=== PATIENT | female | born 1985 | race Caucasian/White ===

== ENCOUNTER → 2018-07-10 12:36 | Outpatient (CLI) | payer MEDICARE, MEDICAID, SELFPAY ==
--- NOTE | 2018-07-10 12:39 | CT_ITS ---
STUDY: CT BRAIN WITH AND WITHOUT CONTRAST REASON FOR EXAM: Female, 33 years old. Chronic daily headaches. Memory impairment. RADIATION DOSAGE (If Supplied By Facility): CTDIvol = ( 44.99 ) mGy, DLP = ( 1479.73 ) mGycm TECHNIQUE: Transaxial CT imaging of the brain was performed pre and post contrast administration. The examination was performed with intravenous administration of 50 ml of Isovue 370 contrast material. Individualized dose optimization techniques were used for this CT. COMPARISON: None. FINDINGS: Normal soft tissue structures. Normal calvarium. Normal size ventricles and extra-axial spaces for the patient's age. Normal white matter tracts of the cerebral hemispheres. Normal basal ganglia and thalami. Normal brainstem. Normal cerebellum. There is no intracranial hemorrhage. There are no findings of an acute ischemic infarction. Normal visualized paranasal sinuses. CT/Brain/Head W/WO Contrast IMPRESSION: Normal unenhanced and enhanced CT scan of the brain. Electronically Signed: Paxton Paulino MD at 15:55 EST Tel [phone], Service support ,
--- OUTSIDE RECORDS SUMMARY | 2018-09-04 11:18 | XMS RPT_ITS | Clinical Summary ---
:1985 Author Organization [facility], [facility] Address [address] [place] [phone] Phone Care Team Providers Name Role Phone Raven Shepard LPN Unavailable Unavailable Conditions or Problems Problem Problem Onset Status Entry Provider Comment Standard Annotate Name Code Date Date Description Adrenal [id number] Active Kay Franco Disorder of disorder (SNOMED 08/11 [facility] [employer] adrenal gland CT) Excessive [id number] Active Kya Franco Excessive eating - (SNOMED [facility]ook [employer] eating - polyphagia CT) polyphagia Overweight 512472310 Active Kay Franco Overweight (SNOMED Shook [employer] CT) Hypersomni 59680046 Active Gabriel A Hypersomnia a (SNOMED 03/19 03/[address]) Peripheral 145824857 Active Gabriel A Peripheral edema (SNOMED 03/19 03/[address]) Abnormal 040488668 Inactive Gabriel A Abnormal weight (SNOMED 03/19 03/19 Mauricio DO weight gain gain CT) ARTHRITIS, 18187644 Active Gabriel A Rheumatoid RHEUMATOID (SNOMED 09/09 09/[address]) Urinary 559835400 Resolved Gabriel A Increased frequency (SNOMED 10/24 10/[address] of CT) urination Diarrhea, 747833408 Resolved Gabriel A Chronic chronic (SNOMED 10/24 10/[address]) Hypertrigl 215426946 Active Gabriel A Hypertriglycer >800 yceridemia (SNOMED 10/30 10/[address]) Greater 5837628 Inactive Gabriel A Trochanteric trochanter (SNOMED 10/24 10/24 Mauricio DO bursitis ic CT) bursitis, left Diarrhea, 256210647 Removed Gabriel A Chronic chronic (SNOMED 10/24 10/[address]) Urinary 675717340 Removed Gabriel A Increased frequency (SNOMED 10/24 10/24 Mauricio DO frequency of CT) urination UPPER 28574263 Resolved Gabriel A Upper RESPIRATOR (SNOMED 09/13 09/13 Mauricio DO respiratory Y CT) infection INFECTION Migraine 83027261 Active Gabriel A Migraine headache (SNOMED 04/04 04/[address]) Foot pain, 54355255 Inactive Gabriel A Foot pain left (SNOMED 02/07 02/[address]) UPPER 67910573 Removed Gabriel A Upper RESPIRATOR (SNOMED 09/13 09/13 Mauricio DO respiratory Y CT) infection INFECTION Hypertrigl 161052120 Resolved Gabriel A Hypertriglycer yceridemia (SNOMED 10/25 10/[address]) LEG PAIN, 89489953 Resolved Gabriel A Pain in lower BILATERAL (SNOMED 03/15 03/[address]) POLYCYSTIC 67456423 Resolved Gabriel A Polycystic OVARIAN (SNOMED 03/15 03/15 Mauricio DO ovaries DISEASE CT) DEPRESSION 06272028 Resolved Gabriel A Recurrent since age , MAJOR, (SNOMED 03/15 Mauricio DO major [address]) depression MUSCLE 23903398 Resolved Gabriel A Muscle WEAKNESS (SNOMED 03/15 03/15 Mauricio DO weakness (GENERALIZ CT) ED) NIPPLE 731868789 Resolved Gabriel A Bloody nipple DISCHARGE, (SNOMED 03/23 03/23 Mauricio DO discharge BLOODY CT) HYPERSOMNI 66757394 Resolved Gabriel A Hypersomnia A (SNOMED 04/06 04/[address]) SKIN RASH 234189936 Resolved Gabriel A Eruption (SNOMED 10/03 10/[address] [facility] [address]) SEXUALLY 270787474 Resolved Gabriel A Exposure to TRANSMITTE (SNOMED 10/04 10/04 [facility] sexually D DISEASE, CT) transmissible EXPOSURE disorder TO HYPOKALEMI 31512547 Resolved Gabriel A Hypokalemia A (SNOMED 11/03 11/[address] [facility] [address]) Ingrown 724295916 Resolved Gabriel A Ingrowing nail toenail (SNOMED [facility] CT) Hip pain, 52026970 Resolved Gabriel A Hip pain right (SNOMED 09/13 09/[address] [facility] [address]) Bronchitis 89940830 Resolved Gabriel A Acute , acute (SNOMED 10/25 11/[address] [facility] [address]) Chronic 520891222 Active Gabriel A Chronic pain pain (SNOMED 12/22 12/[address] [facility] [address]) Bronchitis 02202313 Removed Jianming Acute , acute (SNOMED 10/25 11/[address] [facility] [address]) Paronychia 890125401 Resolved Jianming Paronychia of left big , great (SNOMED [facility] toe toe toe CT) Hypertrigl 668848245 Removed Jianming Hypertriglycer yceridemia (SNOMED 10/25 10/[address] [facility]) Superficia 059391428 Resolved Jianming Superficial right l vein (SNOMED 09/29 09/29 [facility] vein basilic thrombosis CT) thrombosis vein from just above elbow to wrist Superficia [id number] Removed Jianming Superficial right l vein (SNOMED 09/29 09/29 [facility] vein basilic thrombosis CT) thrombosis vein from just above elbow to wrist Hip pain, 51603665 Removed Jianming Hip pain right (SNOMED 09/13 09/[address]) Ingrown 696910194 Removed Jianming Ingrowing nail toenail (SNOMED [facility] CT) Paronychia 445284188 Removed Jianming Paronychia of left big , great (SNOMED [facility] toe toe toe CT) Back pain, 293431395 Active Jianming Low back pain chronic s/p lumbar (SNOMED [facility] surgery CT) NAUSEA AND 33404707 Resolved Jianming Nausea and VOMITING (SNOMED 11/12 11/[address] [address]) OTITIS 23590146 Resolved Rehana E Chronic otitis EXTERNA, (SNOMED 08/30 08/[address] [facility] [address]) OTITIS 8784274 Resolved Rehana E Acute otitis MEDIA, (SNOMED 08/18 08/18 [facility] media ACUTE, CT) BILATERAL DKA 359540850 Resolved Jianming Diabetic (SNOMED [facility] ketoacidosis CT) CELLULITIS 211549205 Resolved Jianming Cellulitis of the (SNOMED 11/03 11/[address] [address]) site NAUSEA AND 41633071 Removed Jianming Nausea and VOMITING (SNOMED 11/12 11/[address] [address]) HYPOKALEMI 46885265 Removed Jianming Hypokalemia A (SNOMED 11/03 11/[address]) CELLULITIS 353772092 Removed Jianming Cellulitis of the (SNOMED 11/03 11/[address] [facility] [address]) site SEXUALLY 539662506 Removed Marianna A Exposure to TRANSMITTE (SNOMED 10/04 10/04 Flannery sexually D DISEASE, CT) transmissible EXPOSURE disorder TO OTITIS 8532950 Removed Jianming Acute otitis MEDIA, (SNOMED 08/18 08/18 [facility] media ACUTE, CT) BILATERAL OTITIS 8359120 Correctio Jianming Acute otitis MEDIA, (SNOMED 08/18 n 08/18 [facility] media ACUTE, CT) BILATERAL SKIN RASH 048016261 Removed Ness J Eruption (SNOMED 10/03 10/[address]) OTITIS 39895392 Removed Ness J Chronic otitis EXTERNA, (SNOMED 08/30 08/[address]) DKA 520527201 Removed Jianming Diabetic (SNOMED [facility] ketoacidosis CT) OTITIS 3924365 Resolved Jianming Otitis externa EXTERNA (SNOMED 03/23 03/[address]) HYPERSOMNI 06557212 Removed Jianming Hypersomnia A (SNOMED 04/06 04/[address]) ALLERGIC 36651193 Active Jianming Allergic RHINITIS (SNOMED 04/06 04/[address]) OTITIS 5985578 Removed Jianming Otitis externa EXTERNA (SNOMED 03/23 03/[address]) NIPPLE 471498925 Removed Jianming Bloody nipple DISCHARGE, (SNOMED 03/23 03/[address] [facility] [address] BLOODY [address]) NIPPLE 952275959 Correctio Jianming Bloody nipple DISCHARGE, (SNOMED 03/23 n 03/[address] [facility] [address] B[address]ODY [address]) OTITIS 9259352 Correctio Jianming Otitis externa EXTERNA (SNOMED 03/23 n 03/[address]) 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, (SNOMED 02/10 02/[address]) POLYCYSTIC 40751764 Active Ness J Polycystic OVARIAN (SNOMED 02/10 02/[address]) FIBROMYALG 21759814 Active Ness J Fibromyositis IA, SEVERE (SNOMED 02/10 02/[address]) IMMUNOCOMP 221169681 Active Ness J Immunodeficien ROMISED (SNOMED 02/10 02/[address]) HUMAN 512480300 Active Ness J Human PAPILLOMAV (SNOMED 02/10 02/[address]) virus infection TACHYCARDI 2627120 Active Jianming Tachycardia since 2003 A (SNOMED 01/[address]) HYPOGLYCEM 659817539 Resolved Jianming Hypoglycemia IA (SNOMED 09/24 09/[address]) MOVEMENT 02679263 Resolved Jianming Movement DISORDER (SNOMED 09/24 09/[address] [facility]) ROSACEA 679904460 Active Jianming Rosacea (SNOMED 01/14 01/[address]) TACHYCARDI 5186693 Resolved Jianming Tachycardia A (SNOMED 03/[address]) GLUCOCORTI 511640977 Resolved Jianming 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 PHARYNGITI 770617343 Resolved Jianming Acute S, ACUTE (SNOMED 09/07 09/[address] [address]) UPPER 04622404 Resolved Jianming Upper RESPIRATOR (SNOMED 09/13 09/[address] [facility] respiratory Y CT) infection INFECTION COUGH 59729511 Resolved Jianming Cough (SNOMED 09/13 09/[address]) HYPOGLYCEM 911098367 Removed Jianming Hypoglycemia IA (SNOMED 09/24 09/[address]) MOVEMENT 70897276 Removed Jianming Movement DISORDER (SNOMED 09/24 09/[address] [facility]) COUGH 32045024 Removed Salma M Cough (SNOMED 09/13 09/[address]) UPPER 96973816 Removed Salma M Upper RESPIRATOR (SNOMED 09/13 09/[address]) infection INFECTION PHARYNGITI 906040141 Removed Jianming Acute S, ACUTE (SNOMED 09/07 09/[address] [address]) MELENA 2578017 Resolved Jianming Melena (SNOMED 11/06 11/[address]) LOCALIZED R22.9 Resolved Jianming Localized right SUPERFICIA (ICD-10-CM [facility] swelling, mass axillary L SWELLING ) and lump, MASS OR unspecified LUMP LIVER V12.2 Resolved Jianming Personal FUNCTION (ICD-9-CM) 03/15 03/15 [facility] history of TESTS, endocrine, ABNORMAL, metabolic, and HX OF immunity disorders CONSTIPATI 983457096 Resolved Jianming Chronic ON, (SNOMED 09/23 09/[address] [facility] [address] CHRONIC CT) ABDOMINAL R10.31 Resolved Jianming Right lower PAIN RIGHT (ICD-10-CM 09/23 09/23 [facility] quadrant pain LOWER ) QUADRANT OTITIS 2169174 Resolved Jianming Otitis externa EXTERNA (SNOMED 08/22 08/[address]) GLUCOCORTI 289262842 Removed Jianming 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 OTITIS 8424920 Removed Jianming Otitis externa EXTERNA (SNOMED 08/22 08/[address]) LOCALIZED R22.9 Removed Jianming Localized right SUPERFICIA (ICD-10-CM 0 [facility] swelling, mass axillary L SWELLING ) and lump, MASS OR unspecified LUMP BIPOLAR 732181455 Active Jianming Bipolar diagnosed AFFECTIVE (SNOMED 02/19 [facility] affective by DISORDER, CT) disorder, psychiatris DEPRESSED current t at episode Kristian depression in [place] GASTROESOP 857262866 Active Jianming Gastroesophage HAGEAL (SNOMED 02/19 [facility] al reflux REFLUX CT) disease DISEASE INSOMNIA, 130623530 Active Jianming Insomnia CHRONIC (SNOMED 02/19 02/[address]) ACUTE 79604248 Resolved Jianming Acute ETHMOIDAL (SNOMED 09/18 09/18 [facility] ethmoidal SINUSITIS CT) sinusitis MELENA 0243521 Removed Luis Eduardo M Melena (SNOMED 11/06 11/[address]) ACUTE 21337691 Removed Jianming Acute ETHMOIDAL (SNOMED 09/18 09/18 [facility] ethmoidal SINUSITIS CT) sinusitis ABDOMINAL R10.31 Removed Jianming Right lower PAIN RIGHT (ICD-10-CM 09/23 09/23 [facility] quadrant pain LOWER ) QUADRANT CONSTIPATI 366921397 Removed Jianming Chronic ON, (SNOMED 09/23 09/[address] [facility] [address]) ARTHRITIS, 87114932 Inactive Jianming Rheumatoid f/u DrVerito RHEUMATOID (SNOMED 09/09 09/09 [facility] [address] [place] CT) DYSLIPIDEM 101196777 Active Jianming Dyslipidemia IA (SNOMED 04/03 04/[address]) MUSCLE 38010470 Removed Jianming Muscle WEAKNESS (SNOMED 03/15 03/15 [facility] weakness (GENERALIZ CT) ED) DEPRESSION 14280591 Removed Jianming Recurrent since age , MAJOR, (SNOMED 03/15 [facility] major [address]) depression POLYCYSTIC 43223564 Removed Jianming Polycystic OVARIAN (SNOMED 03/15 03/[address] [facility] [address]) IRRITABLE 30952226 Active Jianming Irritable BOWEL (SNOMED 03/15 03/15 [facility] bowel syndrome SYNDROME CT) TACHYCARDI 8979160 Removed Jianming Tachycardia A (SNOMED 03/[address]) LEG PAIN, 80955007 Removed Jianming Pain in lower BILATERAL (SNOMED 03/15 03/[address]) HYPOTHYROI 97996351 Active Jianming Hypothyroidism DISM (SNOMED 08/11 03/[address]) DIABETES 74774324 08/11/19 Active Jianming Type 1 MELLITUS, (SNOMED 03/15 [facility] diabetes TYPE I CT) mellitus LIVER V12.2 Removed Jianming Personal FUNCTION (ICD-9-CM) 03/15 03/15 [facility] history of TESTS, endocrine, ABNORMAL, metabolic, and HX OF immunity disorders Medications Medication Instructions Start Stop Generic Name NDC Provider Date Date NOVOLOG 100 Take 35 units 2024/ INSULIN ASPART [id number] Kay Franco UNIT/ML SOLN each meal 07/02 [facility] [employer] sliding scale up to 130 daily LANTUS 100 Take 56 units 2024/ INSULIN GLARGINE 89811560589 Kay Franco UNIT/ML SOLN daily 07/02 Mike GARNER FREESTYLE LITE Use for 2024/ BLOOD GLUCOSE 03802652456 Kay ROMAN diabetes to 07/02 MONITORING SUPPL Mike GARNER test blood glucose level 6 times daily ICD!) E10.9 FREESTYLE LITE Use for 2024/ BLOOD GLUCOSE 79059117206 Kay ROMAN diabetes 07/02 MONITORING SUPPL Mike GARNER ICD!) E10.9 FREESTYLE LITE Check BG 6 2024/ GLUCOSE BLOOD 98915837599 Kay J TEST STRP times daily 07/02 Mike GARNER ICD10 E10.9 NOVOLOG 100 Take 35 units 2024/ INSULIN ASPART 15880650606 Kay Joan UNIT/ML SOLN each meal /07/02 Mike GARNER FREESTYLE LITE Check BG 6 2024/ GLUCOSE BLOOD 58823662706 Kay Joan TEST STRP times daily 07/02 Mike GARNER FREESTYLE LITE Use for 2024/ BLOOD GLUCOSE 23198250041 Kay ROMAN diabetes 07/02 MONITORING SUPPL Mike GARNER ATORVASTATIN One tablet by ATORVASTATIN CALCIUM 20024231005 Gabriel A CALCIUM 20 MG mouth daily at /15 [facility] TABS night for high cholesterol FUROSEMIDE 20 MG One tablet by FUROSEMIDE 44201390013 Gabriel A TABS mouth daily / [facility] DO ATENOLOL 50 MG One tablet by ATENOLOL 08677828636 Gabriel A TABS mouth twice / [facility] daily DEXAMETHASONE 1 One tab by DEXAMETHASONE 77343247401 Gabriel A MG TABS mouth at 11pm, / [facility] DO lab work at 8AM the next morning ZYRTEC ALLERGY One tablet by CETIRIZINE HCL 42115231321 Gabriel A 10 MG TABS mouth daily at / [facility] bedtime OMEPRAZOLE 20 MG One tablet by OMEPRAZOLE 19858532216 Gabriel A TBEC mouth daily / [facility] DO SYNTHROID 137 One tablet by LEVOTHYROXINE SODIUM 72313504511 Gabriel A MCG TABS mouth daily / [facility] NOVOLIN N 100 40-50 units INSULIN ISOPHANE 08267819610 Gabriel A UNIT/ML SUSP twice daily / HUMAN [facility] ACYCLOVIR 400 MG One tablet by ACYCLOVIR 93445141134 Gabriel A TABS mouth daily / [facility] DIVALPROEX Two tablets by DIVALPROEX SODIUM 68135418653 Gabriel A SODIUM 250 MG mouth daily / [facility] TBEC SEROQUEL 200 MG One tablet by QUETIAPINE FUMARATE 90762567119 Gabriel A TABS mouth daily / [facility] EFFEXOR XR 75 MG Three tablets VENLAFAXINE HCL 48005535459 Gabriel A [id number] by mouth daily / [facility] NOVOLOG 100 15-30 units INSULIN ASPART 81484241890 Gabriel A UNIT/ML SOLN three times a / [facility] day with meals BD INSULIN 5-6 times INSULIN 54396532601 Gabriel A SYRINGE daily DX: SYRINGE-NEEDLE U-100 [facility] ULTRAFINE 30G X type I / 0.5 ML DOXEPIN HCL 25 1 capsule by DOXEPIN HCL 75642405282 Gabriel A MG CAPS mouth at night / [facility] for IBS FENOFIBRATE 48 Two tablets FENOFIBRATE 94063108612 Gabriel A MG TABS daily / [facility] ACYCLOVIR 400 MG One tablet by ACYCLOVIR 59193618673 Gabriel A TABS mouth twice [facility] daily XIFAXAN 550 MG One tablet by 2015/ RIFAXIMIN 15760576299 Gabriel A TABS mouth three /11/07 [facility] times daily DIAZEPAM 5 MG One tablet by DIAZEPAM 41007897047 Gabriel A TABS mouth daily / [facility] every night, avoid driving or operating machine under the influence of medication. PROPRANOLOL HCL One capsule by PROPRANOLOL HCL 42913158929 Gabriel A ER 80 MG mouth daily at / [facility] [id number] night for migraine prevention and tachycardia NOVOLOG 100 30 units three INSULIN ASPART 57711476443 Gabriel A UNIT/ML SOLN times a day / Mauricio DO with meals NOVOLIN N 100 45 units SC INSULIN ISOPHANE 70097574298 Gabriel A UNIT/ML SUSP twice daily / HUMAN Mauricio DO FOLIC ACID 1 MG Two tablets by FOLIC ACID 32224077396 Gabriel A TABS mouth daily / Mauricio DO KLOR-CON M20 20 One tablet by POTASSIUM CHLORIDE 26827957880 Gabriel A MEQ CR-TABS mouth daily /12 MELANY CR Mauricio DO ATENOLOL 50 MG One tablet by ATENOLOL 31007302076 Gabriel A TABS mouth twice / Mauricio DO daily NOVOLOG 100 25 units SC at INSULIN ASPART 15442114502 Gabriel A UNIT/ML SOLN BF, 30 units / Mauricio DO at Lunch [employer] Supp[employer] FENOFIBRATE 48 One tablet by FENOFIBRATE 97336305553 Jianming MG TABS mouth daily, [facility] then increase to two tablets if tolerate it DOXYCYCLINE One tablet by DOXYCYCLINE HYCLATE 59711344841 [facility] HYCLATE 100 MG mouth twice / [facility] CAPS daily x 10 days PRAVASTATIN One tablet by PRAVASTATIN SODIUM 14671955465 Jianming SODIUM 40 MG mouth daily / [facility] TABS every night AMOXICILLIN-POT One tablet by AMOXICILLIN-POT 55523177782 Jianming CLAVULANATE mouth twice / CLAVULANATE [facility] 875-125 MG TABS daily SYNTHROID 112 One tablet by LEVOTHYROXINE SODIUM 09452027680 Lakishamsing MCG TABS mouth daily / [facility] QUETIAPINE Three tablets QUETIAPINE FUMARATE 17841946967 Jianming FUMARATE 50 MG by mouth daily / [facility] TABS at bed time DIVALPROEX One tablet by DIVALPROEX SODIUM 04460717509 Jianming SODIUM 250 MG mouth twice / [facility] TBEC daily DIAZEPAM 2 MG One tablet by DIAZEPAM 38863809162 Jianming TABS mouth daily / [facility] every night QUETIAPINE Two tablets by QUETIAPINE FUMARATE 37666975021 Jianming FUMARATE 50 MG mouth daily / [facility] TABS every night EFFEXOR XR 150 One tablet by VENLAFAXINE HCL 03391949532 Jianming MG [id number] mouth daily / [facility] COLACE 100 MG One tablet by DOCUSATE SODIUM 77906475575 Jianming CAPS mouth daily / [facility] PROMETHAZINE HCL One tablet by PROMETHAZINE HCL 52046351718 Jianming 12.5 MG TABS mouth three [facility] times daily as needed nausea/vomitin g DIAZEPAM 2 MG One tablet by DIAZEPAM 77063331248 Jianming TABS mouth twice / [facility] daily QUETIAPINE Two tablets by QUETIAPINE FUMARATE 63727488088 Jianming FUMARATE 50 MG mouth twice [facility] TABS daily SULFAMETHOXAZOLE One tablet by SULFAMETHOXAZOLE-TRI 34927563320 Jianming -TRIMETHOPRIM mouth twice METHOPRIM [facility] 800-160 MG TABS daily AMPICILLIN 500 One tablet by AMPICILLIN 77593653233 Jianming MG CAPS mouth [facility] times daily ZOLPIDEM One tablet by ZOLPIDEM TARTRATE 54096732972 Lakishanming TARTRATE 5 MG mouth daily / [facility] TABS every night DIVALPROEX One tablet by DIVALPROEX SODIUM 83396520085 Lakishanming SODIUM 125 MG mouth twice / [facility] TBEC daily QUETIAPINE one tablets by QUETIAPINE FUMARATE 77426937307 Jianming FUMARATE 50 MG mouth in AM , / [facility] TABS two tablets by mouth in pM EFFEXOR XR 75 MG One tablet by VENLAFAXINE HCL 94938844306 Leticiaing [id number] mouth daily [facility] QUETIAPINE one tablets by QUETIAPINE FUMARATE 35828753897 Jianming FUMARATE 50 MG mouth in AM , [facility] TABS two tablets by mouth in pM SYNTHROID 100 One tablet by LEVOTHYROXINE SODIUM 85854401762 Lakishamsing MCG TABS mouth daily / [facility] AMOXICILLIN-POT One tablet by AMOXICILLIN-POT 79352861742 Lakishanming CLAVULANATE mouth twice / CLAVULANATE [facility] 875-125 MG TABS daily QUETIAPINE One tablet by QUETIAPINE FUMARATE 32486717996 Jianming FUMARATE 50 MG mouth twice / [facility] TABS daily x 1 day, then titrate up as directed VALIUM 2 MG TABS One tablet by DIAZEPAM 00794812665 Jianming mouth twice / [facility] daily ZOLPIDEM One tablet by ZOLPIDEM TARTRATE 38977440342 Lakishanming TARTRATE 5 MG mouth daily / [facility] TABS every night as needed, avoid driving or operating machine under the influence of medication. MUPIROCIN 2 % apply to MUPIROCIN 40051522726 Jianming OINT affected area / [facility] four times a day CIPRO HC 0.2-1 % 4 gtt to left CIPROFLOXACIN-HYDROC 29125871346 Lakishamsing SUSP ear three ORTISONE [facility] times a day PODOCON 25 % PODOPHYLLUM RESIN 42479921533 Ness J SOLN / Maria Elena [facility] ACYCLOVIR 800 MG one po q 8 hrs ACYCLOVIR 40548200886 Ness J TABS / Signs FAMVIR 500 MG one po tid FAMCICLOVIR 59314921009 Ness J TABS /03 Signs METROGEL 1 % GEL apply to METRONIDAZOLE 62481088896 Jianming affected area / [facility] thin layer, once daily DOXYCYCLINE One tablet by [facility]77675 [facility] MG mouth twice / [facility] CAPS daily x 10 days, then One tablet by mouth daily VENLAFAXINE HCL One tablet by VENLAFAXINE HCL 74618029231 Lakishanming ER 75 MG mouth daily / [facility] [id number] TRAZODONE HCL 50 Two tablets by TRAZODONE HCL 80134523350 Jianming MG TABS mouth daily / [facility] AZITHROMYCIN 250 two tablets by AZITHROMYCIN 11182825897 Jianming MG TABS mouth on day / [facility] one, and one tablets daily one day 2-5 EFFEXOR XR 37.5 One tablet by VENLAFAXINE HCL 88559391749 Jianming MG [id number] mouth daily / [facility] CETRAXAL 0.2 % 4-5 drop CIPROFLOXACIN HCL 66922130203 Jianming SOLN affected ear / [facility] three times a day DIVALPROEX One tablet by DIVALPROEX SODIUM 18302633962 Lakishanming SODIUM 250 MG mouth twice / [facility] TBE daily DISABILITY DX: Rheumatoid DISABILITY PLACARD Rabia PLACARD arthritis / [facility] duration: five years PROTONIX 40 MG One tablet by PANTOPRAZOLE SODIUM 93628966366 Lakishanming PACK mouth daily. [facility] DIVALPROEX One tablet by DIVALPROEX SODIUM 95151160103 Lakishanming SODIUM 125 MG mouth twice / [facility] TBEC daily ATENOLOL 50 MG One tablet by ATENOLOL 80143484843 Jianming TABS mouth daily at [facility] bedtime TRAZODONE HCL 50 One tablet by TRAZODONE HCL 19348612507 Lakishanming MG TABS mouth daily / [facility] every night CITALOPRAM One tablet by CITALOPRAM 86752219759 Rabia HYDROBROMIDE 40 mouth daily / HYDROBROMIDE [facility] MG TABS NOVOLIN N 100 40 units SC INSULIN ISOPHANE 05616940714 Lakishanming UNIT/ML SUSP twice daily / HUMAN [facility] HUMALOG 100 30 units SC INSULIN LISPRO 14022463358 Lakishanming UNIT/ML SOLN before meals (HUMAN) [facility] AUGMENTIN XR One tablet by AMOXICILLIN-POT 81048054902 Rabia 1000-62.5 MG mouth twice / CLAVULANATE [facility] [id number] daily METHOTREXATE 2.5 4 pills by METHOTREXATE SODIUM 75242371859 Lakishanming MG TABS mouth once / [facility] weekly CIPROFLOXACIN One tablet by 2010/ CIPROFLOXACIN HCL 72102313713 Lakishanming HCL 500 MG TABS mouth twice /08/02 [facility] daily METRONIDAZOLE One tablet by 2010/ METRONIDAZOLE 41658839950 Lakishanming 500 MG TABS mouth three /08/02 [facility] times daily INDOMETHACIN 25 1-2 tablets INDOMETHACIN 08287307223 Leticiaing MG CAPS three times a [facility] day as needed pain GLUCOMETER use as GLUCOMETER Rabia directed AC / [facility] and [facility] HUMALOG 100 40 units SC at INSULIN LISPRO 72387242872 Jianming UNIT/ML SOLN each meal / (HUMAN) [facility] PRAVASTATIN One tablet by PRAVASTATIN SODIUM 81388871459 Jianming SODIUM 80 MG mouth daily / [facility] TABS LEVEMIR 100 40 units SC INSULIN DETEMIR 39031719450 Jian[place] UNIT/ML SOLN twice daily / [facility] NOVOLIN N 100 40 units SQ INSULIN ISOPHANE 25585165365 Luis Eduardo M UNIT/ML SUSP twice daily. / HUMAN Kunal [facility] HUMULIN N 100 40 units twice INSULIN ISOPHANE 89404213264 Jianming UNIT/ML SUSP daily / HUMAN [facility] HUMALOG 100 20 units per INSULIN LISPRO 39477342792 Jianming UNIT/ML SOLN meal / (HUMAN) [facility] ULTRAM 50 MG Two tablets by TRAMADOL HCL 24541838867 Jianming TABS mouth [facility] times daily, avoid driving or operating machine under the influence of medication. PRAVASTATIN One tablet by PRAVASTATIN SODIUM 24216361770 Jianming SODIUM 20 MG mouth daily / [facility] TABS every night TRAZODONE HCL 50 One tablet by TRAZODONE HCL 48828978172 Jianming MG TABS mouth daily / [facility] every night LEXAPRO 20 MG One tablet by ESCITALOPRAM OXALATE 48475866490 Jianming TABS mouth daily / [facility] ATENOLOL 50 MG One tablet by ATENOLOL 04929646618 Jianming TABS mouth daily at / [facility] bedtime HYDROCODONE-ACET One tablet by HYDROCODONE-ACETAMIN 58731407886 Leticia[facility] AMINOPHEN 5-500 mouth HUBERT Carlson MD MG TABS times daily avoid driving or operating machine under the influence of medication. HYDROCODONE-ACET One tablet by 2011/ HYDROCODONE-ACETAMIN 49494316308 Lakishanming AMINOPHEN 5-500 mouth 02/19 HUBERT Carlson MD MG TABS times daily avoid driving or operating machine under the influence of medication. ULTRAM 50 MG Two tablets by 2011/ TRAMADOL HCL 04725272188 Jianming TABS mouth 09/18 [facility] times daily, avoid driving or operating machine under the influence of medication. AUGMENTIN XR One tablet by 2011/ AMOXICILLIN-POT [id number] Luis Eduardo M 1000-62.5 MG mouth twice 11/06 CLAVULANATE Kunal IQBAL [id number] daily FOLIC ACID 1 MG 2 tablets by FOLIC ACID [id number] Jianming TABS mouth daily Aldo IQBAL FOLIC ACID 1 MG 2 tablets by 2011/ FOLIC ACID [id number] Luis Eduardo M TABS mouth daily /11/06 Kunal IQBAL LEUCOVORIN one tablet by LEUCOVORIN CALCIUM 53866086381 Jianming CALCIUM 5 MG mouth once Aldo IQBAL TABS weekly LEUCOVORIN one tablet by 2011/ LEUCOVORIN CALCIUM 86924705338 Luis Eduardo M CALCIUM 5 MG mouth once 11/06 Kunal IQBAL TABS weekly LEVEMIR 100 40 units SC 2010/ INSULIN DETEMIR 10953920589 Jianming UNIT/ML SOLN twice daily 07/11 Aldo IQBAL HUMALOG 100 INSULIN LISPRO 86538173909 Jianming UNIT/ML SOLN (HUMAN) Aldo IQBAL HUMULIN N 100 40 units twice 2010/ INSULIN ISOPHANE 52359841812 Luis Eduardo M UNIT/ML SUSP daily 07/01 HUMAN Kunal IQBAL NOVOLIN N 100 40 units SQ 2010/ INSULIN ISOPHANE 69613916907 Jianming UNIT/ML SUSP twice daily. 07/10 HUMAN Aldo IQBAL INDOMETHACIN 25 1-2 tablets 2011/ INDOMETHACIN 71651975839 Jianming MG CAPS three times 02/19 Aldo IQBAL day as needed pain METANX 3-35-2 MG One tablet by [id number] Luis Eduardo M TABS mouth twice 2 Kunal IQBAL daily METANX 3-35-2 MG One tablet by 2011/ [id number] Jianming TABS mouth twice 06/03 2 Aldo IQBAL daily ENBREL 50 MG/ML 1 time weekly ETANERCEPT 36045718960 Jianming SOSY Aldo IQBAL ENBREL 50 MG/ML 1 time weekly 2011/ ETANERCEPT [id number] Jianming SOSY /06/03 Aldo IQBAL PROTONIX 40 MG One tablet by 2011/ PANTOPRAZOLE SODIUM 86670023677 Jianming PACK mouth daily. /06/03 Aldo IQBAL DIVALPROEX One tablet by 2011/ DIVALPROEX SODIUM 06073733439 Jianming SODIUM 250 MG mouth twice /06/03 Aldo IQBAL TBEC daily PREDNISONE 10 MG One tablet by PREDNISONE [id number] Jianming TABS mouth twice / Aldo IQBAL daily PREDNISONE 10 MG One tablet by 2011/ PREDNISONE [id number] Jianming TABS mouth twice /06/03 Aldo IQBAL daily CITALOPRAM One tablet by 2011/ CITALOPRAM [id number] Rabia HYDROBROMIDE 40 mouth daily /06/03 HYDROBROMIDE Aldo IQBAL MG TABS NUCYNTA 50 MG One tablet by TAPENTADOL HCL 46087251009 Jianming TABS mouth twice / Aldo IQBAL daily NUCYNTA 50 MG One tablet by 2011/ TAPENTADOL HCL [id number] Jianming TABS mouth twice /06/03 Aldo IQBAL daily NEURONTIN 100 MG One tablet by GABAPENTIN 14439547798 Jianming CAPS mouth twice / Aldo IQBAL daily NEURONTIN 100 MG One tablet by 2011/ GABAPENTIN [id number] Jianming CAPS mouth twice /06/03 Aldo IQBAL daily LEVOTHYROXINE One tablet by LEVOTHYROXINE SODIUM 04719387500 Lakishanming SODIUM 125 MCG mouth daily / Aldo IQBAL TABS HUMALOG 100 40 units SC at 2011/ INSULIN LISPRO 76901942938 Jianming UNIT/ML SOLN each meal /06/03 (HUMAN) Aldo IQBAL NOVOLIN N 100 40 units SC 2011/ INSULIN ISOPHANE 95854801798 Jianming UNIT/ML SUSP twice daily /06/03 HUMAN Aldo IQBAL AZITHROMYCIN 250 two tablets by 2012/ AZITHROMYCIN 58499468403 Jianming MG TABS mouth on day /09/24 Aldo IQBAL one, and one tablets daily one day 2-5 HUMIRA PEN 40 1 injection ADALIMUMAB 39235872651 Jianming MG/0.8ML KIT every Aldo IQBAL week HUMIRA PEN 40 1 injection 2012/ ADALIMUMAB 23742946912 Jianming MG/0.8ML KIT every other 01/14 Aldo IQBAL week EFFEXOR XR 37.5 One tablet by 2012/ VENLAFAXINE HCL 44302233526 Jianming MG [id number] mouth daily /01/14 Aldo IQBAL DOXYCYCLINE One tablet by 2012/ DOXYCYCLINE HYCLATE 52441795838 Ness J HYCLATE 100 MG mouth twice /02/10 Signs CAPS daily x 10 days, then One tablet by mouth daily VENLAFAXINE HCL One capsule by VENLAFAXINE HCL 78918961600 Salma Milton ER 75 MG mouth daily / Mallorie [id number] VENLAFAXINE HCL One capsule by 2012/ VENLAFAXINE HCL [id number] Ness Franco ER 75 MG mouth daily /02/10 Maria Elena IQBAL [id number] NUCYNTA ER 50 MG One tablet by TAPENTADOL HCL [id number] Jianming [id number] mouth Aldo IQBAL times daily NUCYNTA ER 50 MG One tablet by 2012/ TAPENTADOL HCL 65264031185 Ness Franco [id number] mouth three 02/10 Maria Elena IQBAL times daily CETRAXAL 0.2 % 4-5 drop 2012/ CIPROFLOXACIN HCL 75317393086 Jianming SOLN affected ear /12 09/24 Aldo IQBAL three times a day PRAVASTATIN One tablet by PRAVASTATIN SODIUM 14870547047 Jianming SODIUM 40 MG mouth daily / Aldo IQBAL TABS PRAVASTATIN One tablet by 2012/ PRAVASTATIN SODIUM 03750238135 Jianming SODIUM 40 MG mouth daily /09/24 Aldo IQBAL TABS SOLU-CORTEF 100 One tablet by HYDROCORTISONE SOD 20890801616 Jianming MG SOLR mouth daily as SUCCINATE Aldo IQBAL needed SOLU-CORTEF 100 One tablet by 2012/ HYDROCORTISONE SOD 16810213924 Jianming MG SOLR mouth daily as /10/19 SUCCINATE Aldo IQBAL needed HYDROCORTISONE 5 One tablet by HYDROCORTISONE 87735804365 Jianming MG TABS mouth daily / Aldo IQBAL HYDROCORTISONE 5 One tablet by 2012/ HYDROCORTISONE 31168152882 Jianming MG TABS mouth daily /10/19 Aldo CHIANG 10 one patch per BUPRENORPHINE 80642451776 Jianming MCG/HR PTWK week Aldo CHIANG 10 one patch per 2012/ BUPRENORPHINE 75808193978 Jianming MCG/HR PTWK week 10/19 Aldo IQBAL HUMULIN R U-500 12 units per INSULIN REGULAR 21122472340 Jianming (CONCENTRATED) meal / HUMAN Aldo IQBAL 500 UNIT/ML SOLN HUMULIN R U-500 12 units per 2012/ INSULIN REGULAR 74714298235 Jianming (CONCENTRATED) meal 10/19 HUMAN Aldo IQBAL 500 UNIT/ML SOLN METHOTREXATE 2.5 4 pills by 2012/ METHOTREXATE SODIUM 31744831044 Ness J MG TABS mouth once 08/02 Maria Elena IQBAL weekly LEUCOVORIN 2 tablets by LEUCOVORIN CALCIUM 16235497425 Lakishamsing CALCIUM 5 MG mouth once / Aldo IQBAL TABS weekly LEUCOVORIN 2 tablets by 2012/ LEUCOVORIN CALCIUM 07108371864 Ness J CALCIUM 5 MG mouth once /08/02 Maria Elena IQBAL TABS weekly SYNTHROID 137 One tablet by LEVOTHYROXINE SODIUM 72152831016 Jianming MCG TABS mouth daily Aldo IQABL SYNTHROID 137 One tablet by 2012/ LEVOTHYROXINE SODIUM 82122047624 Rehana E MCG TABS mouth daily /08/03 Schloneger AMOXICILLIN-POT One tablet by 2013/ AMOXICILLIN-POT 13530707689 [facility] CLAVULANATE mouth twice /09/13 CLAVULANATE Aldo IQBAL 875-125 MG TABS daily METROGEL 1 % GEL apply to 2012/ METRONIDAZOLE 00603453810 Jianming affected area 06/07 Aldo IQBAL thin layer, once daily OMEPRAZOLE 20 MG One tablet by OMEPRAZOLE 29961582871 Jianming TBEC mouth daily / Aldo IQBAL OMEPRAZOLE 20 MG One tablet by 2012/ OMEPRAZOLE 15499208814 Jianming TBEC mouth daily /06/07 Aldo IQBAL FAMVIR 500 MG one po tid 2012/ FAMCICLOVIR 97579733259 Jianming TABS /06/07 Aldo IQBAL FENTANYL 25 change q 3 FENTANYL 10878475004 Ness Franco MCG/HR PT72 days Maria Elena IQBAL FENTANYL 25 change q 3 2012/ FENTANYL 41950659743 Jianming MCG/HR PT72 days 06/07 Aldo IQBAL TRAZODONE HCL 50 Two tablets by 2012/ TRAZODONE HCL 27050316330 Jianming MG TABS mouth daily /04/06 Aldo IQBAL MUPIROCIN 2 % apply to 2012/ MUPIROCIN 35567785518 Jianming OINT affected area /06/07 Aldo IQBAL four times a day ZOLPIDEM One tablet by 2012/ ZOLPIDEM TARTRATE 68879146476 Jianming TARTRATE 5 MG mouth daily /06/07 Aldo IQBAL TABS every night as needed, avoid driving or operating machine under the influence of medication. PODOCON 25 % 2012/ PODOPHYLLUM RESIN 37734931591 Jianming SOLN /06/07 Aldo IQBAL ACYCLOVIR 800 MG one po q 8 hrs 2012/ ACYCLOVIR 76829206722 Jianming TABS /06/07 Aldo IQBAL CIPRO HC 0.2-1 % 4 gtt to left 2012/ CIPROFLOXACIN-HYDROC 98361596750 Jianming SUSP ear three 06/07 ORTISONE Aldo MD times a day VALIUM 2 MG TABS One tablet by 2013/ DIAZEPAM 06039392727 Jianming mouth twice 11/19 Aldo IQBAL daily PROMETHAZINE HCL One tablet by 2013/ PROMETHAZINE HCL 94679621098 Jianming 12.5 MG TABS mouth 12/20 Aldo IQBAL times daily as needed nausea/vomitin g DIVALPROEX One tablet by 2013/ DIVALPROEX SODIUM 26076090537 Jianming SODIUM 125 MG mouth twice /11/12 Aldo IQBAL TBEC daily ZOLPIDEM One tablet by 2013/ ZOLPIDEM TARTRATE 62823465126 Jianming TARTRATE 5 MG mouth daily /11/19 Aldo IQBAL TABS every night SYNTHROID 100 One tablet by 2013/ LEVOTHYROXINE SODIUM 03122210445 Rabia MCG TABS mouth daily /10/22 Aldo IQBAL DEPO-SUBQ once every MEDROXYPROGESTERONE 99357414025 Jianming PROVERA 104 104 three months / ACETATE Aldo IQBAL MG/0.65ML PARVIN DEPO-SUBQ once every 2013/ MEDROXYPROGESTERONE 08546436864 Jianming PROVERA 104 104 three months /11/03 ACETATE Aldo IQBAL MG/0.65ML PARVIN NOVOLIN N 100 40 units SC INSULIN ISOPHANE 44677337966 Jianming UNIT/ML SUSP twice daily HUMAN Aldo IQBAL NOVOLOG 100 25 units SC at INSULIN ASPART 09419134092 Jianming UNIT/ML SOLN BF, 30 units / Aldo IQBAL at Lunch and Supper DIAZEPAM 2 MG One tablet by 2013/ DIAZEPAM 51606159205 Rehana E TABS mouth daily /01/21 Schloneger every night AMOXICILLIN-POT One tablet by 2013/ AMOXICILLIN-POT 77530901792 Salma Milton CLAVULANATE mouth twice /07/13 CLAVULANATE Mallorie 875-125 MG TABS daily NUCYNTA ER 50 MG One tablet by TAPENTADOL HCL 55026052291 Rabia [id number] mouth twice / Aldo IQBAL daily as needed NUCYNTA ER 50 MG One tablet by 2013/ TAPENTADOL HCL [id number] Salma Milton [id number] mouth twice /07/13 Mallorie daily as needed TOPIRAMATE 50 MG One tablet by TOPIRAMATE 39330422664 Salma M TABS mouth daily / Mallorie TOPIRAMATE 50 MG One tablet by 2013/ TOPIRAMATE 98390249760 Jianming TABS mouth daily /07/29 Aldo IQBAL AMPICILLIN 500 One tablet by 2013/ AMPICILLIN 75436620546 Lakishanming MG CAPS mouth four 12/20 Aldo IQBAL times daily VITAMIN D one tablet by ERGOCALCIFEROL 31659487888 Rabia (ERGOCALCIFEROL) mouth once / Aldo IQBAL 36589 UNIT CAPS weekly VITAMIN D one tablet by 2013/ ERGOCALCIFEROL 27862641691 Jianming (ERGOCALCIFEROL) mouth once 12/20 Aldo IQBAL 74439 UNIT CAPS weekly SULFAMETHOXAZOLE One tablet by 2013/ SULFAMETHOXAZOLE-TRI 35458628245 Jianming -TRIMETHOPRIM mouth twice /12/20 METHOPRIM Aldo IQBAL 800-160 MG TABS daily GLUCAGEN HYPOKIT as needed IM GLUCAGON HCL (RDNA) 86104545751 Jianming 1 MG SOLR Aldo IQBAL hypoglycemia DEXAMETHASONE 1 One tab by 2016/ DEXAMETHASONE 02374114127 Raven L MG TABS mouth at 11pm, 03/31 [facility] lab work at 8AM the next morning XIFAXAN 550 MG One tablet by 2015/ RIFAXIMIN 95321802145 Gabriel A TABS mouth three 11/07 [facility] times daily ATENOLOL 50 MG One tablet by ATENOLOL 75104416883 Raven L TABS mouth twice / [facility] daily ATENOLOL 50 MG One tablet by 2014/ ATENOLOL [id number] Gabriel A TABS mouth twice /04/04 Mauricio DO daily DOXYCYCLINE One tablet by 2014/ DOXYCYCLINE HYCLATE 69920759189 Gabriel A HYCLATE 100 MG mouth twice /12/22 [facility] DO CAPS daily x 10 days HYDROMORPHONE 1 tablet by HYDROMORPHONE HCL 95778999138 Jianming HCL 2 MG TABS mouth every Aldo IQBAL 4-6 as needed HYDROMORPHONE 1 tablet by 2014/ HYDROMORPHONE HCL [id number] Gabriel A HCL 2 MG TABS mouth every 04/04 Mauricio 4-6 as needed FENTANYL 50 change q 72hrs FENTANYL 59003209038 Jianming MCG/HR PT72 Aldo IQBAL FENTANYL 50 change q 72hrs 2014/ FENTANYL 85356506364 Gabriel A MCG/HR PT72 12/22 [facility] DO SYNTHROID 112 One tablet by 2014/ LEVOTHYROXINE SODIUM 71707059947 Jianming MCG TABS mouth daily /10/25 Aldo IQBAL PRAVASTATIN One tablet by 2014/ PRAVASTATIN SODIUM 52085096677 Jianming SODIUM 40 MG mouth daily /10/25 Aldo IQBAL TABS every night FENOFIBRATE 48 Two tablets 2015/ FENOFIBRATE 63948751846 Gabriel A MG TABS daily /12/26 [facility] DO DOXEPIN HCL 25 1 capsule by 2015/ DOXEPIN HCL 76486579621 Gabriel A MG CAPS mouth at night /03/19 [facility] for IBS FOLIC ACID 1 MG Two tablets by 2015/ FOLIC ACID 02823642057 Gabriel A TABS mouth daily /03/19 [facility] DO PREMARIN 1.25 MG One tablet by ESTROGENS CONJUGATED 55105797598 Jianming TABS mouth daily / Aldo IQBAL PREMARIN 1.25 MG One tablet by 2015/ ESTROGENS CONJUGATED 97755518864 Gabriel A TABS mouth daily /03/19 [facility] KLOR-CON M20 20 One tablet by 2015/ POTASSIUM CHLORIDE 17267944095 Gabriel A MEQ CR-TABS mouth daily /03/19 MELANY CR [facility] FUROSEMIDE 20 MG One tablet by 2016/ FUROSEMIDE 67349013773 Raven L TABS mouth daily /03/31 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 [employer]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 ATORVASTATIN One tablet by 2016/ ATORVASTATIN CALCIUM 29717254943 Raven L CALCIUM 20 MG mouth daily at 03/31 Devyn MANAGER EXCHANGE TABS night for high cholesterol NOVOLOG 100 20-30 units INSULIN ASPART 43727519307 Gabriel A UNIT/ML SOLN three times [facility] day with meals COLACE 100 MG One tablet by 2015/ DOCUSATE SODIUM 20099215799 Gabriel A CAPS mouth daily /10/24 [facility] PROPRANOLOL HCL One capsule by 2014/ PROPRANOLOL HCL 02786273162 Gabriel A ER 80 MG mouth daily at 05/11 [facility] [id number] night for migraine prevention and tachycardia DIAZEPAM 5 MG One tablet by 2015/ DIAZEPAM 60699606504 Gabriel A TABS mouth daily /10/24 [facility] every night, avoid driving or operating machine under the influence of medication. Medications Administered No information available. Allergies, Adverse Reactions, Alerts Allergy Name Reaction Description Start Date Severity Status Provider FENOFIBRATE Arthralgia Moderate Active Gabriel A [facility] DO NSAIDS liver Critical Active Jianming Carlson MD TYLENOL bleeding Critical No Longer Rabia Carlson MD Active ETODOLAC elevated liver Severe Active Rabia Carlson MD enzyme AMITRIPTYLINE bleeding Critical Active Rabia Carlson MD TYLENOL bleeding Critical No Longer Rabia Carlson MD Active NSAIDS Critical No Longer Rabia Carlson MD Active Results Date Name Value Unit Range Flag Description Replaced Document: LIPID VLDL 49 mg/dL 5-40 H very low density lipoproteins LDL 125 mg/dL 0-130 N Cholesterol in LDL [Mass/volume] in Serum or Plasma HDL 37 mg/dL L Cholesterol in HDL [Mass/volume] in Serum or Plasma TRIGLYCRDES 245 mg/dL H Triglyceride [Mass/volume] in Serum or Plasma CHOLESTEROL 211 mg/dL 200 H Cholesterol [Mass/volume] in Serum or Plasma Lab Report: SED ESR 1 mm/h 0-20 N erythrocyte sedimentation rate Lab Report: CRP CRP SQ 3.43 0.0-3.0 H C Reactive Protein, semiquantitative result Lab Report: LIVER BILI DIRECT 0.11 mg/dL 0.00-0.30 N bilirubin, serum, direct Office Visit RAPID STREP negative Streptococcus pyogenes DNA [Presence] in Throat by Probe and target amplification method BG RANDOM 351 mg/dL blood glucose, random PH URINE 5.0 pH, urine, semiquantitative APPEARANCE U clear appearance, urine UA COLOR yellow urine color GLUCOSE, URN 5+ glucose, urine, semiquantitative BILIRUBIN UR 2+ bilirubin, urine KETONES URN moderate (40) ketones, urine, by test strip BLOOD UR DIP 2+ blood in urine (hemoglobin) by dipstick PROTEIN, URN negative Albumin [Presence] in Urine UROBILINOGEN negative urobilinogen, urine, semiquantitative (dipstick) NITRITE URN negative nitrite, urine, semiquantitative WBC DIPSTK U negative leukocyte esterase, urine, by dipstick Lab Report: ACETS - copy ACETONE SMALL mg/dL NEG acetone, serum Lab Report: UAC - copy SPEC GR URIN 1.020 1.002-1.030 specific gravity, urine Lab Report: CMP ALK PHOS 118 U/L 50-136 N alkaline phosphatase, serum Lab Report: TSH TSH 4.82 u[iU]/mL 0.358-3.74 H thyroid stimulating hormone, serum Lab Report: DEBRA VALPROIC ACD 34 ug/mL 50-100 L valproic acid, serum Lab Report: CBCD - copy ABS PMNS 3.9 X10 3/UL {Cells}/uL 2.0-7.7 N Absolute Neutrophil count BASOPHIL % 0.4 % 0-1 N basophils as percent of blood leukocytes EOSINOPHIL % 1.0 % 0-5 N eosinophils as percent of blood leukocytes MONOCYTE % 7.8 % 0-10 N monocytes as percent of blood leukocytes LYMPHS % 35.8 % 19-41 N lymphocytes as percent of blood leukocytes PMN % 53.8 % 47-70 N neutrophils as percent of blood leukocytes MPV 11.7 fL 6.2-12.0 N mean platelet volume PLATELETS 321 10*3/mm3 150-450 N platelet count MCHC RBC 33.4 G/GL g/dL 32-36 N mean corpuscular hemoglobin concentration, RBC MCH 33.0 pg 27.0-32.0 H mean corpuscular hemoglobin, RBC MCV 98.8 fL 81-99 N mean corpuscular volume, RBC HCT 41.3 % 37-47 N hematocrit, blood HGB 13.8 g/dL 12.0-15.0 N hemoglobin, blood RBC M/UL 4.18 10*6/uL 4.2-5.4 L red blood count WBC BLOOD 7.3 10*9/L 4.4-11.0 N leukocyte (white blood cells) count, blood Lab Report: CMP - copy ANION GAP 8 5-15 N anion gap, serum CO2 23.0 mmol/L 21.0-32.0 N carbon dioxide, venous blood CHLORIDE 107 mmol/L 98-107 N chloride, serum POTASSIUM 3.6 mmol/L 3.5-5.1 N potassium, serum SODIUM 138 mmol/L 136-145 N sodium, serum BILI TOTAL 0.10 mg/dL 0.00-4.00 N bilirubin, serum, total SGPT (ALT) 19 U/L 12-78 N alanine aminotransferase (SGPT), serum [id number] 130 U/L 50-136 N GE use only - for Link[employer] import when terms are not otherwise specified SGOT (AST) 15 U/L 15-37 N aspartate aminotransferase (SGOT), serum CALCIUM 8.4 mg/dL 8.5-10.1 L calcium, serum A/G RATIO 0.8 RATIO 0.9-2.4 L albumin/globulin ratio, serum GLOBULIN TOT 3.9 g/dL 2.7-4.2 N globulins, serum, total ALBUMIN 3.2 g/dL 3.4-5.0 L albumin, serum PROTEIN, TOT 7.1 g/dL 6.4-8.2 N protein, total, serum BUN/CREAT 15.0 RATIO 10-20 N urea nitrogen/creatinine ratio, serum GFRAA 110 mL/min >60 N Glomerular Filtration rate GFR EST 91 mL/min >60 N estimated glomerular filtration rate CREATININE 0.8 mg/dL 0.6-1.0 N creatinine, serum BUN 12 mg/dL 7-18 N urea nitrogen, blood GLUCOSE SER 80 mg/dL 70-110 N blood glucose Microbiology: Culture, Ear/Mastoid EAR CULTURE Cult, AnaerobicNo anaerobic bacteria ear culture isolated. Rx Refill: eRx Request for EFFEXOR XR 75MG CAP [id number]`EFFEXOR XR 75MG CAP`75MG``270 B e-scripts Capsule`90`TAKE THREE CAPSULES BY MOUTH ONCE messenger DAILY``1`0`02/07/2015`05/11/2015`[facility] [place] refill [facility]*`[id number]`VENLAFAXINE request ER 75MG CAP Quantity: 270 Capsule Instructions: TAKE THREE CAPSULES BY MOUTH ONCE DAILY Office Visit: Diabetes follow up HGBA1C 7.4 % Hemoglobin A1c/Hemoglobin.total in Blood SMOK ADVICE yes Smoking cessation education (procedure) Office Visit: Establish Care PHQ-9 SCORE 15 Adult depression screening assessment PHQ2 SCORE 0 Adult depression screening assessment Office Visit: Diabetes Follow Up SMOK STATUS Former smoker Tobacco use CP ORALTOBACUSE Current Tobacco smoking status MDIS Office Visit: Diabetes and adrenal visit MEDS REVIEW Done Documentation of current medications (procedure) Plan of Care Type Date Detail Appointment 04:00 PM Kay Mckeon NP, [address], [address], [place], [address], Referral Psychiatric Referral Referral Rheumatology Referral [facility] Provider, [facility] [place], [address] Referral Rheumatology Referral [facility] Provider, [facility] [place], [address] Referral Ophthalmology Referral Referral Ophthalmology Referral Referral excluded from report: Referral Ophthalmology Referral [address] [place] [address], [address] Referral Ophthalmology Referral [address] [place] [address], [address] Referral Gastroenterology Referral Jasbir Fuchs MD, [address], [place], [address] Referral Gastroenterology Referral Jasbir Fuchs MD, [address], [place], [address] Referral Ophthalmology Referral Referral Rheumatology Referral Reyna Tucker MD, [address], [address], [place], [address] Referral Other Referral [facility], [address] [place], [address] Referral Other Referral [facility], [address] [place], [address] Referral Podiatry Referral Jared Powers DPM, [address] [place], [address] Referral OT-Functional Capacity Evaluation Physical Therapy [facility], [address], [place], [address] Referral Dermatology Referral Nadine Marquez, [address] [place], [address] Referral Gastroenterology Referral Marlon Coon, [address] [place], [address] Referral Rheumatology Referral Reyna Tucker MD, [address], [address], [place], [address] Referral Pain Management Maricruz Hernandez, [address], [address], [place], [address] Pending order *HgA1C Pending order *Microalbumin, Creatine Ratio, rand urine Pending order *HgA1C Pending order *Microalbumin, Creatine Ratio, rand urine Pending order *TSH Pending order *Lipid Profile Pending order *CMP Complete Metabolic Panel Pending order *HgA1C Pending order *CMP Complete Metabolic Panel Pending order *Lipid Profile Pending order *Microalbumin, Creatine Ratio, rand urine Pending order *TSH Pending order *CAYDEN - Cortisol, A.M. Pending order *Lipid Profile Pending order *BMP Pending order PSG,CPAP (as indicated) ONLY PCP to follow up Pending order *CBC with Differential Pending order *CRP - C-Reative Protein Pending order *CMP Complete Metabolic Panel Pending order *HgA1C Pending order *Lipid Profile Pending order *Microalbumin, Creatine Ratio, rand urine Pending order *TSH Pending order *RA Rheumatoid Factor - Quaint Pending order *Sedimentation Rate (ESR) Pending order *UAC- Urinalysis, Complete w/ Micro Pending order *ANCA Pending order HGB A1C (Office) Pending order *HgA1C Pending order *TSH Pending order *Lipid Profile Pending order *CMP Complete Metabolic Panel Pending order X-Ray, Chest, PA & Lateral Pending order HGBA1C Pending order Lipid Profile Pending order Microalbumin urine Pending order TSH Pending order *Lipid Profile Pending order *CMP Complete Metabolic Panel Pending order *HgA1C Pending order HGBA1C Pending order Lipid Profile Pending order *HgA1C Pending order *Lipid Profile Pending order *TSH Pending order *TSH Pending order HGBA1C Pending order Lipid Profile Pending order Microalbumin urine Pending order *CMP Complete Metabolic Panel Pending order *TSH Pending order *CBC without Diff Pending order *DEBRA Valpric Acid (Depakene, Dipropylacetic Acid) Drug Assay Pending order X-Ray, Hip Unilateral Pending order *CBC without Diff Pending order *HgA1C Pending order *CMP Complete Metabolic Panel Pending order *TSH Pending order *DEBRA Valpric Acid (Depakene, Dipropylacetic Acid) Drug Assay Pending order *HgA1C Pending order *CMP Complete Metabolic Panel Pending order *Lipid Profile Pending order *DEBRA Valpric Acid (Depakene, Dipropylacetic Acid) Drug Assay Pending order *BMP Pending order *Potassium; Serum, Plasma or Whole Blood Pending order *CUW - Culture, Wound (Aerobic) Pending order *HIV antibody Pending order *HECAB Hepatitis C Antibody Pending order *HEBSAB - Hep B Surface Antibody 6395 Pending order *HEBSAG - Hep B Surface Antigen 6510 Pending order *RPR Pending order *HgA1C Pending order *BMP Pending order *CBC without Diff Pending order *Hepatic Function Panel Pending order *DEBRA Valpric Acid (Depakene, Dipropylacetic Acid) Drug Assay Pending order *ALIYA Pending order *CMP Complete Metabolic Panel Pending order *CBC with Differential Pending order *TSH Pending order *T4 free Pending order UA Dipstick (Office) Pending order Fingerstick, glucose (office) Pending order Mammogram, Diagnostic, both breasts Pending order Mammogram, Diagnostic, both breasts Pending order *C&S, Routine Bacteria Pending order *C&S, Routine Bacteria Pending order X-Ray, Chest, PA & Lateral Pending order Rapid Strep (Office) Pending order *Cache Test Pending order Administration Injection (Prophylactic, Therapeutic or Diagnostic) Pending order Excision Benign Lesion Trunk/Arm/Ket <0.6 cm Pending order Follow Up Appt 2 weeks Pending order *Hepatic Function Panel Pending order *DEBRA Valpric Acid (Depakene, Dipropylacetic Acid) Drug Assay Pending order Follow Up Appt 2 weeks Pending order *CBC without Diff Pending order *CBC without Diff Pending Order excluded from report: Pending order *CBC without Diff Pending order *CBC without Diff Pending Order excluded from report: Pending order Follow Up as scheduled Pending order US Transvaginal Pending Order excluded from report: Pending order US Transvaginal Pending order Follow up Appt 1 week Pending order *HgA1C Pending order *Lipid Profile Pending order *CMP Complete Metabolic Panel Pending order Follow Up Appt 3 months Pending order *BMP Pending order *HgA1C Pending order *HgA1C Pending Order excluded from report: Pending order *BMP Pending Order excluded from report: Pending order *Liver/Hepatic Function Panel Pending Order excluded from report: Pending order *Lipid Profile Pending order *Liver/Hepatic Function Panel Pending order Follow Up Appt 3 months Pending order Follow Up Appt 2 weeks Pending order *Lipid Profile Pending order *CMP Complete Metabolic Panel Pending order *HgA1C Pending order *TSH Pending order *CBC without Diff Pending order *Creatine Kinase (CK) Pending order *CRP Pending order *Sedimentation Rate (ESR) Procedures Code Procedure Name Date Entry Date CPT-03051 Ambulatory continuous glucose monitoring CPT-31952 HGB A1C (Office) 2143-6 *CAYDEN - Cortisol, A.M. 57793-5 *Lipid Profile 0667-1 *BMP PSGPCP PSG,CPAP (as indicated) ONLY PCP to follow up [id number] Ophthalmology Referral Order excluded from report: 0184-1 *CBC with Differential 68938-2 *CRP - C-Reative Protein 0786-1 *CMP Complete Metabolic Panel 4548-4 *HgA1C 77819-7 *Lipid Profile 0779-1 *Microalbumin, Creatine Ratio, rand urine 3016-3 *TSH 17824-4 *RA Rheumatoid Factor - Quaint 95206-0 *Sedimentation Rate (ESR) 06756-8 *UAC- Urinalysis, Complete w/ Micro 0523-1 *ANCA [id number] Ophthalmology Referral [id number] Rheumatology Referral CPT-41438 HGB A1C (Office) 4548-4 *HgA1C 3016-3 *TSH 69659-2 *Lipid Profile 0786-1 *CMP Complete Metabolic Panel [id number],[id number] Lipid Profile CPT-57563 HGBA1C 3016-3 *TSH 0786-1 *CMP Complete Metabolic Panel 3016-3 *TSH 98442-2 *CBC without Diff 4086-5 *DEBRA Valpric Acid (Depakene, Dipropylacetic Acid) Drug Assay P5504P,[id number] Microalbumin urine CPT-20974 HGBA1C Q968T,[id number] Lipid Profile CPT-45644 X-Ray, Hip Unilateral Podiatry Referral Podiatry Referral 4548-4 *HgA1C 3016-3 *TSH 4086-5 *DEBRA Valpric Acid (Depakene, Dipropylacetic Acid) Drug Assay 35718-8 *CBC without Diff 0786-1 *CMP Complete Metabolic Panel 4548-4 *HgA1C 0786-1 *CMP Complete Metabolic Panel 61213-9 *Lipid Profile 4086-5 *DEBRA Valpric Acid (Depakene, Dipropylacetic Acid) Drug Assay 0667-1 *BMP 6462-6 *CUW - Culture, Wound (Aerobic) 2823-3 *Potassium; Serum, Plasma or Whole Blood 0433-1 *HEBSAG - Hep B Surface Antigen 6510 0363-1 *HECAB Hepatitis C Antibody 08728-7 *HEBSAB - Hep B Surface Antibody 6395 0197-1 *HIV antibody 84473-3 *RPR 4548-4 *HgA1C 0667-1 *BMP 24584-2 *CBC without Diff 0788-1 *Hepatic Function Panel 4086-5 *DEBRA Valpric Acid (Depakene, Dipropylacetic Acid) Drug Assay 0184-1 *CBC with Differential 3016-3 *TSH 3024-7 *T4 free 0786-1 *CMP Complete Metabolic Panel CPT-27887 UA Dipstick (Office) 76048 Fingerstick, glucose (office) Dermatology Referral Dermatology Referral CPT-47727 X-Ray, Chest, PA & Lateral CPT-74540 Rapid Strep (Office) 30851-4 *Cache Test CPT-93947 Administration Injection (Prophylactic, Therapeutic or Diagnostic) CPT-07213 Excision Benign Lesion Trunk/Arm/Ket <0.6 cm FUA 2 weeks Follow Up Appt 2 weeks 0788-1 *Hepatic Function Panel 4086-5 *DEBRA Valpric Acid (Depakene, Dipropylacetic Acid) Drug Assay FUA 2 weeks Follow Up Appt 2 weeks 48586-5 *CBC without Diff Order excluded from report: 96705-8 *CBC without Diff Order excluded from report: FUA as scheduled Follow Up as scheduled Gastroenterology Ref Gastroenterology Referral CPT-29467 US Transvaginal Order excluded from report: FUA 1 week Follow up Appt 1 week 4548-4 *HgA1C 71319-2 *Lipid Profile 0786-1 *CMP Complete Metabolic Panel FUA 3 months Follow Up Appt 3 months 4548-4 *HgA1C Order excluded from report: 0667-1 *BMP Order excluded from report: CPT-08083 *Liver/Hepatic Function Panel Order excluded from report: FUA 3 months Follow Up Appt 3 months CPT-08296 *Lipid Profile RheuRef Rheumatology Referral Pain Management Pain Management CPT-31682 *Lipid Profile CPT-06319 *CMP Complete Metabolic Panel CPT-16408 *HgA1C CPT-47854 *TSH CPT-37578 *CBC without Diff CPT-46817 *Creatine Kinase (CK) CRP *CRP CPT-65901 *Sedimentation Rate (ESR) FUA 2 weeks Follow Up Appt 2 weeks Vital Signs Date Name Value Unit Description BMI (Body Mass Index) 32.81 kg/m2 Body Mass Index [Ratio] Body Temperature 97.8 [degF] temperature E&M BP Diastolic 87 mm[Hg] blood pressure, diastolic - 8462-4 BP Systolic 120 mm[Hg] blood pressure, systolic - 8480-6 Heart Rate 93 /min pulse rate E&M - 8867-4 Height 62 [in_us] height E&M - 8302-2 Weight Measured 179.4 [lb_av] weight E&M - 3141-9 Respiratory Rate 18 /min respiratory rate E&M - 9279-1 BSA (Body Surface Area) 1.90 body surface area
--- OUTSIDE RECORDS SUMMARY | 2018-09-04 11:19 | XMS RPT_ITS | Clinical Summary ---
:1985 Author Organization [facility], [facility] Address [address] [place] [address] Phone Care Team Providers Name Role Phone Raven Shepard LPN Unavailable Unavailable Conditions or Problems Problem Problem Onset Status Entry Provider Comment Standard Annotate Name Code Date Date Description Adrenal [id number] Active Kay Franco Disorder of disorder (SNOMED 08/11 Shook PERFORATOR LOADER adrenal gland CT) Excessive [id number] Active Kay Franco Excessive eating - (SNOMED Shook PERFORATOR LOADER eating - polyphagia CT) polyphagia Overweight 739770924 Active Kay Franco Overweight (SNOMED Shook PERFORATOR LOADER CT) Hypersomni 06432521 Active Gabriel A Hypersomnia a (SNOMED 03/19 03/[address]) Peripheral 348916331 Active Gabriel A Peripheral edema (SNOMED 03/19 03/[address]) Abnormal 481048324 Inactive Gabriel A Abnormal weight (SNOMED 03/19 03/19 Mauricio DO weight gain gain CT) ARTHRITIS, 02272409 Active Gabriel A Rheumatoid RHEUMATOID (SNOMED 09/09 09/[address]) Urinary 281246108 Resolved Gabriel A Increased frequency (SNOMED 10/24 10/[address] of CT) urination Diarrhea, 634019981 Resolved Gabriel A Chronic chronic (SNOMED 10/24 10/[address]) Hypertrigl 796684690 Active Gabriel A Hypertriglycer >800 yceridemia (SNOMED 10/30 10/[address]) Greater 2387158 Inactive Gabriel A Trochanteric trochanter (SNOMED 10/24 10/24 Mauricio DO bursitis ic CT) bursitis, left Diarrhea, 499969055 Removed Gabriel A Chronic chronic (SNOMED 10/24 10/[address]) Urinary 874635969 Removed Gabriel A Increased frequency (SNOMED 10/24 10/24 Mauricio DO frequency of CT) urination UPPER 10328989 Resolved Gabriel A Upper RESPIRATOR (SNOMED 09/13 09/13 Mauricio DO respiratory Y CT) infection INFECTION Migraine 53314383 Active Gabriel A Migraine headache (SNOMED 04/04 04/[address]) Foot pain, 39543298 Inactive Gabriel A Foot pain left (SNOMED 02/07 02/[address]) UPPER [id number] Removed Gabriel A Upper RESPIRATOR (SNOMED 09/13 09/13 Mauricio DO respiratory Y CT) infection INFECTION Hypertrigl 734471076 Resolved Gabriel A Hypertriglycer yceridemia (SNOMED 10/25 10/[address]) LEG PAIN, 71768187 Resolved Gabriel A Pain in lower BILATERAL (SNOMED 03/15 03/[address]) POLYCYSTIC 97498400 Resolved Gabriel A Polycystic OVARIAN (SNOMED 03/15 03/15 Mauricio DO ovaries DISEASE CT) DEPRESSION 37048046 Resolved Gabriel A Recurrent since age , MAJOR, (SNOMED 03/15 Mauricio DO major [address]) depression MUSCLE 12325968 Resolved Gabriel A Muscle WEAKNESS (SNOMED 03/15 03/15 Mauricio DO weakness (GENERALIZ CT) ED) NIPPLE 074073439 Resolved Gabriel A Bloody nipple DISCHARGE, (SNOMED 03/23 03/23 Mauricio DO discharge BLOODY CT) HYPERSOMNI 69926181 Resolved Gabriel A Hypersomnia A (SNOMED 04/06 04/[address]) SKIN RASH 958021193 Resolved Gabriel A Eruption (SNOMED 10/03 10/03 [facility] CT) SEXUALLY 764976223 Resolved Gabriel A Exposure to TRANSMITTE (SNOMED 10/04 10/04 [facility] sexually D DISEASE, CT) transmissible EXPOSURE disorder TO HYPOKALEMI 54098845 Resolved Gabriel A Hypokalemia A (SNOMED 11/03 11/03 [facility] CT) Ingrown 752561820 Resolved Gabriel A Ingrowing nail toenail (SNOMED [facility] CT) Hip pain, 98583774 Resolved Gabriel A Hip pain right (SNOMED 09/13 09/13 [facility] CT) Bronchitis 87920832 Resolved Gabriel A Acute , acute (SNOMED 10/25 11/09 [facility] bronchitis CT) Chronic 610645010 Active Gabriel A Chronic pain pain (SNOMED 12/22 12/22 [facility] syndrome syndrome CT) Bronchitis 41691037 Removed Jianming Acute , acute (SNOMED 10/25 11/[address] [facility] [address]) Paronychia 518289957 Resolved Jianming Paronychia of left big , great (SNOMED [facility] toe toe toe CT) Hypertrigl 194560583 Removed Jianming Hypertriglycer yceridemia (SNOMED 10/25 10/[address] [facility] [address]) Superficia 997313058 Resolved Jianming Superficial right l vein (SNOMED 09/29 09/29 [facility] vein basilic thrombosis CT) thrombosis vein from just above elbow to wrist Superficia [id number] Removed Jianming Superficial right l vein (SNOMED 09/29 09/29 [facility] vein basilic thrombosis CT) thrombosis vein from just above elbow to wrist Hip pain, 13677760 Removed Jianming Hip pain right (SNOMED 09/13 09/[address] [facility]) Ingrown 884048143 Removed Jianming Ingrowing nail toenail (SNOMED [facility] CT) Paronychia [id number] Removed Jianming Paronychia of left big , great (SNOMED [facility] toe toe toe CT) Back pain, 685447723 Active Jianming Low back pain chronic s/p lumbar (SNOMED [facility] surgery CT) NAUSEA AND 24181154 Resolved Jianming Nausea and VOMITING (SNOMED 11/12 11/[address] [facility] [address]) OTITIS 64167194 Resolved Rehana E Chronic otitis EXTERNA, (SNOMED 08/30 08/[address]) OTITIS [id number] Resolved Rehana E Acute otitis MEDIA, (SNOMED 08/18 08/18 [facility] media ACUTE, CT) BILATERAL DKA 036720365 Resolved Jianming Diabetic (SNOMED [facility] ketoacidosis CT) CELLULITIS 403603102 Resolved Jianming Cellulitis of the (SNOMED 11/03 11/[address] [address]) site NAUSEA AND 03070721 Removed Jianming Nausea and VOMITING (SNOMED 11/12 11/[address] [address]) HYPOKALEMI 00510234 Removed Jianming Hypokalemia A (SNOMED 11/03 11/[address]) CELLULITIS 867363105 Removed Jianming Cellulitis of the (SNOMED 11/03 11/[address] [facility] [address]) site SEXUALLY 373129426 Removed Marianna A Exposure to TRANSMITTE (SNOMED 10/04 10/04 Flannery sexually D DISEASE, CT) transmissible EXPOSURE disorder TO OTITIS 6107158 Removed Jianming Acute otitis MEDIA, (SNOMED 08/18 08/18 [facility] media ACUTE, CT) BILATERAL OTITIS 7454670 Correctio Jianming Acute otitis MEDIA, (SNOMED 08/18 n 08/18 [facility] media ACUTE, CT) BILATERAL SKIN RASH 992443033 Removed Ness J Eruption (SNOMED 10/03 10/[address]) OTITIS 95354294 Removed Ness J Chronic otitis EXTERNA, (SNOMED 08/30 08/[address]) DKA [id number] Removed Jianming Diabetic (SNOMED [facility] ketoacidosis CT) OTITIS 1888284 Resolved Jianming Otitis externa EXTERNA (SNOMED 03/23 03/[address]) HYPERSOMNI 76966321 Removed Jianming Hypersomnia A (SNOMED 04/06 04/[address]) ALLERGIC 47601021 Active Jianming Allergic RHINITIS (SNOMED 04/06 04/[address] [address]) OTITIS 9868451 Removed Jianming Otitis externa EXTERNA (SNOMED 03/23 03/[address]) NIPPLE 782364044 Removed Jianming Bloody nipple DISCHARGE, (SNOMED 03/23 03/[address] [facility] [address] BLOODY CT) NIPPLE 480981179 Correctio Jianming Bloody nipple DISCHARGE, (SNOMED 03/23 n 03/[address] [facility] [address] B[address]ODY [address]) OTITIS 3959126 Correctio Jianming Otitis externa EXTERNA (SNOMED 03/23 n 03/[address]) 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, (SNOMED 02/10 02/[address]) POLYCYSTIC 97950213 Active Ness J Polycystic OVARIAN (SNOMED 02/10 02/[address]) FIBROMYALG 79337471 Active Ness J Fibromyositis IA, SEVERE (SNOMED 02/10 02/[address]) IMMUNOCOMP 747546346 Active Ness J Immunodeficien ROMISED (SNOMED 02/10 02/[address]) HUMAN 478955176 Active Ness J Human PAPILLOMAV (SNOMED 02/10 02/[address]) virus infection TACHYCARDI 1077951 Active Jianming Tachycardia since 2003 A (SNOMED 01/[address]) HYPOGLYCEM 732541692 Resolved Jianming Hypoglycemia IA (SNOMED 09/24 09/[address]) MOVEMENT 49677269 Resolved Jianming Movement DISORDER (SNOMED 09/24 09/[address] [facility]) ROSACEA 865783835 Active Jianming Rosacea (SNOMED 01/14 01/[address]) TACHYCARDI 1703230 Resolved Jianming Tachycardia A (SNOMED 03/[address]) GLUCOCORTI 076234084 Resolved Jianming 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 PHARYNGITI 968400794 Resolved Jianming Acute S, ACUTE (SNOMED 09/07 09/[address] [address]) UPPER 43788317 Resolved Jianming Upper RESPIRATOR (SNOMED 09/13 09/[address] [facility] respiratory Y CT) infection INFECTION COUGH 77947492 Resolved Jianming Cough (SNOMED 09/13 09/[address]) HYPOGLYCEM 169037146 Removed Jianming Hypoglycemia IA (SNOMED 09/24 09/[address]) MOVEMENT 22035733 Removed Jianming Movement DISORDER (SNOMED 09/24 09/[address] [facility]) COUGH 42267443 Removed Salma M Cough (SNOMED 09/13 09/[address]) UPPER 56671116 Removed Salma M Upper RESPIRATOR (SNOMED 09/13 09/[address]) infection INFECTION PHARYNGITI 395246175 Removed Jianming Acute S, ACUTE (SNOMED 09/07 09/[address] [address]) MELENA 4319729 Resolved Jianming Melena (SNOMED 11/06 11/[address]) LOCALIZED R22.9 Resolved Jianming Localized right SUPERFICIA (ICD-10-CM [facility] swelling, mass axillary L SWELLING ) and lump, MASS OR unspecified LUMP LIVER V12.2 Resolved Jianming Personal FUNCTION (ICD-9-CM) 03/15 03/15 [facility] history of TESTS, endocrine, ABNORMAL, metabolic, and HX OF immunity disorders CONSTIPATI 334804118 Resolved Jianming Chronic ON, (SNOMED 09/23 09/[address] [facility] [address]RONIC CT) ABDOMINAL R10.31 Resolved Jianming Right lower PAIN RIGHT (ICD-10-CM 09/23 09/23 [facility] quadrant pain LOWER ) QUADRANT OTITIS 9550348 Resolved Jianming Otitis externa EXTERNA (SNOMED 08/22 08/[address]) GLUCOCORTI 466201906 Removed Jianming 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 OTITIS 0162998 Removed Jianming Otitis externa EXTERNA (SNOMED 08/22 08/[address]) LOCALIZED R22.9 Removed Jianming Localized right SUPERFICIA (ICD-10-CM 0 [facility] swelling, mass axillary L SWELLING ) and lump, MASS OR unspecified LUMP BIPOLAR 736440937 Active Jianming Bipolar diagnosed AFFECTIVE (SNOMED 02/19 [facility] affective by DISORDER, CT) disorder, psychiatris DEPRESSED current t at episode Kristian depression in [place] GASTROESOP 877930976 Active Jianming Gastroesophage HAGEAL (SNOMED 02/19 [facility] al reflux REFLUX CT) disease DISEASE INSOMNIA, 145460598 Active Jianming Insomnia CHRONIC (SNOMED 02/19 02/[address]) ACUTE 48968187 Resolved Jianming Acute ETHMOIDAL (SNOMED 09/18 09/18 [facility] ethmoidal SINUSITIS CT) sinusitis MELENA 3271049 Removed Luis Eduardo M Melena (SNOMED 11/06 11/[address]) ACUTE 10051214 Removed Jianming Acute ETHMOIDAL (SNOMED 09/18 09/18 [facility] ethmoidal SINUSITIS CT) sinusitis ABDOMINAL R10.31 Removed Jianming Right lower PAIN RIGHT (ICD-10-CM 09/23 09/23 [facility] quadrant pain LOWER ) QUADRANT CONSTIPATI 253752251 Removed Jianming Chronic ON, (SNOMED 09/23 09/[address] [facility] [address]) ARTHRITIS, 03731891 Inactive Jianming Rheumatoid f/u DrVerito RHEUMATOID (SNOMED 09/09 09/09 [facility] [address] [place] CT) DYSLIPIDEM 583281559 Active Jianming Dyslipidemia IA (SNOMED 04/03 04/[address]) MUSCLE 25419139 Removed Jianming Muscle WEAKNESS (SNOMED 03/15 03/15 [facility] weakness (GENERALIZ CT) ED) DEPRESSION 47380891 Removed Jianming Recurrent since age , MAJOR, (SNOMED 03/15 [facility] major [address]) depression POLYCYSTIC 59597400 Removed Jianming Polycystic OVARIAN (SNOMED 03/15 03/15 [facility] [address] DIS[address] CT) IRRITABLE 82175721 Active Jianming Irritable BOWEL (SNOMED 03/15 03/15 [facility] bowel syndrome SYNDROME CT) TACHYCARDI 4852813 Removed Jianming Tachycardia A (SNOMED 03/[address]) LEG PAIN, 69902063 Removed Jianming Pain in lower BILATERAL (SNOMED 03/15 03/[address]) HYPOTHYROI 87063568 Active Jianming Hypothyroidism DISM (SNOMED 08/11 03/[address]) DIABETES 50622308 08/11/19 Active Jianming Type 1 MELLITUS, (SNOMED 03/15 [facility] diabetes TYPE I CT) mellitus LIVER V12.2 Removed Jianming Personal FUNCTION (ICD-9-CM) 03/15 03/15 [facility] history of TESTS, endocrine, ABNORMAL, metabolic, and HX OF immunity disorders Medications Medication Instructions Start Stop Generic Name NDC Provider Date Date NOVOLOG 100 Take 35 units 2024/ INSULIN ASPART [id number] Kay Franco UNIT/ML SOLN each meal 07/02 Shook PERFORATOR LOADER sliding scale up to 130 daily LANTUS 100 Take 56 units 2024/ INSULIN GLARGINE 74337696896 Kay Franco UNIT/ML SOLN daily 07/02 Mike GARNER FREESTYLE LITE Use for 2024/ BLOOD GLUCOSE 25233865048 Kay ROMAN diabetes to 07/02 MONITORING SUPPL Mike GARNER test blood glucose level 6 times daily ICD!) E10.9 FREESTYLE LITE Use for 2024/ BLOOD GLUCOSE 85281388998 Kay ROMAN diabetes 07/02 MONITORING SUPPL Mike GARNER ICD!) E10.9 FREESTYLE LITE Check BG 6 2024/ GLUCOSE BLOOD 99463944380 Kay J TEST STRP times daily 07/02 Mike GARNER ICD10 E10.9 NOVOLOG 100 Take 35 units 2024/ INSULIN ASPART 02451138218 Kay Joan UNIT/ML SOLN each meal /07/02 Mike GARNER FREESTYLE LITE Check BG 6 2024/ GLUCOSE BLOOD 30555942458 Kay Joan TEST STRP times daily 07/02 Mike GARNER FREESTYLE LITE Use for 2024/ BLOOD GLUCOSE 25085409227 Kay ROMAN diabetes 07/02 MONITORING SUPPL Mike GARNER ATORVASTATIN One tablet by ATORVASTATIN CALCIUM 29726390013 Gabriel A CALCIUM 20 MG mouth daily at /15 [facility] DO TABS night for high cholesterol FUROSEMIDE 20 MG One tablet by FUROSEMIDE 87740768416 Gabriel A TABS mouth daily / [facility] DO DEXAMETHASONE 1 One tab by DEXAMETHASONE 06223891185 Gabriel A MG TABS mouth at 11pm, / [facility] DO lab work at 8AM the next morning ZYRTEC ALLERGY One tablet by CETIRIZINE HCL 39669473735 Gabriel A 10 MG TABS mouth daily at /05 [facility] DO bedtime ATENOLOL 50 MG One tablet by ATENOLOL 75106817575 Gabriel A TABS mouth twice / Mauricio DO daily OMEPRAZOLE 20 MG One tablet by OMEPRAZOLE 56780414620 Gabriel A TBEC mouth daily / [facility] DO SYNTHROID 137 One tablet by LEVOTHYROXINE SODIUM 94782078630 Gabriel A MCG TABS mouth daily / [facility] NOVOLIN N 100 40-50 units INSULIN ISOPHANE 67111322536 Gabriel A UNIT/ML SUSP twice daily / HUMAN [facility] ACYCLOVIR 400 MG One tablet by ACYCLOVIR 22335082792 Gabriel A TABS mouth daily / [facility] DO EFFEXOR XR 75 MG Three tablets VENLAFAXINE HCL 96120712238 Gabriel A [id number] by mouth daily / [facility] NOVOLOG 100 15-30 units INSULIN ASPART 36534293101 Gabriel A UNIT/ML SOLN three times a [facility] day with meals DIVALPROEX Two tablets by DIVALPROEX SODIUM 39579053760 Gabriel A SODIUM 250 MG mouth daily / [facility] TBEC SEROQUEL 200 MG One tablet by QUETIAPINE FUMARATE 36638259471 Gabriel A TABS mouth daily / [facility] BD INSULIN 5-6 times INSULIN 24689154737 Gabriel A SYRINGE daily DX: SYRINGE-NEEDLE U-100 [facility] ULTRAFINE 30G X type I 1/2 0.5 ML FENOFIBRATE 48 Two tablets FENOFIBRATE 01348834660 Gabriel A MG TABS daily / [facility] DOXEPIN HCL 25 1 capsule by DOXEPIN HCL 73518953727 Gabriel A MG CAPS mouth at night / [facility] for IBS ACYCLOVIR 400 MG One tablet by ACYCLOVIR 39388578242 Gabriel A TABS mouth twice [facility] daily XIFAXAN 550 MG One tablet by 2015/ RIFAXIMIN 73307263758 Gabriel A TABS mouth three /11/07 [facility] DO times daily DIAZEPAM 5 MG One tablet by DIAZEPAM 71559926857 Gabriel A TABS mouth daily / [facility] every night, avoid driving or operating machine under the influence of medication. PROPRANOLOL HCL One capsule by PROPRANOLOL HCL 02572765904 Gabriel A ER 80 MG mouth daily at / [facility] [id number] night for migraine prevention and tachycardia NOVOLOG 100 30 units three INSULIN ASPART 09195607437 Gabriel A UNIT/ML SOLN times a day / Mauricio DO with meals NOVOLIN N 100 45 units SC INSULIN ISOPHANE 61642976772 Gabriel A UNIT/ML SUSP twice daily / HUMAN Mauricio DO KLOR-CON M20 20 One tablet by POTASSIUM CHLORIDE 48693224614 Gabriel A MEQ CR-TABS mouth daily / MELANY CR Mauricio DO FOLIC ACID 1 MG Two tablets by FOLIC ACID 62825467793 Gabriel A TABS mouth daily / Mauricio DO ATENOLOL 50 MG One tablet by ATENOLOL 74745015900 Gabriel A TABS mouth twice /24 Mauricio DO daily NOVOLOG 100 25 units SC at INSULIN ASPART 72362944795 Gabriel A UNIT/ML SOLN BF, 30 units / Mauricio DO at Lunch and Supper FENOFIBRATE 48 One tablet by FENOFIBRATE 36293156305 Jianming MG TABS mouth daily, [facility] then increase to two tablets if tolerate it DOXYCYCLINE One tablet by DOXYCYCLINE HYCLATE 69200932001 Jiakying HYCLATE 100 MG mouth twice / [facility] CAPS daily x 10 days PRAVASTATIN One tablet by PRAVASTATIN SODIUM 32753135176 Jianming SODIUM 40 MG mouth daily / [facility] TABS every night AMOXICILLIN-POT One tablet by AMOXICILLIN-POT 60883189404 Jianming CLAVULANATE mouth twice / CLAVULANATE [facility] 875-125 MG TABS daily SYNTHROID 112 One tablet by LEVOTHYROXINE SODIUM 07688523658 Lakishakying MCG TABS mouth daily / [facility] QUETIAPINE Three tablets QUETIAPINE FUMARATE 98209081895 Jianming FUMARATE 50 MG by mouth daily / [facility] TABS at bed time DIVALPROEX One tablet by DIVALPROEX SODIUM 25448336886 Jianming SODIUM 250 MG mouth twice / [facility] TBEC daily DIAZEPAM 2 MG One tablet by DIAZEPAM 95205272045 Jianming TABS mouth daily / [facility] every night QUETIAPINE Two tablets by QUETIAPINE FUMARATE 57223754084 Jianming FUMARATE 50 MG mouth daily / [facility] TABS every night EFFEXOR XR 150 One tablet by VENLAFAXINE HCL 08523634334 Jianming MG [id number] mouth daily / [facility] COLACE 100 MG One tablet by DOCUSATE SODIUM 12756000762 Jianming CAPS mouth daily / [facility] PROMETHAZINE HCL One tablet by PROMETHAZINE HCL 59845390022 Jianming 12.5 MG TABS mouth three [facility] times daily as needed nausea/vomitin g DIAZEPAM 2 MG One tablet by DIAZEPAM 07417693943 Jianming TABS mouth twice / [facility] daily QUETIAPINE Two tablets by QUETIAPINE FUMARATE 16586041580 Jianming FUMARATE 50 MG mouth twice [facility] TABS daily SULFAMETHOXAZOLE One tablet by SULFAMETHOXAZOLE-TRI 95649007293 Jianming -TRIMETHOPRIM mouth twice METHOPRIM [facility] 800-160 MG TABS daily AMPICILLIN 500 One tablet by AMPICILLIN 04486712497 Jianming MG CAPS mouth [facility] times daily ZOLPIDEM One tablet by ZOLPIDEM TARTRATE 54122075473 Lakishanming TARTRATE 5 MG mouth daily / [facility] TABS every night DIVALPROEX One tablet by DIVALPROEX SODIUM 54893480556 Lakishanming SODIUM 125 MG mouth twice / [facility] TBEC daily QUETIAPINE one tablets by QUETIAPINE FUMARATE 58892994295 Jianming FUMARATE 50 MG mouth in AM , / [facility] TABS two tablets by mouth in pM EFFEXOR XR 75 MG One tablet by VENLAFAXINE HCL 14021454856 Leticiaing [id number] mouth daily [facility] QUETIAPINE one tablets by QUETIAPINE FUMARATE 41750907849 Jianming FUMARATE 50 MG mouth in AM , [facility] TABS two tablets by mouth in pM SYNTHROID 100 One tablet by LEVOTHYROXINE SODIUM 41886844248 Lakishakying MCG TABS mouth daily / [facility] AMOXICILLIN-POT One tablet by AMOXICILLIN-POT 41961109519 Lakishanming CLAVULANATE mouth twice / CLAVULANATE [facility] 875-125 MG TABS daily QUETIAPINE One tablet by QUETIAPINE FUMARATE 67380382078 Jianming FUMARATE 50 MG mouth twice / [facility] TABS daily x 1 day, then titrate up as directed VALIUM 2 MG TABS One tablet by DIAZEPAM 11467223694 Jianming mouth twice / [facility] daily ZOLPIDEM One tablet by ZOLPIDEM TARTRATE 67605423954 Lakishanming TARTRATE 5 MG mouth daily / [facility] TABS every night as needed, avoid driving or operating machine under the influence of medication. MUPIROCIN 2 % apply to MUPIROCIN 83736623918 Jianming OINT affected area / [facility] four times a day CIPRO HC 0.2-1 % 4 gtt to left CIPROFLOXACIN-HYDROC 44116658964 Lakishakying SUSP ear three ORTISONE [facility] times a day PODOCON 25 % PODOPHYLLUM RESIN 48866502697 Ness J SOLN / Maria Elena [facility] ACYCLOVIR 800 MG one po q 8 hrs ACYCLOVIR 07191637247 Ness J TABS / Signs FAMVIR 500 MG one po tid FAMCICLOVIR 27601167845 Ness J TABS /03 Signs METROGEL 1 % GEL apply to METRONIDAZOLE 30836072471 Jianming affected area / [facility] thin layer, once daily DOXYCYCLINE One tablet by [facility]CL[facility]CLATE 82145146522 [facility] MG mouth twice / [facility] CAPS daily x 10 days, then One tablet by mouth daily VENLAFAXINE HCL One tablet by VENLAFAXINE HCL 98701615075 Lakishanming ER 75 MG mouth daily / [facility] [id number] TRAZODONE HCL 50 Two tablets by TRAZODONE HCL 30406317190 Jianming MG TABS mouth daily / [facility] AZITHROMYCIN 250 two tablets by AZITHROMYCIN 91366383513 Jianming MG TABS mouth on day / [facility] one, and one tablets daily one day 2-5 EFFEXOR XR 37.5 One tablet by VENLAFAXINE HCL 80918130919 Jianming MG [id number] mouth daily / [facility] CETRAXAL 0.2 % 4-5 drop CIPROFLOXACIN HCL 93508353790 Jianming SOLN affected ear / [facility] three times a day DIVALPROEX One tablet by DIVALPROEX SODIUM 84775969121 Lakishanming SODIUM 250 MG mouth twice / [facility] TBE daily DISABILITY DX: Rheumatoid DISABILITY PLACARD Rabia PLACARD arthritis / [facility] duration: five years PROTONIX 40 MG One tablet by PANTOPRAZOLE SODIUM 91457960282 Lakishanming PACK mouth daily. [facility] DIVALPROEX One tablet by DIVALPROEX SODIUM 11676156732 Lakishanming SODIUM 125 MG mouth twice / [facility] TBEC daily ATENOLOL 50 MG One tablet by ATENOLOL 96154114099 Jianming TABS mouth daily at [facility] bedtime TRAZODONE HCL 50 One tablet by TRAZODONE HCL 17512304589 Lakishanming MG TABS mouth daily / [facility] every night CITALOPRAM One tablet by CITALOPRAM 00048794094 Rabia HYDROBROMIDE 40 mouth daily / HYDROBROMIDE [facility] MG TABS NOVOLIN N 100 40 units SC INSULIN ISOPHANE 24594764991 Lakishanming UNIT/ML SUSP twice daily / HUMAN [facility] HUMALOG 100 30 units SC INSULIN LISPRO 49078589442 Lakishanming UNIT/ML SOLN before meals (HUMAN) [facility] AUGMENTIN XR One tablet by AMOXICILLIN-POT 79399666037 Rabia 1000-62.5 MG mouth twice / CLAVULANATE [facility] [id number] daily METHOTREXATE 2.5 4 pills by METHOTREXATE SODIUM 76524121185 Lakishanming MG TABS mouth once / [facility] weekly CIPROFLOXACIN One tablet by 2010/ CIPROFLOXACIN HCL 37119475282 Lakishanming HCL 500 MG TABS mouth twice /08/02 [facility] daily METRONIDAZOLE One tablet by 2010/ METRONIDAZOLE 14115900567 Lakishanming 500 MG TABS mouth three /08/02 [facility] times daily INDOMETHACIN 25 1-2 tablets INDOMETHACIN 27303611510 Leticiaing MG CAPS three times a [facility] day as needed pain GLUCOMETER use as GLUCOMETER Rabia directed AC / [facility] and [facility] HUMALOG 100 40 units SC at INSULIN LISPRO 44705878826 Jianming UNIT/ML SOLN each meal / (HUMAN) [facility] PRAVASTATIN One tablet by PRAVASTATIN SODIUM 80838743311 Jianming SODIUM 80 MG mouth daily / [facility] TABS LEVEMIR 100 40 units SC INSULIN DETEMIR 26718351810 Jianming UNIT/ML SOLN twice daily / [facility] NOVOLIN N 100 40 units SQ INSULIN ISOPHANE 64095852410 Luis Eduardo M UNIT/ML SUSP twice daily. / HUMAN Kunal [facility] HUMULIN N 100 40 units twice INSULIN ISOPHANE 36315678408 Jianming UNIT/ML SUSP daily / HUMAN [facility] HUMALOG 100 20 units per INSULIN LISPRO 14436998637 Jianming UNIT/ML SOLN meal / (HUMAN) [facility] ULTRAM 50 MG Two tablets by TRAMADOL HCL 55228758548 Jianming TABS mouth [facility] times daily, avoid driving or operating machine under the influence of medication. PRAVASTATIN One tablet by PRAVASTATIN SODIUM 14925418570 Jianming SODIUM 20 MG mouth daily / [facility] TABS every night TRAZODONE HCL 50 One tablet by TRAZODONE HCL 41798965647 Jianming MG TABS mouth daily / [facility] every night LEXAPRO 20 MG One tablet by ESCITALOPRAM OXALATE 38483411900 Jianming TABS mouth daily / [facility] ATENOLOL 50 MG One tablet by ATENOLOL 64586626440 Jianming TABS mouth daily at / [facility] bedtime HYDROCODONE-ACET One tablet by HYDROCODONE-ACETAMIN 97974487878 [place] AMINOPHEN 5-500 mouth HUBERT Carlson MD MG TABS times daily avoid driving or operating machine under the influence of medication. HYDROCODONE-ACET One tablet by 2011/ HYDROCODONE-ACETAMIN [id number] Lakishanming AMINOPHEN 5-500 mouth 02/19 HUBERT Carlson MD MG TABS times daily avoid driving or operating machine under the influence of medication. ULTRAM 50 MG Two tablets by 2011/ TRAMADOL HCL 57731140198 Jianming TABS mouth 09/18 Aldo IQBAL times daily, avoid driving or operating machine under the influence of medication. AUGMENTIN XR One tablet by 2011/ AMOXICILLIN-POT 88024432651 Luis Eduardo M 1000-62.5 MG mouth twice 11/06 CLAVULANATE Kunal IQBAL [id number] daily FOLIC ACID 1 MG 2 tablets by FOLIC ACID 58911860742 Jianming TABS mouth daily Aldo IQBAL FOLIC ACID 1 MG 2 tablets by 2011/ FOLIC ACID 87147721900 Luis Eduardo M TABS mouth daily /11/06 Kunal IQBAL LEUCOVORIN one tablet by LEUCOVORIN CALCIUM 81376850260 Jianming CALCIUM 5 MG mouth once Aldo IQBAL TABS weekly LEUCOVORIN one tablet by 2011/ LEUCOVORIN CALCIUM 99873499870 Luis Eduardo M CALCIUM 5 MG mouth once 11/06 Kunal IQBAL TABS weekly LEVEMIR 100 40 units SC 2010/ INSULIN DETEMIR 34900108533 Jianming UNIT/ML SOLN twice daily 07/11 Aldo IQBAL HUMALOG 100 INSULIN LISPRO 20083625248 Jianming UNIT/ML SOLN (HUMAN) Aldo IQBAL HUMULIN N 100 40 units twice 2010/ INSULIN ISOPHANE 91722941005 Luis Eduardo M UNIT/ML SUSP daily 07/01 HUMAN Kunal IQBAL NOVOLIN N 100 40 units SQ 2010/ INSULIN ISOPHANE 18580710788 Jianming UNIT/ML SUSP twice daily. 07/10 HUMAN Aldo IQBAL INDOMETHACIN 25 1-2 tablets 2011/ INDOMETHACIN 28165260490 Jianming MG CAPS three times 02/19 Aldo IQBAL day as needed pain METANX 3-35-2 MG One tablet by [id number]-[id number]-[id number] [id number] Luis Eduardo M TABS mouth twice 2 Kunal IQBAL daily METANX 3-35-2 MG One tablet by 2011/ [id number]-[id number] 39240134967 Jianming TABS mouth twice 06/03 2 Aldo IQBAL daily ENBREL 50 MG/ML 1 time weekly ETANERCEPT 88601695382 Jianming SOSY Aldo IQBAL ENBREL 50 MG/ML 1 time weekly 2011/ ETANERCEPT 24898609807 Jianming SOSY /06/03 Aldo IQBAL PROTONIX 40 MG One tablet by 2011/ PANTOPRAZOLE SODIUM 62050823664 Jianming PACK mouth daily. /06/03 Aldo IQBAL DIVALPROEX One tablet by 2011/ DIVALPROEX SODIUM 13206576884 Jianming SODIUM 250 MG mouth twice /06/03 Aldo IQBAL TBEC daily PREDNISONE 10 MG One tablet by PREDNISONE 61848938479 Jianming TABS mouth twice / Aldo IQBAL daily PREDNISONE 10 MG One tablet by 2011/ PREDNISONE 03379675808 Jianming TABS mouth twice /06/03 Aldo IQBAL daily CITALOPRAM One tablet by 2011/ CITALOPRAM 61813961021 Rabia HYDROBROMIDE 40 mouth daily /06/03 HYDROBROMIDE Aldo IQBAL MG TABS NUCYNTA 50 MG One tablet by TAPENTADOL HCL 92509362979 Jianming TABS mouth twice / Aldo IQBAL daily NUCYNTA 50 MG One tablet by 2011/ TAPENTADOL HCL 84596378896 Jianming TABS mouth twice /06/03 Aldo IQBAL daily NEURONTIN 100 MG One tablet by GABAPENTIN 44333649346 Jianming CAPS mouth twice / Aldo IQBAL daily NEURONTIN 100 MG One tablet by 2011/ GABAPENTIN 32361350567 Jianming CAPS mouth twice /06/03 Aldo IQBAL daily LEVOTHYROXINE One tablet by LEVOTHYROXINE SODIUM 90122915604 Lakishanming SODIUM 125 MCG mouth daily / Aldo IQBAL TABS HUMALOG 100 40 units SC at 2011/ INSULIN LISPRO 61202527576 Jianming UNIT/ML SOLN each meal /06/03 (HUMAN) Aldo IQBAL NOVOLIN N 100 40 units SC 2011/ INSULIN ISOPHANE 01120723929 Jianming UNIT/ML SUSP twice daily /06/03 HUMAN Aldo IQBAL AZITHROMYCIN 250 two tablets by 2012/ AZITHROMYCIN 03034592549 Jianming MG TABS mouth on day /09/24 Aldo IQBAL one, and one tablets daily one day 2-5 HUMIRA PEN 40 1 injection ADALIMUMAB 66210728445 Jianming MG/0.8ML KIT every Aldo IQBAL week HUMIRA PEN 40 1 injection 2012/ ADALIMUMAB 26366431381 Jianming MG/0.8ML KIT every other 01/14 Aldo IQBAL week EFFEXOR XR 37.5 One tablet by 2012/ VENLAFAXINE HCL 25299176566 Jianming MG [id number] mouth daily /01/14 Aldo IQBAL DOXYCYCLINE One tablet by 2012/ DOXYCYCLINE HYCLATE 07044094982 Ness J HYCLATE 100 MG mouth twice /02/10 Signs CAPS daily x 10 days, then One tablet by mouth daily VENLAFAXINE HCL One capsule by VENLAFAXINE HCL 00782618456 Salma Milton ER 75 MG mouth daily / Mallorie [id number] VENLAFAXINE HCL One capsule by 2012/ VENLAFAXINE HCL 53850168653 Ness Franco ER 75 MG mouth daily /02/10 Maria Elena IQBAL [id number] NUCYNTA ER 50 MG One tablet by TAPENTADOL HCL 53029736391 Jianming [id number] mouth Aldo IQBAL times daily NUCYNTA ER 50 MG One tablet by 2012/ TAPENTADOL HCL 04012965804 Ness Franco [id number] mouth three 02/10 Maria Elena IQBAL times daily CETRAXAL 0.2 % 4-5 drop 2012/ CIPROFLOXACIN HCL 59686233048 Jianming SOLN affected ear /12 09/24 Aldo IQBAL three times a day PRAVASTATIN One tablet by PRAVASTATIN SODIUM 05639111120 Jianming SODIUM 40 MG mouth daily / Aldo IQBAL TABS PRAVASTATIN One tablet by 2012/ PRAVASTATIN SODIUM 69198030133 Jianming SODIUM 40 MG mouth daily /09/24 Aldo IQBAL TABS SOLU-CORTEF 100 One tablet by HYDROCORTISONE SOD 03294071869 Jianming MG SOLR mouth daily as SUCCINATE Aldo IQBAL needed SOLU-CORTEF 100 One tablet by 2012/ HYDROCORTISONE SOD 87071059251 Jianming MG SOLR mouth daily as /10/19 SUCCINATE Aldo IQBAL needed HYDROCORTISONE 5 One tablet by HYDROCORTISONE 86542011660 Jianming MG TABS mouth daily / Aldo IQBAL HYDROCORTISONE 5 One tablet by 2012/ HYDROCORTISONE 45344427971 Jianming MG TABS mouth daily /10/19 Aldo CHIANG 10 one patch per BUPRENORPHINE 30363087459 Jianming MCG/HR PTWK week Aldo CHIANG 10 one patch per 2012/ BUPRENORPHINE 38192087984 Jianming MCG/HR PTWK week 10/19 Aldo IQBAL HUMULIN R U-500 12 units per INSULIN REGULAR 56797386656 Jianming (CONCENTRATED) meal / HUMAN Aldo IQBAL 500 UNIT/ML SOLN HUMULIN R U-500 12 units per 2012/ INSULIN REGULAR 66379721280 Jianming (CONCENTRATED) meal 10/19 HUMAN Aldo IQBAL 500 UNIT/ML SOLN METHOTREXATE 2.5 4 pills by 2012/ METHOTREXATE SODIUM 97835460231 Ness J MG TABS mouth once 08/02 Maria Elena IQBAL weekly LEUCOVORIN 2 tablets by LEUCOVORIN CALCIUM 50145401663 Lakishakying CALCIUM 5 MG mouth once / Aldo IQBAL TABS weekly LEUCOVORIN 2 tablets by 2012/ LEUCOVORIN CALCIUM 95307848451 Ness J CALCIUM 5 MG mouth once /08/02 Maria Elena IQBAL TABS weekly SYNTHROID 137 One tablet by LEVOTHYROXINE SODIUM 01588296947 Jianming MCG TABS mouth daily Aldo IQBAL SYNTHROID 137 One tablet by 2012/ LEVOTHYROXINE SODIUM 95188612408 Rehana E MCG TABS mouth daily /08/03 [facility] AMOXICILLIN-POT One tablet by 2013/ AMOXICILLIN-POT 65959656026 [facility] CLAVULANATE mouth twice /09/13 CLAVULANATE Aldo IQBAL 875-125 MG TABS daily METROGEL 1 % GEL apply to 2012/ METRONIDAZOLE 98819950936 Jianming affected area 06/07 Aldo IQBAL thin layer, once daily OMEPRAZOLE 20 MG One tablet by OMEPRAZOLE 42579905753 Jianming TBEC mouth daily / Aldo IQBAL OMEPRAZOLE 20 MG One tablet by 2012/ OMEPRAZOLE 42905097925 Jianming TBEC mouth daily /06/07 Aldo IQBAL FAMVIR 500 MG one po tid 2012/ FAMCICLOVIR 93484172180 Jianming TABS /06/07 Aldo IQBAL FENTANYL 25 change q 3 FENTANYL 81321730056 Ness Franco MCG/HR PT72 days Maria Elena IQBAL FENTANYL 25 change q 3 2012/ FENTANYL 61207477940 Jianming MCG/HR PT72 days 06/07 Aldo IQBAL TRAZODONE HCL 50 Two tablets by 2012/ TRAZODONE HCL 11483232736 Jianming MG TABS mouth daily /04/06 Aldo IQBAL MUPIROCIN 2 % apply to 2012/ MUPIROCIN 01394256172 Jianming OINT affected area /06/07 Aldo IQBAL four times a day ZOLPIDEM One tablet by 2012/ ZOLPIDEM TARTRATE 86829514384 Jianming TARTRATE 5 MG mouth daily /06/07 Aldo IQBAL TABS every night as needed, avoid driving or operating machine under the influence of medication. PODOCON 25 % 2012/ PODOPHYLLUM RESIN 98486006060 Jianming SOLN /06/07 Aldo IQBAL ACYCLOVIR 800 MG one po q 8 hrs 2012/ ACYCLOVIR 85598028541 Jianming TABS /06/07 Aldo IQBAL CIPRO HC 0.2-1 % 4 gtt to left 2012/ CIPROFLOXACIN-HYDROC 19464207551 Jianming SUSP ear three 06/07 ORTISONE Aldo MD times a day VALIUM 2 MG TABS One tablet by 2013/ DIAZEPAM 22565873277 Jianming mouth twice 11/19 Aldo IQBAL daily PROMETHAZINE HCL One tablet by 2013/ PROMETHAZINE HCL 67866142729 Jianming 12.5 MG TABS mouth 12/20 Aldo IQBAL times daily as needed nausea/vomitin g DIVALPROEX One tablet by 2013/ DIVALPROEX SODIUM 88220149222 Jianming SODIUM 125 MG mouth twice /11/12 Aldo IQBAL TBEC daily ZOLPIDEM One tablet by 2013/ ZOLPIDEM TARTRATE 07493098637 Jianming TARTRATE 5 MG mouth daily /11/19 Aldo IQBAL TABS every night SYNTHROID 100 One tablet by 2013/ LEVOTHYROXINE SODIUM 12108296339 Rabia MCG TABS mouth daily /10/22 Aldo IQBAL DEPO-SUBQ once every MEDROXYPROGESTERONE 10110331333 Jianming PROVERA 104 104 three months / ACETATE Aldo IQBAL MG/0.65ML PARVIN DEPO-SUBQ once every 2013/ MEDROXYPROGESTERONE 23506337902 Jianming PROVERA 104 104 three months /11/03 ACETATE Aldo IQBAL MG/0.65ML PARVIN NOVOLIN N 100 40 units SC INSULIN ISOPHANE 97344432832 Jianming UNIT/ML SUSP twice daily HUMAN Aldo IQBAL NOVOLOG 100 25 units SC at INSULIN ASPART 99362017094 Jianming UNIT/ML SOLN BF, 30 units / Aldo IQBAL at Lunch and Supper DIAZEPAM 2 MG One tablet by 2013/ DIAZEPAM 51991442239 Rehana E TABS mouth daily /01/21 [employer] every night AMOXICILLIN-POT One tablet by 2013/ AMOXICILLIN-POT 72401233535 Salma iMlton CLAVULANATE mouth twice /07/13 CLAVULANATE Mallorie 875-125 MG TABS daily NUCYNTA ER 50 MG One tablet by TAPENTADOL HCL 95656710445 Rabia [id number] mouth twice / Aldo IQBAL daily as needed NUCYNTA ER 50 MG One tablet by 2013/ TAPENTADOL HCL 65074011600 Salma Milton [id number] mouth twice /07/13 Mallorie daily as needed TOPIRAMATE 50 MG One tablet by TOPIRAMATE 82261627730 Salma M TABS mouth daily / Mallorie TOPIRAMATE 50 MG One tablet by 2013/ TOPIRAMATE 02389842214 Jianming TABS mouth daily /07/29 Aldo IQBAL AMPICILLIN 500 One tablet by 2013/ AMPICILLIN 72052856553 Lakishanming MG CAPS mouth four 12/20 Aldo IQBAL times daily VITAMIN D one tablet by ERGOCALCIFEROL 61348374080 Rabia (ERGOCALCIFEROL) mouth once / Aldo IQBAL 99294 UNIT CAPS weekly VITAMIN D one tablet by 2013/ ERGOCALCIFEROL 54262042643 Jianming (ERGOCALCIFEROL) mouth once /12/20 Aldo IQBAL 79246 UNIT CAPS weekly SULFAMETHOXAZOLE One tablet by 2013/ SULFAMETHOXAZOLE-TRI 14824635764 Jianming -TRIMETHOPRIM mouth twice /12/20 METHOPRIM Aldo IQBAL 800-160 MG TABS daily GLUCAGEN HYPOKIT as needed IM GLUCAGON HCL (RDNA) 72748497349 Jianming 1 MG SOLR Aldo IQBAL hypoglycemia DEXAMETHASONE 1 One tab by 2016/ DEXAMETHASONE 72088792733 Raven L MG TABS mouth at 11pm, /03/31 [facility] lab work at 8AM the next morning FUROSEMIDE 20 MG One tablet by 2016/ FUROSEMIDE 66497740198 Raven L TABS mouth daily /03/31 [facility] ATORVASTATIN One tablet by 2016/ ATORVASTATIN CALCIUM 68003067703 Raven L CALCIUM 20 MG mouth daily at /03/31 [facility] TABS night for high cholesterol ATENOLOL 50 MG One tablet by ATENOLOL 65809051890 Raven L TABS mouth twice / [facility] daily ATENOLOL 50 MG One tablet by 2014/ ATENOLOL 10553758761 Gabriel A TABS mouth twice /04/04 Mauricio daily DOXYCYCLINE One tablet by 2014/ DOXYCYCLINE HYCLATE 61871487308 Gabriel A HYCLATE 100 MG mouth twice /12/22 Mauricio DO CAPS daily x 10 days HYDROMORPHONE 1 tablet by HYDROMORPHONE HCL 52447871694 Rabia HCL 2 MG TABS mouth every Aldo IQBAL 4-6 as needed HYDROMORPHONE 1 tablet by 2014/ HYDROMORPHONE HCL 53928795956 Gabriel A HCL 2 MG TABS mouth every 04/04 Mauricio DO 4-6 as needed FENTANYL 50 change q 72hrs FENTANYL 28813652772 Lakishanming MCG/HR PT72 Aldo IQBAL FENTANYL 50 change q 72hrs 2014/ FENTANYL 39390507836 Gabriel A MCG/HR PT72 12/22 Mauricio DO SYNTHROID 112 One tablet by 2014/ LEVOTHYROXINE SODIUM 95579365016 Lakishanming MCG TABS mouth daily /10/25 Aldo IQBAL PRAVASTATIN One tablet by 2014/ PRAVASTATIN SODIUM 17089169503 Jianming SODIUM 40 MG mouth daily /10/25 Aldo IQBAL TABS every night KLOR-CON M20 20 One tablet by 2015/ POTASSIUM CHLORIDE 76871347853 Gabriel A MEQ CR-TABS mouth daily /03/19 MELANY CR Mauricio DO FOLIC ACID 1 MG Two tablets by 2015/ FOLIC ACID 96957043393 Gabriel A TABS mouth daily /03/19 Mauricio DO PREMARIN 1.25 MG One tablet by ESTROGENS CONJUGATED 81434124174 Jianming TABS mouth daily / Aldo IQBAL PREMARIN 1.25 MG One tablet by 2015/ ESTROGENS CONJUGATED 94745712072 Gabriel A TABS mouth daily /03/19 [facility] DO DOXEPIN HCL 25 1 capsule by 2015/ DOXEPIN HCL 91647378485 Gabriel A MG CAPS mouth at night /03/19 [facility] DO for IBS FENOFIBRATE 48 Two tablets 2015/ FENOFIBRATE 98841084761 Gabriel A MG TABS daily /12/26 [facility] DO XIFAXAN 550 MG One tablet by 2015/ RIFAXIMIN 39742596957 Gabriel A TABS mouth three 11/07 [facility] DO times daily NOVOLOG 100 20-30 units INSULIN ASPART 52167317245 Gabriel A UNIT/ML SOLN three times a [facility] DO day with meals COLACE 100 MG One tablet by 2015/ DOCUSATE SODIUM 27943623505 Gabriel A CAPS mouth daily /10/24 [facility] DO PROPRANOLOL HCL One capsule by 2014/ PROPRANOLOL HCL 63309814159 Gabriel A ER 80 MG mouth daily at 05/11 [facility] DO [id number] night for migraine prevention and tachycardia DIAZEPAM 5 MG One tablet by 2015/ DIAZEPAM 64329765569 Gabriel A TABS mouth daily /10/24 [facility] DO every night, avoid driving or operating machine under the influence of medication. Medications Administered No information available. Allergies, Adverse Reactions, Alerts Allergy Name Reaction Description Start Date Severity Status Provider FENOFIBRATE Arthralgia Moderate Active Gabriel A Mauricio DO NSAIDS liver Critical Active Jianming Carlson [...] Request for EFFEXOR XR 75MG CAP ESM_RR [id number]`EFFEXOR XR 75MG CAP`75MG``270 B e-scripts Capsule`90`TAKE THREE CAPSULES BY MOUTH ONCE messenger DAILY``1`0`02/07/2015`05/11/2015`[facility] [place]*`[id number]`[id number]`VENLAFAXINE request ER 75MG CAP Quantity: 270 Capsule [...] use CP ORALTOBACUSE Current Tobacco smoking status NHIS Office Visit: Diabetes and adrenal visit MEDS REVIEW Done Documentation of current medications (procedure) Plan of Care Type Date Detail Referral Psychiatric Referral Referral Rheumatology Referral [facility] Provider, [address] [place], [address] Referral Rheumatology Referral [facility] Provider, [address] [place], [address] Referral Ophthalmology Referral Referral Ophthalmology Referral Referral excluded from report: Referral Ophthalmology Referral [address] [place] [address], [address] Referral Ophthalmology Referral [address] [place] [address], [address] Referral Gastroenterology Referral Jasbir Fuchs MD, [address] [place], [address] Referral Gastroenterology Referral Jasbir Fuchs MD, [address] [place], [address] Referral Ophthalmology Referral Referral Rheumatology Referral Renya Tucker MD, [address], [address], [place], [address] Referral Other Referral [facility], [address] [place], [address] Referral Other Referral [facility], [address] [place], [address] Referral Podiatry Referral Jared Powers DPM, [address] [place], [address] Referral OT-Functional Capacity Evaluation Physical Therapy [facility], [address] [facility], [place], [address] Referral Dermatology Referral Nadine Marquez, [address] [place], [address] Referral Gastroenterology Referral Marlonrios Coon, [address] [place], [address] Referral Rheumatology Referral Reyna Tucker MD, [address], [address], [place], [address] Referral Pain Management Maricruz Hernandez, [address] [place] [address], [address], [place], [address] Pending order *HgA1C Pending order *Microalbumin, Creatine [...] Pending order Rapid Strep (Office) Pending order *Marathon Test Pending order Administration Injection (Prophylactic, Therapeutic [...] Procedures Code Procedure Name Date Entry Date CPT-63523 HGB A1C (Office) 2143-6 *CAYDEN - Cortisol, A.M. 71586-7 *Lipid Profile 0667-1 *BMP PSGPCP PSG,CPAP (as indicated) ONLY PCP to follow up [id number] Ophthalmology Referral Order excluded from report: 0184-1 *CBC with Differential 24112-8 *CRP - C-Reative Protein 0786-1 *CMP Complete Metabolic Panel 4548-4 *HgA1C 80490-1 *Lipid Profile 0779-1 *Microalbumin, Creatine Ratio, rand urine 3016-3 *TSH 96539-1 *RA Rheumatoid Factor - Quaint 45118-7 *Sedimentation Rate (ESR) 06122-1 *UAC- Urinalysis, Complete w/ Micro 0523-1 *ANCA [id number] Ophthalmology Referral [id number] Rheumatology Referral CPT-46815 HGB A1C (Office) 4548-4 *HgA1C 3016-3 *TSH 44833-6 *Lipid Profile 0786-1 *CMP Complete Metabolic Panel Q968T,[id number] Lipid Profile CPT-22485 HGBA1C 3016-3 *TSH 0786-1 *CMP Complete Metabolic Panel 3016-3 *TSH 00234-5 *CBC without Diff 4086-5 *DEBRA Valpric Acid (Depakene, Dipropylacetic Acid) Drug Assay [id number],[id number] Microalbumin urine CPT-86335 HGBA1C Q968T,[id number] Lipid Profile CPT-90674 X-Ray, Hip Unilateral Podiatry Referral Podiatry Referral 4548-4 *HgA1C 3016-3 *TSH 4086-5 *DEBRA Valpric Acid (Depakene, Dipropylacetic Acid) Drug Assay 10862-6 *CBC without Diff 0786-1 *CMP Complete Metabolic Panel 4548-4 *HgA1C 0786-1 *CMP Complete Metabolic Panel 01953-9 *Lipid Profile 4086-5 *DEBRA Valpric Acid (Depakene, Dipropylacetic Acid) Drug Assay 0667-1 *BMP 6462-6 *CUW - Culture, Wound (Aerobic) 2823-3 *Potassium; Serum, Plasma or Whole Blood 0433-1 *HEBSAG - Hep B Surface Antigen 6510 0363-1 *HECAB Hepatitis C Antibody 55492-7 *HEBSAB - Hep B Surface Antibody 6395 0197-1 *HIV antibody 97114-1 *RPR 4548-4 *HgA1C 0667-1 *BMP 58887-3 *CBC without Diff 0788-1 *Hepatic Function Panel 4086-5 *DEBRA Valpric Acid (Depakene, Dipropylacetic Acid) Drug Assay 0184-1 *CBC with Differential 3016-3 *TSH 3024-7 *T4 free 0786-1 *CMP Complete Metabolic Panel CPT-14672 UA Dipstick (Office) 28460 Fingerstick, glucose (office) Dermatology Referral Dermatology Referral CPT-03096 X-Ray, Chest, PA & Lateral CPT-25704 Rapid Strep (Office) 58198-4 *Marathon Test CPT-12756 Administration Injection (Prophylactic, Therapeutic or Diagnostic) CPT-94102 Excision Benign Lesion Trunk/Arm/Ket <0.6 cm FUA 2 weeks Follow Up Appt 2 weeks 0788-1 *Hepatic Function Panel 4086-5 *DEBRA Valpric Acid (Depakene, Dipropylacetic Acid) Drug Assay FUA 2 weeks Follow Up Appt 2 weeks 21182-1 *CBC without Diff Order excluded from report: 80626-1 *CBC without Diff Order excluded from report: FUA as scheduled Follow Up as scheduled Gastroenterology Ref Gastroenterology Referral CPT-37310 US Transvaginal Order excluded from report: FUA 1 week Follow up Appt 1 week 4548-4 *HgA1C 75158-7 *Lipid Profile 0786-1 *CMP Complete Metabolic Panel FUA 3 months Follow Up Appt 3 months 4548-4 *HgA1C Order excluded from report: 0667-1 *BMP Order excluded from report: CPT-82994 *Liver/Hepatic Function Panel Order excluded from report: FUA 3 months Follow Up Appt 3 months CPT-44606 *Lipid Profile RheuRef Rheumatology Referral Pain Management Pain Management CPT-43856 *Lipid Profile CPT-03632 *CMP Complete Metabolic Panel CPT-95039 *HgA1C CPT-23664 *TSH CPT-56627 *CBC without Diff CPT-74914 *Creatine Kinase (CK) CRP *CRP CPT-49248 *Sedimentation Rate (ESR) FUA 2 weeks Follow Up Appt 2 weeks Vital Signs Date Name Value Unit Description BMI (Body Mass Index) 33.28 kg/m2 Body Mass Index [Ratio] BP Diastolic 78 mm[Hg] blood pressure, diastolic - 8462-4 BP Systolic 120 mm[Hg] blood pressure, systolic - 8480-6 Heart Rate 76 /min pulse rate E&M - 8867-4 Height 62 [in_us] height E&M - 8302-2 Respiratory Rate 18 /min respiratory rate E&M - 9279-1 Weight Measured 182 [lb_av] weight E&M - 3141-9 Body Temperature 98.5 [degF] temperature E&M BSA (Body Surface Area) 1.90 body surface area
--- OUTSIDE RECORDS SUMMARY | 2018-09-04 11:20 | XMS RPT_ITS | Clinical Summary ---
:1985 Author Organization Formerly [facility], [facility] Address [address] [place] [id number] Phone Care Team Providers Name Role Phone Raven Shepard LPN Unavailable Unavailable Conditions or Problems Problem Problem Onset Status Entry Provider Comment Standard Annotate Name Code Date Date Description Hypersomni [id number] Active Gabriel A Hypersomnia a (SNOMED 03/19 03/[address]) Peripheral 133158986 Active Gabriel A Peripheral edema (SNOMED 03/19 03/[address]) Abnormal 944331276 Inactive Gabriel A Abnormal weight (SNOMED 03/19 03/19 Mauricio DO weight gain gain CT) ARTHRITIS, 14739720 Active Gabriel A Rheumatoid RHEUMATOID (SNOMED 09/09 09/[address]) Urinary 887830944 Resolved Gabriel A Increased frequency (SNOMED 10/24 10/24 [address] frequency of CT) urination Diarrhea, 749918783 Resolved Gabriel A Chronic chronic (SNOMED 10/24 10/[address]) Hypertrigl 618406811 Active Gabriel A Hypertriglycer >800 yceridemia (SNOMED 10/30 10/[address]) Greater 1707970 Inactive Gabriel A Trochanteric trochanter (SNOMED 10/24 10/24 Mauricio DO bursitis ic CT) bursitis, left Diarrhea, 572432892 Removed Gabriel A Chronic chronic (SNOMED 10/24 10/[address]) Urinary [id number] Removed Gabriel A Increased frequency (SNOMED 10/24 10/24 Mauricio DO frequency of CT) urination UPPER [id number] Resolved Gabriel A Upper RESPIRATOR (SNOMED 09/13 09/13 Mauricio DO respiratory Y CT) infection INFECTION Migraine 68531136 Active Gabriel A Migraine headache (SNOMED 04/04 04/04 [facility] CT) Foot pain, 28930500 Inactive Gabriel A Foot pain left [facility]07 [facility] UPPER [id number] Removed Gabriel A Upper RESPIRATOR (SNOMED 09/13 09/13 [facility] DO respiratory Y CT) infection INFECTION Hypertrigl 029077326 Resolved Gabriel A Hypertriglycer yceridemia (SNOMED 10/25 10/[address]) LEG PAIN, 41147966 Resolved Gabriel A Pain in lower BILATERAL (SNOMED 03/15 03/15 [facility] limb CT) POLYCYSTIC 94425241 Resolved Gabriel A Polycystic OVARIAN (SNOMED 03/15 03/15 [facility] ovaries DISEASE CT) DEPRESSION 37785349 Resolved Gabriel A Recurrent since age , MAJOR, (SNOMED 03/15 [facility] DO major [address]) depression MUSCLE 40245484 Resolved Gabriel A Muscle WEAKNESS (SNOMED 03/15 03/15 [facility] DO weakness (GENERALIZ CT) ED) NIPPLE [id number] Resolved Gabriel A Bloody nipple DISCHARGE, (SNOMED 03/23 03/23 [facility]) HYPERSOMNI [id number] Resolved Gabriel A Hypersomnia A (SNOMED 04/06 04/06 [facility] CT) SKIN RASH [id number] Resolved Gabriel A Eruption (SNOMED 10/03 10/03 [facility]) SEXUALLY 144464430 Resolved Gabriel A Exposure to TRANSMITTE (SNOMED 10/04 10/04 [facility] DO sexually D DISEASE, CT) transmissible EXPOSURE disorder TO HYPOKALEMI 04679962 Resolved Gabriel A Hypokalemia A (SNOMED 11/03 11/03 [facility] Ingrown 811826834 Resolved Gabriel A Ingrowing nail toenail (SNOMED [facility] CT) Hip pain, 89903430 Resolved Gabriel A Hip pain right (SNOMED 09/13 09/[address] [facility] CT) Bronchitis 23609501 Resolved Gabriel A Acute , acute (SNOMED 10/25 11/09 [facility] bronchitis CT) Chronic 944371483 Active Gabriel A Chronic pain pain (SNOMED 12/22 12/22 [facility] syndrome syndrome CT) Bronchitis 40294754 Removed Jianming Acute , acute (SNOMED 10/25 11/[address] [facility] [address]) Paronychia [id number] Resolved Jianming Paronychia of left big , great (SNOMED [facility] toe toe toe CT) Hypertrigl 553070480 Removed Jianming Hypertriglycer yceridemia (SNOMED 10/25 10/[address] [facility] [address]) Superficia [id number] Resolved Jianming Superficial right l vein (SNOMED 09/29 09/29 [facility] vein basilic thrombosis CT) thrombosis vein from just above elbow to wrist Superficia [id number] Removed Jianming Superficial right l vein (SNOMED 09/29 09/29 [facility] vein basilic thrombosis CT) thrombosis vein from just above elbow to wrist Hip pain, 77923565 Removed Jianming Hip pain right (SNOMED 09/13 09/[address]) Ingrown 552856056 Removed Jianming Ingrowing nail toenail (SNOMED [facility] CT) Paronychia [id number] Removed Jianming Paronychia of left big , great (SNOMED [facility] toe toe toe CT) Back pain, 512298048 Active Jianming Low back pain chronic s/p lumbar (SNOMED [facility] surgery CT) NAUSEA AND [id number] Resolved Jianming Nausea and VOMITING (SNOMED 11/12 11/[address] [facility] [address]) OTITIS [id number] Resolved Rehana E Chronic otitis EXTERNA, (SNOMED 08/30 08/[address]) OTITIS [id number] Resolved Rehana E Acute otitis MEDIA, (SNOMED 08/18 08/18 [facility] media ACUTE, CT) BILATERAL DKA [id number] Resolved Jianming Diabetic (SNOMED [facility] ketoacidosis CT) CELLULITIS 957894952 Resolved Jianming Cellulitis of the (SNOMED 11/03 11/[address] [facility] [address]) site NAUSEA AND [id number] Removed Jianming Nausea and VOMITING (SNOMED 11/12 11/[address] [facility] [address]) HYPOKALEMI [id number] Removed Jianming Hypokalemia A (SNOMED 11/03 11/[address] [facility]) CELLULITIS 720094925 Removed Jianming Cellulitis of the (SNOMED 11/03 11/[address]) site SEXUALLY 360621559 Removed Marianna A Exposure to TRANSMITTE (SNOMED 10/04 10/04 Flannery sexually D DISEASE, CT) transmissible EXPOSURE disorder TO OTITIS 6518882 Removed Lakishanming Acute otitis MEDIA, (SNOMED 08/18 08/18 [facility] media ACUTE, CT) BILATERAL OTITIS [id number] Correctio Lakishanming Acute otitis MEDIA, (SNOMED 08/18 n 08/18 [facility] media ACUTE, CT) BILATERAL SKIN RASH [id number] Removed Ness J Eruption (SNOMED 10/03 10/[address]) OTITIS [id number] Removed Ness J Chronic otitis EXTERNA, (SNOMED 08/30 08/[address]) DKA [id number] Removed Jianming Diabetic (SNOMED [facility] ketoacidosis CT) OTITIS [id number] Resolved Jianming Otitis externa EXTERNA (SNOMED 03/23 03/[address]) HYPERSOMNI [id number] Removed Jianming Hypersomnia A (SNOMED 04/06 04/[address]) ALLERGIC 09680462 Active Jianming Allergic RHINITIS (SNOMED 04/06 04/[address] [address]) OTITIS 4781252 Removed Jianming Otitis externa EXTERNA (SNOMED 03/23 03/[address]) NIPPLE 151583414 Removed Jianming Bloody nipple DISCHARGE, (SNOMED 03/23 03/23 [facility] discharge BLOODY CT) NIPPLE 062068705 Correctio Jianming Bloody nipple DISCHARGE, (SNOMED 03/23 n 03/23 [facility] [address] BLOODY [address]) OTITIS 4135760 Correctio Jianming Otitis externa EXTERNA (SNOMED 03/23 n 03/[address]) 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, (SNOMED 02/10 02/[address]) POLYCYSTIC 23565292 Active Ness J Polycystic OVARIAN (SNOMED 02/10 02/[address]) FIBROMYALG 25384672 Active Ness J Fibromyositis IA, SEVERE (SNOMED 02/10 02/[address]) IMMUNOCOMP 560812311 Active Ness J Immunodeficien ROMISED (SNOMED 02/10 02/[address]) HUMAN 209129555 Active Ness J Human PAPILLOMAV (SNOMED 02/10 02/[address]) virus infection TACHYCARDI 3079522 Active Jianming Tachycardia since 2004 A (SNOMED 01/[address]) HYPOGLYCEM 489128565 Resolved Jianming Hypoglycemia IA (SNOMED 09/24 09/[address]) MOVEMENT 10541154 Resolved Jianming Movement DISORDER (SNOMED 09/24 09/[address] [facility] [address]) ROSACEA 098766060 Active Jianming Rosacea (SNOMED 01/14 01/[address]) TACHYCARDI 5244494 Resolved Jianming Tachycardia A (SNOMED 03/[address]) GLUCOCORTI 876708630 Resolved Jianming 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 PHARYNGITI 234284657 Resolved Jianming Acute S, ACUTE (SNOMED 09/07 09/[address] [address]) UPPER 80923692 Resolved Jianming Upper RESPIRATOR (SNOMED 09/13 09/13 [facility] respiratory Y CT) infection INFECTION COUGH 29207581 Resolved Jianming Cough (SNOMED 09/13 09/[address]) HYPOGLYCEM 040398056 Removed Jianming Hypoglycemia IA (SNOMED 09/24 09/[address]) MOVEMENT 74358068 Removed Jianming Movement DISORDER (SNOMED 09/24 09/[address] [facility]) COUGH [id number] Removed Salma M Cough (SNOMED 09/13 09/[address]) UPPER [id number] Removed Salma M Upper RESPIRATOR (SNOMED 09/13 09/[address]) infection INFECTION PHARYNGITI 022244357 Removed Jianming Acute S, ACUTE (SNOMED 09/07 09/[address] [address]) MELENA 7526279 Resolved Jianming Melena (SNOMED 11/06 11/[address]) LOCALIZED R22.9 Resolved Jianming Localized right SUPERFICIA (ICD-10-CM [facility] swelling, mass axillary L SWELLING ) and lump, MASS OR unspecified LUMP LIVER V12.2 Resolved Jianming Personal FUNCTION (ICD-9-CM) 03/15 03/15 [facility] history of TESTS, endocrine, ABNORMAL, metabolic, and HX OF immunity disorders CONSTIPATI 502328311 Resolved Jianming Chronic ON, (SNOMED 09/23 09/[address] [facility] [address] CHRONIC CT) ABDOMINAL R10.31 Resolved Jianming Right lower PAIN RIGHT (ICD-10-CM 09/23 09/23 [facility] quadrant pain LOWER ) QUADRANT OTITIS 9456430 Resolved Jianming Otitis externa EXTERNA (SNOMED 08/22 08/[address]) GLUCOCORTI 474740705 Removed Jianming 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 OTITIS [id number] Removed Jianming Otitis externa EXTERNA (SNOMED 08/22 08/[address]) LOCALIZED R22.9 Removed Jianming Localized right SUPERFICIA (ICD-10-CM [facility] swelling, mass axillary L SWELLING ) and lump, MASS OR unspecified LUMP BIPOLAR 566112597 Active Jianming Bipolar diagnosed AFFECTIVE (SNOMED 02/19 [facility] affective by DISORDER, CT) disorder, psychiatris DEPRESSED current t at episode Kristian depression in [place] GASTROESOP 497044749 Active Jianming Gastroesophage HAGEAL (SNOMED 02/19 [facility] al reflux REFLUX CT) disease DISEASE INSOMNIA, 420679817 Active Jianming Insomnia CHRONIC (SNOMED 02/19 02/[address]) ACUTE 96487840 Resolved Jianming Acute ETHMOIDAL (SNOMED 09/18 09/18 [facility] ethmoidal SINUSITIS CT) sinusitis MELENA 5043330 Removed Luis Eduardo M Melena (SNOMED 11/06 11/[address]) ACUTE 71684249 Removed Jianming Acute ETHMOIDAL (SNOMED 09/18 09/18 [facility] ethmoidal SINUSITIS CT) sinusitis ABDOMINAL R10.31 Removed Jianming Right lower PAIN RIGHT (ICD-10-CM 09/23 09/23 [facility] quadrant pain LOWER ) QUADRANT CONSTIPATI 071991224 Removed Jianming Chronic ON, (SNOMED 09/23 09/[address] [facility] [address]) ARTHRITIS, 85615716 Inactive Jianming Rheumatoid f/u RHEUMATOID (SNOMED 09/09 09/09 [facility] [address] [place] CT) DYSLIPIDEM 889265850 Active Jianming Dyslipidemia IA (SNOMED 04/03 04/[address]) MUSCLE 50684198 Removed Jianming Muscle WEAKNESS (SNOMED 03/15 03/15 [facility] weakness (GENERALIZ CT) ED) DEPRESSION 95305685 Removed Jianming Recurrent since age , MAJOR, (SNOMED 03/15 [facility] major [address]) depression POLYCYSTIC 11223866 Removed Jianming Polycystic OVARIAN (SNOMED 03/15 03/15 [facility] [address] DIS[address]ASE CT) IRRITABLE 61635413 Active Jianming Irritable BOWEL (SNOMED 03/15 03/15 [facility] bowel syndrome SYNDROME CT) TACHYCARDI 8066315 Removed Jianming Tachycardia A (SNOMED 03/[address]) LEG PAIN, 44559523 Removed Jianming Pain in lower BILATERAL (SNOMED 03/15 03/[address] [facility]) HYPOTHYROI 48022820 Active Jianming Hypothyroidism DISM (SNOMED 08/11 03/[address]) DIABETES 90264491 08/11/19 Active Jianming Type 1 MELLITUS, (SNOMED 03/15 [facility] diabetes TYPE I CT) mellitus LIVER V12.2 Removed Jianming Personal FUNCTION (ICD-9-CM) 03/15 03/15 [facility] history of TESTS, endocrine, ABNORMAL, metabolic, and HX OF immunity disorders Medications Medication Instructions Start Stop Generic Name NDC Provider Date Date FREESTYLE LITE Use for 2024/ BLOOD GLUCOSE [id number] Kay ROMAN diabetes /07/02 MONITORING SUPPL Mike GARNER ICD!) E10.9 FREESTYLE LITE Check BG 6 2024/ GLUCOSE BLOOD [id number] Kay Franco TEST STRP times daily /07/02 Mike GARNER ICD10 E10.9 NOVOLOG 100 Take 35 units 2024/ INSULIN ASPART [id number] Kay Franco UNIT/ML SOLN each meal /07/02 Mike GARNER FREESTYLE LITE Check BG 6 2024/ GLUCOSE BLOOD [id number] Kay Franco TEST STRP times daily /07/02 Mike GARNER FREESTYLE LITE Use for 2024/ BLOOD GLUCOSE [id number] Kay Franco JESSIE diabetes /07/02 MONITORING SUPPL Mike GARNER ATORVASTATIN One tablet by ATORVASTATIN CALCIUM 22212820687 Gabriel A CALCIUM 20 MG mouth daily at / [facility] DO TABS night for high cholesterol FUROSEMIDE 20 MG One tablet by FUROSEMIDE 48766346820 Gabriel A TABS mouth daily /Mauricio DO SEROQUEL 200 MG One tablet by QUETIAPINE FUMARATE 54696632274 Gabriel A TABS mouth daily /Mauricio DO EFFEXOR XR 75 MG Three tablets VENLAFAXINE HCL 12563653856 Gabriel A [id number] by mouth daily / [facility] NOVOLOG 100 15-30 units INSULIN ASPART 57186080909 Gabriel A UNIT/ML SOLN three times a [facility] day with meals NOVOLIN N 100 40-50 units INSULIN ISOPHANE 50018497179 Gabriel A UNIT/ML SUSP twice daily / [facility] ACYCLOVIR 400 MG One tablet by ACYCLOVIR 03378151852 Gabriel A TABS mouth daily / [facility] DO ATENOLOL 50 MG One tablet by ATENOLOL 21099138223 Gabriel A TABS mouth twice /Mauricio DO daily DEXAMETHASONE 1 One tab by DEXAMETHASONE 98102532930 Gabriel A MG TABS mouth at 11pm, / [facility] lab work at 8AM the next morning ZYRTEC ALLERGY One tablet by CETIRIZINE HCL 33474425675 Gabriel A 10 MG TABS mouth daily at / [facility] bedtime OMEPRAZOLE 20 MG One tablet by OMEPRAZOLE 29685637626 Gabriel A TBEC mouth daily / [facility] DO SYNTHROID 137 One tablet by LEVOTHYROXINE SODIUM 67133782846 Gabriel A MCG TABS mouth daily /Mauricio DO DIVALPROEX Two tablets by DIVALPROEX SODIUM 31096674443 Gabriel A SODIUM 250 MG mouth daily / [facility] TBEC BD INSULIN 5-6 times INSULIN 17724817384 Gabriel A SYRINGE daily DX: DM SYRINGE-NEEDLE U-100 Mauricio DO ULTRAFINE 30G X type I 1/2 0.5 ML MISC FENOFIBRATE 48 Two tablets FENOFIBRATE 79329988298 Gabriel A MG TABS daily / DO ACYCLOVIR 400 MG One tablet by ACYCLOVIR 49101414905 Gabriel A TABS mouth twice Mauricio DO daily DOXEPIN HCL 25 1 capsule by DOXEPIN HCL 30107682732 Gabriel A MG CAPS mouth at night / Mauricio DO for IBS XIFAXAN 550 MG One tablet by 2015/ RIFAXIMIN 49632597259 Gbariel A TABS mouth three /11/07 Mauricio DO times daily DIAZEPAM 5 MG One tablet by DIAZEPAM 59442955828 Gabriel A TABS mouth daily /Mauricio DO every night, avoid driving or operating machine under the influence of medication. PROPRANOLOL HCL One capsule by PROPRANOLOL HCL 73242460182 Gabriel A ER 80 MG mouth daily at /Mauricio DO [id number] night for migraine prevention and tachycardia ATENOLOL 50 MG One tablet by ATENOLOL 54124511825 Gabriel A TABS mouth twice / Mauricio DO daily NOVOLOG 100 30 units three INSULIN ASPART 83118542340 Gabriel A UNIT/ML SOLN times a day / DO with meals NOVOLIN N 100 45 units SC INSULIN ISOPHANE 97883880373 Gabriel A UNIT/ML SUSP twice daily / HUMAN Mauricio DO KLOR-CON M20 20 One tablet by POTASSIUM CHLORIDE 17777345335 Gabriel A MEQ CR-TABS mouth daily /12 MELANY CR Mauricio DO FOLIC ACID 1 MG Two tablets by FOLIC ACID 73346341436 Gabriel A TABS mouth daily / Mauricio DO NOVOLOG 100 25 units SC at INSULIN ASPART 85435624851 Gabriel A UNIT/ML SOLN BF, 30 units / Mauricio DO at Lunch [employer] Supp[employer] FENOFIBRATE 48 One tablet by FENOFIBRATE 70446692226 Jianming MG TABS mouth daily, / [facility] then increase to two tablets if tolerate it DOXYCYCLINE One tablet by DOXYCYCLINE HYCLATE 63608798369 Lakishanming HYCLATE 100 MG mouth twice / [facility] CAPS daily x 10 days PRAVASTATIN One tablet by PRAVASTATIN SODIUM 16178946319 Jianming SODIUM 40 MG mouth daily / [facility] TABS every night AMOXICILLIN-POT One tablet by AMOXICILLIN-POT 52765872156 Leticiaing CLAVULANATE mouth twice / CLAVULANATE [facility] 875-125 MG TABS daily SYNTHROID 112 One tablet by LEVOTHYROXINE SODIUM 93888831922 Lakishanving MCG TABS mouth daily / [facility] QUETIAPINE Three tablets QUETIAPINE FUMARATE 03950621712 Jianming FUMARATE 50 MG by mouth daily / [facility] TABS at bed time DIVALPROEX One tablet by DIVALPROEX SODIUM 37316181136 Lakishanming SODIUM 250 MG mouth twice / [facility] TBEC daily DIAZEPAM 2 MG One tablet by DIAZEPAM 07147114745 Jianming TABS mouth daily / [facility] every night QUETIAPINE Two tablets by QUETIAPINE FUMARATE 39976244067 Jianming FUMARATE 50 MG mouth daily / [facility] TABS every night EFFEXOR XR 150 One tablet by VENLAFAXINE HCL 03590148343 Jianming MG [id number] mouth daily / [facility] COLACE 100 MG One tablet by DOCUSATE SODIUM 29409591936 Jianming CAPS mouth daily / [facility] PROMETHAZINE HCL One tablet by PROMETHAZINE HCL 54272831012 Jianming 12.5 MG TABS mouth [facility] times daily as needed nausea/vomitin g DIAZEPAM 2 MG One tablet by DIAZEPAM 64482615768 Jianming TABS mouth twice / [facility] daily QUETIAPINE Two tablets by QUETIAPINE FUMARATE 64925913434 Jianming FUMARATE 50 MG mouth twice / [facility] TABS daily AMPICILLIN 500 One tablet by AMPICILLIN 39393067464 Jianming MG CAPS mouth [facility] times daily SULFAMETHOXAZOLE One tablet by SULFAMETHOXAZOLE-TRI 93127640441 Jianming -TRIMETHOPRIM mouth twice METHOPRIM [facility] 800-160 MG TABS daily ZOLPIDEM One tablet by ZOLPIDEM TARTRATE 81189270371 Lakishanming TARTRATE 5 MG mouth daily / [facility] TABS every night QUETIAPINE one tablets by QUETIAPINE FUMARATE 68584674779 Jianming FUMARATE 50 MG mouth in AM , [facility] TABS two tablets by mouth in pM DIVALPROEX One tablet by DIVALPROEX SODIUM 40186293538 Jianming SODIUM 125 MG mouth twice / [facility] TBEC daily QUETIAPINE one tablets by QUETIAPINE FUMARATE 59400468778 Jianming FUMARATE 50 MG mouth in AM , [facility] TABS two tablets by mouth in pM EFFEXOR XR 75 MG One tablet by VENLAFAXINE HCL 78500223834 Rabia VL31O-KHS mouth daily [facility] AMOXICILLIN-POT One tablet by AMOXICILLIN-POT 63601287925 Leticiaing CLAVULANATE mouth twice CLAVULANATE [facility] 875-125 MG TABS daily SYNTHROID 100 One tablet by LEVOTHYROXINE SODIUM 24207155831 Leticiaing MCG TABS mouth daily / [facility] QUETIAPINE One tablet by QUETIAPINE FUMARATE 82262948945 Lakishanming FUMARATE 50 MG mouth twice / [facility] TABS daily x 1 day, then titrate up as directed VALIUM 2 MG TABS One tablet by DIAZEPAM 78188865576 Jianming mouth twice / [facility] daily ZOLPIDEM One tablet by ZOLPIDEM TARTRATE 67798050536 Lakishanming TARTRATE 5 MG mouth daily / [facility] TABS every night as needed, avoid driving or operating machine under the influence of medication. MUPIROCIN 2 % apply to MUPIROCIN 25259816147 Rabia OINT affected area [facility] four times a day CIPRO HC 0.2-1 % 4 gtt to left CIPROFLOXACIN-HYDROC 04749843577 Rabia SUSP ear three ORTISONE Aldo MD times a day PODOCON 25 % PODOPHYLLUM RESIN 89163217042 Ness Franco SOLN /17 Signs ACYCLOVIR 800 MG one po q 8 hrs ACYCLOVIR 89255443183 Ness Franco TABS /17 Signs FAMVIR 500 MG one po tid FAMCICLOVIR 42000078837 Ness J TABS / Signs METROGEL 1 % GEL apply to METRONIDAZOLE 92862653677 Jianming affected area / [facility] thin layer, once daily DOXYCYCLINE One tablet by DOXYCYCLINE HYCLATE 60108543171 Lakishanving HYCLATE 100 MG mouth twice / [facility] CAPS daily x 10 days, then One tablet by mouth daily VENLAFAXINE HCL One tablet by VENLAFAXINE HCL 88021283225 Jianming ER 75 MG mouth daily / [facility] [id number] TRAZODONE HCL 50 Two tablets by TRAZODONE HCL 28066072714 Jianming MG TABS mouth daily / [facility] AZITHROMYCIN 250 two tablets by AZITHROMYCIN 27466092731 Jianming MG TABS mouth on day [facility] one, and one tablets daily one day 2-5 EFFEXOR XR 37.5 One tablet by VENLAFAXINE HCL 72784710800 Jianming MG [id number]-RXS mouth daily / [facility] CETRAXAL 0.2 % 4-5 drop CIPROFLOXACIN HCL 60546013773 [facility] SOLN affected ear / [facility] three times a day DIVALPROEX One tablet by DIVALPROEX SODIUM 73982437050 Lakishanming SODIUM 250 MG mouth twice / [facility] TBEC daily DISABILITY DX: Rheumatoid DISABILITY PLACARD Jiaefraíning PLACARD arthritis / [facility] duration: five years PROTONIX 40 MG One tablet by PANTOPRAZOLE SODIUM 30687287224 Lakishanming PACK mouth daily. / [facility] DIVALPROEX One tablet by DIVALPROEX SODIUM 95277147479 Jianming SODIUM 125 MG mouth twice / [facility] TBEC daily ATENOLOL 50 MG One tablet by ATENOLOL 83776336535 Jianming TABS mouth daily at / [facility] bedtime TRAZODONE HCL 50 One tablet by TRAZODONE HCL 83081661318 Jianming MG TABS mouth daily / [facility] every night CITALOPRAM One tablet by CITALOPRAM 36912492896 Jianming HYDROBROMIDE 40 mouth daily HYDROBROMIDE [facility] MG TABS NOVOLIN N 100 40 units SC INSULIN ISOPHANE 06054123988 Jianming UNIT/ML SUSP twice daily / HUMAN [facility] HUMALOG 100 30 units SC INSULIN LISPRO 35998361533 Jianming UNIT/ML SOLN before meals (HUMAN) [facility] AUGMENTIN XR One tablet by AMOXICILLIN-POT 83963385069 Lakishanming 1000-62.5 MG mouth twice CLAVULANATE [facility] [id number] daily METHOTREXATE 2.5 4 pills by METHOTREXATE SODIUM 03611543264 Jianming MG TABS mouth once / [facility] weekly CIPROFLOXACIN One tablet by 2010/ CIPROFLOXACIN HCL 53723409299 Jianming HCL 500 MG TABS mouth twice 08/02 [facility] daily METRONIDAZOLE One tablet by 2010/ METRONIDAZOLE 13305186457 Jianming 500 MG TABS mouth 08/02 [facility] times daily INDOMETHACIN 25 1-2 tablets INDOMETHACIN 00816173204 Jianming MG CAPS three times a [facility] day as needed pain GLUCOMETER use as GLUCOMETER Jianming directed AC [facility] and [facility] HUMALOG 100 40 units SC at INSULIN LISPRO 42922798919 Jianming UNIT/ML SOLN each meal / (HUMAN) [facility] PRAVASTATIN One tablet by PRAVASTATIN SODIUM 96805213310 Lakishanming SODIUM 80 MG mouth daily / [facility] TABS LEVEMIR 100 40 units SC INSULIN DETEMIR 42129190197 Jianming UNIT/ML SOLN twice daily / [facility] NOVOLIN N 100 40 units SQ INSULIN ISOPHANE 52449220662 Luis Eduardo M UNIT/ML SUSP twice daily. / HUMAN [facility] HUMULIN N 100 40 units twice INSULIN ISOPHANE 50160630577 Jianming UNIT/ML SUSP daily / HUMAN [facility] HUMALOG 100 20 units per INSULIN LISPRO 81015137557 Jianming UNIT/ML SOLN meal / (HUMAN) [facility] ULTRAM 50 MG Two tablets by TRAMADOL HCL 74697381984 Jianming TABS mouth [facility] times daily, avoid driving or operating machine under the influence of medication. PRAVASTATIN One tablet by PRAVASTATIN SODIUM 31631166315 Lakishanming SODIUM 20 MG mouth daily / [facility] TABS every night TRAZODONE HCL 50 One tablet by TRAZODONE HCL 96857152811 Jianming MG TABS mouth daily / [facility] every night LEXAPRO 20 MG One tablet by ESCITALOPRAM OXALATE 03691622292 Jianming TABS mouth daily / [facility] ATENOLOL 50 MG One tablet by ATENOLOL 79456015420 Jianming TABS mouth daily at [facility] bedtime HYDROCODONE-ACET One tablet by HYDROCODONE-ACETAMIN 68755298236 Rabia AMINOPHEN 5-500 mouth HUBERT Carlson MD MG TABS times daily avoid driving or operating machine under the influence of medication. HYDROCODONE-ACET One tablet by 2011/ HYDROCODONE-ACETAMIN 64102724538 Rabia AMINOPHEN 5-500 mouth 02/19 HUBERT Carlson MD MG TABS times daily avoid driving or operating machine under the influence of medication. ULTRAM 50 MG Two tablets by 2011/ TRAMADOL HCL 57359658267 Jianming TABS mouth 09/18 [facility] times daily, avoid driving or operating machine under the influence of medication. AUGMENTIN XR One tablet by 2011/ AMOXICILLIN-POT 68271805713 Luis Eduardo Milton 1000-62.5 MG mouth twice /11/06 CLAVULANATE [facility] [id number] daily FOLIC ACID 1 MG 2 tablets by FOLIC ACID [id number] Jianming TABS mouth daily / Aldo IQBAL FOLIC ACID 1 MG 2 tablets by 2011/ FOLIC ACID 27284317806 Luis Eduardo M TABS mouth daily /11/06 Kunal IQBAL LEUCOVORIN one tablet by LEUCOVORIN CALCIUM 36159466319 Lakishanving CALCIUM 5 MG mouth once / Aldo IQBAL TABS weekly LEUCOVORIN one tablet by 2011/ LEUCOVORIN CALCIUM 12808340805 Luis Eduardo Milton CALCIUM 5 MG mouth once /11/06 Kunal IQBAL TABS weekly LEVEMIR 100 40 units SC 2010/ INSULIN DETEMIR 59104087148 Jianming UNIT/ML SOLN twice daily /07/11 Aldo IQBAL HUMALOG 100 INSULIN LISPRO 85256512783 Jianming UNIT/ML SOLN / (HUMAN) Aldo IQBAL HUMULIN N 100 40 units twice 2010/ INSULIN ISOPHANE 14683385659 Luis Eduardo M UNIT/ML SUSP daily 07/01 HUMAN Kunal IQBAL NOVOLIN N 100 40 units SQ 2010/ INSULIN ISOPHANE 05414901303 Jianming UNIT/ML SUSP twice daily. 07/10 HUMAN Aldo IQBAL INDOMETHACIN 25 1-2 tablets 2011/ INDOMETHACIN 94402127378 Jianming MG CAPS three times 02/19 Aldo IQBAL day as needed pain METANX 3-35-2 MG One tablet by O-[id number] [id number] Luis Eduardo M TABS mouth twice 2 Kunal IQBAL daily METANX 3-35-2 MG One tablet by 2011/ X-[id number] 10804572497 Jianming TABS mouth twice 06/03 2 Aldo IQBAL daily ENBREL 50 MG/ML 1 time weekly ETANERCEPT 90885181468 Jianming SOSY Aldo IQBAL ENBREL 50 MG/ML 1 time weekly 2011/ ETANERCEPT 30160230233 Jianming SOSY /06/03 Aldo IQBAL PROTONIX 40 MG One tablet by 2011/ PANTOPRAZOLE SODIUM 88980944812 Jianming PACK mouth daily. 06/03 Aldo IQBAL DIVALPROEX One tablet by 2011/ DIVALPROEX SODIUM 91685699610 Jianming SODIUM 250 MG mouth twice /06/03 Aldo IQBAL TBEC daily PREDNISONE 10 MG One tablet by PREDNISONE 47649990586 Jianming TABS mouth twice / Aldo IQBAL daily PREDNISONE 10 MG One tablet by 2011/ PREDNISONE 33144225715 Jianming TABS mouth twice 06/03 Aldo IQBAL daily CITALOPRAM One tablet by 2011/ CITALOPRAM 74287084324 Jianming HYDROBROMIDE 40 mouth daily /06/03 HYDROBROMIDE Aldo IQBAL MG TABS NUCYNTA 50 MG One tablet by TAPENTADOL HCL 92382362772 Jianming TABS mouth twice / Aldo IQBAL daily NUCYNTA 50 MG One tablet by 2011/ TAPENTADOL HCL 91110703825 Jianming TABS mouth twice /06/03 Aldo IQBAL daily NEURONTIN 100 MG One tablet by GABAPENTIN 66785917537 Jianming CAPS mouth twice / Aldo IQBAL daily NEURONTIN 100 MG One tablet by 2011/ GABAPENTIN 46539036629 Jianming CAPS mouth twice /06/03 Aldo IQBAL daily LEVOTHYROXINE One tablet by LEVOTHYROXINE SODIUM 80496752694 Jianming SODIUM 125 MCG mouth daily / Aldo IQBAL TABS HUMALOG 100 40 units SC at 2011/ INSULIN LISPRO 44272301026 Jianming UNIT/ML SOLN each meal 06/03 (HUMAN) Aldo IQBAL NOVOLIN N 100 40 units SC 2011/ INSULIN ISOPHANE 83818265569 Jianming UNIT/ML SUSP twice daily /06/03 HUMAN Aldo IQBAL AZITHROMYCIN 250 two tablets by 2012/ AZITHROMYCIN 04902935744 Jianming MG TABS mouth on /09/24 Aldo IQBAL one, and one tablets daily one day 2-5 HUMIRA PEN 40 1 injection ADALIMUMAB 18910967445 Jianming MG/0.8ML KIT every Aldo IQBAL week HUMIRA PEN 40 1 injection 2012/ ADALIMUMAB 09979420950 Jianming MG/0.8ML KIT every other /14 01/14 Aldo IQBAL week EFFEXOR XR 37.5 One tablet by 2012/ VENLAFAXINE HCL 88681285926 Jianming MG [id number] mouth daily /24 01/14 Aldo IQBAL DOXYCYCLINE One tablet by 2012/ DOXYCYCLINE HYCLATE 27986673666 Ness Franco HYCLATE 100 MG mouth twice /02/10 Maria Elena IQBAL CAPS daily x 10 days, then One tablet by mouth daily VENLAFAXINE HCL One capsule by VENLAFAXINE HCL 01547254530 Salma Milton ER 75 MG mouth daily /10 Mallorie [id number] VENLAFAXINE HCL One capsule by 2012/ VENLAFAXINE HCL 75452551648 Ness J ER 75 MG mouth daily /02/10 Signs [id number] NUCYNTA ER 50 MG One tablet by TAPENTADOL HCL 44048309710 Jianming [id number] mouth three Aldo IQBAL times daily NUCYNTA ER 50 MG One tablet by 2012/ TAPENTADOL HCL 72786018080 Ness J [id number] mouth three 02/10 Maria Elena IQBAL times daily CETRAXAL 0.2 % 4-5 drop 2012/ CIPROFLOXACIN HCL 69024459710 Jianming SOLN affected ear /09/24 Aldo IQBAL three times a day PRAVASTATIN One tablet by PRAVASTATIN SODIUM 31603568346 Jianming SODIUM 40 MG mouth daily / Aldo IQBAL TABS PRAVASTATIN One tablet by 2012/ PRAVASTATIN SODIUM 48570045362 Jianming SODIUM 40 MG mouth daily /09/24 Aldo IQBAL TABS SOLU-CORTEF 100 One tablet by HYDROCORTISONE SOD 41504519068 Jianming MG SOLR mouth daily as SUCCINATE Aldo IQBAL needed SOLU-CORTEF 100 One tablet by 2012/ HYDROCORTISONE SOD 84298597408 Jianming MG SOLR mouth daily as /24 10/19 SUCCINATE Aldo IQBAL needed HYDROCORTISONE 5 One tablet by HYDROCORTISONE 53479888438 Jianming MG TABS mouth daily / Aldo IQBAL HYDROCORTISONE 5 One tablet by 2012/ HYDROCORTISONE 42805341436 Jianming MG TABS mouth daily /24 10/19 Aldo CHIANG 10 one patch per BUPRENORPHINE 61908094564 Jianming MCG/HR PTWK week Aldo CHIANG 10 one patch per 2012/ BUPRENORPHINE 31950853594 Jianming MCG/HR PTWK week /24 10/19 Aldo IQBAL HUMULIN R U-500 12 units per INSULIN REGULAR 06286648384 Jianming (CONCENTRATED) meal / HUMAN Aldo IQBAL 500 UNIT/ML SOLN HUMULIN R U-500 12 units per 2012/ INSULIN REGULAR 21752647061 Jianming (CONCENTRATED) meal /24 10/19 HUMAN Aldo IQBAL 500 UNIT/ML SOLN LEUCOVORIN 2 tablets by LEUCOVORIN CALCIUM 81872234373 Jianming CALCIUM 5 MG mouth once Aldo IQBAL TABS weekly LEUCOVORIN 2 tablets by 2012/ LEUCOVORIN CALCIUM 46860338758 Ness Franco CALCIUM 5 MG mouth once /08/02 Signs TABS weekly SYNTHROID 137 One tablet by LEVOTHYROXINE SODIUM 57481734694 Lakishanming MCG TABS mouth daily / Aldo IQBAL SYNTHROID 137 One tablet by 2012/ LEVOTHYROXINE SODIUM 02694656869 Rehana E MCG TABS mouth daily /08/03 [facility] METROGEL 1 % GEL apply to 2012/ METRONIDAZOLE 04565177086 Jianming affected area /06/07 Aldo IQBAL thin layer, once daily OMEPRAZOLE 20 MG One tablet by OMEPRAZOLE 99037381709 Jianming TBEC mouth daily / Aldo IQBAL OMEPRAZOLE 20 MG One tablet by 2012/ OMEPRAZOLE 55037015690 Jianming TBEC mouth daily /06/07 Aldo IQBAL METHOTREXATE 2.5 4 pills by 2012/ METHOTREXATE SODIUM 31293147554 Ness Franco MG TABS mouth once 08/02 Signs weekly AMOXICILLIN-POT One tablet by 2013/ AMOXICILLIN-POT 85042319534 Jianming CLAVULANATE mouth twice /09/13 CLAVULAJEFFRY Carlson MD 875-125 MG TABS daily SYNTHROID 100 One tablet by 2013/ LEVOTHYROXINE SODIUM 63500802447 Jianming MCG TABS mouth daily /10/22 Aldo IQBAL DEPO-SUBQ once every MEDROXYPROGESTERONE 78970701408 Jianming PROVERA 104 104 three months / SARITA Carlson MD MG/0.65ML PARVIN DEPO-SUBQ once every 2013/ MEDROXYPROGESTERONE 35415346421 Jianming PROVERA 104 104 three months /11/03 SARITA Carlson MD MG/0.65ML PARVIN TRAZODONE HCL 50 Two tablets by 2012/ TRAZODONE HCL 69925788910 Jianming MG TABS mouth daily /04/06 Aldo IQBAL MUPIROCIN 2 % apply to 2012/ MUPIROCIN 46671677706 Jianming OINT affected area /06/07 Aldo IQBAL four times a day ZOLPIDEM One tablet by 2012/ ZOLPIDEM TARTRATE 04326392747 Jianming TARTRATE 5 MG mouth daily /06/07 Aldo IQBAL TABS every night as needed, avoid driving or operating machine under the influence of medication. FAMVIR 500 MG one po tid 2012/ FAMCICLOVIR 28132611924 Jianming TABS /06/07 Aldo IQBAL FENTANYL 25 change q 3 FENTANYL 64287105818 Ness J MCG/HR PT72 days Maria Elena IQBAL FENTANYL 25 change q 3 2012/ FENTANYL 90347125670 Jianming MCG/HR PT72 days 06/07 Aldo IQBAL CIPRO HC 0.2-1 % 4 gtt to left 2012/ CIPROFLOXACIN-HYDROC 69321597146 Jianming SUSP ear 06/07 ORTISONE Aldo IQBAL times a day ACYCLOVIR 800 MG one po q 8 hrs 2012/ ACYCLOVIR 75117386077 Jianming TABS /06/07 Aldo IQBAL PODOCON 25 % 2012/ PODOPHYLLUM RESIN 63339206758 Jianming SOLN /06/07 Aldo IQBAL DIVALPROEX One tablet by 2013/ DIVALPROEX SODIUM 06822238894 Jianming SODIUM 125 MG mouth twice /11/12 Aldo IQBAL TBEC daily PROMETHAZINE HCL One tablet by 2013/ PROMETHAZINE HCL 71277087454 Jianming 12.5 MG TABS mouth three 12/20 Aldo IQBAL times daily as needed nausea/vomitin g SULFAMETHOXAZOLE One tablet by 2013/ SULFAMETHOXAZOLE-TRI 09493999420 Jianming -TRIMETHOPRIM mouth twice /12/20 METHOPRIM Aldo IQBAL 800-160 MG TABS daily NOVOLIN N 100 40 units SC INSULIN ISOPHANE 53407729196 Jianming UNIT/ML SUSP twice daily / HUMAN Aldo IQBAL NOVOLOG 100 25 units SC at INSULIN ASPART 01955505313 Jianming UNIT/ML SOLN BF, 30 units / Aldo IQBAL at Lunch and Supper SYNTHROID 112 One tablet by 2014/ LEVOTHYROXINE SODIUM 77704097963 Jianming MCG TABS mouth daily /10/25 Aldo IQBAL ZOLPIDEM One tablet by 2013/ ZOLPIDEM TARTRATE 66681311844 Jianming TARTRATE 5 MG mouth daily /11/19 Aldo IQBAL TABS every night VALIUM 2 MG TABS One tablet by 2013/ DIAZEPAM 47174946590 Jianming mouth twice 11/19 Aldo IQBAL daily NUCYNTA ER 50 MG One tablet by TAPENTADOL HCL 32202075584 Jianming [id number] mouth twice Aldo IQBAL daily as needed TOPIRAMATE 50 MG One tablet by 2013/ TOPIRAMATE 63988400539 Jianming TABS mouth daily 07/29 Aldo IQBAL AMPICILLIN 500 One tablet by 2013/ AMPICILLIN 74946674375 Jianming MG CAPS mouth 12/20 Aldo IQBAL times daily VITAMIN D one tablet by ERGOCALCIFEROL 49668330217 Jianming (ERGOCALCIFEROL) mouth once Aldo IQBAL 04254 UNIT CAPS weekly VITAMIN D one tablet by 2013/ ERGOCALCIFEROL 76475004100 Jianming (ERGOCALCIFEROL) mouth once 12/20 Aldo IQBAL 15385 UNIT CAPS weekly DIAZEPAM 2 MG One tablet by 2013/ DIAZEPAM 88980107543 Rheana E TABS mouth daily /01/21 [facility] every night GLUCAGEN HYPOKIT as needed IM GLUCAGON HCL (RDNA) 04343776063 Jianming 1 MG SOLR Aldo IQBAL hypoglycemia DEXAMETHASONE 1 One tab by 2016/ DEXAMETHASONE 67422134072 Raven L MG TABS mouth at 11pm, 03/31 Devyn HAYWARD lab work at 8AM the next morning ATENOLOL 50 MG One tablet by ATENOLOL 69030931320 Raven L TABS mouth twice Devyn HAYWARD daily FENOFIBRATE 48 Two tablets 2015/ FENOFIBRATE 22067469463 Gabriel A MG TABS daily /12/26 Mauricio DO HYDROMORPHONE 1 tablet by HYDROMORPHONE HCL 19237558180 Jianming HCL 2 MG TABS mouth every Aldo IQBAL 4-6 as needed NUCYNTA ER 50 MG One tablet by 2013/ TAPENTADOL HCL 96902242222 Salma Milton [id number] mouth twice /07/13 Mallorie daily as needed DOXYCYCLINE One tablet by 2014/ DOXYCYCLINE HYCLATE 16464866819 Gabriel A HYCLATE 100 MG mouth twice /12/22 [facility] DO CAPS daily x 10 days FENTANYL 50 change q 72hrs 2014/ FENTANYL 35653173006 Gabriel A MCG/HR PT72 12/22 Mauricio DO HYDROMORPHONE 1 tablet by 2014/ HYDROMORPHONE HCL 44908754747 Gabriel A HCL 2 MG TABS mouth every /04/04 Mauricio DO 4-6 as needed PRAVASTATIN One tablet by 2014/ PRAVASTATIN SODIUM 03020619751 Jianming SODIUM 40 MG mouth daily /10/25 Aldo IQBAL TABS every night FENTANYL 50 change q 72hrs FENTANYL 38008492106 Jianming MCG/HR PT72 Aldo IQBAL TOPIRAMATE 50 MG One tablet by TOPIRAMATE 72603834386 Salma Milton TABS mouth daily / Mallorie AMOXICILLIN-POT One tablet by 2013/ AMOXICILLIN-POT 24112102825 Salma M CLAVULANATE mouth twice /07/13 CLAVULANATE Mallorie 875-125 MG TABS daily FOLIC ACID 1 MG Two tablets by 2015/ FOLIC ACID 44655212682 Gabriel A TABS mouth daily /03/19 [facility] DO PREMARIN 1.25 MG One tablet by ESTROGENS CONJUGATED 60460320225 Jianming TABS mouth daily / Aldo IQBAL PREMARIN 1.25 MG One tablet by 2015/ ESTROGENS CONJUGATED 77666564017 Gabriel A TABS mouth daily /03/19 [facility] DO KLOR-CON M20 20 One tablet by 2015/ POTASSIUM CHLORIDE 31345355048 Gabriel A MEQ CR-TABS mouth daily /03/19 MELANY CR [facility] DO ATORVASTATIN One tablet by 2016/ ATORVASTATIN CALCIUM 34024294122 Raven L CALCIUM 20 MG mouth daily at /03/31 Devyn HAYWARD TABS night for high cholesterol FUROSEMIDE 20 MG One tablet by 2016/ FUROSEMIDE 43641125645 Raven L TABS mouth daily /03/31 Devyn [employer] COLACE 100 MG One tablet by 2015/ DOCUSATE SODIUM 84010296676 Gabriel A CAPS mouth daily /10/24 [facility] DO DIAZEPAM 5 MG One tablet by 2015/ DIAZEPAM 85171864236 Gabriel A TABS mouth daily /10/24 [facility] DO every night, avoid driving or operating machine under the influence of medication. DOXEPIN HCL 25 1 capsule by 2015/ DOXEPIN HCL 10991840961 Gabriel A MG CAPS mouth at night /03/19 [facility] DO for IBS ATENOLOL 50 MG One tablet by 2014/ ATENOLOL 65930064902 Gabriel A TABS mouth twice /04/04 [facility] DO daily PROPRANOLOL HCL One capsule by 2014/ PROPRANOLOL HCL 86388596394 Gabriel A ER 80 MG mouth daily at 05/11 [facility] DO [id number] night for migraine prevention and tachycardia XIFAXAN 550 MG One tablet by 2015/ RIFAXIMIN 42705272983 Gabriel A TABS mouth three 11/07 [facility] DO times daily NOVOLOG 100 20-30 units INSULIN ASPART 57906029327 Gabriel A UNIT/ML SOLN three times [facility] DO day with meals Medications Administered No information available. Allergies, Adverse Reactions, Alerts Allergy Name Reaction Description Start Date Severity Status Provider FENOFIBRATE Arthralgia Moderate Active Gabriel A Mauricio DO NSAIDS liver Critical Active Rabia Carlson MD TYLENOL bleeding [...] Request for EFFEXOR XR 75MG CAP ESM_RR [id number]`EFFEXOR XR 75MG CAP`75MG``270 B e-scripts Capsule`90`TAKE THREE CAPSULES BY MOUTH ONCE messenger DAILY``1`0`02/07/2015`05/11/2015`[facility]*`[id number]`VENLAFAXINE request ER 75MG CAP Quantity: 270 Capsule Instructions: TAKE THREE CAPSULES BY MOUTH ONCE DAILY Office Visit: Diabetes follow up HGBA1C 7.4 % Hemoglobin A1c/Hemoglobin.total in Blood SMOK ADVICE yes Smoking cessation education (procedure) MEDS REVIEW Done Documentation of current medications (procedure) Office Visit: Establish Care ORALTOBACUSE Never Tobacco smoking status NHIS SMOK STATUS Former smoker Tobacco use [facility] PHQ-9 SCORE 15 Adult depression screening assessment PHQ2 SCORE 0 Adult depression screening assessment Plan of Care Type Date Detail Appointment 03:30 PM 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, [address] [facility], [address], [place], [address], Referral Rheumatology Referral BMS Provider, [address] [place], [address] Referral Rheumatology Referral BMS Provider, [address] [place], [address] Referral Ophthalmology Referral Referral Ophthalmology Referral Referral excluded from report: Referral Ophthalmology Referral [address] [facility], [place], [address] Referral Ophthalmology Referral [address] [facility], [place], [address] Referral Gastroenterology Referral Jasbir Fuchs MD, [address] [facility], [place], [address] Referral Gastroenterology Referral Jasbir Fuchs MD, [address] [facility], [place], [address] Referral Ophthalmology Referral Referral Rheumatology Referral Reyna Tukcer MD, [address] [facility] [address], [place], [address] Referral Other Referral [facility], [address] [place], [address] Referral Other Referral [facility], [address] [place], [address] Referral Podiatry Referral Jared Powers DPM, [address] [place], [address] Referral OT-Functional Capacity Evaluation Physical Therapy [facility], [address], [place], [address] Referral Dermatology Referral Nadine Marquez, [address] [place], [address] Referral Gastroenterology Referral Marlon Shaggy, [address] [facility], [place], [address] Referral Rheumatology Referral Reyna Tucker MD, [address], [address], [place], [address] Referral Pain Management Maricruz Hernandez, [address] [facility], [address], [place], [address] Pending order *HgA1C Pending order *CMP Complete [...] Pending order Rapid Strep (Office) Pending order *[place] Test Pending order Administration Injection (Prophylactic, Therapeutic [...] Procedures Code Procedure Name Date Entry Date CPT-99942 HGB A1C (Office) 2143-6 *CAYDEN - Cortisol, A.M. 10322-3 *Lipid Profile 0667-1 *BMP PSGPCP PSG,CPAP (as indicated) ONLY PCP to follow up [id number] Ophthalmology Referral Order excluded from report: 0184-1 *CBC with Differential 92868-1 *CRP - C-Reative Protein 0786-1 *CMP Complete Metabolic Panel 4548-4 *HgA1C 40177-6 *Lipid Profile 0779-1 *Microalbumin, Creatine Ratio, rand urine 3016-3 *TSH 32584-2 *RA Rheumatoid Factor - Quaint 30688-1 *Sedimentation Rate (ESR) 62664-6 *UAC- Urinalysis, Complete w/ Micro 0523-1 *ANCA [id number] Ophthalmology Referral [id number] Rheumatology Referral CPT-80009 HGB A1C (Office) 4548-4 *HgA1C 3016-3 *TSH 30429-6 *Lipid Profile 0786-1 *CMP Complete Metabolic Panel [id number],[id number] Lipid Profile CPT-74946 HGBA1C 3016-3 *TSH 0786-1 *CMP Complete Metabolic Panel 3016-3 *TSH 64343-8 *CBC without Diff 4086-5 *DEBRA Valpric Acid (Depakene, Dipropylacetic Acid) Drug Assay [id number] Microalbumin urine CPT-71746 HGBA1C Q968T,Z667387 Lipid Profile CPT-94127 X-Ray, Hip Unilateral Podiatry Referral Podiatry Referral 4548-4 *HgA1C 3016-3 *TSH 4086-5 *DEBRA Valpric Acid (Depakene, Dipropylacetic Acid) Drug Assay 67737-3 *CBC without Diff 0786-1 *CMP Complete Metabolic Panel 4548-4 *HgA1C 0786-1 *CMP Complete Metabolic Panel 74409-5 *Lipid Profile 4086-5 *DEBRA Valpric Acid (Depakene, Dipropylacetic Acid) Drug Assay 0667-1 *BMP 6462-6 *CUW - Culture, Wound (Aerobic) 2823-3 *Potassium; Serum, Plasma or Whole Blood 0433-1 *HEBSAG - Hep B Surface Antigen 6510 0363-1 *HECAB Hepatitis C Antibody 78456-6 *HEBSAB - Hep B Surface Antibody 6395 0197-1 *HIV antibody 22020-7 *RPR 4548-4 *HgA1C 0667-1 *BMP 66271-8 *CBC without Diff 0788-1 *Hepatic Function Panel 4086-5 *DEBRA Valpric Acid (Depakene, Dipropylacetic Acid) Drug Assay 0184-1 *CBC with Differential 3016-3 *TSH 3024-7 *T4 free 0786-1 *CMP Complete Metabolic Panel CPT-98223 UA Dipstick (Office) 35457 Fingerstick, glucose (office) Dermatology Referral Dermatology Referral CPT-88950 X-Ray, Chest, PA & Lateral CPT-69441 Rapid Strep (Office) 41716-2 *[place] Test CPT-76441 Administration Injection (Prophylactic, Therapeutic or Diagnostic) CPT-65988 Excision Benign Lesion Trunk/Arm/Ket <0.6 cm FUA 2 weeks Follow Up Appt 2 weeks 0788-1 *Hepatic Function Panel 4086-5 *DEBRA Valpric Acid (Depakene, Dipropylacetic Acid) Drug Assay FUA 2 weeks Follow Up Appt 2 weeks 85745-8 *CBC without Diff Order excluded from report: 70813-0 *CBC without Diff Order excluded from report: FUA as scheduled Follow Up as scheduled Gastroenterology Ref Gastroenterology Referral CPT-45447 US Transvaginal Order excluded from report: FUA 1 week Follow up Appt 1 week 4548-4 *HgA1C 78980-2 *Lipid Profile 0786-1 *CMP Complete Metabolic Panel FUA 3 months Follow Up Appt 3 months 4548-4 *HgA1C Order excluded from report: 0667-1 *BMP Order excluded from report: CPT-33176 *Liver/Hepatic Function Panel Order excluded from report: FUA 3 months Follow Up Appt 3 months CPT-08343 *Lipid Profile RheuRef Rheumatology Referral Pain Management Pain Management CPT-88109 *Lipid Profile CPT-35148 *CMP Complete Metabolic Panel CPT-52899 *HgA1C CPT-45005 *TSH CPT-06294 *CBC without Diff CPT-80116 *Creatine Kinase (CK) CRP *CRP CPT-04253 *Sedimentation Rate (ESR) FUA 2 weeks Follow Up Appt 2 weeks Vital Signs Date Name Value Unit Description BMI (Body Mass Index) 30.69 kg/m2 Body Mass Index [Ratio] Body Temperature 98.5 [degF] temperature E&M BP Diastolic 88 mm[Hg] blood pressure, diastolic - 8462-4 BP Systolic 118 mm[Hg] blood pressure, systolic - 8480-6 Heart Rate 84 /min pulse rate E&M - 8867-4 Height 62 [in_us] height E&M - 8302-2 Respiratory Rate 20 /min respiratory rate E&M - 9279-1 Weight Measured 167.8 [lb_av] weight E&M - 3141-9 BSA (Body Surface Area) 1.90 body surface area
--- OUTSIDE RECORDS SUMMARY | 2018-09-04 11:21 | XMS RPT_ITS | Clinical Summary ---
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 adrenal gland CT) Excessive [id number] Active Kay Franco Excessive eating - (SNOMED Shook PROCESS OWNER eating - polyphagia CT) polyphagia Overweight 274705273 Active Kay Franco Overweight (SNOMED Shook PROCESS OWNER CT) Hypersomni 00440165 Active Gabriel A Hypersomnia a (SNOMED 03/19 03/[address]) Peripheral 337174576 Active Gabriel A Peripheral edema (SNOMED 03/19 03/[address]) Abnormal 039285328 Inactive Gabriel A Abnormal weight (SNOMED 03/19 03/19 Mauricio DO weight gain gain CT) ARTHRITIS, 74775706 Active Gabriel A Rheumatoid RHEUMATOID (SNOMED 09/09 09/[address]) Urinary 542282311 Resolved Gabriel A Increased frequency (SNOMED 10/24 10/[address] of CT) urination Diarrhea, 680621136 Resolved Gabriel A Chronic chronic (SNOMED 10/24 10/[address]) Hypertrigl 742009594 Active Gabriel A Hypertriglycer >800 yceridemia (SNOMED 10/30 10/[address]) Greater 1819416 Inactive Gabriel A Trochanteric trochanter (SNOMED 10/24 10/24 Mauricio DO bursitis ic CT) bursitis, left Diarrhea, 501844682 Removed Gabriel A Chronic chronic (SNOMED 10/24 10/[address]) Urinary 682478694 Removed Gabriel A Increased frequency (SNOMED 10/24 10/24 Mauricio DO frequency of CT) urination UPPER 86934106 Resolved Gabriel A Upper RESPIRATOR (SNOMED 09/13 09/13 Mauricio DO respiratory Y CT) infection INFECTION Migraine 74370350 Active Gabriel A Migraine headache (SNOMED 04/04 04/[address]) Foot pain, 15143752 Inactive Gabriel A Foot pain left (SNOMED 02/07 02/[address]) UPPER [id number] Removed Gabriel A Upper RESPIRATOR (SNOMED 09/13 09/13 Mauricio DO respiratory Y CT) infection INFECTION Hypertrigl 697734904 Resolved Gabriel A Hypertriglycer yceridemia (SNOMED 10/25 10/[address]) LEG PAIN, 86252497 Resolved Gabriel A Pain in lower BILATERAL (SNOMED 03/15 03/[address]) POLYCYSTIC 33862786 Resolved Gabriel A Polycystic OVARIAN (SNOMED 03/15 03/15 Mauricio DO ovaries DISEASE CT) DEPRESSION 97316938 Resolved Gabriel A Recurrent since age , MAJOR, (SNOMED 03/15 Mauricio DO major [address]) depression MUSCLE 04542526 Resolved Gabriel A Muscle WEAKNESS (SNOMED 03/15 03/15 Mauricio DO weakness (GENERALIZ CT) ED) NIPPLE 854240669 Resolved Gabriel A Bloody nipple DISCHARGE, (SNOMED 03/23 03/23 Mauricio DO discharge BLOODY CT) HYPERSOMNI 73173372 Resolved Gabriel A Hypersomnia A (SNOMED 04/06 04/[address]) SKIN RASH 210456595 Resolved Gabriel A Eruption (SNOMED 10/03 10/[address] [facility] [address]) SEXUALLY 683551973 Resolved Gabriel A Exposure to TRANSMITTE (SNOMED 10/04 10/04 [facility] sexually D DISEASE, CT) transmissible EXPOSURE disorder TO HYPOKALEMI 23811027 Resolved Gabriel A Hypokalemia A (SNOMED 11/03 11/[address] [facility] [address]) Ingrown 721509229 Resolved Gabriel A Ingrowing nail toenail (SNOMED [facility] CT) Hip pain, 12091112 Resolved Gabriel A Hip pain right (SNOMED 09/13 09/[address] [facility] [address]) Bronchitis 92305716 Resolved Gabriel A Acute , acute (SNOMED 10/25 11/09 [facility] bronchitis CT) Chronic 298390155 Active Gabriel A Chronic pain pain (SNOMED 12/22 12/22 [facility] syndrome syndrome CT) Bronchitis 79907695 Removed Jianming Acute , acute (SNOMED 10/25 11/[address] [facility] [address]) Paronychia [id number] Resolved Jianming Paronychia of left big , great (SNOMED [facility] toe toe toe CT) Hypertrigl 869075885 Removed Jianming Hypertriglycer yceridemia (SNOMED 10/25 10/[address] [facility]) Superficia 939945314 Resolved Jianming Superficial right l vein (SNOMED 09/29 09/29 [facility] vein basilic thrombosis CT) thrombosis vein from just above elbow to wrist Superficia [id number] Removed Jianming Superficial right l vein (SNOMED 09/29 09/29 [facility] vein basilic thrombosis CT) thrombosis vein from just above elbow to wrist Hip pain, 89048152 Removed Jianming Hip pain right (SNOMED 09/13 09/[address]) Ingrown 009193371 Removed Jianming Ingrowing nail toenail (SNOMED [facility] CT) Paronychia [id number] Removed Jianming Paronychia of left big , great (SNOMED [facility] toe toe toe CT) Back pain, 146494287 Active Jianming Low back pain chronic s/p lumbar (SNOMED [facility] surgery CT) NAUSEA AND [id number] Resolved Jianming Nausea and VOMITING (SNOMED 11/12 11/[address]) OTITIS 02085366 Resolved Rehana E Chronic otitis EXTERNA, (SNOMED 08/30 08/[address]) OTITIS [id number] Resolved Rehana E Acute otitis MEDIA, (SNOMED 08/18 08/18 [facility] media ACUTE, CT) BILATERAL DKA [id number] Resolved Jianming Diabetic (SNOMED [facility] ketoacidosis CT) CELLULITIS 700773112 Resolved Jianming Cellulitis of the (SNOMED 11/03 11/[address] [facility]) site NAUSEA AND [id number] Removed Jianming Nausea and VOMITING (SNOMED 11/12 11/[address] [facility]) HYPOKALEMI [id number] Removed Jianming Hypokalemia A (SNOMED 11/03 11/[address]) CELLULITIS 570393065 Removed Jianming Cellulitis of the (SNOMED 11/03 11/[address] [address]) site SEXUALLY 959086423 Removed Marianna A Exposure to TRANSMITTE (SNOMED 10/04 10/04 Flannery sexually D DISEASE, CT) transmissible EXPOSURE disorder TO OTITIS 3053314 Removed Jianming Acute otitis MEDIA, (SNOMED 08/18 08/18 [facility] media ACUTE, CT) BILATERAL OTITIS 6530058 Correctio Jianming Acute otitis MEDIA, (SNOMED 08/18 n 08/18 [facility] media ACUTE, CT) BILATERAL SKIN RASH 554663096 Removed Ness J Eruption (SNOMED 10/03 10/[address]) OTITIS [id number] Removed Ness J Chronic otitis EXTERNA, (SNOMED 08/30 08/[address]) DKA [id number] Removed Jianming Diabetic (SNOMED [facility] ketoacidosis CT) OTITIS [id number] Resolved Jianming Otitis externa EXTERNA (SNOMED 03/23 03/[address]) HYPERSOMNI [id number] Removed Jianming Hypersomnia A (SNOMED 04/06 04/[address]) ALLERGIC 56374180 Active Jianming Allergic RHINITIS (SNOMED 04/06 04/[address]) OTITIS [id number] Removed Jianming Otitis externa EXTERNA (SNOMED 03/23 03/[address]) NIPPLE 635217361 Removed Jianming Bloody nipple DISCHARGE, (SNOMED 03/23 03/[address] [facility] [address] BLOODY CT) NIPPLE 888015827 Correctio Jianming Bloody nipple DISCHARGE, (SNOMED 03/23 n 03/[address] [facility] [address] BLOODY [address]) OTITIS 9989303 Correctio Jianming Otitis externa EXTERNA (SNOMED 03/23 n 03/[address]) 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, (SNOMED 02/10 02/[address]) POLYCYSTIC 28948551 Active Ness J Polycystic OVARIAN (SNOMED 02/10 02/[address]) FIBROMYALG 12297114 Active Ness J Fibromyositis IA, SEVERE (SNOMED 02/10 02/[address]) IMMUNOCOMP 197451836 Active Ness J Immunodeficien ROMISED (SNOMED 02/10 02/[address]) HUMAN 365471615 Active Ness J Human PAPILLOMAV (SNOMED 02/10 02/[address]) virus infection TACHYCARDI 9179810 Active Jianming Tachycardia since 2003 A (SNOMED 01/[address]) HYPOGLYCEM 425385286 Resolved Jianming Hypoglycemia IA (SNOMED 09/24 09/[address]) MOVEMENT 93055663 Resolved Jianming Movement DISORDER (SNOMED 09/24 09/[address] [facility]) ROSACEA 694479196 Active Jianming Rosacea (SNOMED 01/14 01/[address]) TACHYCARDI 8271238 Resolved Jianming Tachycardia A (SNOMED 03/[address]) GLUCOCORTI 718126966 Resolved Jianming 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 PHARYNGITI 467765415 Resolved Jianming Acute S, ACUTE (SNOMED 09/07 09/[address]) UPPER 96938733 Resolved Jianming Upper RESPIRATOR (SNOMED 09/13 09/[address] [facility] respiratory Y CT) infection INFECTION COUGH 83782873 Resolved Jianming Cough (SNOMED 09/13 09/[address]) HYPOGLYCEM 943692827 Removed Jianming Hypoglycemia IA (SNOMED 09/24 09/[address]) MOVEMENT 86577878 Removed Jianming Movement DISORDER (SNOMED 09/24 09/[address]) COUGH [id number] Removed Salma M Cough (SNOMED 09/13 09/[address]) UPPER [id number] Removed Salma M Upper RESPIRATOR (SNOMED 09/13 09/[address]) infection INFECTION PHARYNGITI 180969212 Removed Jianming Acute S, ACUTE (SNOMED 09/07 09/[address] [facility]) MELENA 8998076 Resolved Jianming Melena (SNOMED 11/06 11/[address]) LOCALIZED R22.9 Resolved Jianming Localized right SUPERFICIA (ICD-10-CM [facility] swelling, mass axillary L SWELLING ) and lump, MASS OR unspecified LUMP LIVER V12.2 Resolved Jianming Personal FUNCTION (ICD-9-CM) 03/15 03/15 [facility] history of TESTS, endocrine, ABNORMAL, metabolic, and HX OF immunity disorders CONSTIPATI 131463272 Resolved Jianming Chronic ON, (SNOMED 09/23 09/[address] [facility] [address] CHRONIC CT) ABDOMINAL R10.31 Resolved Jianming Right lower PAIN RIGHT (ICD-10-CM 09/23 09/23 [facility] quadrant pain LOWER ) QUADRANT OTITIS 9273202 Resolved Jianming Otitis externa EXTERNA (SNOMED 08/22 08/[address]) GLUCOCORTI 148925628 Removed Jianming 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 OTITIS 5061486 Removed Jianming Otitis externa EXTERNA (SNOMED 08/22 08/[address]) LOCALIZED R22.9 Removed Jianming Localized right SUPERFICIA (ICD-10-CM 0 [facility] swelling, mass axillary L SWELLING ) and lump, MASS OR unspecified LUMP BIPOLAR 620613467 Active Jianming Bipolar diagnosed AFFECTIVE (SNOMED 02/19 [facility] affective by DISORDER, CT) disorder, psychiatris DEPRESSED current t at episode Kristian depression in [place] GASTROESOP 015010353 Active Jianming Gastroesophage HAGEAL (SNOMED 02/19 [facility] al reflux REFLUX CT) disease DISEASE INSOMNIA, 928925528 Active Jianming Insomnia CHRONIC (SNOMED 02/19 02/[address]) ACUTE 80979086 Resolved Jianming Acute ETHMOIDAL (SNOMED 09/18 09/18 [facility] ethmoidal SINUSITIS CT) sinusitis MELENA 4664867 Removed Luis Eduardo M Melena (SNOMED 11/06 11/[address]) ACUTE 52362909 Removed Jianming Acute ETHMOIDAL (SNOMED 09/18 09/18 [facility] ethmoidal SINUSITIS CT) sinusitis ABDOMINAL R10.31 Removed Jianming Right lower PAIN RIGHT (ICD-10-CM 09/23 09/23 [facility] quadrant pain LOWER ) QUADRANT CONSTIPATI 642531082 Removed Jianming Chronic ON, (SNOMED 09/23 09/[address] [facility] [address]) ARTHRITIS, 62104740 Inactive Jianming Rheumatoid f/u DrVerito RHEUMATOID (SNOMED 09/09 09/09 [facility] [address] [place] CT) DYSLIPIDEM 229518537 Active Jianming Dyslipidemia IA (SNOMED 04/03 04/[address]) MUSCLE 11906784 Removed Jianming Muscle WEAKNESS (SNOMED 03/15 03/15 [facility] weakness (GENERALIZ CT) ED) DEPRESSION 34470058 Removed Jianming Recurrent since age , MAJOR, (SNOMED 03/15 [facility] major [address]) depression POLYCYSTIC 05684701 Removed Jianming Polycystic OVARIAN (SNOMED 03/15 03/15 [facility] [address] DIS[address] CT) IRRITABLE 61297575 Active Jianming Irritable BOWEL (SNOMED 03/15 03/15 [facility] bowel syndrome SYNDROME CT) TACHYCARDI 2585873 Removed Jianming Tachycardia A (SNOMED 03/[address]) LEG PAIN, 45619920 Removed Jianming Pain in lower BILATERAL (SNOMED 03/15 03/[address]) HYPOTHYROI 50275885 Active Jianming Hypothyroidism DISM (SNOMED 08/11 03/[address]) DIABETES 54493187 08/11/19 Active Jianming Type 1 MELLITUS, (SNOMED 03/15 [facility] diabetes TYPE I CT) mellitus LIVER V12.2 Removed Jianming Personal FUNCTION (ICD-9-CM) 03/15 03/15 [facility] history of TESTS, endocrine, ABNORMAL, metabolic, and HX OF immunity disorders Medications Medication Instructions Start Stop Generic Name NDC Provider Date Date NOVOLOG 100 Take 35 units 2024/ INSULIN ASPART [id number] Kay Franco UNIT/ML SOLN each meal 07/02 [facility] PROCESS OWNER sliding scale up to 130 daily LANTUS 100 Take 56 units 2024/ INSULIN GLARGINE 76262744526 Kay Franco UNIT/ML SOLN daily 07/02 Mike GARNER FREESTYLE LITE Use for 2024/ BLOOD GLUCOSE [id number] Kay ROMAN diabetes to 07/02 MONITORING SUPPL Mike GARNER test blood glucose level 6 times daily ICD!) E10.9 FREESTYLE LITE Use for 2024/ BLOOD GLUCOSE 51088552694 Kay ROMAN diabetes 07/02 MONITORING SUPPL Mike GARNER ICD!) E10.9 FREESTYLE LITE Check BG 6 2024/ GLUCOSE BLOOD 08849919124 Kay J TEST STRP times daily 07/02 Mike GARNER ICD10 E10.9 NOVOLOG 100 Take 35 units 2024/ INSULIN ASPART 22408113235 Kay Joan UNIT/ML SOLN each meal /07/02 Mike GARNER FREESTYLE LITE Check BG 6 2024/ GLUCOSE BLOOD 13795910028 Kay Joan TEST STRP times daily 07/02 Mike GARNER FREESTYLE LITE Use for 2024/ BLOOD GLUCOSE 36389436039 Kay ROMAN diabetes 07/02 MONITORING SUPPL Mike GARNER ATORVASTATIN One tablet by ATORVASTATIN CALCIUM 16808921210 Gabriel A CALCIUM 20 MG mouth daily at /15 [facility] DO TABS night for high cholesterol FUROSEMIDE 20 MG One tablet by FUROSEMIDE 15544422699 Gabriel A TABS mouth daily / [facility] DO DEXAMETHASONE 1 One tab by DEXAMETHASONE 16746292379 Gabriel A MG TABS mouth at 11pm, / [facility] DO lab work at 8AM the next morning ZYRTEC ALLERGY One tablet by CETIRIZINE HCL 21880492000 Gabriel A 10 MG TABS mouth daily at /05 [facility] DO bedtime ATENOLOL 50 MG One tablet by ATENOLOL 73491096422 Gabriel A TABS mouth twice / Mauricio DO daily OMEPRAZOLE 20 MG One tablet by OMEPRAZOLE 29387281487 Gabriel A TBEC mouth daily / [facility] DO SYNTHROID 137 One tablet by LEVOTHYROXINE SODIUM 67904925423 Gabriel A MCG TABS mouth daily / [facility] NOVOLIN N 100 40-50 units INSULIN ISOPHANE 70176893180 Gabriel A UNIT/ML SUSP twice daily / HUMAN [facility] ACYCLOVIR 400 MG One tablet by ACYCLOVIR 06452084421 Gabriel A TABS mouth daily / [facility] DO EFFEXOR XR 75 MG Three tablets VENLAFAXINE HCL 12107361477 Gabriel A [id number] by mouth daily / [facility] NOVOLOG 100 15-30 units INSULIN ASPART 47964134888 Gabriel A UNIT/ML SOLN three times a [facility] day with meals DIVALPROEX Two tablets by DIVALPROEX SODIUM 87372871522 Gabriel A SODIUM 250 MG mouth daily / [facility] TBEC SEROQUEL 200 MG One tablet by QUETIAPINE FUMARATE 40859680470 Gabriel A TABS mouth daily / [facility] BD INSULIN 5-6 times INSULIN 75986509690 Gabriel A SYRINGE daily DX: SYRINGE-NEEDLE U-100 [facility] ULTRAFINE 30G X type I 1/2 0.5 ML FENOFIBRATE 48 Two tablets FENOFIBRATE 28903715430 Gabriel A MG TABS daily / [facility] DOXEPIN HCL 25 1 capsule by DOXEPIN HCL 57938629846 Gabriel A MG CAPS mouth at night / [facility] for IBS ACYCLOVIR 400 MG One tablet by ACYCLOVIR 49099133973 Gabriel A TABS mouth twice [facility] daily XIFAXAN 550 MG One tablet by 2015/ RIFAXIMIN 06226638615 Gabriel A TABS mouth three /11/07 [facility] DO times daily DIAZEPAM 5 MG One tablet by DIAZEPAM 10129715658 Gabriel A TABS mouth daily / [facility] every night, avoid driving or operating machine under the influence of medication. PROPRANOLOL HCL One capsule by PROPRANOLOL HCL 19957209381 Gabriel A ER 80 MG mouth daily at / [facility] [id number] night for migraine prevention and tachycardia NOVOLOG 100 30 units three INSULIN ASPART 45022756823 Gabriel A UNIT/ML SOLN times a day / Mauricio DO with meals NOVOLIN N 100 45 units SC INSULIN ISOPHANE 98986972026 Gabriel A UNIT/ML SUSP twice daily / HUMAN Mauricio DO KLOR-CON M20 20 One tablet by POTASSIUM CHLORIDE 81824403916 Gabriel A MEQ CR-TABS mouth daily / MELANY CR Mauricio DO FOLIC ACID 1 MG Two tablets by FOLIC ACID 69092768165 Gabriel A TABS mouth daily / Mauricio DO ATENOLOL 50 MG One tablet by ATENOLOL 57828532511 Gabriel A TABS mouth twice /24 Mauricio DO daily NOVOLOG 100 25 units SC at INSULIN ASPART 04333147594 Gabriel A UNIT/ML SOLN BF, 30 units / Mauricio DO at Lunch and Supper FENOFIBRATE 48 One tablet by FENOFIBRATE 45716380994 Jianming MG TABS mouth daily, [facility] then increase to two tablets if tolerate it DOXYCYCLINE One tablet by DOXYCYCLINE HYCLATE 50959028412 Jiaiaing HYCLATE 100 MG mouth twice / [facility] CAPS daily x 10 days PRAVASTATIN One tablet by PRAVASTATIN SODIUM 87423462608 Jianming SODIUM 40 MG mouth daily / [facility] TABS every night AMOXICILLIN-POT One tablet by AMOXICILLIN-POT 74157229599 Jianming CLAVULANATE mouth twice / CLAVULANATE [facility] 875-125 MG TABS daily SYNTHROID 112 One tablet by LEVOTHYROXINE SODIUM 27170544653 Lakishaiaing MCG TABS mouth daily / [facility] QUETIAPINE Three tablets QUETIAPINE FUMARATE 56126411695 Jianming FUMARATE 50 MG by mouth daily / [facility] TABS at bed time DIVALPROEX One tablet by DIVALPROEX SODIUM 41736761372 Jianming SODIUM 250 MG mouth twice / [facility] TBEC daily DIAZEPAM 2 MG One tablet by DIAZEPAM 29509613530 Jianming TABS mouth daily / [facility] every night QUETIAPINE Two tablets by QUETIAPINE FUMARATE 73941924187 Jianming FUMARATE 50 MG mouth daily / [facility] TABS every night EFFEXOR XR 150 One tablet by VENLAFAXINE HCL 95274626752 Jianming MG [id number] mouth daily / [facility] COLACE 100 MG One tablet by DOCUSATE SODIUM 23437093190 Jianming CAPS mouth daily / [facility] PROMETHAZINE HCL One tablet by PROMETHAZINE HCL 11895758600 Jianming 12.5 MG TABS mouth three [facility] times daily as needed nausea/vomitin g DIAZEPAM 2 MG One tablet by DIAZEPAM 35972763680 Jianming TABS mouth twice / [facility] daily QUETIAPINE Two tablets by QUETIAPINE FUMARATE 00337849752 Jianming FUMARATE 50 MG mouth twice [facility] TABS daily SULFAMETHOXAZOLE One tablet by SULFAMETHOXAZOLE-TRI 44526982845 Jianming -TRIMETHOPRIM mouth twice METHOPRIM [facility] 800-160 MG TABS daily AMPICILLIN 500 One tablet by AMPICILLIN 24205297126 Jianming MG CAPS mouth [facility] times daily ZOLPIDEM One tablet by ZOLPIDEM TARTRATE 65703929084 Lakishanming TARTRATE 5 MG mouth daily / [facility] TABS every night DIVALPROEX One tablet by DIVALPROEX SODIUM 04759623938 Lakishanming SODIUM 125 MG mouth twice / [facility] TBEC daily QUETIAPINE one tablets by QUETIAPINE FUMARATE 45574947227 Jianming FUMARATE 50 MG mouth in AM , / [facility] TABS two tablets by mouth in pM EFFEXOR XR 75 MG One tablet by VENLAFAXINE HCL 62439108546 Leticiaing [id number] mouth daily [facility] QUETIAPINE one tablets by QUETIAPINE FUMARATE 30532458721 Jianming FUMARATE 50 MG mouth in AM , [facility] TABS two tablets by mouth in pM SYNTHROID 100 One tablet by LEVOTHYROXINE SODIUM 73922456253 Lakishaiaing MCG TABS mouth daily / [facility] AMOXICILLIN-POT One tablet by AMOXICILLIN-POT 41220855455 Lakishanming CLAVULANATE mouth twice / CLAVULANATE [facility] 875-125 MG TABS daily QUETIAPINE One tablet by QUETIAPINE FUMARATE 81425203963 Jianming FUMARATE 50 MG mouth twice / [facility] TABS daily x 1 day, then titrate up as directed VALIUM 2 MG TABS One tablet by DIAZEPAM 79528954773 Jianming mouth twice / [facility] daily ZOLPIDEM One tablet by ZOLPIDEM TARTRATE 53669179200 Lakishanming TARTRATE 5 MG mouth daily / [facility] TABS every night as needed, avoid driving or operating machine under the influence of medication. MUPIROCIN 2 % apply to MUPIROCIN 13324967915 Jianming OINT affected area / [facility] four times a day CIPRO HC 0.2-1 % 4 gtt to left CIPROFLOXACIN-HYDROC 72879508374 Lakishaiaing SUSP ear three ORTISONE [facility] times a day PODOCON 25 % PODOPHYLLUM RESIN 48897637715 Ness J SOLN / Maria Elena [facility] ACYCLOVIR 800 MG one po q 8 hrs ACYCLOVIR 96974888486 Ness J TABS / Signs FAMVIR 500 MG one po tid FAMCICLOVIR 33525607932 Ness J TABS /03 Signs METROGEL 1 % GEL apply to METRONIDAZOLE 35251566012 Jianming affected area / [facility] thin layer, once daily DOXYCYCLINE One tablet by DOXYCYCLINE HYCLATE 48164070082 [facility] 100 MG mouth twice / [facility] CAPS daily x 10 days, then One tablet by mouth daily VENLAFAXINE HCL One tablet by VENLAFAXINE HCL 57933909782 Lakishanming ER 75 MG mouth daily / [facility] [id number] TRAZODONE HCL 50 Two tablets by TRAZODONE HCL 35769825205 Jianming MG TABS mouth daily / [facility] AZITHROMYCIN 250 two tablets by AZITHROMYCIN 12759701576 Jianming MG TABS mouth on day / [facility] one, and one tablets daily one day 2-5 EFFEXOR XR 37.5 One tablet by VENLAFAXINE HCL 27231184655 Jianming MG [id number] mouth daily / [facility] CETRAXAL 0.2 % 4-5 drop CIPROFLOXACIN HCL 91218677899 Jianming SOLN affected ear / [facility] three times a day DIVALPROEX One tablet by DIVALPROEX SODIUM 40688154571 Lakishanming SODIUM 250 MG mouth twice / [facility] TBE daily DISABILITY DX: Rheumatoid DISABILITY PLACARD Rabia PLACARD arthritis / [facility] duration: five years PROTONIX 40 MG One tablet by PANTOPRAZOLE SODIUM 98281968510 Lakishanming PACK mouth daily. [facility] DIVALPROEX One tablet by DIVALPROEX SODIUM 72161073841 Lakishanming SODIUM 125 MG mouth twice / [facility] TBEC daily ATENOLOL 50 MG One tablet by ATENOLOL 16702301674 Jianming TABS mouth daily at [facility] bedtime TRAZODONE HCL 50 One tablet by TRAZODONE HCL 01576628582 Lakishanming MG TABS mouth daily / [facility] every night CITALOPRAM One tablet by CITALOPRAM 94624972819 Rabia HYDROBROMIDE 40 mouth daily / HYDROBROMIDE [facility] MG TABS NOVOLIN N 100 40 units SC INSULIN ISOPHANE 95333664456 Lakishanming UNIT/ML SUSP twice daily / HUMAN [facility] HUMALOG 100 30 units SC INSULIN LISPRO 33229755897 Lakishanming UNIT/ML SOLN before meals (HUMAN) [facility] AUGMENTIN XR One tablet by AMOXICILLIN-POT 39744633717 Rabia 1000-62.5 MG mouth twice / CLAVULANATE [facility] [id number] daily METHOTREXATE 2.5 4 pills by METHOTREXATE SODIUM 70915769931 Lakishanming MG TABS mouth once / [facility] weekly CIPROFLOXACIN One tablet by 2010/ CIPROFLOXACIN HCL 31202366350 Lakishanming HCL 500 MG TABS mouth twice /08/02 [facility] daily METRONIDAZOLE One tablet by 2010/ METRONIDAZOLE 78558675868 Lakishanming 500 MG TABS mouth three /08/02 [facility] times daily INDOMETHACIN 25 1-2 tablets INDOMETHACIN 01977922433 Leticiaing MG CAPS three times a [facility] day as needed pain GLUCOMETER use as GLUCOMETER Rabia directed AC / [facility] and [facility] HUMALOG 100 40 units SC at INSULIN LISPRO 98448556141 Jianming UNIT/ML SOLN each meal / (HUMAN) [facility] PRAVASTATIN One tablet by PRAVASTATIN SODIUM 53062681056 Jianming SODIUM 80 MG mouth daily / [facility] TABS LEVEMIR 100 40 units SC INSULIN DETEMIR 15000966249 Jianming UNIT/ML SOLN twice daily / [facility] NOVOLIN N 100 40 units SQ INSULIN ISOPHANE 27574926017 Luis Eduardo M UNIT/ML SUSP twice daily. / HUMAN Kunal [facility] HUMULIN N 100 40 units twice INSULIN ISOPHANE 18929089033 Jianming UNIT/ML SUSP daily / HUMAN [facility] HUMALOG 100 20 units per INSULIN LISPRO 65416735345 Jianming UNIT/ML SOLN meal / (HUMAN) [facility] ULTRAM 50 MG Two tablets by TRAMADOL HCL 41587474965 Jianming TABS mouth [facility] times daily, avoid driving or operating machine under the influence of medication. PRAVASTATIN One tablet by PRAVASTATIN SODIUM 68680059041 Jianming SODIUM 20 MG mouth daily / [facility] TABS every night TRAZODONE HCL 50 One tablet by TRAZODONE HCL 57076587440 Jianming MG TABS mouth daily / [facility] every night LEXAPRO 20 MG One tablet by ESCITALOPRAM OXALATE 39758619979 Jianming TABS mouth daily / [facility] ATENOLOL 50 MG One tablet by ATENOLOL 73982937836 Jianming TABS mouth daily at / [facility] bedtime HYDROCODONE-ACET One tablet by HYDROCODONE-ACETAMIN [id number] Leticiaing AMINOPHEN 5-500 mouth HUBERT Carlson MD MG TABS times daily avoid driving or operating machine under the influence of medication. HYDROCODONE-ACET One tablet by 2011/ HYDROCODONE-ACETAMIN 47469340627 Laikshanming AMINOPHEN 5-500 mouth 02/19 HUBERT Carlson MD MG TABS times daily avoid driving or operating machine under the influence of medication. ULTRAM 50 MG Two tablets by 2011/ TRAMADOL HCL 97367518254 Jianming TABS mouth 09/18 Aldo IQBAL times daily, avoid driving or operating machine under the influence of medication. AUGMENTIN XR One tablet by 2011/ AMOXICILLIN-POT 50834272982 Luis Eduardo M 1000-62.5 MG mouth twice 11/06 CLAVULANATE Kunal IQBAL [id number] daily FOLIC ACID 1 MG 2 tablets by FOLIC ACID 64857829730 Jianming TABS mouth daily Aldo IQBAL FOLIC ACID 1 MG 2 tablets by 2011/ FOLIC ACID 09590948701 Luis Eduardo M TABS mouth daily /11/06 Kunal IQBAL LEUCOVORIN one tablet by LEUCOVORIN CALCIUM 88303584751 Jianming CALCIUM 5 MG mouth once Aldo IQBAL TABS weekly LEUCOVORIN one tablet by 2011/ LEUCOVORIN CALCIUM 39706839474 Luis Eduardo M CALCIUM 5 MG mouth once 11/06 Kunal IQBAL TABS weekly LEVEMIR 100 40 units SC 2010/ INSULIN DETEMIR 81275787672 Jianming UNIT/ML SOLN twice daily 07/11 Aldo IQBAL HUMALOG 100 INSULIN LISPRO 39323520899 Jianming UNIT/ML SOLN (HUMAN) Aldo IQBAL HUMULIN N 100 40 units twice 2010/ INSULIN ISOPHANE 83319341218 Luis Eduardo M UNIT/ML SUSP daily 07/01 HUMAN Kunal IQBAL NOVOLIN N 100 40 units SQ 2010/ INSULIN ISOPHANE 93776643001 Jianming UNIT/ML SUSP twice daily. 07/10 HUMAN Aldo IQBAL INDOMETHACIN 25 1-2 tablets 2011/ INDOMETHACIN 92618818040 Jianming MG CAPS three times 02/19 Aldo IQBAL day as needed pain METANX 3-35-2 MG One tablet by [id number] Luis Eduardo M TABS mouth twice 2 Kunal IQBAL daily METANX 3-35-2 MG One tablet by 2011/ [id number] Jianming TABS mouth twice 06/03 2 Aldo IQBAL daily ENBREL 50 MG/ML 1 time weekly ETANERCEPT 99638536874 Jianming SOSY Aldo IQBAL ENBREL 50 MG/ML 1 time weekly 2011/ ETANERCEPT 66065153277 Jianming SOSY /06/03 Aldo IQBAL PROTONIX 40 MG One tablet by 2011/ PANTOPRAZOLE SODIUM 49850143938 Jianming PACK mouth daily. /06/03 Aldo IQBAL DIVALPROEX One tablet by 2011/ DIVALPROEX SODIUM 75229875813 Jianming SODIUM 250 MG mouth twice /06/03 Aldo IQBAL TBEC daily PREDNISONE 10 MG One tablet by PREDNISONE 21489585155 Jianming TABS mouth twice / Aldo IQBAL daily PREDNISONE 10 MG One tablet by 2011/ PREDNISONE 31665615909 Jianming TABS mouth twice /06/03 Aldo IQBAL daily CITALOPRAM One tablet by 2011/ CITALOPRAM 16635661402 Rabia HYDROBROMIDE 40 mouth daily /06/03 HYDROBROMIDE Aldo IQBAL MG TABS NUCYNTA 50 MG One tablet by TAPENTADOL HCL 02024804504 Jianming TABS mouth twice / Aldo IQBAL daily NUCYNTA 50 MG One tablet by 2011/ TAPENTADOL HCL 04629545865 Jianming TABS mouth twice /06/03 Aldo IQBAL daily NEURONTIN 100 MG One tablet by GABAPENTIN 82521306766 Jianming CAPS mouth twice / Aldo IQBAL daily NEURONTIN 100 MG One tablet by 2011/ GABAPENTIN 58979221240 Jianming CAPS mouth twice /06/03 Aldo IQBAL daily LEVOTHYROXINE One tablet by LEVOTHYROXINE SODIUM 58326427278 Lakishanming SODIUM 125 MCG mouth daily / Aldo IQBAL TABS HUMALOG 100 40 units SC at 2011/ INSULIN LISPRO 45198378314 Jianming UNIT/ML SOLN each meal /06/03 (HUMAN) Aldo IQBAL NOVOLIN N 100 40 units SC 2011/ INSULIN ISOPHANE 90360156151 Jianming UNIT/ML SUSP twice daily /06/03 HUMAN Aldo IQBAL AZITHROMYCIN 250 two tablets by 2012/ AZITHROMYCIN 42470370006 Jianming MG TABS mouth on day /09/24 Aldo IQBAL one, and one tablets daily one day 2-5 HUMIRA PEN 40 1 injection ADALIMUMAB 40604494042 Jianming MG/0.8ML KIT every Aldo IQBAL week HUMIRA PEN 40 1 injection 2012/ ADALIMUMAB 79183883892 Jianming MG/0.8ML KIT every other 01/14 Aldo IQBAL week EFFEXOR XR 37.5 One tablet by 2012/ VENLAFAXINE HCL 10173209917 Jianming MG [id number] mouth daily /01/14 Aldo IQBAL DOXYCYCLINE One tablet by 2012/ DOXYCYCLINE HYCLATE 95500105042 Ness J HYCLATE 100 MG mouth twice /02/10 Signs CAPS daily x 10 days, then One tablet by mouth daily VENLAFAXINE HCL One capsule by VENLAFAXINE HCL 81680952864 Salma Milton ER 75 MG mouth daily / Mallorie [id number] VENLAFAXINE HCL One capsule by 2012/ VENLAFAXINE HCL 33826830663 Ness Franco ER 75 MG mouth daily /02/10 Maria Elena IQBAL [id number] NUCYNTA ER 50 MG One tablet by TAPENTADOL HCL 29858331564 Jianming IF10X-PSX mouth Aldo IQBAL times daily NUCYNTA ER 50 MG One tablet by 2012/ TAPENTADOL HCL 40266931548 Ness Franco [id number]-[id number] mouth three 02/10 Maria Elena IQBAL times daily CETRAXAL 0.2 % 4-5 drop 2012/ CIPROFLOXACIN HCL 56177430714 Jianming SOLN affected ear /12 09/24 Aldo IQBAL three times a day PRAVASTATIN One tablet by PRAVASTATIN SODIUM 88641527123 Jianming SODIUM 40 MG mouth daily / Aldo IQBAL TABS PRAVASTATIN One tablet by 2012/ PRAVASTATIN SODIUM 47175469335 Jianming SODIUM 40 MG mouth daily /09/24 Aldo IQBAL TABS SOLU-CORTEF 100 One tablet by HYDROCORTISONE SOD 08454322138 Jianming MG SOLR mouth daily as SUCCINATE Aldo IQBAL needed SOLU-CORTEF 100 One tablet by 2012/ HYDROCORTISONE SOD 03317611846 Jianming MG SOLR mouth daily as /10/19 SUCCINATE Aldo IQBAL needed HYDROCORTISONE 5 One tablet by HYDROCORTISONE 11763168687 Jianming MG TABS mouth daily / Aldo IQBAL HYDROCORTISONE 5 One tablet by 2012/ HYDROCORTISONE 44129707367 Jianming MG TABS mouth daily /10/19 Aldo CHIANG 10 one patch per BUPRENORPHINE 03594231166 Jianming MCG/HR PTWK week Aldo CHIANG 10 one patch per 2012/ BUPRENORPHINE 17690959405 Jianming MCG/HR PTWK week 10/19 Aldo IQBAL HUMULIN R U-500 12 units per INSULIN REGULAR 28913372540 Jianming (CONCENTRATED) meal / HUMAN Aldo IQBAL 500 UNIT/ML SOLN HUMULIN R U-500 12 units per 2012/ INSULIN REGULAR 27811976401 Jianming (CONCENTRATED) meal 10/19 HUMAN Aldo IQBAL 500 UNIT/ML SOLN METHOTREXATE 2.5 4 pills by 2012/ METHOTREXATE SODIUM 26144520744 Ness J MG TABS mouth once 08/02 Maria Elena IQBAL weekly LEUCOVORIN 2 tablets by LEUCOVORIN CALCIUM 37195477648 Lakishaiaing CALCIUM 5 MG mouth once / Aldo IQBAL TABS weekly LEUCOVORIN 2 tablets by 2012/ LEUCOVORIN CALCIUM 48988201501 Ness J CALCIUM 5 MG mouth once /08/02 Maria Elena IQBAL TABS weekly SYNTHROID 137 One tablet by LEVOTHYROXINE SODIUM 01369438539 Jianming MCG TABS mouth daily Aldo IQBAL SYNTHROID 137 One tablet by 2012/ LEVOTHYROXINE SODIUM 18505234456 Rehana E MCG TABS mouth daily /08/03 [facility] AMOXICILLIN-POT One tablet by 2013/ [facility]POT 74193492370 [facility] CLAVUL[facility]ATE mouth twice /09/13 CLAVULANATE Aldo IQBAL 875-125 MG TABS daily METROGEL 1 % GEL apply to 2012/ METRONIDAZOLE 63996961169 Jianming affected area 06/07 Aldo IQBAL thin layer, once daily OMEPRAZOLE 20 MG One tablet by OMEPRAZOLE 32274547501 Jianming TBEC mouth daily / Aldo IQBAL OMEPRAZOLE 20 MG One tablet by 2012/ OMEPRAZOLE 15198877202 Jianming TBEC mouth daily /06/07 Aldo IQBAL FAMVIR 500 MG one po tid 2012/ FAMCICLOVIR 31389060946 Jianming TABS /06/07 Aldo IQBAL FENTANYL 25 change q 3 FENTANYL 01962847204 Ness Franco MCG/HR PT72 days Maria Elena IQBAL FENTANYL 25 change q 3 2012/ FENTANYL 31086932779 Jianming MCG/HR PT72 days 06/07 Aldo IQBAL TRAZODONE HCL 50 Two tablets by 2012/ TRAZODONE HCL 43470115637 Jianming MG TABS mouth daily /04/06 Aldo IQBAL MUPIROCIN 2 % apply to 2012/ MUPIROCIN 54371578559 Jianming OINT affected area /06/07 Aldo IQBAL four times a day ZOLPIDEM One tablet by 2012/ ZOLPIDEM TARTRATE 10145298378 Jianming TARTRATE 5 MG mouth daily /06/07 Aldo IQBAL TABS every night as needed, avoid driving or operating machine under the influence of medication. PODOCON 25 % 2012/ PODOPHYLLUM RESIN 65530164126 Jianming SOLN /06/07 Aldo IQBAL ACYCLOVIR 800 MG one po q 8 hrs 2012/ ACYCLOVIR 33045542666 Jianming TABS /06/07 Aldo IQBAL CIPRO HC 0.2-1 % 4 gtt to left 2012/ CIPROFLOXACIN-HYDROC 12759632102 Jianming SUSP ear three 06/07 ORTISONE Aldo MD times a day VALIUM 2 MG TABS One tablet by 2013/ DIAZEPAM 36060637197 Jianming mouth twice 11/19 Aldo IQBAL daily PROMETHAZINE HCL One tablet by 2013/ PROMETHAZINE HCL 69281828613 Jianming 12.5 MG TABS mouth 12/20 Aldo IQBAL times daily as needed nausea/vomitin g DIVALPROEX One tablet by 2013/ DIVALPROEX SODIUM 34793821939 Jianming SODIUM 125 MG mouth twice /11/12 Aldo IQBAL TBEC daily ZOLPIDEM One tablet by 2013/ ZOLPIDEM TARTRATE 76780921950 Jianming TARTRATE 5 MG mouth daily /11/19 Aldo IQBAL TABS every night SYNTHROID 100 One tablet by 2013/ LEVOTHYROXINE SODIUM 13184199336 Rabia MCG TABS mouth daily /10/22 Aldo IQBAL DEPO-SUBQ once every MEDROXYPROGESTERONE 27229100663 Jianming PROVERA 104 104 three months / ACETATE Aldo IQBAL MG/0.65ML PARVIN DEPO-SUBQ once every 2013/ MEDROXYPROGESTERONE 79254101096 Jianming PROVERA 104 104 three months /11/03 ACETATE Aldo IQBAL MG/0.65ML PARVIN NOVOLIN N 100 40 units SC INSULIN ISOPHANE 15683526170 Jianming UNIT/ML SUSP twice daily HUMAN Aldo IQBAL NOVOLOG 100 25 units SC at INSULIN ASPART 38999853733 Jianming UNIT/ML SOLN BF, 30 units / Aldo IQBAL at Lunch and Supper DIAZEPAM 2 MG One tablet by 2013/ DIAZEPAM 21334744627 Rehana E TABS mouth daily /01/21 Schl[facility]ger every night AMOXICILLIN-POT One tablet by 2013/ AMOXICILLIN-POT 54331183612 Salma Milton CLAVULANATE mouth twice /07/13 CLAVULANATE Mallorie 875-125 MG TABS daily NUCYNTA ER 50 MG One tablet by TAPENTADOL HCL 41636627370 Rabia [id number]-[id number] mouth twice / Aldo IQBAL daily as needed NUCYNTA ER 50 MG One tablet by 2013/ TAPENTADOL HCL 43501509040 Salma Milton IG12O-AKN mouth twice /07/13 Mallorie daily as needed TOPIRAMATE 50 MG One tablet by TOPIRAMATE 77879651876 Salma M TABS mouth daily / Mallorie TOPIRAMATE 50 MG One tablet by 2013/ TOPIRAMATE 99659602661 Jianming TABS mouth daily /07/29 Aldo IQBAL AMPICILLIN 500 One tablet by 2013/ AMPICILLIN 67827166386 Lakishanming MG CAPS mouth four 12/20 Aldo IQBAL times daily VITAMIN D one tablet by ERGOCALCIFEROL 41899598008 Rabia (ERGOCALCIFEROL) mouth once / Aldo IQBAL 58841 UNIT CAPS weekly VITAMIN D one tablet by 2013/ ERGOCALCIFEROL 72089049312 Jianming (ERGOCALCIFEROL) mouth once /12/20 Aldo IQBAL 25775 UNIT CAPS weekly SULFAMETHOXAZOLE One tablet by 2013/ SULFAMETHOXAZOLE-TRI 25946547598 Jianming -TRIMETHOPRIM mouth twice /12/20 METHOPRIM Aldo IQBAL 800-160 MG TABS daily GLUCAGEN HYPOKIT as needed IM GLUCAGON HCL (RDNA) 28517135384 Jianming 1 MG SOLR Aldo IQBAL hypoglycemia DEXAMETHASONE 1 One tab by 2016/ DEXAMETHASONE 63062482915 Raven L MG TABS mouth at 11pm, /03/31 [facility] lab work at 8AM the next morning FUROSEMIDE 20 MG One tablet by 2016/ FUROSEMIDE 20448077834 Raven L TABS mouth daily /03/31 [facility] ATORVASTATIN One tablet by 2016/ ATORVASTATIN CALCIUM 96277949357 Raven L CALCIUM 20 MG mouth daily at /03/31 [facility] TABS night for high cholesterol ATENOLOL 50 MG One tablet by ATENOLOL 23424400395 Raven L TABS mouth twice / [facility] daily ATENOLOL 50 MG One tablet by 2014/ ATENOLOL 55088060877 Gabriel A TABS mouth twice /04/04 Mauricio daily DOXYCYCLINE One tablet by 2014/ DOXYCYCLINE HYCLATE 91216506401 Gabriel A HYCLATE 100 MG mouth twice /12/22 Mauricio DO CAPS daily x 10 days HYDROMORPHONE 1 tablet by HYDROMORPHONE HCL 94546511654 Rabia HCL 2 MG TABS mouth every Aldo IQBAL 4-6 as needed HYDROMORPHONE 1 tablet by 2014/ HYDROMORPHONE HCL 79748440674 Gabriel A HCL 2 MG TABS mouth every 04/04 Mauricio DO 4-6 as needed FENTANYL 50 change q 72hrs FENTANYL 37233362269 Lakishanming MCG/HR PT72 Aldo IQBAL FENTANYL 50 change q 72hrs 2014/ FENTANYL 81418041484 Gabriel A MCG/HR PT72 12/22 Mauricio DO SYNTHROID 112 One tablet by 2014/ LEVOTHYROXINE SODIUM 70865938392 Lakishanming MCG TABS mouth daily /10/25 Aldo IQBAL PRAVASTATIN One tablet by 2014/ PRAVASTATIN SODIUM 08156244046 Jianming SODIUM 40 MG mouth daily /10/25 Aldo IQBAL TABS every night KLOR-CON M20 20 One tablet by 2015/ POTASSIUM CHLORIDE 50872683092 Gabriel A MEQ CR-TABS mouth daily /03/19 MELANY CR Mauricio DO FOLIC ACID 1 MG Two tablets by 2015/ FOLIC ACID 75160647065 Gabriel A TABS mouth daily /03/19 Mauricio DO PREMARIN 1.25 MG One tablet by ESTROGENS CONJUGATED 26449826326 Jianming TABS mouth daily / Aldo IQBAL PREMARIN 1.25 MG One tablet by 2015/ ESTROGENS CONJUGATED 43002584265 Gabriel A TABS mouth daily /03/19 [facility] DO DOXEPIN HCL 25 1 capsule by 2015/ DOXEPIN HCL 29575185819 Gabriel A MG CAPS mouth at night /03/19 [facility] DO for IBS FENOFIBRATE 48 Two tablets 2015/ FENOFIBRATE 93604899621 Gabriel A MG TABS daily /12/26 [facility] DO XIFAXAN 550 MG One tablet by 2015/ RIFAXIMIN 73317780818 Gabriel A TABS mouth three 11/07 [facility] DO times daily NOVOLOG 100 20-30 units INSULIN ASPART 06478121248 Gabriel A UNIT/ML SOLN three times a [facility] DO day with meals COLACE 100 MG One tablet by 2015/ DOCUSATE SODIUM 38613665515 Gabriel A CAPS mouth daily /10/24 [facility] DO PROPRANOLOL HCL One capsule by 2014/ PROPRANOLOL HCL 61949500366 Gabriel A ER 80 MG mouth daily at 05/11 [facility] DO [id number] night for migraine prevention and tachycardia DIAZEPAM 5 MG One tablet by 2015/ DIAZEPAM 57439300134 Gabriel A TABS mouth daily /10/24 [facility] DO every night, avoid driving or [...] Request for EFFEXOR XR 75MG CAP ESM_RR [id number]`EFFEXOR XR 75MG CAP`75MG``270 B e-scripts Capsule`90`TAKE THREE CAPSULES BY MOUTH ONCE messenger DAILY``1`0`02/07/2015`05/11/2015`Wal Tillman refill [place]*`[id number]`27909`VENLAFAXINE request ER 75MG CAP Quantity: 270 Capsule [...] Detail Referral Psychiatric Referral Referral Rheumatology Referral [facility] [place], [address] [place], [address] Referral Rheumatology Referral [facility] Provider, [address] [place], [address] Referral Ophthalmology Referral Referral Ophthalmology Referral Referral excluded from report: Referral Ophthalmology Referral [address] [place] [address], [address] Referral Ophthalmology Referral [address] [place] [address], [address] Referral Gastroenterology Referral Jasbir Fuchs MD, [address] [place], [address] Referral Gastroenterology Referral Jasbir Fuchs MD, [address] [place], [address] Referral Ophthalmology Referral Referral Rheumatology Referral Reyna Tucker MD, [address], [address], [place], [address] Referral Other Referral [facility], [address] [place], [address] Referral Other Referral [facility], [address] [place], [address] Referral Podiatry Referral Jared Powers DPM, [address] [place], [address] Referral OT-Functional Capacity Evaluation Physical Therapy [facility], [address] [facility], [place], [address] Referral Dermatology Referral Nadine Marquez, [address], [address] Referral Gastroenterology Referral Marlonrios Coon, [address] [place], [address] Referral Rheumatology Referral Reyna Tucker MD, [address], [address], [place], [address] Referral Pain Management Maricruz Hernandez, [address] [place] [address], [address], [place], [address] Pending order *HgA1C Pending order *Microalbumin, Creatine [...] Pending order Rapid Strep (Office) Pending order *Webster Test Pending order Administration Injection (Prophylactic, Therapeutic [...] Procedures Code Procedure Name Date Entry Date CPT-92784 HGB A1C (Office) 2143-6 *CAYDEN - Cortisol, A.M. 36606-1 *Lipid Profile 0667-1 *BMP PSGPCP PSG,CPAP (as indicated) ONLY PCP to follow up [id number] Ophthalmology Referral Order excluded from report: 0184-1 *CBC with Differential 40126-1 *CRP - C-Reative Protein 0786-1 *CMP Complete Metabolic Panel 4548-4 *HgA1C 38300-8 *Lipid Profile 0779-1 *Microalbumin, Creatine Ratio, rand urine 3016-3 *TSH 76534-9 *RA Rheumatoid Factor - Quaint 32836-3 *Sedimentation Rate (ESR) 12362-5 *UAC- Urinalysis, Complete w/ Micro 0523-1 *ANCA [id number] Ophthalmology Referral [id number] Rheumatology Referral CPT-83625 HGB A1C (Office) 4548-4 *HgA1C 3016-3 *TSH 29926-6 *Lipid Profile 0786-1 *CMP Complete Metabolic Panel [id number],[id number] Lipid Profile CPT-75687 HGBA1C 3016-3 *TSH 0786-1 *CMP Complete Metabolic Panel 3016-3 *TSH 81770-5 *CBC without Diff 4086-5 *DEBRA Valpric Acid (Depakene, Dipropylacetic Acid) Drug Assay [id number],[id number] Microalbumin urine CPT-02624 HGBA1C Q968T,X619704 Lipid Profile CPT-03418 X-Ray, Hip Unilateral Podiatry Referral Podiatry Referral 4548-4 *HgA1C 3016-3 *TSH 4086-5 *DEBRA Valpric Acid (Depakene, Dipropylacetic Acid) Drug Assay 42166-2 *CBC without Diff 0786-1 *CMP Complete Metabolic Panel 4548-4 *HgA1C 0786-1 *CMP Complete Metabolic Panel 00933-4 *Lipid Profile 4086-5 *DEBRA Valpric Acid (Depakene, Dipropylacetic Acid) Drug Assay 0667-1 *BMP 6462-6 *CUW - Culture, Wound (Aerobic) 2823-3 *Potassium; Serum, Plasma or Whole Blood 0433-1 *HEBSAG - Hep B Surface Antigen 6510 0363-1 *HECAB Hepatitis C Antibody 09933-9 *HEBSAB - Hep B Surface Antibody 6395 0197-1 *HIV antibody 64092-9 *RPR 4548-4 *HgA1C 0667-1 *BMP 16020-4 *CBC without Diff 0788-1 *Hepatic Function Panel 4086-5 *DEBRA Valpric Acid (Depakene, Dipropylacetic Acid) Drug Assay 0184-1 *CBC with Differential 3016-3 *TSH 3024-7 *T4 free 0786-1 *CMP Complete Metabolic Panel CPT-13475 UA Dipstick (Office) 78670 Fingerstick, glucose (office) Dermatology Referral Dermatology Referral CPT-16737 X-Ray, Chest, PA & Lateral CPT-08180 Rapid Strep (Office) 93855-9 *Webster Test CPT-48595 Administration Injection (Prophylactic, Therapeutic or Diagnostic) CPT-53084 Excision Benign Lesion Trunk/Arm/Ket <0.6 cm FUA 2 weeks Follow Up Appt 2 weeks 0788-1 *Hepatic Function Panel 4086-5 *DEBRA Valpric Acid (Depakene, Dipropylacetic Acid) Drug Assay FUA 2 weeks Follow Up Appt 2 weeks 15447-9 *CBC without Diff Order excluded from report: 35935-8 *CBC without Diff Order excluded from report: FUA as scheduled Follow Up as scheduled Gastroenterology Ref Gastroenterology Referral CPT-64839 US Transvaginal Order excluded from report: FUA 1 week Follow up Appt 1 week 4548-4 *HgA1C 77333-3 *Lipid Profile 0786-1 *CMP Complete Metabolic Panel FUA 3 months Follow Up Appt 3 months 4548-4 *HgA1C Order excluded from report: 0667-1 *BMP Order excluded from report: CPT-71356 *Liver/Hepatic Function Panel Order excluded from report: FUA 3 months Follow Up Appt 3 months CPT-39795 *Lipid Profile RheuRef Rheumatology Referral Pain Management Pain Management CPT-99809 *Lipid Profile CPT-77217 *CMP Complete Metabolic Panel CPT-50460 *HgA1C CPT-04136 *TSH CPT-12931 *CBC without Diff CPT-68539 *Creatine Kinase (CK) CRP *CRP CPT-99998 *Sedimentation Rate (ESR) FUA 2 weeks Follow [...]
--- OUTSIDE RECORDS SUMMARY | 2018-09-04 11:21 | XMS RPT_ITS | Clinical Summary ---
:1985 Author Organization [facility] Address [address] [place] [id number] Phone Care Team Providers Name Role Phone Raven Shepard LPN Unavailable Unavailable Conditions or Problems Problem Problem Onset Status Entry Provider Comment Standard Annotate Name Code Date Date Description Hypersomni [id number] Active Gabriel A Hypersomnia a (SNOMED 03/19 03/[address]) Peripheral [id number] Active Gabriel A Peripheral edema (SNOMED 03/19 03/[address]) Abnormal 845672510 Inactive Gabriel A Abnormal weight (SNOMED 03/19 03/19 Mauricio DO weight gain gain CT) ARTHRITIS, 96125343 Active Gabriel A Rheumatoid RHEUMATOID (SNOMED 09/09 09/[address]) Urinary 104038458 Resolved Gabriel A Increased frequency (SNOMED 10/24 10/24 [address] of CT) urination Diarrhea, 752916723 Resolved Gabriel A Chronic chronic (SNOMED 10/24 10/[address]) Hypertrigl 285722436 Active Gabriel A Hypertriglycer >800 yceridemia (SNOMED 10/30 10/[address]) Greater 9227879 Inactive Gabriel A Trochanteric trochanter (SNOMED 10/24 10/24 Mauricio DO bursitis ic CT) bursitis, left Diarrhea, 254385883 Removed Gabriel A Chronic chronic (SNOMED 10/24 10/[address]) Urinary 722923226 Removed Gabriel A Increased frequency (SNOMED 10/24 10/24 Mauricio DO frequency of CT) urination UPPER [id number] Resolved Gabriel A Upper RESPIRATOR (SNOMED 09/13 09/13 [facility] respiratory Y CT) infection INFECTION Migraine 38823044 Active Gabriel A Migraine headache (SNOMED 04/04 04/04 [facility] CT) Foot pain, 76231427 Inactive Gabriel A Foot pain left (SNOMED 02/07 02/07 [facility] CT) UPPER [id number] Removed Gabriel A Upper RESPIRATOR (SNOMED 09/13 09/13 [facility] respiratory Y CT) infection INFECTION Hypertrigl 807298952 Resolved Gabriel A Hypertriglycer yceridemia (SNOMED 10/25 10/25 [facility] idemia CT) LEG PAIN, 37764554 Resolved Gabriel A Pain in lower BILATERAL (SNOMED 03/15 03/15 [facility] limb CT) POLYCYSTIC 18464801 Resolved Gabriel A Polycystic OVARIAN (SNOMED 03/15 03/15 [facility] ovaries DISEASE CT) DEPRESSION 21666128 Resolved Gabriel A Recurrent since age , MAJOR, (SNOMED 03/15 [facility] major [address]) depression MUSCLE 79762176 Resolved Gabriel A Muscle WEAKNESS (SNOMED 03/15 03/15 [facility] weakness (GENERALIZ CT) ED) NIPPLE 415907651 Resolved Gabriel A Bloody nipple DISCHARGE, (SNOMED 03/23 03/23 [facility] discharge BLOODY CT) HYPERSOMNI [id number] Resolved Gabriel A Hypersomnia A (SNOMED 04/06 04/06 [facility] CT) SKIN RASH 433796985 Resolved Gabriel A Eruption (SNOMED 10/03 10/03 [facility] CT) SEXUALLY 843380698 Resolved Gabriel A Exposure to TRANSMITTE (SNOMED 10/04 10/04 [facility] sexually D DISEASE, CT) transmissible EXPOSURE disorder TO HYPOKALEMI 65389113 Resolved Gabriel A Hypokalemia A (SNOMED 11/03 11/03 [facility] CT) Ingrown 950923611 Resolved Gabriel A Ingrowing nail toenail (SNOMED [facility] CT) Hip pain, 14671403 Resolved Gabriel A Hip pain right (SNOMED 09/13 09/13 [facility] CT) Bronchitis 39319635 Resolved Gabriel A Acute , acute (SNOMED 10/25 11/09 [facility] bronchitis CT) Chronic 381410386 Active Gabriel A Chronic pain pain (SNOMED 12/22 12/22 [facility] syndrome syndrome CT) Bronchitis 45514815 Removed Jianming Acute , acute (SNOMED 10/25 11/[address] [facility] [address]) Paronychia [id number] Resolved Jianming Paronychia of left big , great (SNOMED [facility] toe toe toe CT) Hypertrigl 191246590 Removed Jianming Hypertriglycer yceridemia (SNOMED 10/25 10/[address] [facility] [address]) Superficia 770627562 Resolved Jianming Superficial right l vein (SNOMED 09/29 09/29 [facility] vein basilic thrombosis CT) thrombosis vein from just above elbow to wrist Superficia [id number] Removed Jianming Superficial right l vein (SNOMED 09/29 09/29 [facility] vein basilic thrombosis CT) thrombosis vein from just above elbow to wrist Hip pain, 63667053 Removed Jianming Hip pain right (SNOMED 09/13 09/[address] [facility]) Ingrown 756521081 Removed Jianming Ingrowing nail toenail (SNOMED [facility] CT) Paronychia [id number] Removed Jianming Paronychia of left big , great (SNOMED [facility] toe toe toe CT) Back pain, 233881628 Active Jianming Low back pain chronic s/p lumbar (SNOMED [facility] surgery CT) NAUSEA AND 51089090 Resolved Jianming Nausea and VOMITING (SNOMED 11/12 11/[address] [facility] [address]) OTITIS [id number] Resolved Rehana E Chronic otitis EXTERNA, (SNOMED 08/30 08/[address]) OTITIS [id number] Resolved Rehana E Acute otitis MEDIA, (SNOMED 08/18 08/18 [facility] media ACUTE, CT) BILATERAL DKA [id number] Resolved Jianming Diabetic (SNOMED [facility] ketoacidosis CT) CELLULITIS [id number] Resolved Jianming Cellulitis of the (SNOMED 11/03 11/[address] [facility] [address]) site NAUSEA AND [id number] Removed Jianming Nausea and VOMITING (SNOMED 11/12 11/[address] [facility] [address]) HYPOKALEMI [id number] Removed Jianming Hypokalemia A (SNOMED 11/03 11/[address] [facility]) CELLULITIS [id number] Removed Jianming Cellulitis of the (SNOMED 11/03 11/[address] [facility] [address]) site SEXUALLY [id number] Removed Marianna A Exposure to TRANSMITTE (SNOMED 10/04 10/04 Flannery sexually D DISEASE, CT) transmissible EXPOSURE disorder TO OTITIS [id number] Removed Jianming Acute otitis MEDIA, (SNOMED 08/18 08/18 [facility] media ACUTE, CT) BILATERAL OTITIS [id number] Correctio Jianming Acute otitis MEDIA, (SNOMED 08/18 n 08/18 [facility] media ACUTE, CT) BILATERAL SKIN RASH [id number] Removed Ness J Eruption (SNOMED 10/03 10/[address]) OTITIS [id number] Removed Ness J Chronic otitis EXTERNA, (SNOMED 08/30 08/[address]) DKA [id number] Removed Jianming Diabetic (SNOMED [facility] ketoacidosis CT) OTITIS [id number] Resolved Jianming Otitis externa EXTERNA (SNOMED 03/23 03/[address]) HYPERSOMNI [id number] Removed Jianming Hypersomnia A (SNOMED 04/06 04/[address] [facility]) ALLERGIC 52846319 Active Jianming Allergic RHINITIS (SNOMED 04/06 04/[address] [facility] [address]) OTITIS 9050400 Removed Jianming Otitis externa EXTERNA (SNOMED 03/23 03/[address]) NIPPLE 153319390 Removed Jianming Bloody nipple DISCHARGE, (SNOMED 03/23 03/[address] [facility] [address] BLOODY CT) NIPPLE 140651129 Correctio Jianming Bloody nipple DISCHARGE, (SNOMED 03/23 n 03/[address] [facility] [address] BLOODY [address]) OTITIS 6468877 Correctio Jianming Otitis externa EXTERNA (SNOMED 03/23 n 03/[address]) 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, (SNOMED 02/10 02/[address]) POLYCYSTIC 51593981 Active Ness J Polycystic OVARIAN (SNOMED 02/10 02/[address]) FIBROMYALG 25407669 Active Ness J Fibromyositis IA, SEVERE (SNOMED 02/10 02/[address]) IMMUNOCOMP 137982603 Active Ness J Immunodeficien ROMISED (SNOMED 02/10 02/[address]) HUMAN 031421356 Active Ness J Human PAPILLOMAV (SNOMED 02/10 02/[address]) virus infection TACHYCARDI 7081988 Active Jianming Tachycardia since 2004 A (SNOMED 01/[address]) HYPOGLYCEM 653870816 Resolved Jianming Hypoglycemia IA (SNOMED 09/24 09/[address] [facility]) MOVEMENT 63824307 Resolved Jianming Movement DISORDER (SNOMED 09/24 09/[address] [facility] [address]) ROSACEA 040027714 Active Jianming Rosacea (SNOMED 01/14 01/[address]) TACHYCARDI 6100349 Resolved Jianming Tachycardia A (SNOMED 03/[address] [facility]) GLUCOCORTI 852900457 Resolved Jianming 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 PHARYNGITI 524894447 Resolved Jianming Acute S, ACUTE (SNOMED 09/07 09/[address] [facility] [address]) UPPER [id number] Resolved Jianming Upper RESPIRATOR (SNOMED 09/13 09/[address] [facility] respiratory Y CT) infection INFECTION COUGH 17070587 Resolved Jianming Cough (SNOMED 09/13 09/[address]) HYPOGLYCEM [id number] Removed Jianming Hypoglycemia IA (SNOMED 09/24 09/[address] [facility]) MOVEMENT [id number] Removed Jianming Movement DISORDER (SNOMED 09/24 09/[address]) COUGH [id number] Removed Salma M Cough (SNOMED 09/13 09/[address]) UPPER [id number] Removed Salma M Upper RESPIRATOR (SNOMED 09/13 09/[address]) infection INFECTION PHARYNGITI 424456342 Removed Jianming Acute S, ACUTE (SNOMED 09/07 09/[address] [facility] [address]) MELENA [id number] Resolved Jianming Melena (SNOMED 11/06 11/[address] [facility]) LOCALIZED R22.9 Resolved Jianming Localized right SUPERFICIA (ICD-10-CM [facility] swelling, mass axillary L SWELLING ) and lump, MASS OR unspecified LUMP LIVER V12.2 Resolved Jianming Personal FUNCTION (ICD-9-CM) 03/15 03/15 [facility] history of TESTS, endocrine, ABNORMAL, metabolic, and HX OF immunity disorders CONSTIPATI 033843955 Resolved Jianming Chronic ON, (SNOMED 09/23 09/[address] [facility] [address] CHRONIC CT) ABDOMINAL R10.31 Resolved Jianming Right lower PAIN RIGHT (ICD-10-CM 09/23 09/23 [facility] quadrant pain LOWER ) QUADRANT OTITIS 2162431 Resolved Jianming Otitis externa EXTERNA (SNOMED 08/22 08/[address]) GLUCOCORTI 049520476 Removed Jianming 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 OTITIS 3413094 Removed Jianming Otitis externa EXTERNA (SNOMED 08/22 08/[address]) LOCALIZED R22.9 Removed Jianming Localized right SUPERFICIA (ICD-10-CM 0 [facility] swelling, mass axillary L SWELLING ) and lump, MASS OR unspecified LUMP BIPOLAR 430056288 Active Jianming Bipolar diagnosed AFFECTIVE (SNOMED 02/19 [facility] affective by DISORDER, CT) disorder, psychiatris DEPRESSED current t at episode Kristian depression in [place] GASTROESOP 046673941 Active Jianming Gastroesophage HAGEAL (SNOMED 02/19 [facility] al reflux REFLUX CT) disease DISEASE INSOMNIA, 602777901 Active Jianming Insomnia CHRONIC (SNOMED 02/19 02/[address]) ACUTE 62823427 Resolved Jianming Acute ETHMOIDAL (SNOMED 09/18 09/18 [facility] ethmoidal SINUSITIS CT) sinusitis MELENA 0596471 Removed Luis Eduardo M Melena (SNOMED 11/06 11/[address]) ACUTE [id number] Removed Jianming Acute ETHMOIDAL (SNOMED 09/18 09/18 [facility] ethmoidal SINUSITIS CT) sinusitis ABDOMINAL R10.31 Removed Jianming Right lower PAIN RIGHT (ICD-10-CM 09/23 09/23 [facility] quadrant pain LOWER ) QUADRANT CONSTIPATI [id number] Removed Jianming Chronic ON, (SNOMED 09/23 09/[address] [facility] [address]) ARTHRITIS, 09838298 Inactive Jianming Rheumatoid f/u RHEUMATOID (SNOMED 09/09 09/09 [facility] [address] [place] CT) DYSLIPIDEM 271655513 Active Jianming Dyslipidemia IA (SNOMED 04/03 04/[address]) MUSCLE 85567595 Removed Jianming Muscle WEAKNESS (SNOMED 03/15 03/15 [facility] weakness (GENERALIZ CT) ED) DEPRESSION 76764379 Removed Jianming Recurrent since age , MAJOR, (SNOMED 03/15 [facility] major [address]) depression POLYCYSTIC 25292000 Removed Jianming Polycystic OVARIAN (SNOMED 03/15 03/[address] [facility] [address]) IRRITABLE 48240756 Active Jianming Irritable BOWEL (SNOMED 03/15 03/15 [facility] bowel syndrome SYNDROME CT) TACHYCARDI 8842286 Removed Jianming Tachycardia A (SNOMED 03/[address]) LEG PAIN, 42910955 Removed Jianming Pain in lower BILATERAL (SNOMED 03/15 03/[address] [facility]) HYPOTHYROI 43921553 Active Jianming Hypothyroidism DISM (SNOMED 08/11 03/[address]) DIABETES 06717560 08/11/19 Active Jianming Type 1 MELLITUS, (SNOMED 03/15 [facility] diabetes TYPE I CT) mellitus LIVER V12.2 Removed Jianming Personal FUNCTION (ICD-9-CM) 03/15 03/15 [facility] history of TESTS, endocrine, ABNORMAL, metabolic, and HX OF immunity disorders Medications Medication Instructions Start Stop Generic Name NDC Provider Date Date ATORVASTATIN One tablet by ATORVASTATIN CALCIUM [id number] Gabriel A CALCIUM 20 MG mouth daily at /15 Mauricio DO TABS night for high cholesterol FUROSEMIDE 20 MG One tablet by FUROSEMIDE 12496641678 Gabriel A TABS mouth daily / Mauricio DO DEXAMETHASONE 1 One tab by DEXAMETHASONE 72186277399 Gabriel A MG TABS mouth at 11pm, / Mauricio DO lab work at 8AM the next morning ATENOLOL 50 MG One tablet by ATENOLOL 48541065930 Gabriel A TABS mouth twice / Mauricio DO daily ZYRTEC ALLERGY One tablet by CETIRIZINE HCL 76701835316 Gabriel A 10 MG TABS mouth daily at [facility] bedtime OMEPRAZOLE 20 MG One tablet by OMEPRAZOLE 42834049184 Gabriel A TBEC mouth daily / [facility] DO SYNTHROID 137 One tablet by LEVOTHYROXINE SODIUM 82928904308 Gabriel A MCG TABS mouth daily /Mauricio DO DIVALPROEX Two tablets by DIVALPROEX SODIUM 49726109423 Gabriel A SODIUM 250 MG mouth daily /Mauricio TBEC SEROQUEL 200 MG One tablet by QUETIAPINE FUMARATE 83076721875 Gabriel A TABS mouth daily /Mauricio DO EFFEXOR XR 75 MG Three tablets VENLAFAXINE HCL 98884776719 Gabriel A [id number] by mouth daily / [facility] NOVOLOG 100 15-30 units INSULIN ASPART 97045408663 Gabriel A UNIT/ML SOLN three times a [facility] day with meals NOVOLIN N 100 40-50 units INSULIN ISOPHANE 26090825921 Gabriel A UNIT/ML SUSP twice daily / [facility] 400 MG One tablet by ACYCLOVIR 42045504658 Gabriel A TABS mouth daily / [facility] BD INSULIN 5-6 times INSULIN 84279005652 Gabriel A SYRINGE daily DX: DM SYRINGE-NEEDLE U-100 [facility] ULTRAFINE 30G X type I 1/2 0.5 ML MISC FENOFIBRATE 48 Two tablets FENOFIBRATE 68451668782 Gabriel A MG TABS daily / [facility] DO DOXEPIN HCL 25 1 capsule by DOXEPIN HCL 41867220759 Gabriel A MG CAPS mouth at night / [facility] for IBS ACYCLOVIR 400 MG One tablet by ACYCLOVIR 41187071958 Gabriel A TABS mouth twice [facility] DO daily XIFAXAN 550 MG One tablet by 2015/ RIFAXIMIN 40523126824 Gabriel A TABS mouth three /11/07 [facility] times daily DIAZEPAM 5 MG One tablet by DIAZEPAM 90823453421 Gabriel A TABS mouth daily / [facility] every night, avoid driving or operating machine under the influence of medication. PROPRANOLOL HCL One capsule by PROPRANOLOL HCL 56479902124 Gabriel A ER 80 MG mouth daily at /25 Mauricio DO [id number] night for migraine prevention and tachycardia NOVOLOG 100 30 units three INSULIN ASPART 51580722088 Gabriel A UNIT/ML SOLN times a day / Mauricio DO with meals NOVOLIN N 100 45 units SC INSULIN ISOPHANE 14423391391 Gabriel A UNIT/ML SUSP twice daily / HUMAN Mauricio DO KLOR-CON M20 20 One tablet by POTASSIUM CHLORIDE 03624666747 Gabriel A MEQ CR-TABS mouth daily / MELANY CR Mauricio DO FOLIC ACID 1 MG Two tablets by FOLIC ACID 59419473756 Gabriel A TABS mouth daily / Mauricio DO ATENOLOL 50 MG One tablet by ATENOLOL 57432941070 Gabriel A TABS mouth twice / Mauricio DO daily NOVOLOG 100 25 units SC at INSULIN ASPART 80582422531 Gabriel A UNIT/ML SOLN BF, 30 units / Mauricio DO at Lunch and Supper FENOFIBRATE 48 One tablet by FENOFIBRATE 84671868938 Jianming MG TABS mouth daily, / [facility] then increase to two tablets if tolerate it DOXYCYCLINE One tablet by DOXYCYCLINE HYCLATE 68471480159 Jianming HYCLATE 100 MG mouth twice / [facility] CAPS daily x 10 days PRAVASTATIN One tablet by PRAVASTATIN SODIUM 23814177373 Jianming SODIUM 40 MG mouth daily / [facility] TABS every night AMOXICILLIN-POT One tablet by AMOXICILLIN-POT 33395686883 Jianming CLAVULANATE mouth twice / CLAVULANATE [facility] 875-125 MG TABS daily SYNTHROID 112 One tablet by LEVOTHYROXINE SODIUM 57178612836 Jianming MCG TABS mouth daily / [facility] QUETIAPINE Three tablets QUETIAPINE FUMARATE 59473227222 Jianming FUMARATE 50 MG by mouth daily / [facility] TABS at bed time DIVALPROEX One tablet by DIVALPROEX SODIUM 39889045980 Jianming SODIUM 250 MG mouth twice / [facility] TBEC daily DIAZEPAM 2 MG One tablet by DIAZEPAM 42531297774 Jianming TABS mouth daily / [facility] every night QUETIAPINE Two tablets by QUETIAPINE FUMARATE 61905764752 Jianming FUMARATE 50 MG mouth daily / [facility] TABS every night EFFEXOR XR 150 One tablet by VENLAFAXINE HCL 04061548117 Jianming MG [id number] mouth daily / [facility] COLACE 100 MG One tablet by DOCUSATE SODIUM 29811991464 Jianming CAPS mouth daily / [facility] PROMETHAZINE HCL One tablet by PROMETHAZINE HCL 78971735529 Jianming 12.5 MG TABS mouth three [facility] times daily as needed nausea/vomitin g DIAZEPAM 2 MG One tablet by DIAZEPAM 22806236219 Jianming TABS mouth twice / [facility] daily QUETIAPINE Two tablets by QUETIAPINE FUMARATE 42195004181 Jianming FUMARATE 50 MG mouth twice / [facility] TABS daily SULFAMETHOXAZOLE One tablet by SULFAMETHOXAZOLE-TRI 08029985926 Jianming -TRIMETHOPRIM mouth twice METHOPRIM [facility] 800-160 MG TABS daily AMPICILLIN 500 One tablet by AMPICILLIN 90311183163 Jianming MG CAPS mouth four [facility] times daily ZOLPIDEM One tablet by ZOLPIDEM TARTRATE 04741258790 Lakishanming TARTRATE 5 MG mouth daily / [facility] TABS every night DIVALPROEX One tablet by DIVALPROEX SODIUM 01249423159 Lakishanming SODIUM 125 MG mouth twice / [facility] TBEC daily QUETIAPINE one tablets by QUETIAPINE FUMARATE 84632337877 Jianming FUMARATE 50 MG mouth in AM , / [facility] TABS two tablets by mouth in pM EFFEXOR XR 75 MG One tablet by VENLAFAXINE HCL 40930703045 Lakishanming [id number] mouth daily [facility] QUETIAPINE one tablets by QUETIAPINE FUMARATE 86657128481 Jianming FUMARATE 50 MG mouth in AM , / [facility] TABS two tablets by mouth in pM SYNTHROID 100 One tablet by LEVOTHYROXINE SODIUM 30164247912 Lakishanming MCG TABS mouth daily / [facility] AMOXICILLIN-POT One tablet by AMOXICILLIN-POT 42999832634 [facility] CLAVULANATE mouth twice CLAVULANATE [facility] 875-125 MG TABS daily QUETIAPINE One tablet by QUETIAPINE FUMARATE 78493902215 Rabia FUMARATE 50 MG mouth twice / [facility] TABS daily x 1 day, then titrate up as directed VALIUM 2 MG TABS One tablet by DIAZEPAM 60275110700 Jianming mouth twice / [facility] daily ZOLPIDEM One tablet by ZOLPIDEM TARTRATE 25324610374 Lakishaiaing TARTRATE 5 MG mouth daily / [facility] TABS every night as needed, avoid driving or operating machine under the influence of medication. MUPIROCIN 2 % apply to MUPIROCIN 85919898479 [facility] OINT affected area [facility] four times a day CIPRO HC 0.2-1 % 4 gtt to left CIPROFLOXACIN-HYDROC 63594894829 [facility] SUSP ear ORTISONE Aldo MD times a day PODOCON 25 % PODOPHYLLUM RESIN 43400580855 Ness J SOLN /17 Signs ACYCLOVIR 800 MG one po q 8 hrs ACYCLOVIR 33526212249 Ness J TABS /17 Signs FAMVIR 500 MG one po tid FAMCICLOVIR 46892473065 Ness J TABS /03 Signs METROGEL 1 % GEL apply to METRONIDAZOLE 24660750508 Jianming affected area / [facility] thin layer, once daily DOXYCYCLINE One tablet by DOXYCYCLINE HYCLATE 26137601921 [facility] HYCLATE 100 MG mouth twice [facility] CAPS daily x 10 days, then One tablet by mouth daily VENLAFAXINE HCL One tablet by VENLAFAXINE HCL 18193128968 [place] ER 75 MG mouth daily [facility] [id number] TRAZODONE HCL 50 Two tablets by TRAZODONE HCL 79195780403 Lakishanming MG TABS mouth daily / [facility] AZITHROMYCIN 250 two tablets by AZITHROMYCIN 40478686360 Jianming MG TABS mouth on [facility] one, and one tablets daily one day 2-5 EFFEXOR XR 37.5 One tablet by VENLAFAXINE HCL 71397824298 Jianming MG [id number] mouth daily / [facility] CETRAXAL 0.2 % 4-5 drop CIPROFLOXACIN HCL 80204406397 Rabia SOLN affected ear / [facility] three times a day DIVALPROEX One tablet by DIVALPROEX SODIUM 70790260977 Lakishanming SODIUM 250 MG mouth twice / [facility] TBEC daily DISABILITY DX: Rheumatoid DISABILITY PLACARD Leticiaing PLACARD arthritis / [facility] duration: five years PROTONIX 40 MG One tablet by PANTOPRAZOLE SODIUM 66597590612 Lakishanming PACK mouth daily. / [facility] DIVALPROEX One tablet by DIVALPROEX SODIUM 23426142781 Jianming SODIUM 125 MG mouth twice / [facility] TBEC daily ATENOLOL 50 MG One tablet by ATENOLOL 57449018832 Jianming TABS mouth daily at / [facility] bedtime TRAZODONE HCL 50 One tablet by TRAZODONE HCL 05173653082 Jianming MG TABS mouth daily / [facility] every night CITALOPRAM One tablet by CITALOPRAM 63348567186 Rabia HYDROBROMIDE 40 mouth daily / HYDROBROMIDE [facility] MG TABS NOVOLIN N 100 40 units SC INSULIN ISOPHANE 83032938194 Lakishanming UNIT/ML SUSP twice daily / HUMAN [facility] HUMALOG 100 30 units SC INSULIN LISPRO 14398682723 Lakishanming UNIT/ML SOLN before meals (HUMAN) [facility] AUGMENTIN XR One tablet by AMOXICILLIN-POT 77160495024 Leticiaing 1000-62.5 MG mouth twice / CLAVULANATE [facility] [id number] daily METHOTREXATE 2.5 4 pills by METHOTREXATE SODIUM 09020035502 Jianming MG TABS mouth once / [facility] weekly CIPROFLOXACIN One tablet by CIPROFLOXACIN HCL 57534737599 Lakishanming HCL 500 MG TABS mouth twice /13 08/02 [facility] daily METRONIDAZOLE One tablet by 2011/12 65867880985 Jianming 500 MG TABS mouth 08/02 [facility] times daily INDOMETHACIN 25 1-2 tablets INDOMETHACIN 82606303316 Lakishanming MG CAPS three times [facility] day as needed pain GLUCOMETER use as GLUCOMETER Jianming directed AC / [facility] and [facility] HUMALOG 100 40 units SC at INSULIN LISPRO 13481352544 Jianming UNIT/ML SOLN each meal / (HUMAN) [facility] PRAVASTATIN One tablet by PRAVASTATIN SODIUM 08286929629 Lakishanming SODIUM 80 MG mouth daily / [facility] TABS LEVEMIR 100 40 units SC INSULIN DETEMIR 45864302147 Jianming UNIT/ML SOLN twice daily / [facility] NOVOLIN N 100 40 units SQ INSULIN ISOPHANE 37820536975 Luis Eduardo M UNIT/ML SUSP twice daily. / HUMAN [facility] HUMULIN N 100 40 units twice INSULIN ISOPHANE 89398110859 Jianming UNIT/ML SUSP daily / HUMAN [facility] HUMALOG 100 20 units per INSULIN LISPRO 66251762830 Jianming UNIT/ML SOLN meal / (HUMAN) [facility] ULTRAM 50 MG Two tablets by TRAMADOL HCL 59226155214 Lakishanming TABS mouth [facility] times daily, avoid driving or operating machine under the influence of medication. PRAVASTATIN One tablet by PRAVASTATIN SODIUM 96758181157 Lakishanming SODIUM 20 MG mouth daily / [facility] TABS every night TRAZODONE HCL 50 One tablet by TRAZODONE HCL 41100544381 Jianming MG TABS mouth daily / [facility] every night LEXAPRO 20 MG One tablet by ESCITALOPRAM OXALATE 32971817351 Jianming TABS mouth daily / [facility] ATENOLOL 50 MG One tablet by ATENOLOL 06323923960 Jianming TABS mouth daily at [facility] bedtime HYDROCODONE-ACET One tablet by HYDROCODONE-ACETAMIN 30522007453 Lakishaiasantiago AMINOPHEN 5-500 mouth OPHEN [facility] MG TABS times daily avoid driving or operating machine under the influence of medication. HYDROCODONE-ACET One tablet by 2011/ HYDROCODONE-ACETAMIN 16528560624 Jianming AMINOPHEN 5-500 mouth three 02/19 HUBERT Carlson MD MG TABS times daily avoid driving or operating machine under the influence of medication. ULTRAM 50 MG Two tablets by 2011/ TRAMADOL HCL 42965164082 Jianming TABS mouth three 09/18 [facility] times daily, avoid driving or operating machine under the influence of medication. AUGMENTIN XR One tablet by 2011/ AMOXICILLIN-POT 86129045979 Luis Eduardo M 1000-62.5 MG mouth twice /11/06 CLAVULANATE [facility] [id number] daily FOLIC ACID 1 MG 2 tablets by FOLIC ACID 33651067320 Jianming TABS mouth daily / [facility] FOLIC ACID 1 MG 2 tablets by 2011/ FOLIC ACID 66951625425 Luis Eduardo M TABS mouth daily 11/06 Kunal IQBAL LEUCOVORIN one tablet by LEUCOVORIN CALCIUM [id number] Jianming CALCIUM 5 MG mouth once / Aldo IQBAL TABS weekly LEUCOVORIN one tablet by 2011/ LEUCOVORIN CALCIUM [id number] Luis Eduardo CALCIUM 5 MG mouth once /11/06 Kunal IQBAL TABS weekly LEVEMIR 100 40 units SC 2010/ INSULIN DETEMIR 89952484446 Jianming UNIT/ML SOLN twice daily 07/11 Aldo IQBAL HUMALOG 100 INSULIN LISPRO 88649476164 Jianming UNIT/ML SOLN (HUMAN) Aldo IQBAL HUMULIN N 100 40 units twice 2010/ INSULIN ISOPHANE 21495146082 Luis Eduardo M UNIT/ML SUSP daily 07/01 HUMAN Kunal IQBAL NOVOLIN N 100 40 units SQ 2010/ INSULIN ISOPHANE 30780649602 Jianming UNIT/ML SUSP twice daily. 07/10 HUMAN Aldo IQBAL INDOMETHACIN 25 1-2 tablets 2011/ INDOMETHACIN 36177172578 Jianming MG CAPS three times 02/19 Aldo IQBAL day as needed pain METANX 3-35-2 MG One tablet by [id number] Luis Eduardo M TABS mouth twice / 2 Kunal IQBAL daily METANX 3-35-2 MG One tablet by 2011/ [id number] Jianming TABS mouth twice /06/03 2 Aldo IQBAL daily ENBREL 50 MG/ML 1 time weekly ETANERCEPT 20579814800 Rabia SOSY / Aldo IQBAL ENBREL 50 MG/ML 1 time weekly 2011/ ETANERCEPT 68464692079 Rabia SOSY /06/03 Aldo IQBAL PROTONIX 40 MG One tablet by 2011/ PANTOPRAZOLE SODIUM 22059520739 Lakishanming PACK mouth daily. /06/03 Aldo IQBAL DIVALPROEX One tablet by 2011/ DIVALPROEX SODIUM 93345926065 Lakishanming SODIUM 250 MG mouth twice /06/03 Aldo IQBAL TBEC daily PREDNISONE 10 MG One tablet by PREDNISONE 98967882452 Jianming TABS mouth twice / Aldo IQBAL daily PREDNISONE 10 MG One tablet by 2011/ PREDNISONE 96451370486 Jianming TABS mouth twice /06/03 Aldo IQBAL daily CITALOPRAM One tablet by 2011/ CITALOPRAM 56825618837 Rabia HYDROBROMIDE 40 mouth daily /06/03 HYDROBROMIDE Aldo IQBAL MG TABS NUCYNTA 50 MG One tablet by TAPENTADOL HCL 47679044600 Lakishanming TABS mouth twice / Aldo IQBAL daily NUCYNTA 50 MG One tablet by 2011/ TAPENTADOL HCL 85199562482 Jianming TABS mouth twice /06/03 Aldo IQBAL daily NEURONTIN 100 MG One tablet by GABAPENTIN 44727861687 Jianming CAPS mouth twice / Aldo IQBAL daily NEURONTIN 100 MG One tablet by 2011/ GABAPENTIN 67807072647 Jianming CAPS mouth twice 06/03 Aldo IQBAL daily LEVOTHYROXINE One tablet by LEVOTHYROXINE SODIUM 29207767522 Leticiaing SODIUM 125 MCG mouth daily / Aldo IQBAL TABS HUMALOG 100 40 units SC at 2011/ INSULIN LISPRO 00627664707 Lakishaiaing UNIT/ML SOLN each meal /06/03 (HUMAN) Aldo IQBAL NOVOLIN N 100 40 units SC 2011/ INSULIN ISOPHANE 98072251309 Jianming UNIT/ML SUSP twice daily /06/03 HUMAN Aldo IQBAL AZITHROMYCIN 250 two tablets by 2012/ AZITHROMYCIN 41925078376 Jianming MG TABS mouth on day /09/24 Aldo IQBAL one, and one tablets daily one day 2-5 HUMIRA PEN 40 1 injection ADALIMUMAB 27156629888 Jianming MG/0.8ML KIT every Aldo IQBAL week HUMIRA PEN 40 1 injection 2012/ ADALIMUMAB 16500666619 Jianming MG/0.8ML KIT every other /01/14 Aldo IQBAL week EFFEXOR XR 37.5 One tablet by 2012/ VENLAFAXINE HCL 94766278276 Jianming MG [id number] mouth daily /01/14 Aldo IQBAL DOXYCYCLINE One tablet by 2012/ DOXYCYCLINE HYCLATE 97899845199 Ness J HYCLATE 100 MG mouth twice /02/10 Signs CAPS daily x 10 days, then One tablet by mouth daily VENLAFAXINE HCL One capsule by VENLAFAXINE HCL 66160331898 Salma Milton ER 75 MG mouth daily / Mallorie [id number] VENLAFAXINE HCL One capsule by 2012/ VENLAFAXINE HCL 93026304641 Ness Franco ER 75 MG mouth daily /02/10 Maria Elena IQBAL [id number] NUCYNTA ER 50 MG One tablet by TAPENTADOL HCL 47939337284 Leticiaing YH24H-DHM mouth Aldo IQBAL times daily NUCYNTA ER 50 MG One tablet by 2012/ TAPENTADOL HCL 82588440998 Ness J [id number]-BPT mouth three 02/10 Maria Elena IQBAL times daily CETRAXAL 0.2 % 4-5 drop 2012/ CIPROFLOXACIN HCL 92472388915 Rabia SOLN affected ear /09/24 Aldo IQBAL three times a day PRAVASTATIN One tablet by PRAVASTATIN SODIUM 84180261261 Lakishanming SODIUM 40 MG mouth daily / Aldo IQBAL TABS PRAVASTATIN One tablet by 2012/ PRAVASTATIN SODIUM 85998577473 Jianming SODIUM 40 MG mouth daily /09/24 Carlson MD TABS SOLU-CORTEF 100 One tablet by HYDROCORTISONE SOD 21390930592 Jianming MG SOLR mouth daily SUCCINATE Aldo IQBAL needed SOLU-CORTEF 100 One tablet by 2012/ HYDROCORTISONE SOD 32781163691 Jianming MG SOLR mouth daily as 10/19 SUCCINATE Aldo IQBAL needed HYDROCORTISONE 5 One tablet by HYDROCORTISONE 37539924639 Jianming MG TABS mouth daily Aldo IQBAL HYDROCORTISONE 5 One tablet by 2012/ HYDROCORTISONE 70453249642 Jianming MG TABS mouth daily /10/19 Aldo CHIANG 10 one patch per BUPRENORPHINE 34254658921 Jianming MCG/HR PTWK Aldo CHIANG 10 one patch per 2012/ BUPRENORPHINE 48215266555 Jianming MCG/HR PTWK week 10/19 Aldo IQBAL HUMULIN R U-500 12 units per INSULIN REGULAR 67884091421 Jianming (CONCENTRATED) meal / HUMAN Aldo IQBAL 500 UNIT/ML SOLN HUMULIN R U-500 12 units per 2012/ INSULIN REGULAR 66950927500 Jianming (CONCENTRATED) meal /10/19 HUMAN Aldo IQBAL 500 UNIT/ML SOLN METHOTREXATE 2.5 4 pills by 2012/ METHOTREXATE SODIUM 18488920271 Ness Franco MG TABS mouth once 08/02 Maria Elena IQBAL weekly LEUCOVORIN 2 tablets by LEUCOVORIN CALCIUM 33196585386 Jianming CALCIUM 5 MG mouth once Aldo IQBAL TABS weekly LEUCOVORIN 2 tablets by 2012/ LEUCOVORIN CALCIUM 38718607389 Ness Franco CALCIUM 5 MG mouth once /08/02 Maria Elena IQBAL TABS weekly SYNTHROID 137 One tablet by LEVOTHYROXINE SODIUM 16766505725 Jianming MCG TABS mouth daily Aldo IQBAL SYNTHROID 137 One tablet by 2012/ LEVOTHYROXINE SODIUM 90908441612 Rehana E MCG TABS mouth daily /08/03 Schloneglupillo AMOXICILLIN-POT One tablet by 2013/ AMOXICILLIN-POT 21506171789 Jianming CLAVULANATE mouth twice /09/13 CLAVULANATNava Carlson MD 875-125 MG TABS daily METROGEL 1 % GEL apply to 2012/ METRONIDAZOLE 47787781439 Jianming affected area /06/07 Aldo IQBAL thin layer, once daily OMEPRAZOLE 20 MG One tablet by OMEPRAZOLE 73539764592 Jianming TBEC mouth daily / Aldo IQBAL OMEPRAZOLE 20 MG One tablet by 2012/ OMEPRAZOLE 47528630664 Jianming TBEC mouth daily /06/07 Aldo IQBAL FAMVIR 500 MG one po tid 2012/ FAMCICLOVIR 36904269533 Jianming TABS /06/07 Aldo IQBAL FENTANYL 25 change q 3 FENTANYL 91336970706 Ness J MCG/HR PT72 days Maria Elena IQBAL FENTANYL 25 change q 3 2012/ FENTANYL 35155026669 Jianming MCG/HR PT72 days 06/07 Aldo IQBAL TRAZODONE HCL 50 Two tablets by 2012/ TRAZODONE HCL 20470320663 Jianming MG TABS mouth daily /04/06 Aldo IQBAL MUPIROCIN 2 % apply to 2012/ MUPIROCIN 02611564817 [facility] affected area 06/07 Aldo IQBAL four times a day ZOLPIDEM One tablet by 2012/ ZOLPIDEM TARTRATE 68755516815 [facility] TARTRATE 5 MG mouth daily /06/07 Aldo IQBAL TABS every night as needed, avoid driving or operating machine under the influence of medication. PODOCON 25 % 2012/ PODOPHYLLUM RESIN 58343238564 [facility] SOLN /06/07 Aldo IQBAL ACYCLOVIR 800 MG one po q 8 hrs 2012/ ACYCLOVIR 24055414726 Jianming TABS /06/07 Aldo IQBAL CIPRO HC 0.2-1 % 4 gtt to left 2012/ CIPROFLOXACIN-HYDROC 15093749401 [facility] SUSP ear three 06/07 ORTISONE Aldo IQBAL times a day VALIUM 2 MG TABS One tablet by 2013/ DIAZEPAM 49087098887 Jianming mouth twice /11/19 Aldo IQBAL daily PROMETHAZINE HCL One tablet by 2013/ PROMETHAZINE HCL 07279701456 Jianming 12.5 MG TABS mouth 12/20 Aldo IQBAL times daily as needed nausea/vomitin g DIVALPROEX One tablet by 2013/ DIVALPROEX SODIUM 30065332437 Lakishanming SODIUM 125 MG mouth twice /11/12 Aldo IQBAL TBEC daily ZOLPIDEM One tablet by 2013/ ZOLPIDEM TARTRATE 80423780666 Jianming TARTRATE 5 MG mouth daily /11/19 Aldo IQBAL TABS every night SYNTHROID 100 One tablet by 2013/ LEVOTHYROXINE SODIUM 68063024561 Rabia MCG TABS mouth daily /10/22 Aldo IQBAL DEPO-SUBQ once every MEDROXYPROGESTERONE 86779022707 Jianming PROVERA 104 104 three months / ACETATE Aldo IQBAL MG/0.65ML PARVIN DEPO-SUBQ once every 2013/ MEDROXYPROGESTERONE 39465116424 Jianming PROVERA 104 104 three months /11/03 ACETATE Aldo IQBAL MG/0.65ML PARVIN NOVOLIN N 100 40 units SC INSULIN ISOPHANE 20822536529 Jianming UNIT/ML SUSP twice daily / HUMAN Aldo IQBAL NOVOLOG 100 25 units SC at INSULIN ASPART 25476191821 Jianming UNIT/ML SOLN BF, 30 units / Aldo IQBAL at Lunch and Supper DIAZEPAM 2 MG One tablet by 2013/ DIAZEPAM 42598706962 Rehana E TABS mouth daily /01/21 Schloneger every night AMOXICILLIN-POT One tablet by 2013/ AMOXICILLIN-POT 74621789657 Salma Milton CLAVULANATE mouth twice /07/13 CLAVULANATE Mallorie 875-125 MG TABS daily NUCYNTA ER 50 MG One tablet by TAPENTADOL HCL 33416809399 Rabia RH08G-OIG mouth twice / Aldo IQBAL daily as needed NUCYNTA ER 50 MG One tablet by 2013/ TAPENTADOL HCL 27222773987 Salma Milton [id number] mouth twice /07/13 Mallorie daily as needed TOPIRAMATE 50 MG One tablet by TOPIRAMATE 26546800181 Salma Milton TABS mouth daily / Mallorie TOPIRAMATE 50 MG One tablet by 2013/ TOPIRAMATE 95297480536 Jianming TABS mouth daily /19 Aldo IQBAL AMPICILLIN 500 One tablet by 2013/ AMPICILLIN 96668621253 Jianming MG CAPS mouth four 12/20 Aldo IQBAL times daily VITAMIN D one tablet by ERGOCALCIFEROL 81255075155 Jianming (ERGOCALCIFEROL) mouth once Aldo IQBAL 25434 UNIT CAPS weekly VITAMIN D one tablet by 2013/ ERGOCALCIFEROL 58193892832 Jianming (ERGOCALCIFEROL) mouth once 12/20 Aldo IQBAL 04627 UNIT CAPS weekly SULFAMETHOXAZOLE One tablet by 2013/ SULFAMETHOXAZOLE-TRI 26772220691 Jianming -TRIMETHOPRIM mouth twice 12/20 METHOPRIM Aldo IQBAL 800-160 MG TABS daily GLUCAGEN HYPOKIT as needed IM GLUCAGON HCL (RDNA) 29819623571 Jianming 1 MG SOLR Aldo IQBAL hypoglycemia DEXAMETHASONE 1 One tab by 2016/ DEXAMETHASONE 83496288752 Raven L MG TABS mouth at 11pm, 03/31 [facility] lab work at 8AM the next morning FUROSEMIDE 20 MG One tablet by 2016/ FUROSEMIDE 05235924699 Raven L TABS mouth daily 03/31 [facility] ATORVASTATIN One tablet by 2016/ ATORVASTATIN CALCIUM 27859233546 Raven L CALCIUM 20 MG mouth daily at 03/31 [facility] TABS night for high cholesterol ATENOLOL 50 MG One tablet by ATENOLOL 21463966189 Raven L TABS mouth twice [facility] daily ATENOLOL 50 MG One tablet by 2014/ ATENOLOL 49527071459 Gabriel A TABS mouth twice /04/04 Mauricio DO daily DOXYCYCLINE One tablet by 2014/ DOXYCYCLINE HYCLATE 74310174171 Gabriel A HYCLATE 100 MG mouth twice /12/22 Mauricio DO CAPS daily x 10 days HYDROMORPHONE 1 tablet by HYDROMORPHONE HCL 74743865469 Jianming HCL 2 MG TABS mouth every Aldo IQBAL 4-6 as needed HYDROMORPHONE 1 tablet by 2014/ HYDROMORPHONE HCL 75979644949 Gabriel A HCL 2 MG TABS mouth every 04/04 [facility] 4-6 as needed FENTANYL 50 change q 72hrs FENTANYL 68975486259 Jianming MCG/HR PT72 Aldo IQBAL FENTANYL 50 change q 72hrs 2014/ FENTANYL 82450321477 Gabriel A MCG/HR PT72 12/22 [facility] SYNTHROID 112 One tablet by 2014/ LEVOTHYROXINE SODIUM 03297676438 Jianming MCG TABS mouth daily /10/25 Aldo IQBAL PRAVASTATIN One tablet by 2014/ PRAVASTATIN SODIUM 82648066156 Jianming SODIUM 40 MG mouth daily /10/25 Aldo IQBAL TABS every night KLOR-CON M20 20 One tablet by 2015/ POTASSIUM CHLORIDE 38456297981 Gabriel A MEQ CR-TABS mouth daily /03/19 MELANY CR [facility] FOLIC ACID 1 MG Two tablets by 2015/ FOLIC ACID 86354524891 Gabriel A TABS mouth daily /03/19 [facility] PREMARIN 1.25 MG One tablet by ESTROGENS CONJUGATED 36798242492 Jianming TABS mouth daily / Aldo IQBAL PREMARIN 1.25 MG One tablet by 2015/ ESTROGENS CONJUGATED 91876986677 Gabriel A TABS mouth daily /03/19 [facility] DOXEPIN HCL 25 1 capsule by 2015/ DOXEPIN HCL 57975286001 Gabriel A MG CAPS mouth at night /03/19 [facility] for IBS FENOFIBRATE 48 Two tablets 2015/ FENOFIBRATE 79580883447 Gabriel A MG TABS daily /12/26 [facility] XIFAXAN 550 MG One tablet by 2015/ RIFAXIMIN 97248027538 Gabriel A TABS mouth three /11/07 [facility] times daily NOVOLOG 100 20-30 units INSULIN ASPART 29448693986 Gabriel A UNIT/ML SOLN three times [facility] day with meals COLACE 100 MG One tablet by 2015/ DOCUSATE SODIUM 98236499898 Gabriel A CAPS mouth daily /10/24 [facility] PROPRANOLOL HCL One capsule by 2014/ PROPRANOLOL HCL 23949786406 Gabriel A ER 80 MG mouth daily at /05/11 [facility] [id number] night for migraine prevention and tachycardia DIAZEPAM 5 MG One tablet by 2015/ DIAZEPAM 37401059236 Gabriel A TABS mouth 10/24 Mauricio TARANGO every night, avoid driving or operating machine [...] Request for EFFEXOR XR 75MG CAP ESM_RR [id number]`EFFEXOR XR 75MG CAP`75MG``270 B e-scripts Capsule`90`TAKE THREE CAPSULES BY MOUTH ONCE messenger DAILY``1`0`02/07/2015`05/11/2015`[facility] refill [place]*`[id number]`VENLAFAXINE request ER 75MG CAP Quantity: 270 Capsule Instructions: TAKE THREE CAPSULES BY MOUTH ONCE DAILY Office Visit: Diabetes follow up HGBA1C 7.4 % Hemoglobin A1c/Hemoglobin.total in Blood SMOK ADVICE yes Smoking cessation education (procedure) SMOK STATUS Current every day Tobacco use [facility] smoker MEDS REVIEW Done Documentation of current medications (procedure) Plan of Care Type Date Detail Appointment 02:00 PM Kay Mckeon NP, [address] [facility], [address], [place], [address], Referral Rheumatology Referral [facility] Provider, [address] [place], [address] Referral Rheumatology Referral [facility] Provider, [address] [place], [address] Referral Ophthalmology Referral Referral Ophthalmology Referral Referral excluded from report: Referral Ophthalmology Referral [address] [place] [address], [address] Referral Ophthalmology Referral [address] [place] [address], [address] Referral Gastroenterology Referral Jasbir Fuchs MD, [address], [place], [address] Referral Gastroenterology Referral Jasbir Fuchs MD, [address], [place], [address] Referral Ophthalmology Referral Referral Rheumatology Referral Reyna Tucker MD, [address], [address], [place], [address] Referral Other Referral [facility], [address] [place], [address] Referral Other Referral [facility], [address] [place], [address] Referral Podiatry Referral Jared Powers DPM, [address] [place], [address] Referral OT-Functional Capacity Evaluation Physical Therapy [facility], [address] [facility], [place], [address] Referral Dermatology Referral Nadine Alma, [address] [place], [address] Referral Gastroenterology Referral Marlon Coon, [facility] [place], [address] Referral Rheumatology Referral Reyna Tucker MD, [address], [address], [place], [address] Referral Pain Management Maricruz Hernandez, [address] [place] [address], [address], [place], [address] Pending order *CAYDEN - Cortisol, A.M. Pending [...] Pending order Rapid Strep (Office) Pending order *[place] Test Pending order Administration Injection (Prophylactic, Therapeutic [...] Procedures Code Procedure Name Date Entry Date CPT-11729 HGB A1C (Office) 2143-6 *CAYDEN - Cortisol, A.M. 54277-6 *Lipid Profile 0667-1 *BMP PSGPCP PSG,CPAP (as indicated) ONLY PCP to follow up [id number] Ophthalmology Referral Order excluded from report: 0184-1 *CBC with Differential 61499-1 *CRP - C-Reative Protein 0786-1 *CMP Complete Metabolic Panel 4548-4 *HgA1C 96307-4 *Lipid Profile 0779-1 *Microalbumin, Creatine Ratio, rand urine 3016-3 *TSH 97497-9 *RA Rheumatoid Factor - Quaint 60559-9 *Sedimentation Rate (ESR) 23145-1 *UAC- Urinalysis, Complete w/ Micro 0523-1 *ANCA [id number] Ophthalmology Referral [id number] Rheumatology Referral CPT-33111 HGB A1C (Office) 4548-4 *HgA1C 3016-3 *TSH 57004-9 *Lipid Profile 0786-1 *CMP Complete Metabolic Panel Q968T,[id number] Lipid Profile CPT-33876 HGBA1C 3016-3 *TSH 0786-1 *CMP Complete Metabolic Panel 3016-3 *TSH 90643-1 *CBC without Diff 4086-5 *DEBRA Valpric Acid (Depakene, Dipropylacetic Acid) Drug Assay [id number] Microalbumin urine CPT-85403 HGBA1C Q968T,[id number] Lipid Profile CPT-44549 X-Ray, Hip Unilateral Podiatry Referral Podiatry Referral 4548-4 *HgA1C 3016-3 *TSH 4086-5 *DEBRA Valpric Acid (Depakene, Dipropylacetic Acid) Drug Assay 03963-6 *CBC without Diff 0786-1 *CMP Complete Metabolic Panel 4548-4 *HgA1C 0786-1 *CMP Complete Metabolic Panel 63067-1 *Lipid Profile 4086-5 *DEBRA Valpric Acid (Depakene, Dipropylacetic Acid) Drug Assay 0667-1 *BMP 6462-6 *CUW - Culture, Wound (Aerobic) 2823-3 *Potassium; Serum, Plasma or Whole Blood 0433-1 *HEBSAG - Hep B Surface Antigen 6510 0363-1 *HECAB Hepatitis C Antibody 43015-3 *HEBSAB - Hep B Surface Antibody 6395 0197-1 *HIV antibody 58763-3 *RPR 4548-4 *HgA1C 0667-1 *BMP 10290-1 *CBC without Diff 0788-1 *Hepatic Function Panel 4086-5 *DEBAR Valpric Acid (Depakene, Dipropylacetic Acid) Drug Assay 0184-1 *CBC with Differential 3016-3 *TSH 3024-7 *T4 free 0786-1 *CMP Complete Metabolic Panel CPT-47082 UA Dipstick (Office) 13320 Fingerstick, glucose (office) Dermatology Referral Dermatology Referral CPT-87633 X-Ray, Chest, PA & Lateral CPT-70772 Rapid Strep (Office) 77108-8 *[place] Test CPT-19057 Administration Injection (Prophylactic, Therapeutic or Diagnostic) CPT-87143 Excision Benign Lesion Trunk/Arm/Ket <0.6 cm FUA 2 weeks Follow Up Appt 2 weeks 0788-1 *Hepatic Function Panel 4086-5 *DEBRA Valpric Acid (Depakene, Dipropylacetic Acid) Drug Assay FUA 2 weeks Follow Up Appt 2 weeks 18502-7 *CBC without Diff Order excluded from report: 80479-7 *CBC without Diff Order excluded from report: FUA as scheduled Follow Up as scheduled Gastroenterology Ref Gastroenterology Referral CPT-02602 US Transvaginal Order excluded from report: FUA 1 week Follow up Appt 1 week 4548-4 *HgA1C 07010-6 *Lipid Profile 0786-1 *CMP Complete Metabolic Panel FUA 3 months Follow Up Appt 3 months 4548-4 *HgA1C Order excluded from report: 0667-1 *BMP Order excluded from report: CPT-69214 *Liver/Hepatic Function Panel Order excluded from report: FUA 3 months Follow Up Appt 3 months CPT-25097 *Lipid Profile RheuRef Rheumatology Referral Pain Management Pain Management CPT-32118 *Lipid Profile CPT-08035 *CMP Complete Metabolic Panel CPT-38465 *HgA1C CPT-65305 *TSH CPT-67877 *CBC without Diff CPT-52347 *Creatine Kinase (CK) CRP *CRP CPT-89891 *Sedimentation Rate (ESR) FUA 2 weeks Follow Up Appt 2 weeks Vital Signs Date Name Value Unit Description BMI (Body Mass Index) 35.95 kg/m2 Body Mass Index [Ratio] Body Temperature 98.7 [degF] temperature E&M BP Diastolic 62 mm[Hg] blood pressure, diastolic - 8462-4 BP Systolic 96 mm[Hg] blood pressure, systolic - 8480-6 BSA (Body Surface Area) 1.90 body surface area Heart Rate 95 /min pulse rate E&M - 8867-4 Respiratory Rate 16 /min respiratory rate E&M - 9279-1 Weight Measured 196.6 [lb_av] weight E&M - 3141-9 Height 62 [in_us] height E&M - 8302-2
--- OUTSIDE RECORDS SUMMARY | 2018-09-04 11:22 | XMS RPT_ITS | Clinical Summary ---
:1985 Author Organization [facility], [facility] Address [address] [place] [id number] Phone Care Team Providers Name Role Phone Raven Shepard LPN Unavailable Unavailable Conditions or Problems Problem Problem Onset Status Entry Provider Comment Standard Annotate Name Code Date Date Description Hypersomni [id number] Active Gabriel A Hypersomnia a (SNOMED 03/19 03/[address]) Peripheral 236032074 Active Gabriel A Peripheral edema (SNOMED 03/19 03/[address]) Abnormal 195536577 Inactive Gabriel A Abnormal weight (SNOMED 03/19 03/19 Mauricio DO weight gain gain CT) ARTHRITIS, 28289889 Active Gabriel A Rheumatoid RHEUMATOID (SNOMED 09/09 09/[address]) Urinary 720209365 Resolved Gabriel A Increased frequency (SNOMED 10/24 10/24 Mauricio DO frequency of CT) urination Diarrhea, 008674707 Resolved Gabriel A Chronic chronic (SNOMED 10/24 10/[address]) Hypertrigl 312265183 Active Gabriel A Hypertriglycer >800 yceridemia (SNOMED 10/30 10/[address]) Greater 0075015 Inactive Gabriel A Trochanteric trochanter (SNOMED 10/24 10/24 Mauricio DO bursitis ic CT) bursitis, left Diarrhea, 893285092 Removed Gabriel A Chronic chronic (SNOMED 10/24 10/[address]) Urinary 975758914 Removed Agbriel A Increased frequency (SNOMED 10/24 10/24 Mauricio DO frequency of CT) urination UPPER 49571580 Resolved Gabriel A Upper RESPIRATOR (SNOMED 09/13 09/13 Mauricio DO respiratory Y CT) infection INFECTION Migraine 85537762 Active Gabriel A Migraine headache (SNOMED 04/04 04/[address] [facility] [address]) Foot pain, 08996435 Inactive Gabriel A [facility] UPPER [id number] Removed Gabriel A Upper RESPIRATOR (SNOMED 09/13 09/13 [facility] DO respiratory Y CT) infection INFECTION Hypertrigl 836188603 Resolved Gabriel A Hypertriglycer yceridemia (SNOMED 10/25 10/[address]) LEG PAIN, 09691950 Resolved Gabriel A Pain in lower BILATERAL (SNOMED 03/15 03/15 [facility] limb CT) POLYCYSTIC 10256563 Resolved Gabriel A Polycystic OVARIAN (SNOMED 03/15 03/15 [facility] ovaries DISEASE CT) DEPRESSION 55783323 Resolved Gabriel A Recurrent since age , MAJOR, (SNOMED 03/15 [facility] DO major [address]) depression MUSCLE 98308468 Resolved Gabriel A Muscle WEAKNESS (SNOMED 03/15 03/15 [facility] DO weakness (GENERALIZ CT) ED) NIPPLE 755655693 Resolved Gabriel A Bloody nipple DISCHARGE, [facility]23 [facility] HYPERSOMNI 72826296 Resolved Gabriel A Hypersomnia A (SNOMED 04/06 04/[address] [facility] [address]) SKIN RASH 232998659 Resolved Gabriel A Eruption ([facility]ED 10/03 10/[address] [facility] [address] SEXUALLY 529795357 Resolved Gabriel A Exposure to TRANSMITTE (SNOMED 10/04 10/04 [facility] DO sexually D DISEASE, CT) transmissible EXPOSURE disorder TO HYPOKALEMI 48397796 Resolved Gabriel A Hypokalemia A ([facility]ED 11/03 11/[address] [facility] [address] Ingrown 084186353 Resolved Gabriel A Ingrowing nail toenail (SNOMED [facility] CT) Hip pain, 98037844 Resolved Gabriel A Hip pain right (SNOMED 09/13 09/[address] [facility] [address]) Bronchitis 08386039 Resolved Gabriel A Acute , acute (SNOMED 10/25 11/09 [facility] bronchitis CT) Chronic 753753714 Active Gabriel A Chronic pain pain (SNOMED 12/22 12/22 [facility] syndrome syndrome CT) Bronchitis 79879919 Removed Jianming Acute , acute (SNOMED 10/25 11/[address] [facility] [address]) Paronychia 928650676 Resolved Jianming Paronychia of left big , great (SNOMED [facility] toe toe toe CT) Hypertrigl 694827392 Removed Jianming Hypertriglycer yceridemia (SNOMED 10/25 10/[address] [facility] [address]) Superficia 339114187 Resolved Jianming Superficial right l vein (SNOMED 09/29 09/29 [facility] vein basilic thrombosis CT) thrombosis vein from just above elbow to wrist Superficia [id number] Removed Jianming Superficial right l vein (SNOMED 09/29 09/29 [facility] vein basilic thrombosis CT) thrombosis vein from just above elbow to wrist Hip pain, 82735367 Removed Jianming Hip pain right (SNOMED 09/13 09/[address] [facility] [address]) Ingrown 490762574 Removed Jianming Ingrowing nail toenail (SNOMED [facility]) Paronychia [id number] Removed Jianming Paronychia of left big , great (SNOMED [facility] toe toe toe CT) Back pain, 568770721 Active Jianming Low back pain chronic s/p lumbar (SNOMED [facility] surgery CT) NAUSEA AND 72263403 Resolved Jianming Nausea and VOMITING (SNOMED 11/12 11/[address] [facility] [address]) OTITIS 66513682 Resolved Rehana E Chronic otitis EXTERNA, (SNOMED 08/30 08/[address] [facility] [address]) OTITIS [id number] Resolved Rehana E Acute otitis MEDIA, (SNOMED 08/18 08/18 [facility] media ACUTE, CT) BILATERAL DKA [id number] Resolved Jianming Diabetic (SNOMED [facility] ketoacidosis CT) CELLULITIS 249189903 Resolved Jianming Cellulitis of the (SNOMED 11/03 11/[address] [facility] [address]) site NAUSEA AND 59103949 Removed Jianming Nausea and VOMITING (SNOMED 11/12 11/[address] [facility] [address]) HYPOKALEMI 47930387 Removed Jianming Hypokalemia A (SNOMED 11/03 11/[address] [facility] [address]) CELLULITIS 694101279 Removed Jianming Cellulitis of the (SNOMED 11/03 11/[address] [facility] [address]) site SEXUALLY 330097649 Removed Marianna A Exposure to TRANSMITTE (SNOMED 10/04 10/04 Flann[facility] sexually D DISEASE, CT) transmissible EXPOSURE disorder TO OTITIS 8384872 Removed Lakishanming Acute otitis MEDIA, (SNOMED 08/18 08/18 [facility] media ACUTE, CT) BILATERAL OTITIS 6395554 Correctio Lakishanming Acute otitis MEDIA, (SNOMED 08/18 n 08/18 [facility] media ACUTE, CT) BILATERAL SKIN RASH 841955760 Removed Ness J Eruption (SNOMED 10/03 10/[address]) OTITIS 09505615 Removed Ness J Chronic otitis EXTERNA, (SNOMED 08/30 08/[address]) DKA 250919166 Removed Jianming Diabetic (SNOMED [facility] ketoacidosis CT) OTITIS 3524120 Resolved Jianming Otitis externa EXTERNA (SNOMED 03/23 03/[address] [facility]) HYPERSOMNI 51497476 Removed Jianming Hypersomnia A (SNOMED 04/06 04/[address] [facility]) ALLERGIC 33081206 Active Jianming Allergic RHINITIS (SNOMED 04/06 04/[address] [facility] [address]) OTITIS 6221593 Removed Jianming Otitis externa EXTERNA (SNOMED 03/23 03/[address]) NIPPLE 121460403 Removed Jianming Bloody nipple DISCHARGE, (SNOMED 03/23 03/23 [facility] discharge BLOODY CT) NIPPLE 162598916 Correctio Jianming Bloody nipple DISCHARGE, (SNOMED 03/23 n 03/23 [facility] [address] BLOODY [address]) OTITIS 5481998 Correctio Jianming Otitis externa EXTERNA (SNOMED 03/23 n 03/[address]) 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, (SNOMED 02/10 02/[address]) POLYCYSTIC 79812913 Active Ness J Polycystic OVARIAN (SNOMED 02/10 02/[address]) FIBROMYALG 25922568 Active Ness J Fibromyositis IA, SEVERE (SNOMED 02/10 02/[address]) IMMUNOCOMP 524066779 Active Ness J Immunodeficien ROMISED (SNOMED 02/10 02/[address]) HUMAN 182735807 Active Ness J Human PAPILLOMAV (SNOMED 02/10 02/[address]) virus infection TACHYCARDI 0731355 Active Jianming Tachycardia since 2004 A (SNOMED 01/[address] [facility]) HYPOGLYCEM 778146895 Resolved Jianming Hypoglycemia IA (SNOMED 09/24 09/[address] [facility]) MOVEMENT 62223453 Resolved Jianming Movement DISORDER (SNOMED 09/24 09/[address] [facility] [address]) ROSACEA 554840407 Active Jianming Rosacea (SNOMED 01/14 01/[address] [facility]) TACHYCARDI 0552452 Resolved Jianming Tachycardia A (SNOMED 03/[address] [facility]) GLUCOCORTI 574733998 Resolved Jianming 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 PHARYNGITI 639674105 Resolved Jianming Acute S, ACUTE (SNOMED 09/07 09/[address] [facility] [address]) UPPER 52484703 Resolved Jianming Upper RESPIRATOR (SNOMED 09/13 09/13 [facility] respiratory Y CT) infection INFECTION COUGH 19838938 Resolved Jianming Cough (SNOMED 09/13 09/[address]) HYPOGLYCEM 103242584 Removed Jianming Hypoglycemia IA (SNOMED 09/24 09/[address] [facility]) MOVEMENT 63626711 Removed Jianming Movement DISORDER (SNOMED 09/24 09/[address] [facility] [address]) COUGH 69419169 Removed Salma M Cough (SNOMED 09/13 09/[address]) UPPER [id number] Removed Salma M Upper RESPIRATOR (SNOMED 09/13 09/[address]) infection INFECTION PHARYNGITI 648110532 Removed Jianming Acute S, ACUTE (SNOMED 09/07 09/[address] [facility] [address]) MELENA 2619287 Resolved Jianming Melena (SNOMED 11/06 11/[address] [facility]) LOCALIZED R22.9 Resolved Jianming Localized right SUPERFICIA (ICD-10-CM [facility] swelling, mass axillary L SWELLING ) and lump, MASS OR unspecified LUMP LIVER V12.2 Resolved Jianming Personal FUNCTION (ICD-9-CM) 03/15 03/15 [facility] history of TESTS, endocrine, ABNORMAL, metabolic, and HX OF immunity disorders CONSTIPATI 030094677 Resolved Jianming Chronic ON, (SNOMED 09/23 09/[address] [facility] [address]RONIC CT) ABDOMINAL R10.31 Resolved Jianming Right lower PAIN RIGHT (ICD-10-CM 09/23 09/23 [facility] quadrant pain LOWER ) QUADRANT OTITIS 8213303 Resolved Jianming Otitis externa EXTERNA (SNOMED 08/22 08/[address]) GLUCOCORTI 879066158 Removed Jianming 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 OTITIS 4717373 Removed Jianming Otitis externa EXTERNA (SNOMED 08/22 08/[address]) LOCALIZED R22.9 Removed Jianming Localized right SUPERFICIA (ICD-10-CM [facility] swelling, mass axillary L SWELLING ) and lump, MASS OR unspecified LUMP BIPOLAR 161374871 Active Jianming Bipolar diagnosed AFFECTIVE (SNOMED 02/19 [facility] affective by DISORDER, CT) disorder, psychiatris DEPRESSED current t at episode Kristian depression in [place] GASTROESOP 616788562 Active Jianming Gastroesophage HAGEAL (SNOMED 02/19 [facility] al reflux REFLUX CT) disease DISEASE INSOMNIA, 134016988 Active Jianming Insomnia CHRONIC (SNOMED 02/19 02/[address]) ACUTE 21585779 Resolved Jianming Acute ETHMOIDAL (SNOMED 09/18 09/18 [facility] ethmoidal SINUSITIS CT) sinusitis MELENA 7472821 Removed Luis Eduardo M Melena (SNOMED 11/06 11/[address]) ACUTE 66151047 Removed Jianming Acute ETHMOIDAL (SNOMED 09/18 09/18 [facility] ethmoidal SINUSITIS CT) sinusitis ABDOMINAL R10.31 Removed Jianming Right lower PAIN RIGHT (ICD-10-CM 09/23 09/23 [facility] quadrant pain LOWER ) QUADRANT CONSTIPATI 596356474 Removed Jianming Chronic ON, (SNOMED 09/23 09/[address] [facility] [address]) ARTHRITIS, 66986351 Inactive Jianming Rheumatoid f/u RHEUMATOID (SNOMED 09/09 09/09 [facility] [address] [place] CT) DYSLIPIDEM 703545524 Active Jianming Dyslipidemia IA (SNOMED 04/03 04/[address] [facility]) MUSCLE 44667151 Removed Jianming Muscle WEAKNESS (SNOMED 03/15 03/15 [facility] weakness (GENERALIZ CT) ED) DEPRESSION 09750483 Removed Jianming Recurrent since age , MAJOR, (SNOMED 03/15 [facility] major [address]) depression POLYCYSTIC 28879095 Removed Jianming Polycystic OVARIAN (SNOMED 03/15 03/[address] [facility] [address]) IRRITABLE 51424759 Active Jianming Irritable BOWEL (SNOMED 03/15 03/15 [facility] bowel syndrome SYNDROME CT) TACHYCARDI 0207849 Removed Jianming Tachycardia A (SNOMED 03/[address]) LEG PAIN, 34284426 Removed Jianming Pain in lower BILATERAL (SNOMED 03/15 03/[address] [facility] [address]) HYPOTHYROI 10047173 Active Jianming Hypothyroidism DISM (SNOMED 08/11 03/[address]) DIABETES 58331836 08/11/19 Active Jianming Type 1 MELLITUS, (SNOMED 03/15 [facility] diabetes TYPE I CT) mellitus LIVER V12.2 Removed Jianming Personal FUNCTION (ICD-9-CM) 03/15 03/15 [facility] history of TESTS, endocrine, ABNORMAL, metabolic, and HX OF immunity disorders Medications Medication Instructions Start Stop Generic Name ND Provider Date Date NOVOLOG 100 Take 35 units 2024/ INSULIN ASPART [id number] Kay Franco UNIT/ML SOLN each meal and 07/02 [employer] sliding scale up to 130 daily LANTUS 100 Take 56 units 2024/ INSULIN GLARGINE 76469487808 Kay Franco UNIT/ML SOLN daily 07/02 [employer] FREESTYLE LITE Use for 2024/ BLOOD GLUCOSE 01934779864 Kay ROMAN diabetes to 07/02 MONITORING SUP[employer] test blood glucose level 6 times daily ICD!) E10.9 FREESTYLE LITE Use for 2024/ BLOOD GLUCOSE [id number] Kay Joan ROMAN diabetes /07/02 MONITORING SUPPL Mike GARNER ICD!) E10.9 FREESTYLE LITE Check BG 6 2024/ GLUCOSE BLOOD 61372084555 Kay Franco TEST STRP times daily 07/02 Mike GARNER ICD10 E10.9 NOVOLOG 100 Take 35 units 2024/ INSULIN ASPART 93009889796 Kay Franco UNIT/ML SOLN each meal 07/02 Mike GARNER FREESTYLE LITE Check BG 6 2024/ GLUCOSE BLOOD 14370999770 Kay Franco TEST STRP times daily /07/02 Mike GARNER FREESTYLE LITE Use for 2024/ BLOOD GLUCOSE 64356536020 Kay ROMAN diabetes 07/02 MONITORING SUPPL Mike GARNER ATORVASTATIN One tablet by ATORVASTATIN CALCIUM 17233103039 Gabriel A CALCIUM 20 MG mouth daily at / [facility] TABS night for high cholesterol FUROSEMIDE 20 MG One tablet by FUROSEMIDE 88973819038 Gabriel A TABS mouth daily / [facility] DEXAMETHASONE 1 One tab by DEXAMETHASONE 71624745194 Gabriel A MG TABS mouth at 11pm, / [facility] lab work at 8AM the next morning ZYRTEC ALLERGY One tablet by CETIRIZINE HCL 83539751518 Gabriel A 10 MG TABS mouth daily at / [facility] bedtime ATENOLOL 50 MG One tablet by ATENOLOL 38063265894 Gabriel A TABS mouth twice / [facility] daily OMEPRAZOLE 20 MG One tablet by OMEPRAZOLE 10772328843 Gabriel A TBEC mouth daily / [facility] SYNTHROID 137 One tablet by LEVOTHYROXINE SODIUM 20508162769 Gabriel A MCG TABS mouth daily / [facility] NOVOLIN N 100 40-50 units INSULIN ISOPHANE 79390294286 Gabriel A UNIT/ML SUSP twice daily / HUMAN [facility] ACYCLOVIR 400 MG One tablet by ACYCLOVIR 73689996722 Gabriel A TABS mouth daily / [facility] EFFEXOR XR 75 MG Three tablets VENLAFAXINE HCL 66696035756 Gabriel A [id number] by mouth daily /man NOVOLOG 100 15-30 units INSULIN ASPART 17863708661 Gabriel A UNIT/ML SOLN three times a / day with meals DIVALPROEX Two tablets by DIVALPROEX SODIUM 13459621971 Gabriel A SODIUM 250 MG mouth daily / TBEC SEROQUEL 200 MG One tablet by QUETIAPINE FUMARATE 35027486910 Gabriel A TABS mouth daily / BD INSULIN 5-6 times INSULIN 98545741219 Gabriel A SYRINGE daily DX: SYRINGE-NEEDLE U-100 Mauricio ULTRAFINE 30G X type I 08/12 0.5 ML FENOFIBRATE 48 Two tablets FENOFIBRATE 36965320820 Gabriel A MG TABS daily / DOXEPIN HCL 25 1 capsule by DOXEPIN HCL 79773401182 Gabriel A MG CAPS mouth at night /Mauricio for IBS ACYCLOVIR 400 MG One tablet by ACYCLOVIR 24632865189 Gabriel A TABS mouth twice Mauricio DO daily XIFAXAN 550 MG One tablet by 2015/ RIFAXIMIN 56170576584 Gabriel A TABS mouth three /11/07utzman DO times daily DIAZEPAM 5 MG One tablet by DIAZEPAM 80287222987 Gabriel A TABS mouth daily /Mauricio every night, avoid driving or operating machine under the influence of medication. PROPRANOLOL HCL One capsule by PROPRANOLOL HCL 78753182788 Gabriel A ER 80 MG mouth daily at /Mauricio [id number] night for migraine prevention and tachycardia NOVOLOG 100 30 units three INSULIN ASPART 09973336380 Gabriel A UNIT/ML SOLN times a day /Mauricio with meals NOVOLIN N 100 45 units SC INSULIN ISOPHANE 43506930206 Gabriel A UNIT/ML SUSP twice daily / HUMAN Mauricio DO KLOR-CON M20 20 One tablet by POTASSIUM CHLORIDE 88465640386 Gabriel A MEQ CR-TABS mouth daily /12 MELANY CR Mauricio FOLIC ACID 1 MG Two tablets by FOLIC ACID 47590894715 Gabriel A TABS mouth daily /30 Mauricio DO ATENOLOL 50 MG One tablet by ATENOLOL 81409664426 Gabriel A TABS mouth twice /24 Mauricio DO daily NOVOLOG 100 25 units SC at INSULIN ASPART 01347393463 Gabriel A UNIT/ML SOLN BF, 30 units / Mauricio DO at Lunch and Supper FENOFIBRATE 48 One tablet by FENOFIBRATE 77412464044 Jianming MG TABS mouth daily, / [facility] then increase to two tablets if tolerate it DOXYCYCLINE One tablet by DOXYCYCLINE HYCLATE 78075693947 Jianming HYCLATE 100 MG mouth twice / [facility] CAPS daily x 10 days PRAVASTATIN One tablet by PRAVASTATIN SODIUM 77327237469 Jianming SODIUM 40 MG mouth daily / [facility] TABS every night AMOXICILLIN-POT One tablet by AMOXICILLIN-POT 21184330107 Jiaiding CLAVULANATE mouth twice / CLAVULANATE [facility] 875-125 MG TABS daily SYNTHROID 112 One tablet by LEVOTHYROXINE SODIUM 53951541157 Jianming MCG TABS mouth daily / [facility] QUETIAPINE Three tablets QUETIAPINE FUMARATE 85147896495 Jianming FUMARATE 50 MG by mouth daily / [facility] TABS at bed time DIVALPROEX One tablet by DIVALPROEX SODIUM 91361664148 Jianming SODIUM 250 MG mouth twice / [facility] TBEC daily DIAZEPAM 2 MG One tablet by DIAZEPAM 32354802322 Jianming TABS mouth daily / [facility] every night QUETIAPINE Two tablets by QUETIAPINE FUMARATE 20651532858 Jianming FUMARATE 50 MG mouth daily / [facility] TABS every night EFFEXOR XR 150 One tablet by VENLAFAXINE HCL 39475549659 Jianming MG [id number] mouth daily / [facility] COLACE 100 MG One tablet by DOCUSATE SODIUM 15759293049 Jianming CAPS mouth daily / [facility] PROMETHAZINE HCL One tablet by PROMETHAZINE HCL 03499678181 Jianming 12.5 MG TABS mouth three [facility] times daily as needed nausea/vomitin g DIAZEPAM 2 MG One tablet by DIAZEPAM 91969053396 Jianming TABS mouth twice / [facility] daily QUETIAPINE Two tablets by QUETIAPINE FUMARATE 92488220470 Jianming FUMARATE 50 MG mouth twice / [facility] TABS daily SULFAMETHOXAZOLE One tablet by SULFAMETHOXAZOLE-TRI 39185549570 Jianming -TRIMETHOPRIM mouth twice / METHOPRIM [facility] 800-160 MG TABS daily AMPICILLIN 500 One tablet by AMPICILLIN 53730093279 Jianming MG CAPS mouth four [facility] times daily ZOLPIDEM One tablet by ZOLPIDEM TARTRATE 20939988299 Jianming TARTRATE 5 MG mouth daily / [facility] TABS every night DIVALPROEX One tablet by DIVALPROEX SODIUM 15122080756 Lakishanming SODIUM 125 MG mouth twice / [facility] TBEC daily QUETIAPINE one tablets by QUETIAPINE FUMARATE 69956627212 Jianming FUMARATE 50 MG mouth in AM , [facility] TABS two tablets by mouth in pM EFFEXOR XR 75 MG One tablet by VENLAFAXINE HCL 20644361886 Lakishaiding [id number] mouth daily [facility] QUETIAPINE one tablets by QUETIAPINE FUMARATE 37725871847 Jianming FUMARATE 50 MG mouth in AM , [facility] TABS two tablets by mouth in pM SYNTHROID 100 One tablet by LEVOTHYROXINE SODIUM 35623663976 Jianming MCG TABS mouth daily / [facility] AMOXICILLIN-POT One tablet by AMOXICILLIN-POT 98192616411 Lakishanming CLAVULANATE mouth twice CLAVULANATE [facility] 875-125 MG TABS daily QUETIAPINE One tablet by QUETIAPINE FUMARATE 66847715907 Jianming FUMARATE 50 MG mouth twice / [facility] TABS daily x 1 day, then titrate up as directed VALIUM 2 MG TABS One tablet by DIAZEPAM 16668236272 Jianming mouth twice / [facility] daily ZOLPIDEM One tablet by ZOLPIDEM TARTRATE 17194063713 Lakishanming TARTRATE 5 MG mouth daily / [facility] TABS every night as needed, avoid driving or operating machine under the influence of medication. MUPIROCIN 2 % apply to MUPIROCIN 72307040888 Jianming OINT affected area / [facility] four times a day CIPRO HC 0.2-1 % 4 gtt to left CIPROFLOXACIN-HYDROC 38878479650 Jianming SUSP ear three / ORTISONE [facility] times a day PODOCON 25 % PODOPHYLLUM RESIN 58288114862 Ness J SOLN /17 Signs ACYCLOVIR 800 MG one po q 8 hrs ACYCLOVIR 14296929435 Ness J TABS /17 Signs FAMVIR 500 MG one po tid FAMCICLOVIR 23007377982 Ness J TABS /03 Signs METROGEL 1 % GEL apply to METRONIDAZOLE 25739977500 Jianming affected area / [facility] thin layer, once daily DOXYCYCLINE One tablet by DOXYCYCLINE HYCLATE 62994988330 Jianming HYCLATE 100 MG mouth twice / [facility] CAPS daily x 10 days, then One tablet by mouth daily VENLAFAXINE HCL One tablet by VENLAFAXINE HCL 42781400215 Jianming ER 75 MG mouth daily / [facility] [id number] TRAZODONE HCL 50 Two tablets by TRAZODONE HCL 62585993365 Jianming MG TABS mouth daily / [facility] AZITHROMYCIN 250 two tablets by AZITHROMYCIN 97409908712 Jianming MG TABS mouth on day / [facility] one, and one tablets daily one day 2-5 EFFEXOR XR 37.5 One tablet by VENLAFAXINE HCL 93274692260 Jianming MG [id number] mouth daily / [facility] CETRAXAL 0.2 % 4-5 drop CIPROFLOXACIN HCL 47449847574 Jianming SOLN affected ear / [facility] three times a day DIVALPROEX One tablet by DIVALPROEX SODIUM 30375290460 Jianming SODIUM 250 MG mouth twice / [facility] TBEC daily DISABILITY DX: Rheumatoid DISABILITY PLACARD Jiaefraíning PLACARD arthritis / [facility] duration: five years PROTONIX 40 MG One tablet by PANTOPRAZOLE SODIUM 62424113471 Jianming PACK mouth daily. / [facility] DIVALPROEX One tablet by DIVALPROEX SODIUM 65463973857 Jianming SODIUM 125 MG mouth twice / [facility] TBEC daily ATENOLOL 50 MG One tablet by ATENOLOL 78379680328 Jianming TABS mouth daily at [facility] bedtime TRAZODONE HCL 50 One tablet by TRAZODONE HCL 93922650781 Jianming MG TABS mouth daily / [facility] every night CITALOPRAM One tablet by CITALOPRAM 16403706348 Lakishanmsantiago HYDROBROMIDE 40 mouth daily / HYDROBROMIDE [facility] MG TABS NOVOLIN N 100 40 units SC INSULIN ISOPHANE 25306770628 Jianming UNIT/ML SUSP twice daily / HUMAN [facility] HUMALOG 100 30 units SC INSULIN LISPRO 94222802520 Jianming UNIT/ML SOLN before meals (HUMAN) [facility] AUGMENTIN XR One tablet by AMOXICILLIN-POT 15651131822 Rabia 1000-62.5 MG mouth twice CLAVULANATE [facility] [id number] daily METHOTREXATE 2.5 4 pills by METHOTREXATE SODIUM 18235043565 Jianming MG TABS mouth once / [facility] weekly CIPROFLOXACIN One tablet by 2010/ CIPROFLOXACIN HCL 71456745142 Lakishanming HCL 500 MG TABS mouth twice /08/02 [facility] daily METRONIDAZOLE One tablet by 2010/ METRONIDAZOLE 57474617698 Jianming 500 MG TABS mouth three /13 08/02 [facility] times daily INDOMETHACIN 25 1-2 tablets INDOMETHACIN 11294897370 Lakishanming MG CAPS three times a [facility] day as needed pain GLUCOMETER use as GLUCOMETER Leticiaing directed AC / [facility] and [facility] HUMALOG 100 40 units SC at INSULIN LISPRO 27653941647 Jianming UNIT/ML SOLN each meal (HUMAN) [facility] PRAVASTATIN One tablet by PRAVASTATIN SODIUM 09632948972 Lakishanming SODIUM 80 MG mouth daily / [facility] TABS LEVEMIR 100 40 units SC INSULIN DETEMIR 92752383628 Lakishanming UNIT/ML SOLN twice daily [facility] NOVOLIN N 100 40 units SQ INSULIN ISOPHANE 64952256494 Luis Eduardo M UNIT/ML SUSP twice daily. / HUMAN [facility] HUMULIN N 100 40 units twice INSULIN ISOPHANE 12567425914 Jianming UNIT/ML SUSP daily / HUMAN [facility] HUMALOG 100 20 units per INSULIN LISPRO 20791446170 Jianming UNIT/ML SOLN meal / (HUMAN) [facility] ULTRAM 50 MG Two tablets by TRAMADOL HCL 16591322755 Jianming TABS mouth three [facility] times daily, avoid driving or operating machine under the influence of medication. PRAVASTATIN One tablet by PRAVASTATIN SODIUM 65864526962 Jianming SODIUM 20 MG mouth daily / [facility] TABS every night TRAZODONE HCL 50 One tablet by TRAZODONE HCL 28983783276 Jianming MG TABS mouth daily / [facility] every night LEXAPRO 20 MG One tablet by ESCITALOPRAM OXALATE 90448876130 Jianming TABS mouth daily / [facility] ATENOLOL 50 MG One tablet by ATENOLOL 51725724285 Jianming TABS mouth daily at [facility] bedtime HYDROCODONE-ACET One tablet by HYDROCODONE-ACETAMIN 81782031904 Rabia AMINOPHEN 5-500 mouth HUBERT Carlson MD MG TABS times daily avoid driving or operating machine under the influence of medication. HYDROCODONE-ACET One tablet by 2011/ HYDROCODONE-ACETAMIN 57302625151 Rabia AMINOPHEN 5-500 mouth three 02/19 HUBERT Carlson MD MG TABS times daily avoid driving or operating machine under the influence of medication. ULTRAM 50 MG Two tablets by 2011/ TRAMADOL HCL 70269013224 Jianming TABS mouth three 09/18 [facility] times daily, avoid driving or operating machine under the influence of medication. AUGMENTIN XR One tablet by 2011/ AMOXICILLIN-POT [id number] Luis Eduardo M 1000-62.5 MG mouth twice /08 11/06 CLAVULANATE Kunal IQBAL [id number] daily FOLIC ACID 1 MG 2 tablets by FOLIC ACID 50996681099 Jianming TABS mouth daily / Aldo IQBAL FOLIC ACID 1 MG 2 tablets by 2011/ FOLIC ACID 76457536884 Luis Eduardo M TABS mouth daily /11/06 Kunal IQBAL LEUCOVORIN one tablet by LEUCOVORIN CALCIUM 88352027345 Jianming CALCIUM 5 MG mouth once Aldo IQBAL TABS weekly LEUCOVORIN one tablet by 2011/ LEUCOVORIN CALCIUM 72844720814 Luis Eduardo M CALCIUM 5 MG mouth once 11/06 Kunal IQBAL TABS weekly LEVEMIR 100 40 units SC 2010/ INSULIN DETEMIR 71921487340 Jianming UNIT/ML SOLN twice daily /07/11 Aldo IQBAL HUMALOG 100 INSULIN LISPRO 68812605872 Jianming UNIT/ML SOL (HUMAN) Aldo IQBAL HUMULIN N 100 40 units twice 2010/ INSULIN ISOPHANE 91659302721 Luis Eduardo M UNIT/ML SUSP daily /07/01 HUMAN Kunal IQBAL NOVOLIN N 100 40 units SQ 2010/ INSULIN ISOPHANE 61954951351 Jianming UNIT/ML SUSP twice daily. 07/10 HUMAN Aldo IQBAL INDOMETHACIN 25 1-2 tablets 2011/ INDOMETHACIN 26224467169 Jianming MG CAPS three times a 02/19 Aldo IQBAL day as needed pain METANX 3-35-2 MG One tablet by [id number] 72026583511 Luis Eduardo M TABS mouth twice 2 Kunal IQBAL daily METANX 3-35-2 MG One tablet by 2011/ U-[id number] [id number] Jianming TABS mouth twice 06/03 2 Aldo IQBAL daily ENBREL 50 MG/ML 1 time weekly ETANERCEPT 21264589620 Lakishanming SOSY Aldo IQBAL ENBREL 50 MG/ML 1 time weekly 2011/ ETANERCEPT 52323892772 Lakishanming SOSY 06/03 Aldo IQBAL PROTONIX 40 MG One tablet by 2011/ PANTOPRAZOLE SODIUM 35860252480 Jianming PACK mouth daily. 06/03 Aldo IQBAL DIVALPROEX One tablet by 2011/ DIVALPROEX SODIUM 64869813882 Jianming SODIUM 250 MG mouth twice 06/03 Aldo IQBAL TBEC daily PREDNISONE 10 MG One tablet by PREDNISONE 83813460225 Jianming TABS mouth twice / Aldo IQBAL daily PREDNISONE 10 MG One tablet by 2011/ PREDNISONE 13941167194 Jianming TABS mouth twice /06/03 Aldo IQBAL daily CITALOPRAM One tablet by 2011/ CITALOPRAM 17231486474 Jianming HYDROBROMIDE 40 mouth daily /06/03 HYDROBROMIDE Aldo IQBAL MG TABS NUCYNTA 50 MG One tablet by TAPENTADOL HCL 71846053509 Jianming TABS mouth twice / Aldo IQBAL daily NUCYNTA 50 MG One tablet by 2011/ TAPENTADOL HCL 79488338063 Jianming TABS mouth twice /06/03 Aldo IQBAL daily NEURONTIN 100 MG One tablet by GABAPENTIN 80323244205 Jianming CAPS mouth twice / Aldo IQBAL daily NEURONTIN 100 MG One tablet by 2011/ GABAPENTIN 06601219695 Jianming CAPS mouth twice /06/03 Aldo IQBAL daily LEVOTHYROXINE One tablet by LEVOTHYROXINE SODIUM 02828614900 Lakishanming SODIUM 125 MCG mouth daily / Aldo IQBAL TABS HUMALOG 100 40 units SC at 2011/ INSULIN LISPRO 97860061207 Jianming UNIT/ML SOLN each meal /06/03 (HUMAN) Aldo IQBAL NOVOLIN N 100 40 units SC 2011/ INSULIN ISOPHANE 74844828744 Jianming UNIT/ML SUSP twice daily /06/03 HUMAN Aldo IQBAL AZITHROMYCIN 250 two tablets by 2012/ AZITHROMYCIN 01553702014 Jianming MG TABS mouth on day 09/24 Aldo IQBAL one, and one tablets daily one day 2-5 HUMIRA PEN 40 1 injection ADALIMUMAB 40571283079 Jianming MG/0.8ML KIT every Aldo IQBAL week HUMIRA PEN 40 1 injection 2012/ ADALIMUMAB 18217852046 Jianming MG/0.8ML KIT every other /14 01/14 Aldo IQBAL week EFFEXOR XR 37.5 One tablet by 2012/ VENLAFAXINE HCL 48771292228 Jianming MG [id number] mouth daily /01/14 Aldo IQBAL DOXYCYCLINE One tablet by 2012/ DOXYCYCLINE HYCLATE 43269093095 Ness J HYCLATE 100 MG mouth twice /02/10 Signs CAPS daily x 10 days, then One tablet by mouth daily VENLAFAXINE HCL One capsule by VENLAFAXINE HCL 00572470651 Salma Milton ER 75 MG mouth daily / Mallorie [id number] VENLAFAXINE HCL One capsule by 2012/ VENLAFAXINE HCL 88150055273 Ness Franco ER 75 MG mouth daily /02/10 Maria Elena IQBAL [id number] NUCYNTA ER 50 MG One tablet by TAPENTADOL HCL 27848458811 Jianming [id number] mouth Adlo IQBAL times daily NUCYNTA ER 50 MG One tablet by 2012/ TAPENTADOL HCL 37100429502 Ness Franco [id number] mouth three 02/10 Maria Elena IQBAL times daily CETRAXAL 0.2 % 4-5 drop 2012/ CIPROFLOXACIN HCL 74030468648 Jianming SOLN affected ear /09/24 Aldo IQBAL three times a day PRAVASTATIN One tablet by PRAVASTATIN SODIUM 78437614695 Jianming SODIUM 40 MG mouth daily / Aldo IQBAL TABS PRAVASTATIN One tablet by 2012/ PRAVASTATIN SODIUM 33148644359 Jianming SODIUM 40 MG mouth daily /09/24 Aldo IQBAL TABS SOLU-CORTEF 100 One tablet by HYDROCORTISONE SOD 18635436732 Jianming MG SOLR mouth daily as SUCCINATE Aldo IQBAL needed SOLU-CORTEF 100 One tablet by 2012/ HYDROCORTISONE SOD 48642861240 Jianming MG SOLR mouth daily as /10/19 RYAN Carlson MD needed HYDROCORTISONE 5 One tablet by HYDROCORTISONE 78525848533 Jianming MG TABS mouth daily / Aldo IQBAL HYDROCORTISONE 5 One tablet by 2012/ HYDROCORTISONE 91855424725 Jianming MG TABS mouth daily /10/19 Aldo CHIANG 10 one patch per BUPRENORPHINE 17375827142 Jianming MCG/HR PTWK week Aldo CHIANG 10 one patch per 2012/ BUPRENORPHINE 63369715720 Jianming MCG/HR PTWK week /10/19 Carlson MD HUMULIN R U-500 12 units per INSULIN REGULAR 47671216304 Jianming (CONCENTRATED) meal / HUMAN Aldo IQBAL 500 UNIT/ML SOLN HUMULIN R U-500 12 units per 2012/ INSULIN REGULAR 28572829148 Jianming (CONCENTRATED) meal /10/19 HUMAN Aldo IQBAL 500 UNIT/ML SOLN METHOTREXATE 2.5 4 pills by 2012/ METHOTREXATE SODIUM 22576677875 Ness J MG TABS mouth once 08/02 Signs weekly LEUCOVORIN 2 tablets by LEUCOVORIN CALCIUM 96290450191 Jianming CALCIUM 5 MG mouth once / Aldo IQBAL TABS weekly LEUCOVORIN 2 tablets by 2012/ LEUCOVORIN CALCIUM 10145511748 Ness J CALCIUM 5 MG mouth once /08/02 Maria Elena IQBAL TABS weekly SYNTHROID 137 One tablet by LEVOTHYROXINE SODIUM 77664384925 Jianming MCG TABS mouth daily Aldo IQBAL SYNTHROID 137 One tablet by 2012/ LEVOTHYROXINE SODIUM 29432084613 Rehana E MCG TABS mouth daily /08/03 [facility] AMOXICILLIN-POT One tablet by 2013/ [facility]609195173 [facility] twice /09/13 CLAVULANATE Aldo IQBAL 875-125 MG TABS daily METROGEL 1 % GEL apply to 2012/ METRONIDAZOLE 73241641752 Jiaiding affected area /06/07 Aldo IQBAL thin layer, once daily OMEPRAZOLE 20 MG One tablet by OMEPRAZOLE 25336958123 Jianming TBEC mouth daily Aldo IQBAL OMEPRAZOLE 20 MG One tablet by 2012/ OMEPRAZOLE 41191328261 Jianming TBEC mouth daily /06/07 Aldo IQBAL FAMVIR 500 MG one po tid 2012/ FAMCICLOVIR 08601613380 Jianming TABS /06/07 Aldo IQBAL FENTANYL 25 change q 3 FENTANYL 82683087905 Ness J MCG/HR PT72 days Signs FENTANYL 25 change q 3 2012/ FENTANYL 23885058602 Leticiaing MCG/HR PT72 days 06/07 Aldo IQBAL TRAZODONE HCL 50 Two tablets by 2012/ TRAZODONE HCL 06249497576 Jianming MG TABS mouth daily /04/06 Aldo IQBAL MUPIROCIN 2 % apply to 2012/ MUPIROCIN 12418073815 Leticiaing OINT affected area 06/07 Aldo IQBAL four times a day ZOLPIDEM One tablet by 2012/ ZOLPIDEM TARTRATE 46432429999 Jianming TARTRATE 5 MG mouth daily /06/07 Aldo IQBAL TABS every night as needed, avoid driving or operating machine under the influence of medication. PODOCON 25 % 2012/ PODOPHYLLUM RESIN 74189867275 Lakishanming SOLN /06/07 Aldo IQBAL ACYCLOVIR 800 MG one po q 8 hrs 2012/ ACYCLOVIR 28506533075 Jiaefraíning TABS /06/07 Aldo IQBAL CIPRO HC 0.2-1 % 4 gtt to left 2012/ CIPROFLOXACIN-HYDROC 54968007084 Jianming SUSP ear three 06/07 ORTISONE Aldo MD times a day VALIUM 2 MG TABS One tablet by 2013/ DIAZEPAM 23416597661 Jianming mouth twice /11/19 Aldo IQBAL daily PROMETHAZINE HCL One tablet by 2013/ PROMETHAZINE HCL 78760846420 Jianming 12.5 MG TABS mouth 12/20 Aldo IQBAL times daily as needed nausea/vomitin g DIVALPROEX One tablet by 2013/ DIVALPROEX SODIUM 88527758212 Jianming SODIUM 125 MG mouth twice /11/12 Aldo IQBAL TBEC daily ZOLPIDEM One tablet by 2013/ ZOLPIDEM TARTRATE 31165575048 Lakishanming TARTRATE 5 MG mouth daily /11/19 Aldo IQBAL TABS every night SYNTHROID 100 One tablet by 2013/ LEVOTHYROXINE SODIUM 29133211358 Jianming MCG TABS mouth daily /10/22 Aldo IQBAL DEPO-SUBQ once every MEDROXYPROGESTERONE 16784648900 Leticiaing PROVERA 104 104 three months / SARITA Carlson MD MG/0.65ML PARVIN DEPO-SUBQ once every 2013/ MEDROXYPROGESTERONE 56046867168 Lakishanming PROVERA 104 104 three months /11/03 SARITA Carlson MD MG/0.65ML PARVIN NOVOLIN N 100 40 units SC INSULIN ISOPHANE 54305020013 Jianming UNIT/ML SUSP twice daily / HUMAN Aldo IQBAL NOVOLOG 100 25 units SC at INSULIN ASPART 18377847905 Jianming UNIT/ML SOLN BF, 30 units / Aldo IQBAL at Lunch and Supper DIAZEPAM 2 MG One tablet by 2013/ DIAZEPAM 54473646325 Rehana E TABS mouth daily /01/21 [facility] every night AMOXICILLIN-POT One tablet by 2013/ AMOXICILLIN-POT 86048305443 Salma Milton CLAVULANATE mouth twice /07/13 CLAVULANATE Mallorie 875-125 MG TABS daily NUCYNTA ER 50 MG One tablet by TAPENTADOL HCL 86771978695 Jianming [id number] mouth twice / Aldo IQBAL daily as needed NUCYNTA ER 50 MG One tablet by 2013/ TAPENTADOL HCL 15448237507 Salma M [id number] mouth twice /07/13 Mallorie daily as needed TOPIRAMATE 50 MG One tablet by TOPIRAMATE 55358345405 Salma M TABS mouth daily / Mallorie TOPIRAMATE 50 MG One tablet by 2013/ TOPIRAMATE 18046171496 Jianming TABS mouth daily /07/29 Aldo IQBAL AMPICILLIN 500 One tablet by 2013/ AMPICILLIN 38642353152 Jianming MG CAPS mouth four 12/20 Aldo IQBAL times daily VITAMIN D one tablet by ERGOCALCIFEROL 16418746630 Jianming (ERGOCALCIFEROL) mouth once / Aldo IQBAL 65260 UNIT CAPS weekly VITAMIN D one tablet by 2013/ ERGOCALCIFEROL 23628888937 Jianming (ERGOCALCIFEROL) mouth once 12/20 Aldo IQBAL 40419 UNIT CAPS weekly SULFAMETHOXAZOLE One tablet by 2013/ SULFAMETHOXAZOLE-TRI 57383394249 Jianming -TRIMETHOPRIM mouth twice 12/20 METHOPRIM Aldo IQBAL 800-160 MG TABS daily GLUCAGEN HYPOKIT as needed IM GLUCAGON HCL (RDNA) 34142722979 Jianming 1 MG SOLR for Aldo IQBAL hypoglycemia DEXAMETHASONE 1 One tab by 2016/ DEXAMETHASONE 18908508632 Raven L MG TABS mouth at 11pm, /03/[address] [facility] lab work at 8AM the next morning FUROSEMIDE 20 MG One tablet by 2016/ FUROSEMIDE 48181451198 Raven L TABS mouth daily /03/[address] [facility] ATORVASTATIN One tablet by 2016/ ATORVASTATIN CALCIUM 62271451138 Raven L CALCIUM 20 MG mouth daily at /03/[address] [facility] TABS night for high cholesterol ATENOLOL 50 MG One tablet by ATENOLOL 03882710750 Raven L TABS mouth twice / [facility] daily ATENOLOL 50 MG One tablet by 2014/ ATENOLOL 19352445382 Gabriel A TABS [facility] twice /04[facility] One tablet by 2014/ DOXYCYCLINE HYCLATE 75617586097 Gabriel A HYCLATE 100 MG mouth twice /12/22 [facility] DO CAPS daily x 10 days HYDROMORPHONE 1 tablet by HYDROMORPHONE HCL 52260828226 Jianming HCL 2 MG TABS mouth every Aldo IQBAL 4-6 as needed HYDROMORPHONE 1 tablet by 2014/ HYDROMORPHONE HCL 34465635197 Gabriel A HCL 2 MG TABS mouth every 04/04 [facility] DO 4-6 as needed FENTANYL 50 change q 72hrs FENTANYL 08422874452 Jianming MCG/HR PT72 Aldo IQBAL FENTANYL 50 change q 72hrs 2014/ FENTANYL 60324043735 Gabriel A MCG/HR PT72 12/22 [facility] DO SYNTHROID 112 One tablet by 2014/ LEVOTHYROXINE SODIUM 60747731113 Jianming MCG TABS mouth daily /10/25 Aldo IQBAL PRAVASTATIN One tablet by 2014/ PRAVASTATIN SODIUM 91529892321 Jianming SODIUM 40 MG mouth daily /10/25 Aldo IQBAL TABS every night KLOR-CON M20 20 One tablet by 2015/ POTASSIUM CHLORIDE 73392610130 Gabriel A MEQ CR-TABS mouth daily /03/19 MELANY CR Mauricio DO FOLIC ACID 1 MG Two tablets by 2015/ FOLIC ACID 02247877074 Gabriel A TABS mouth daily /03/19 Mauricio DO PREMARIN 1.25 MG One tablet by ESTROGENS CONJUGATED 32664859129 Rabia TABS mouth daily / Aldo IQBAL PREMARIN 1.25 MG One tablet by 2015/ ESTROGENS CONJUGATED 74571835475 Gabriel A TABS mouth daily /03/19 Mauricio DO DOXEPIN HCL 25 1 capsule by 2015/ DOXEPIN HCL 75609660331 Gabriel A MG CAPS mouth at night /03/19 [facility] DO for IBS FENOFIBRATE 48 Two tablets 2015/ FENOFIBRATE 83655351675 Gabriel A MG TABS daily /12/26 Mauricio DO XIFAXAN 550 MG One tablet by 2015/ RIFAXIMIN 97748416754 Gabriel A TABS mouth three /11/07 [facility] DO times daily NOVOLOG 100 20-30 units INSULIN ASPART 78327117656 Gabriel A UNIT/ML SOLN three times [facility] DO day with meals COLACE 100 MG One tablet by 2015/ DOCUSATE SODIUM 51315199258 Gabriel A CAPS mouth daily /10/24 [facility] DO PROPRANOLOL HCL One capsule by 2014/ PROPRANOLOL HCL 11393561753 Gabriel A ER 80 MG mouth daily at /05/11 [facility] DO [id number] night for migraine prevention and tachycardia DIAZEPAM 5 MG One tablet by 2015/ DIAZEPAM 66652224023 Gabriel A TABS mouth daily /10/24 [facility] DO every night, avoid driving or operating machine under the influence of medication. Medications Administered No information available. Allergies, Adverse Reactions, Alerts Allergy Name Reaction Description Start Date Severity Status Provider FENOFIBRATE Arthralgia Moderate Active Gabriel A Mauricio DO NSAIDS liver Critical Active Rabia Carlosn MD TYLENOL bleeding Critical No Longer Rabia [...] Request for EFFEXOR XR 75MG CAP ESM_RR [id number]`EFFEXOR XR 75MG CAP`75MG``270 B e-scripts Capsule`90`TAKE THREE CAPSULES BY MOUTH ONCE messenger DAILY``1`0`02/07/2015`05/11/2015`[facility] [place] [facility] [place]*`[id number]`[phone]`VENLAFAXINE request ER 75MG CAP Quantity: 270 Capsule Instructions: TAKE THREE CAPSULES BY MOUTH ONCE DAILY Office Visit: Diabetes follow up HGBA1C 7.4 % Hemoglobin A1c/Hemoglobin.total in Blood SMOK ADVICE yes Smoking cessation education (procedure) Office Visit: Establish Care PHQ-9 SCORE 15 Adult depression screening assessment PHQ2 SCORE 0 Adult depression screening assessment Office Visit: Diabetes Follow Up SMOK STATUS Former smoker Tobacco use [facility] ORALTOBACUSE Current Tobacco smoking status [facility] MEDS REVIEW Done Documentation of current medications (procedure) Plan of Care Type Date Detail Appointment 05:00 PM Kay Mckeon NP, [address] [facility] [address], [address], [place], [address], Referral Rheumatology Referral [facility] Provider, [address] [place], [address] Referral Rheumatology Referral [facility] Provider, [address] [facility] [place], [address] Referral Ophthalmology Referral Referral Ophthalmology Referral Referral excluded from report: Referral Ophthalmology Referral [address] [place], [address] Referral Ophthalmology Referral [address] [place] [address], [address] Referral Gastroenterology Referral Jasbir Fuchs MD, [address] [facility], [place], [address] Referral Gastroenterology Referral Jasbir Fuchs MD, [address] [place], [address] Referral Ophthalmology Referral Referral Rheumatology Referral Reyna Tucker MD, [address], [address], [place], [address] Referral Other Referral [facility] Nutrition Services, [address] [place], [address] Referral Other Referral [facility] Nutrition Services, [address] [place], [address] Referral Podiatry Referral Jared Powers DPM, [address] [place], [address] Referral OT-Functional Capacity Evaluation Physical Therapy [facility], [address] [facility], [place], [address] Referral Dermatology Referral Nadine Marquez, [address] [place], [address] Referral Gastroenterology Referral Marlon Coon, [address] [facility], [place], [address] Referral Rheumatology Referral Reyna Tucker MD, [address], [address], [place], [address] Referral Pain Management Maricruz Hernandez, [address] [facility] [facility], [address], [place], [address] Pending order *HgA1C Pending order *Microalbumin, Creatine [...] Pending order Rapid Strep (Office) Pending order *[place] Test Pending order Administration Injection (Prophylactic, Therapeutic [...] Procedures Code Procedure Name Date Entry Date CPT-71221 HGB A1C (Office) 2143-6 *CAYDEN - Cortisol, A.M. 31047-6 *Lipid Profile 0667-1 *BMP PSGPCP PSG,CPAP (as indicated) ONLY PCP to follow up [id number] Ophthalmology Referral Order excluded from report: 0184-1 *CBC with Differential 36649-7 *CRP - C-Reative Protein 0786-1 *CMP Complete Metabolic Panel 4548-4 *HgA1C 94941-7 *Lipid Profile 0779-1 *Microalbumin, Creatine Ratio, rand urine 3016-3 *TSH 47504-5 *RA Rheumatoid Factor - Quaint 55247-3 *Sedimentation Rate (ESR) 24192-7 *UAC- Urinalysis, Complete w/ Micro 0523-1 *ANCA [id number] Ophthalmology Referral [id number] Rheumatology Referral CPT-35707 HGB A1C (Office) 4548-4 *HgA1C 3016-3 *TSH 51729-4 *Lipid Profile 0786-1 *CMP Complete Metabolic Panel Q968T,[id number] Lipid Profile CPT-77222 HGBA1C 3016-3 *TSH 0786-1 *CMP Complete Metabolic Panel 3016-3 *TSH 78846-4 *CBC without Diff 4086-5 *DEBRA Valpric Acid (Depakene, Dipropylacetic Acid) Drug Assay [id number],[id number] Microalbumin urine CPT-20607 HGBA1C Q968T,R300396 Lipid Profile CPT-63546 X-Ray, Hip Unilateral Podiatry Referral Podiatry Referral 4548-4 *HgA1C 3016-3 *TSH 4086-5 *DEBRA Valpric Acid (Depakene, Dipropylacetic Acid) Drug Assay 44667-6 *CBC without Diff 0786-1 *CMP Complete Metabolic Panel 4548-4 *HgA1C 0786-1 *CMP Complete Metabolic Panel 00435-5 *Lipid Profile 4086-5 *DEBRA Valpric Acid (Depakene, Dipropylacetic Acid) Drug Assay 0667-1 *BMP 6462-6 *CUW - Culture, Wound (Aerobic) 2823-3 *Potassium; Serum, Plasma or Whole Blood 0433-1 *HEBSAG - Hep B Surface Antigen 6510 0363-1 *HECAB Hepatitis C Antibody 48688-8 *HEBSAB - Hep B Surface Antibody 6395 0197-1 *HIV antibody 01597-7 *RPR 4548-4 *HgA1C 0667-1 *BMP 50461-1 *CBC without Diff 0788-1 *Hepatic Function Panel 4086-5 *DEBRA Valpric Acid (Depakene, Dipropylacetic Acid) Drug Assay 0184-1 *CBC with Differential 3016-3 *TSH 3024-7 *T4 free 0786-1 *CMP Complete Metabolic Panel CPT-69511 UA Dipstick (Office) 55424 Fingerstick, glucose (office) Dermatology Referral Dermatology Referral CPT-59249 X-Ray, Chest, PA & Lateral CPT-02345 Rapid Strep (Office) 06852-7 *[place] Test CPT-23554 Administration Injection (Prophylactic, Therapeutic or Diagnostic) CPT-20197 Excision Benign Lesion Trunk/Arm/Ket <0.6 cm FUA 2 weeks Follow Up Appt 2 weeks 0788-1 *Hepatic Function Panel 4086-5 *DEBRA Valpric Acid (Depakene, Dipropylacetic Acid) Drug Assay FUA 2 weeks Follow Up Appt 2 weeks 05900-8 *CBC without Diff Order excluded from report: 06744-5 *CBC without Diff Order excluded from report: FUA as scheduled Follow Up as scheduled Gastroenterology Ref Gastroenterology Referral CPT-05878 US Transvaginal Order excluded from report: FUA 1 week Follow up Appt 1 week 4548-4 *HgA1C 99979-6 *Lipid Profile 0786-1 *CMP Complete Metabolic Panel FUA 3 months Follow Up Appt 3 months 4548-4 *HgA1C Order excluded from report: 0667-1 *BMP Order excluded from report: CPT-31051 *Liver/Hepatic Function Panel Order excluded from report: FUA 3 months Follow Up Appt 3 months CPT-61976 *Lipid Profile RheuRef Rheumatology Referral Pain Management Pain Management CPT-22113 *Lipid Profile CPT-27618 *CMP Complete Metabolic Panel CPT-86388 *HgA1C CPT-52003 *TSH CPT-19748 *CBC without Diff CPT-68967 *Creatine Kinase (CK) CRP *CRP CPT-23467 *Sedimentation Rate (ESR) FUA 2 weeks Follow Up Appt 2 weeks Vital Signs Date Name Value Unit Description BMI (Body Mass Index) 32.44 kg/m2 Body Mass Index [Ratio] BP Diastolic 84 mm[Hg] blood pressure, diastolic - 8462-4 BP Systolic 126 mm[Hg] blood pressure, systolic - 8480-6 Heart Rate 80 /min pulse rate E&M - 8867-4 Height 62 [in_us] height E&M - 8302-2 Respiratory Rate 20 /min respiratory rate E&M - 9279-1 Weight Measured 177.4 [lb_av] weight E&M - 3141-9 Body Temperature 98.5 [degF] temperature E&M BSA (Body Surface Area) 1.90 body surface area
--- OUTSIDE RECORDS SUMMARY | 2018-09-04 11:23 | XMS RPT_ITS | Clinical Summary ---
:1985 Author Organization [facility], [facility] Address [address] [place] [phone] Phone Care Team Providers Name Role Phone Mike GARNERKay Unavailable Conditions or Problems Problem Problem Onset Status Entry Provider Comment Standard Annotate Name Code Date Date Description Hypersomni [id number] Active Gabriel A Hypersomnia a (SNOMED 03/19 03/[address]) Peripheral 908167447 Active Gabriel A Peripheral edema (SNOMED 03/19 03/[address]) Abnormal 934723282 Inactive Gabriel A Abnormal weight (SNOMED 03/19 03/19 Mauricio DO weight gain gain CT) ARTHRITIS, 50376509 Active Gabriel A Rheumatoid RHEUMATOID (SNOMED 09/09 09/[address]) Urinary 193620580 Resolved Gabriel A Increased frequency (SNOMED 10/24 10/24 [address] of CT) urination Diarrhea, 269326003 Resolved Gabriel A Chronic chronic (SNOMED 10/24 10/[address]) Hypertrigl 538396989 Active Gabriel A Hypertriglycer >800 yceridemia (SNOMED 10/30 10/[address]) Greater 0883944 Inactive Gabriel A Trochanteric trochanter (SNOMED 10/24 10/24 Mauricio DO bursitis ic CT) bursitis, left Diarrhea, 198662374 Removed Gabriel A Chronic chronic (SNOMED 10/24 10/[address]) Urinary 070712272 Removed Gabriel A Increased frequency (SNOMED 10/24 10/24 Mauricio DO frequency of CT) urination UPPER [id number] Resolved Gabriel A Upper RESPIRATOR (SNOMED 09/13 09/13 [facility] respiratory Y CT) infection INFECTION Migraine 60142848 Active Gabriel A Migraine headache (SNOMED 04/04 04/[address] [facility] [address]) Foot pain, 72975883 Inactive Gabriel A Foot pain left (SNOMED 02/07 02/[address] [facility] [address]) UPPER [id number] Removed Gabriel A Upper RESPIRATOR (SNOMED 09/13 09/[address] [facility] [address] Y CT) infection INFECTION Hypertrigl 674890816 Resolved Gabriel A Hypertriglycer yceridemia (SNOMED 10/25 10/[address] [facility] [address]) LEG PAIN, 60359990 Resolved Gabriel A Pain in lower BILATERAL (SNOMED 03/15 03/[address] [facility] [address]) POLYCYSTIC 13190250 Resolved Gabriel A Polycystic OVARIAN (SNOMED 03/15 03/[address] [facility] [address]) DEPRESSION 69342034 Resolved Gabriel A Recurrent since age , MAJOR, (SNOMED 03/15 [facility] major [address]) depression MUSCLE 82307302 Resolved Gabriel A Muscle WEAKNESS (SNOMED 03/15 03/15 [facility] weakness (GENERALIZ CT) ED) NIPPLE 143175094 Resolved Gabriel A Bloody nipple DISCHARGE, (SNOMED 03/23 03/[address] [facility] [address]) HYPERSOMNI 54107495 Resolved Gabriel A Hypersomnia A (SNOMED 04/06 04/[address] [facility] [address]) SKIN RASH 511714208 Resolved Gabriel A Eruption (SNOMED 10/03 10/[address] [facility] [address]) SEXUALLY 826055886 Resolved Gabriel A Exposure to TRANSMITTE (SNOMED 10/04 10/04 [facility] sexually D DISEASE, CT) transmissible EXPOSURE disorder TO HYPOKALEMI [id number] Resolved Gabriel A Hypokalemia A (SNOMED 11/03 11/[address] [facility] [address]) Ingrown 625409350 Resolved Gabriel A Ingrowing nail toenail (SNOMED [facility] CT) Hip pain, 55724626 Resolved Gabriel A Hip pain right (SNOMED 09/13 09/[address] [facility] [address]) Bronchitis 22304066 Resolved Gabriel A Acute , acute (SNOMED 10/25 11/[address] [facility] [address]) Chronic 434321762 Active Gabriel A Chronic pain pain (SNOMED 12/22 12/[address] [facility] syndrome syndrome [address]) Bronchitis 44951726 Removed Jianming Acute , acute (SNOMED 10/25 11/[address] [facility] [address]) Paronychia [id number] Resolved Jianming Paronychia of left big , great (SNOMED [facility] toe toe toe CT) Hypertrigl 978047676 Removed Jianming Hypertriglycer yceridemia (SNOMED 10/25 10/[address] [facility] [address]) Superficia [id number] Resolved Jianming Superficial right l vein (SNOMED 09/29 09/29 [facility] vein basilic thrombosis CT) thrombosis vein from just above elbow to wrist Superficia [id number] Removed Jianming Superficial right l vein (SNOMED 09/29 09/29 [facility]Ado [facility] vein basilic thrombosis CT) thrombosis vein from just above elbow to wrist Hip pain, 40163336 Removed Jianming Hip pain right (SNOMED 09/13 09/[address] [facility] [address]) Ingrown 713447981 Removed Jianming Ingrowing nail toenail (SNOMED [facility] CT) Paronychia [id number] Removed Jianming Paronychia of left big , great (SNOMED [facility] toe toe toe CT) Back pain, 623309730 Active Jianming Low back pain chronic s/p lumbar (SNOMED [facility] surgery CT) NAUSEA AND 36406783 Resolved Jianming Nausea and VOMITING (SNOMED 11/12 11/[address] [facility] [address]) OTITIS 41387351 Resolved Rehana E Chronic otitis EXTERNA, (SNOMED 08/30 08/[address] [facility] [address]) OTITIS [id number] Resolved Rehana E Acute otitis MEDIA, (SNOMED 08/18 08/18 [facility] media ACUTE, CT) BILATERAL DKA 163583318 Resolved Jianming Diabetic (SNOMED [facility] ketoacidosis CT) CELLULITIS 532018532 Resolved Jianming Cellulitis of the (SNOMED 11/03 11/[address] [facility] [address]) site NAUSEA AND [id number] Removed Jianming Nausea and VOMITING (SNOMED 11/12 11/[address] [facility] [address]) HYPOKALEMI [id number] Removed Jianming Hypokalemia A (SNOMED 11/03 11/[address] [facility] [address]) CELLULITIS 528198171 Removed Jianming Cellulitis of the (SNOMED 11/03 11/[address] [facility] [address]) site SEXUALLY [id number] Removed Marianna A Exposure to TRANSMITTE (SNOMED 10/04 10/04 [facility] sexually D DISEASE, CT) transmissible EXPOSURE disorder TO OTITIS [id number] Removed Jianming Acute otitis MEDIA, (SNOMED 08/18 08/18 [facility] media ACUTE, CT) BILATERAL OTITIS [id number] Correctio Jianming Acute otitis MEDIA, (SNOMED 08/18 n 08/18 [facility] media ACUTE, CT) BILATERAL SKIN RASH [id number] Removed Ness J Eruption (SNOMED 10/03 10/[address]) OTITIS 66729529 Removed Ness J Chronic otitis EXTERNA, (SNOMED 08/30 08/30 Signs MD externa CHRONIC CT) DKA [id number] Removed Jianming Diabetic (SNOMED [facility] ketoacidosis CT) OTITIS [id number] Resolved Jianming Otitis externa EXTERNA (SNOMED 03/23 03/[address] [facility]) HYPERSOMNI 64533265 Removed Jianming Hypersomnia A (SNOMED 04/06 04/[address] [facility] [address]) ALLERGIC 78224548 Active Jianming Allergic RHINITIS (SNOMED 04/06 04/[address] [facility] [address]) OTITIS 5008025 Removed Jianming Otitis externa EXTERNA (SNOMED 03/23 03/[address]) NIPPLE [id number] Removed Jianming Bloody nipple DISCHARGE, (SNOMED 03/23 03/[address] [facility] [address] BLOODY [address]) NIPPLE 087890629 Correctio Jianming Bloody nipple DISCHARGE, (SNOMED 03/23 n 03/[address] [facility] [address]) OTITIS 2127989 Correctio Jianming Otitis externa EXTERNA (SNOMED 03/23 n 03/[address]) 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, (SNOMED 02/10 02/[address]) POLYCYSTIC 60022643 Active Ness J Polycystic OVARIAN (SNOMED 02/10 02/[address]) FIBROMYALG 86143288 Active Ness J Fibromyositis IA, SEVERE (SNOMED 02/10 02/[address]) IMMUNOCOMP 080124277 Active Ness J Immunodeficien ROMISED (SNOMED 02/10 02/[address]) HUMAN 767977312 Active Ness J Human PAPILLOMAV (SNOMED 02/10 02/[address]) virus infection TACHYCARDI 6664397 Active Jianming Tachycardia since 2004 A (SNOMED 01/[address] [facility]) HYPOGLYCEM 563498266 Resolved Jianming Hypoglycemia IA (SNOMED 09/24 09/[address] [facility]) MOVEMENT 40751531 Resolved Jianming Movement DISORDER (SNOMED 09/24 09/[address] [facility] [address]) ROSACEA 253540481 Active Jianming Rosacea (SNOMED 01/14 01/[address] [facility]) TACHYCARDI 3471414 Resolved Jianming Tachycardia A (SNOMED 03/[address] [address]) GLUCOCORTI 296587691 Resolved Jianming 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 PHARYNGITI 055307700 Resolved Jianming Acute S, ACUTE (SNOMED 09/07 09/[address] [facility] [address]) UPPER [id number] Resolved Jianming Upper RESPIRATOR (SNOMED 09/13 09/[address] [facility] [address] Y CT) infection INFECTION COUGH 98877410 Resolved Jianming Cough (SNOMED 09/13 09/[address] [facility]) HYPOGLYCEM 289810434 Removed Jianming Hypoglycemia IA (SNOMED 09/24 09/[address] [facility]) MOVEMENT 76379628 Removed Jianming Movement DISORDER (SNOMED 09/24 09/[address] [facility] [address]) COUGH [id number] Removed Salma M Cough (SNOMED 09/13 09/[address]) UPPER 92605924 Removed Salma M Upper RESPIRATOR (SNOMED 09/13 09/[address]) infection INFECTION PHARYNGITI 955849548 Removed Jianming Acute S, ACUTE (SNOMED 09/07 09/[address] [facility] [address]) MELENA [id number] Resolved Jianming Melena (SNOMED 11/06 11/[address] [facility]) LOCALIZED R22.9 Resolved Jianming Localized right SUPERFICIA (ICD-10-CM [facility] swelling, mass axillary L SWELLING ) and lump, MASS OR unspecified LUMP LIVER V12.2 Resolved Jianming Personal FUNCTION (ICD-9-CM) 03/15 03/15 [facility] history of TESTS, endocrine, ABNORMAL, metabolic, and HX OF immunity disorders CONSTIPATI 442700930 Resolved Jianming Chronic ON, (SNOMED 09/23 09/[address] [facility] [address] CT) ABDOMINAL R10.31 Resolved Jianming Right lower PAIN RIGHT (ICD-10-CM 09/23 09/23 [facility] quadrant pain LOWER ) QUADRANT OTITIS 7360357 Resolved Jianming Otitis externa EXTERNA (SNOMED 08/22 08/[address]) GLUCOCORTI 790543251 Removed Jianming 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 OTITIS 1266950 Removed Jianming Otitis externa EXTERNA (SNOMED 08/22 08/[address]) LOCALIZED R22.9 Removed Jianming Localized right SUPERFICIA (ICD-10-CM [facility] swelling, mass axillary L SWELLING ) and lump, MASS OR unspecified LUMP BIPOLAR 912539027 Active Jianming Bipolar diagnosed AFFECTIVE (SNOMED 02/19 [facility] affective by DISORDER, CT) disorder, psychiatris DEPRESSED current t at episode Kristian depression in [place] GASTROESOP 875875009 Active Jianming Gastroesophage HAGEAL (SNOMED 02/19 [facility] al reflux REFLUX CT) disease DISEASE INSOMNIA, 112844955 Active Jianming Insomnia CHRONIC (SNOMED 02/19 02/[address] [facility]) ACUTE 05271032 Resolved Jianming Acute ETHMOIDAL (SNOMED 09/18 09/18 [facility] [address]moidal SINUSITIS CT) sinusitis MELENA 4986935 Removed Luis Eduardo M Melena (SNOMED 11/06 11/[address]) ACUTE 08782166 Removed Jianming Acute ETHMOIDAL (SNOMED 09/18 09/18 [facility] [address]moidal SINUSITIS CT) sinusitis ABDOMINAL R10.31 Removed Jianming Right lower PAIN RIGHT (ICD-10-CM 09/23 09/23 [facility] quadrant pain LOWER ) QUADRANT CONSTIPATI 581653850 Removed Jianming Chronic ON, (SNOMED 09/23 09/[address] [facility] [address]) ARTHRITIS, 71914676 Inactive Jianming Rheumatoid f/u RHEUMATOID (SNOMED 09/09 09/[address] [facility] [address] [place] [address]) DYSLIPIDEM 782858173 Active Jianming Dyslipidemia IA (SNOMED 04/03 04/[address] [facility] [address]) MUSCLE 02762178 Removed Jianming Muscle WEAKNESS (SNOMED 03/15 03/15 [facility] weakness (GENERALIZ CT) ED) DEPRESSION 61509426 Removed Jianming Recurrent since age , MAJOR, (SNOMED 03/15 [facility] major [address]) depression POLYCYSTIC 76278040 Removed Jianming Polycystic OVARIAN (SNOMED 03/15 03/[address] [facility] [address]) IRRITABLE 04082611 Active Jianming Irritable BOWEL (SNOMED 03/15 03/15 [facility] bowel syndrome SYNDROME CT) TACHYCARDI 7286240 Removed Jianming Tachycardia A (SNOMED 03/[address] [facility]) LEG PAIN, 49272095 Removed Jianming Pain in lower BILATERAL (SNOMED 03/15 03/[address] [facility] [address]) HYPOTHYROI 10797477 Active Jianming Hypothyroidism DISM (SNOMED 08/11 03/[address] [facility]) DIABETES 49602351 08/11/19 Active Jianming Type 1 MELLITUS, (SNOMED 03/15 [facility] diabetes TYPE I CT) mellitus LIVER V12.2 Removed Jianming Personal FUNCTION (ICD-9-CM) 03/15 03/15 [facility] history of TESTS, endocrine, ABNORMAL, metabolic, and HX OF immunity disorders Medications Medication Instructions Start Stop Generic Name NDC Provider Date Date NOVOLOG 100 Take 35 units 2024/ INSULIN ASPART [id number] Kay Franco UNIT/ML SOLN each meal and 07/02 Shook [employer] sliding scale up to 130 daily LANTUS 100 Take 56 units 2024/ INSULIN GLARGINE 46349270208 Kay Franco UNIT/ML SOLN daily 07/02 Shook [employer] FREESTYLE LITE Use for 2024/ BLOOD GLUCOSE [id number] Kay ROMAN diabetes to 07/02 MONITORING SUPPL Mike [employer] test blood glucose level 6 times daily ICD!) E10.9 FREESTYLE LITE Use for 2024/ BLOOD GLUCOSE 61708452078 Kay ROMAN diabetes 07/02 MONITORING SUPPL Mike GARNER ICD!) E10.9 FREESTYLE LITE Check BG 6 2024/ GLUCOSE BLOOD [id number] Kay Franco TEST STRP times daily 07/02 Mike GARNER ICD10 E10.9 NOVOLOG 100 Take 35 units 2024/ INSULIN ASPART 27921115088 Kay Joan UNIT/ML SOLN each meal 07/02 Mike GARNER FREESTYLE LITE Check BG 6 2024/ GLUCOSE BLOOD 16641244362 Kay Franco TEST STRP times daily 07/02 Mike GARNER FREESTYLE LITE Use for 2024/ BLOOD GLUCOSE 26723902330 Kay Franco JESSIE diabetes 07/02 MONITORING SUPPL Mike GARNER ATORVASTATIN One tablet by ATORVASTATIN CALCIUM 08025073871 Gabriel A CALCIUM 20 MG mouth daily at /15 [facility] TABS night for high cholesterol FUROSEMIDE 20 MG One tablet by FUROSEMIDE 33598442421 Gabriel A TABS mouth daily / [facility] DEXAMETHASONE 1 One tab by DEXAMETHASONE 44953787738 Gabriel A MG TABS mouth at 11pm, / [facility] lab work at 8AM the next morning ZYRTEC ALLERGY One tablet by CETIRIZINE HCL 50333184525 Gabriel A 10 MG TABS mouth daily at /05 [facility] bedtime ATENOLOL 50 MG One tablet by ATENOLOL 48335014567 Gabriel A TABS mouth twice / [facility] daily OMEPRAZOLE 20 MG One tablet by OMEPRAZOLE 00603781258 Gabriel A TBEC mouth daily / [facility] SYNTHROID 137 One tablet by LEVOTHYROXINE SODIUM 81328289255 Gabriel A MCG TABS mouth daily / [facility] NOVOLIN N 100 40-50 units INSULIN ISOPHANE 11192097558 Gabriel A UNIT/ML SUSP twice daily / [facility] AC[facility] 400 MG One tablet by ACYCLOVIR 62978409557 Gabriel A TABS mouth daily / [facility] EFFEXOR XR 75 MG Three tablets VENLAFAXINE HCL 98439322169 Gabriel A [id number] by mouth daily /man NOVOLOG 100 15-30 units INSULIN ASPART 24954975701 Gabriel A UNIT/ML SOLN three times a /Mauricio DO day with meals DIVALPROEX Two tablets by DIVALPROEX SODIUM 50973585161 Gabriel A SODIUM 250 MG mouth daily / TBEC SEROQUEL 200 MG One tablet by QUETIAPINE FUMARATE 73332201433 Gabriel A TABS mouth daily / DO BD INSULIN 5-6 times INSULIN 49706048716 Gabriel A SYRINGE daily DX: SYRINGE-NEEDLE U-100 Mauricio ULTRAFINE 30G X type I 08/12 0.5 ML MISC FENOFIBRATE 48 Two tablets FENOFIBRATE 04076014635 Gabriel A MG TABS daily / DOXEPIN HCL 25 1 capsule by DOXEPIN HCL 43218150366 Gabriel A MG CAPS mouth at night /Mauricio DO for IBS ACYCLOVIR 400 MG One tablet by ACYCLOVIR 30780044244 Gabriel A TABS mouth twice Mauricio DO daily XIFAXAN 550 MG One tablet by 2015/ RIFAXIMIN 46876039730 Gabriel A TABS mouth three 11/07utzman DO times daily DIAZEPAM 5 MG One tablet by DIAZEPAM 38982424075 Gabriel A TABS mouth daily /Mauricio DO every night, avoid driving or operating machine under the influence of medication. PROPRANOLOL HCL One capsule by PROPRANOLOL HCL 20839879671 Gabriel A ER 80 MG mouth daily at / [facility] DO [id number] night for migraine prevention and tachycardia NOVOLOG 100 30 units three INSULIN ASPART 74759199429 Gabriel A UNIT/ML SOLN times a day /Mauricio DO with meals NOVOLIN N 100 45 units SC INSULIN ISOPHANE 47123963622 Gabriel A UNIT/ML SUSP twice daily / HUMAN Mauricio DO KLOR-CON M20 20 One tablet by POTASSIUM CHLORIDE 81180857254 Gabriel A MEQ CR-TABS mouth daily /12 MELANY CR Mauricio DO FOLIC ACID 1 MG Two tablets by FOLIC ACID 86265706213 Gabriel A TABS mouth daily /30 Mauricio DO ATENOLOL 50 MG One tablet by ATENOLOL 45084412015 Gabriel A TABS mouth twice /24 Mauricio DO daily NOVOLOG 100 25 units SC at INSULIN ASPART 63001985185 Gabriel A UNIT/ML SOLN BF, 30 units /03 Mauricio DO at Lunch and Supper FENOFIBRATE 48 One tablet by FENOFIBRATE 73136304869 Jianming MG TABS mouth daily, / [facility] then increase to two tablets if tolerate it DOXYCYCLINE One tablet by DOXYCYCLINE HYCLATE 80350820531 Jianming HYCLATE 100 MG mouth twice / [facility] CAPS daily x 10 days PRAVASTATIN One tablet by PRAVASTATIN SODIUM 81719454783 Jianming SODIUM 40 MG mouth daily / [facility] TABS every night AMOXICILLIN-POT One tablet by AMOXICILLIN-POT 61544248528 Jianming CLAVULANATE mouth twice / CLAVULANATE [facility] 875-125 MG TABS daily SYNTHROID 112 One tablet by LEVOTHYROXINE SODIUM 80540656649 Jianming MCG TABS mouth daily / [facility] QUETIAPINE Three tablets QUETIAPINE FUMARATE 39250666048 Jianming FUMARATE 50 MG by mouth daily / [facility] TABS at bed time DIVALPROEX One tablet by DIVALPROEX SODIUM 28574548347 Jianming SODIUM 250 MG mouth twice / [facility] TBEC daily DIAZEPAM 2 MG One tablet by DIAZEPAM 77030833813 Jianming TABS mouth daily / [facility] every night QUETIAPINE Two tablets by QUETIAPINE FUMARATE 61211371112 Jianming FUMARATE 50 MG mouth daily / [facility] TABS every night EFFEXOR XR 150 One tablet by VENLAFAXINE HCL 26792187159 Jianming MG [id number] mouth daily / [facility] COLACE 100 MG One tablet by DOCUSATE SODIUM 79680502228 Jianming CAPS mouth daily / [facility] PROMETHAZINE HCL One tablet by PROMETHAZINE HCL 00363199466 Jianming 12.5 MG TABS mouth three / [facility] times daily as needed nausea/vomitin g DIAZEPAM 2 MG One tablet by DIAZEPAM 94321457599 Jianming TABS mouth twice / [facility] daily QUETIAPINE Two tablets by QUETIAPINE FUMARATE 81818970684 Jianming FUMARATE 50 MG mouth twice / [facility] TABS daily SULFAMETHOXAZOLE One tablet by SULFAMETHOXAZOLE-TRI 29108781119 Jianming -TRIMETHOPRIM mouth twice METHOPRIM [facility] 800-160 MG TABS daily AMPICILLIN 500 One tablet by AMPICILLIN 93667591582 Jianming MG CAPS mouth [facility] times daily ZOLPIDEM One tablet by ZOLPIDEM TARTRATE 90557057127 Lakishanming TARTRATE 5 MG mouth daily / [facility] TABS every night DIVALPROEX One tablet by DIVALPROEX SODIUM 39000467870 Jianming SODIUM 125 MG mouth twice / [facility] TBEC daily QUETIAPINE one tablets by QUETIAPINE FUMARATE 17675146064 Jianming FUMARATE 50 MG mouth in AM , [facility] TABS two tablets by mouth in pM EFFEXOR XR 75 MG One tablet by VENLAFAXINE HCL 58804813027 Leticiaing [id number] mouth daily [facility] QUETIAPINE one tablets by QUETIAPINE FUMARATE 50943629802 Jianming FUMARATE 50 MG mouth in AM , [facility] TABS two tablets by mouth in pM SYNTHROID 100 One tablet by LEVOTHYROXINE SODIUM 71437575419 Lakishanming MCG TABS mouth daily / [facility] AMOXICILLIN-POT One tablet by AMOXICILLIN-POT 62041577332 Lakishanming CLAVULANATE mouth twice CLAVULANATE [facility] 875-125 MG TABS daily QUETIAPINE One tablet by QUETIAPINE FUMARATE 16985578432 Lakishanming FUMARATE 50 MG mouth twice / [facility] TABS daily x 1 day, then titrate up as directed VALIUM 2 MG TABS One tablet by DIAZEPAM 74552358738 Jianming mouth twice / [facility] daily ZOLPIDEM One tablet by ZOLPIDEM TARTRATE 77490366577 Lakishanming TARTRATE 5 MG mouth daily / [facility] TABS every night as needed, avoid driving or operating machine under the influence of medication. MUPIROCIN 2 % apply to MUPIROCIN 81032489557 Jianming OINT affected area / [facility] four times a day CIPRO HC 0.2-1 % 4 gtt to left CIPROFLOXACIN-HYDROC 10487762796 Jianming SUSP ear three / ORTISONE [facility] times a day PODOCON 25 % PODOPHYLLUM RESIN 87723414647 Ness J SOLN / Maria Elena [facility] ACYCLOVIR 800 MG one po q 8 hrs ACYCLOVIR 58481037203 Ness J TABS /17 Signs FAMVIR 500 MG one po tid FAMCICLOVIR 60205667709 Ness J TABS /03 Signs METROGEL 1 % GEL apply to METRONIDAZOLE 63396831116 Jianming affected area / [facility] thin layer, once daily DOXYCYCLINE One tablet by DOXYCYCLINE HYCLATE 74193799731 Lakishanming HYCLATE 100 MG mouth twice / [facility] CAPS daily x 10 days, then One tablet by mouth daily VENLAFAXINE HCL One tablet by VENLAFAXINE HCL 97033532625 Lakishanming ER 75 MG mouth daily / [facility] [id number] TRAZODONE HCL 50 Two tablets by TRAZODONE HCL 82739485499 Jianming MG TABS mouth daily / [facility] AZITHROMYCIN 250 two tablets by AZITHROMYCIN 44069608187 Jianming MG TABS mouth on day / [facility] one, and one tablets daily one day 2-5 EFFEXOR XR 37.5 One tablet by VENLAFAXINE HCL 00363451081 Jianming MG [id number] mouth daily / [facility] CETRAXAL 0.2 % 4-5 drop CIPROFLOXACIN HCL 25001920308 Jianming SOLN affected ear / [facility] three times a day DIVALPROEX One tablet by DIVALPROEX SODIUM 06937996504 Jianming SODIUM 250 MG mouth twice / [facility] TBEC daily DISABILITY DX: Rheumatoid DISABILITY PLACARD Jiajazmin PLACARD arthritis / [facility] duration: five years PROTONIX 40 MG One tablet by PANTOPRAZOLE SODIUM 16349983768 Jianming PACK mouth daily. / [facility] DIVALPROEX One tablet by DIVALPROEX SODIUM 93648708465 Lakishanming SODIUM 125 MG mouth twice / [facility] TBEC daily ATENOLOL 50 MG One tablet by ATENOLOL 48429236138 Jianming TABS mouth daily at [facility] bedtime TRAZODONE HCL 50 One tablet by TRAZODONE HCL 59899653596 Jianming MG TABS mouth daily / [facility] every night CITALOPRAM One tablet by CITALOPRAM 75867266119 Leticiaing HYDROBROMIDE 40 mouth daily / HYDROBROMIDE [facility] MG TABS NOVOLIN N 100 40 units SC INSULIN ISOPHANE 19233695967 Jianming UNIT/ML SUSP twice daily / HUMAN [facility] HUMALOG 100 30 units SC INSULIN LISPRO 85223366150 Laksihanming UNIT/ML SOLN before meals (HUMAN) [facility] AUGMENTIN XR One tablet by AMOXICILLIN-POT 85834250928 Lakishanming 1000-62.5 MG mouth twice / CLAVULANATE [facility] [id number] daily METHOTREXATE 2.5 4 pills by METHOTREXATE SODIUM 48244120339 Jianming MG TABS mouth once / [facility] weekly CIPROFLOXACIN One tablet by 2010/ CIPROFLOXACIN HCL 17610909225 Lakishanming HCL 500 MG TABS mouth twice /08/02 [facility] daily METRONIDAZOLE One tablet by 2010/ METRONIDAZOLE 49445673696 Jianming 500 MG TABS mouth three /08/02 [facility] times daily INDOMETHACIN 25 1-2 tablets INDOMETHACIN 28798486284 Lakishanming MG CAPS three times a [facility] day as needed pain GLUCOMETER use as GLUCOMETER Jianming directed AC [facility] and [facility] HUMALOG 100 40 units SC at INSULIN LISPRO 54527378579 Jianming UNIT/ML SOLN each meal (HUMAN) [facility] PRAVASTATIN One tablet by PRAVASTATIN SODIUM 34741847345 Lakishanming SODIUM 80 MG mouth daily / [facility] TABS LEVEMIR 100 40 units SC INSULIN DETEMIR 40182533924 Jianming UNIT/ML SOLN twice daily / [facility] NOVOLIN N 100 40 units SQ INSULIN ISOPHANE 09265841180 Luis Eduardo M UNIT/ML SUSP twice daily. / HUMAN Kunal [facility] HUMULIN N 100 40 units twice INSULIN ISOPHANE 27738750766 Jianming UNIT/ML SUSP daily / HUMAN [facility] HUMALOG 100 20 units per INSULIN LISPRO 51823865796 Jianming UNIT/ML SOLN meal / (HUMAN) [facility] ULTRAM 50 MG Two tablets by TRAMADOL HCL 57887987279 Jianming TABS mouth three [facility] times daily, avoid driving or operating machine under the influence of medication. PRAVASTATIN One tablet by PRAVASTATIN SODIUM 10530608124 Lakishanming SODIUM 20 MG mouth daily / l[facility]do [facility] TABS every night TRAZODONE HCL 50 One tablet by TRAZODONE HCL 45052236282 Jianming MG TABS mouth daily / [facility] every night LEXAPRO 20 MG One tablet by ESCITALOPRAM OXALATE 49099663851 Jianming TABS mouth daily / [facility] ATENOLOL 50 MG One tablet by ATENOLOL 08173671231 Jianming TABS mouth daily at / [facility] bedtime HYDROCODONE-ACET One tablet by HYDROCODONE-ACETAMIN 97920757198 [facility] AMINOPHEN 5-500 mouth HUBERT Carlson MD MG TABS times daily avoid driving or operating machine under the influence of medication. HYDROCODONE-ACET One tablet by 2011/ HYDROCODONE-ACETAMIN 51968724896 [facility] AMINOPHEN 5-500 mouth three 02/19 HUBERT Carlson MD MG TABS times daily avoid driving or operating machine under the influence of medication. ULTRAM 50 MG Two tablets by 2011/ TRAMADOL HCL 61023006251 Jianming TABS mouth 09/18 [facility] times daily, avoid driving or operating machine under the influence of medication. AUGMENTIN XR One tablet by 2011/ AMOXICILLIN-POT 85646317733 Luis Eduardo Milton 1000-62.5 MG mouth twice 11/06 CLAVULANATE [facility] [id number] daily FOLIC ACID 1 MG 2 tablets by FOLIC ACID 26483144983 Jianming TABS mouth daily / [facility] FOLIC ACID 1 MG 2 tablets by 2011/ FOLIC ACID [id number] Luis Eudardo M TABS mouth daily /11/06 Kunal IQBAL LEUCOVORIN one tablet by LEUCOVORIN CALCIUM 12291382755 Jianming CALCIUM 5 MG mouth once / Aldo IQBAL TABS weekly LEUCOVORIN one tablet by 2011/ LEUCOVORIN CALCIUM 43723138532 [facility] CALCIUM 5 MG mouth once /11/06 Kunal IQBAL TABS weekly LEVEMIR 100 40 units SC 2010/ INSULIN DETEMIR 35588990826 Jianming UNIT/ML SOLN twice daily 07/11 Aldo IQBAL HUMALOG 100 INSULIN LISPRO 24604073286 Jianming UNIT/ML SOL (HUMAN) Aldo IQBAL HUMULIN N 100 40 units twice 2010/ INSULIN ISOPHANE 71646916866 [facility] M UNIT/ML SUSP daily 07/01 HUMAN Kunal IQBAL NOVOLIN N 100 40 units SQ 2010/ INSULIN ISOPHANE 60739937166 Jianming UNIT/ML SUSP twice daily. 07/10 HUMAN Aldo IQBAL INDOMETHACIN 25 1-2 tablets 2011/ INDOMETHACIN 28292086825 Jianming MG CAPS three times a 02/19 Aldo IQBAL day as needed pain METANX 3-35-2 MG One tablet by [id number] [id number] Luis Eduardo Milton TABS mouth twice 2 Kunal IQBAL daily METANX 3-35-2 MG One tablet by 2011/ [id number] Jianming TABS mouth twice 06/03 2 Aldo IQBAL daily ENBREL 50 MG/ML 1 time weekly ETANERCEPT 07198065896 Jianming SOS Aldo IQBAL ENBREL 50 MG/ML 1 time weekly 2011/ ETANERCEPT 18632686281 Jianming SOSY 06/03 Aldo IQBAL PROTONIX 40 MG One tablet by 2011/ PANTOPRAZOLE SODIUM 71752750783 Jianming PACK mouth daily. 06/03 Aldo IQBAL DIVALPROEX One tablet by 2011/ DIVALPROEX SODIUM 75200835213 Jianming SODIUM 250 MG mouth twice /06/03 Aldo IQBAL TBEC daily PREDNISONE 10 MG One tablet by PREDNISONE 50415525453 Jianming TABS mouth twice / Aldo IQBAL daily PREDNISONE 10 MG One tablet by 2011/ PREDNISONE 56935675822 Jianming TABS mouth twice /06/03 Aldo IQBAL daily CITALOPRAM One tablet by 2011/ CITALOPRAM 58318491998 Jianming HYDROBROMIDE 40 mouth daily /06/03 HYDROBROMIDE Aldo IQBAL MG TABS NUCYNTA 50 MG One tablet by TAPENTADOL HCL 97302814310 Jianming TABS mouth twice / Aldo IQBAL daily NUCYNTA 50 MG One tablet by 2011/ TAPENTADOL HCL 84544143606 Jianming TABS mouth twice /06/03 Aldo IQBAL daily NEURONTIN 100 MG One tablet by GABAPENTIN 74031621657 Jianming CAPS mouth twice / Aldo IQBAL daily NEURONTIN 100 MG One tablet by 2011/ GABAPENTIN 41298804631 Jianming CAPS mouth twice /06/03 Aldo IQBAL daily LEVOTHYROXINE One tablet by LEVOTHYROXINE SODIUM 83115613724 Lakishanming SODIUM 125 MCG mouth daily / Aldo IQBAL TABS HUMALOG 100 40 units SC at 2011/ INSULIN LISPRO 94039007007 Jianming UNIT/ML SOLN each meal /06/03 (HUMAN) Aldo IQBAL NOVOLIN N 100 40 units SC 2011/ INSULIN ISOPHANE 68360692065 Jianming UNIT/ML SUSP twice daily /06/03 HUMAN Aldo IQBAL AZITHROMYCIN 250 two tablets by 2012/ AZITHROMYCIN 56398149771 Jianming MG TABS mouth on day /09/24 Aldo IQBAL one, and one tablets daily one day 2-5 HUMIRA PEN 40 1 injection ADALIMUMAB 72003067691 Jianming MG/0.8ML KIT every other Aldo IQBAL week HUMIRA PEN 40 1 injection 2012/ ADALIMUMAB 68883933808 Jianming MG/0.8ML KIT every other /14 01/14 Aldo IQBAL week EFFEXOR XR 37.5 One tablet by 2012/ VENLAFAXINE HCL 03825352780 Jianming MG [id number] mouth daily /01/14 Aldo IQBAL DOXYCYCLINE One tablet by 2012/ DOXYCYCLINE HYCLATE 95289488838 Ness Franco HYCLATE 100 MG mouth twice /02/10 Signs CAPS daily x 10 days, then One tablet by mouth daily VENLAFAXINE HCL One capsule by VENLAFAXINE HCL 72443817016 Salma Milton ER 75 MG mouth daily / Mallorie [id number] VENLAFAXINE HCL One capsule by 2012/ VENLAFAXINE HCL 87602360795 Ness Franco ER 75 MG mouth daily /02/10 Maria Elena IQBAL [id number] NUCYNTA ER 50 MG One tablet by TAPENTADOL HCL 97400307697 Jianming [id number]-[id number] mouth Aldo IQBAL times daily NUCYNTA ER 50 MG One tablet by 2012/ TAPENTADOL HCL 18803359796 Ness Franco [id number]-[id number] mouth three 02/10 Maria Elena IQBAL times daily CETRAXAL 0.2 % 4-5 drop 2012/ CIPROFLOXACIN HCL 15168447150 Jianming SOLN affected ear /12 09/24 Aldo IQBAL three times a day PRAVASTATIN One tablet by PRAVASTATIN SODIUM 16247378132 Jianming SODIUM 40 MG mouth daily / Aldo IQBAL TABS PRAVASTATIN One tablet by 2012/ PRAVASTATIN SODIUM 34989152482 Jianming SODIUM 40 MG mouth daily /09/24 Aldo IQBAL TABS SOLU-CORTEF 100 One tablet by HYDROCORTISONE SOD 50793793799 Jianming MG SOLR mouth daily as SUCCINATE Aldo IQBAL needed SOLU-CORTEF 100 One tablet by 2012/ HYDROCORTISONE SOD 52955510035 Jianming MG SOLR mouth daily as 10/19 SUCCINATE Aldo IQBAL needed HYDROCORTISONE 5 One tablet by HYDROCORTISONE 18137606759 Jianming MG TABS mouth daily / Aldo IQBAL HYDROCORTISONE 5 One tablet by 2012/ HYDROCORTISONE 51476956627 Jianming MG TABS mouth daily /10/19 Aldo IQBAL BUTRANS 10 one patch per BUPRENORPHINE 38687933304 Jianming MCG/HR PTWK week Aldo TELLESRANGreg 10 one patch per 2012/ BUPRENORPHINE 56639919819 Jianming MCG/HR PTWK week 10/19 Aldo IQBAL HUMULIN R U-500 12 units per INSULIN REGULAR 37580623156 Jianming (CONCENTRATED) meal / HUMAN Aldo IQBAL 500 UNIT/ML SOLN HUMULIN R U-500 12 units per 2012/ INSULIN REGULAR 57998521354 Jianming (CONCENTRATED) meal 10/19 HUMAN Aldo IQBAL 500 UNIT/ML SOLN METHOTREXATE 2.5 4 pills by 2012/ METHOTREXATE SODIUM 29936473268 Ness J MG TABS mouth once /08/02 Maria Elena IQBAL weekly LEUCOVORIN 2 tablets by LEUCOVORIN CALCIUM 54635382586 Jianming CALCIUM 5 MG mouth once Aldo IQBAL TABS weekly LEUCOVORIN 2 tablets by 2012/ LEUCOVORIN CALCIUM 22635599847 Ness J CALCIUM 5 MG mouth once /08/02 Maria Elena IQBAL TABS weekly SYNTHROID 137 One tablet by LEVOTHYROXINE SODIUM 91746211636 Jianming MCG TABS mouth daily / Aldo IQBAL SYNTHROID 137 One tablet by 2012/ LEVOTHYROXINE SODIUM 06122216221 Rehana E MCG TABS mouth daily /08/03 [facility] AMOXICILLIN-POT One tablet by 2013/ AMOXICILLIN-POT 32973891222 [facility] CLAVULANATE mouth twice /09/13 CLAVULANATE Aldo IQBAL 875-125 MG TABS daily METROGEL 1 % GEL apply to 2012/ [facility]IDAZO[facility]16050120 [facility] /[facility]07 Aldo IQBAL thin layer, once daily OMEPRAZOLE 20 MG One tablet by OMEPRAZOLE 31782723250 Jianming TBEC mouth daily / Aldo IQBAL OMEPRAZOLE 20 MG One tablet by 2012/ OMEPRAZOLE 70095652898 Jiadeing TBEC mouth daily 06/07 Aldo IQBAL FAMVIR 500 MG one po tid 2012/ FAMCICLOVIR 08215170124 Jiadeing TABS /06/07 Aldo IQBAL FENTANYL 25 change q 3 FENTANYL 31256328756 Ness J MCG/HR PT72 days Signs FENTANYL 25 change q 3 2012/ FENTANYL 90640417062 Jianming MCG/HR PT72 days 06/07 Aldo IQBAL TRAZODONE HCL 50 Two tablets by 2012/ TRAZODONE HCL 77650616346 Jianming MG TABS mouth daily /04/06 Aldo IQBAL MUPIROCIN 2 % apply to 2012/ MUPIROCIN 82879339462 Jianming OINT affected area /06/07 Aldo IQBAL four times a day ZOLPIDEM One tablet by 2012/ ZOLPIDEM TARTRATE 02795117467 Jianming TARTRATE 5 MG mouth daily /06/07 Aldo IQBAL TABS every night as needed, avoid driving or operating machine under the influence of medication. PODOCON 25 % 2012/ PODOPHYLLUM RESIN 63136561221 Jianming SOLN /06/07 Aldo IQBAL ACYCLOVIR 800 MG one po q 8 hrs 2012/ ACYCLOVIR 95401426301 Jianming TABS /06/07 Aldo IQBAL CIPRO HC 0.2-1 % 4 gtt to left 2012/ CIPROFLOXACIN-HYDROC 43777986086 Jianming SUSP ear three 06/07 ORTISONE Aldo IQBAL times a day VALIUM 2 MG TABS One tablet by 2013/ DIAZEPAM 31560697261 Jianming mouth twice /11/19 Aldo IQBAL daily PROMETHAZINE HCL One tablet by 2013/ PROMETHAZINE HCL 18763621460 Jianming 12.5 MG TABS mouth 12/20 Aldo IQBAL times daily as needed nausea/vomitin g DIVALPROEX One tablet by 2013/ DIVALPROEX SODIUM 08445972740 Lakishanming SODIUM 125 MG mouth twice /11/12 Aldo IQBAL TBEC daily ZOLPIDEM One tablet by 2013/ ZOLPIDEM TARTRATE 19595762037 Jianming TARTRATE 5 MG mouth daily /11/19 Aldo IQBAL TABS every night SYNTHROID 100 One tablet by 2013/ LEVOTHYROXINE SODIUM 12574188213 Jianming MCG TABS mouth daily /10/22 Aldo IQBAL DEPO-SUBQ once every MEDROXYPROGESTERONE 03195644018 Rabia PROVERA 104 104 three months / SARITA Carlson MD MG/0.65ML PARVIN DEPO-SUBQ once every 2013/ MEDROXYPROGESTERONE 52982564718 Rabia PROVERA 104 104 three months /11/03 ACETATE Aldo IQBAL MG/0.65ML PARVIN NOVOLIN N 100 40 units SC INSULIN ISOPHANE 40328508958 Jianming UNIT/ML SUSP twice daily / HUMAN Aldo IQBAL NOVOLOG 100 25 units SC at INSULIN ASPART 17768727220 Jianming UNIT/ML SOLN BF, 30 units / Aldo IQBAL at Lunch and Supper DIAZEPAM 2 MG One tablet by 2013/ DIAZEPAM 29421489096 Rehana E TABS mouth daily /01/21 [facility] every night AMOXICILLIN-POT One tablet by 2013/ AMOXICILLIN-POT 64392528162 Salma Milton CLAVULANATE mouth twice /07/13 CLAVULANATE Mallorie 875-125 MG TABS daily NUCYNTA ER 50 MG One tablet by TAPENTADOL HCL 41736261575 Jianming CU91T-NNQ mouth twice / Aldo IQBAL daily as needed NUCYNTA ER 50 MG One tablet by 2013/ TAPENTADOL HCL 27534245162 Salma Milton GP39Y-GEE mouth twice /07/13 Mallorie daily as needed TOPIRAMATE 50 MG One tablet by TOPIRAMATE 96818003010 Salma M TABS mouth daily / Mallorie TOPIRAMATE 50 MG One tablet by 2013/ TOPIRAMATE 70400669748 Jianming TABS mouth daily 07/29 Aldo IQBAL AMPICILLIN 500 One tablet by 2013/ AMPICILLIN 73886675035 Jianming MG CAPS mouth four 12/20 Aldo IQBAL times daily VITAMIN D one tablet by ERGOCALCIFEROL 72298752726 Lakishanming (ERGOCALCIFEROL) mouth once / Aldo IQBAL 55261 UNIT CAPS weekly VITAMIN D one tablet by 2013/ ERGOCALCIFEROL 59372944469 Jianming (ERGOCALCIFEROL) mouth once 12/20 Aldo IQBAL 79396 UNIT CAPS weekly SULFAMETHOXAZOLE One tablet by 2013/ SULFAMETHOXAZOLE-TRI 12380900309 Jianming -TRIMETHOPRIM mouth twice 12/20 METHOPRIM Aldo IQBAL 800-160 MG TABS daily GLUCAGEN HYPOKIT as needed IM GLUCAGON HCL (RDNA) 08744817659 Jianming 1 MG SOLR Aldo IQBAL hypoglycemia DEXAMETHASONE 1 One tab by 2016/ DEXAMETHASONE 04913517118 Raven L MG TABS mouth at 11pm, /03/31 [facility] lab work at 8AM the next morning FUROSEMIDE 20 MG One tablet by 2016/ FUROSEMIDE 81362381815 Raven L TABS mouth daily /03/31 [facility] ATORVASTATIN One tablet by 2016/ ATORVASTATIN CALCIUM 83844122626 Raven L CALCIUM 20 MG mouth daily at /03/31 [facility] TABS night for high cholesterol ATENOLOL 50 MG One tablet by ATENOLOL 28546907884 Raven L TABS mouth twice / [facility] daily ATENOLOL 50 MG One tablet by 2014/ ATENOLOL 23710336985 Gabriel A TABS mouth twice /04[facility] DO[facility] One tablet by 2014/ DOXYCYCLINE HYCLATE 64077861752 Gabriel A HYCLATE 100 MG mouth twice /12/22 [facility] DO CAPS daily x 10 days HYDROMORPHONE 1 tablet by HYDROMORPHONE HCL 56391353984 Jianming HCL 2 MG TABS mouth every Aldo IQBAL 4-6 as needed HYDROMORPHONE 1 tablet by 2014/ HYDROMORPHONE HCL 30195049281 Gabriel A HCL 2 MG TABS mouth every 04/04 Mauricio DO 4-6 as needed FENTANYL 50 change q 72hrs FENTANYL 06039409145 Jianming MCG/HR PT72 Aldo IQBAL FENTANYL 50 change q 72hrs 2014/ FENTANYL 30913410475 Gabriel A MCG/HR PT72 12/22 [facility] DO SYNTHROID 112 One tablet by 2014/ LEVOTHYROXINE SODIUM 46730932101 Jianming MCG TABS mouth daily /10/25 Aldo IQBAL PRAVASTATIN One tablet by 2014/ PRAVASTATIN SODIUM 23174426214 Jianming SODIUM 40 MG mouth daily /10/25 Aldo IQBAL TABS every night KLOR-CON M20 20 One tablet by 2015/ POTASSIUM CHLORIDE 29443280313 Gabriel A MEQ CR-TABS mouth daily /03/19 MELANY CR [facility] DO FOLIC ACID 1 MG Two tablets by 2015/ FOLIC ACID 67248364123 Gabriel A TABS mouth daily /03/19 [facility] DO PREMARIN 1.25 MG One tablet by ESTROGENS CONJUGATED 46230487582 Jianming TABS mouth daily / Aldo IQBAL PREMARIN 1.25 MG One tablet by 2015/ ESTROGENS CONJUGATED 53796231132 Gabriel A TABS mouth daily /03/19 [facility] DO DOXEPIN HCL 25 1 capsule by 2015/ DOXEPIN HCL 54045312907 Gabirel A MG CAPS mouth at night /03/19 [facility] for IBS FENOFIBRATE 48 Two tablets 2015/ FENOFIBRATE 52916978480 Gabriel A MG TABS daily /12/26 [facility] DO XIFAXAN 550 MG One tablet by 2015/ RIFAXIMIN 90693917369 Gabriel A TABS mouth three /11/07 [facility] DO times daily NOVOLOG 100 20-30 units INSULIN ASPART 63402069808 Gabriel A UNIT/ML SOLN three times [facility] day with meals COLACE 100 MG One tablet by 2015/ DOCUSATE SODIUM 96959204304 Gabriel A CAPS mouth daily /10/24 [facility] DO PROPRANOLOL HCL One capsule by 2014/ PROPRANOLOL HCL 01615227474 Gabriel A ER 80 MG mouth daily at /05/11 [facility] [id number] night for migraine prevention and tachycardia DIAZEPAM 5 MG One tablet by 2015/ DIAZEPAM 09875550609 Gabriel A TABS mouth daily /10/24 [facility] every night, avoid driving or operating machine [...] Request for EFFEXOR XR 75MG CAP ESM_RR [id number]`EFFEXOR XR 75MG CAP`75MG``270 B e-scripts Capsule`90`TAKE THREE CAPSULES BY MOUTH ONCE messenger DAILY``1`0`02/07/2015`05/11/2015`[facility] [place] refill [place]*`[id number]`VENLAFAXINE request ER 75MG CAP Quantity: 270 Capsule Instructions: TAKE THREE CAPSULES BY MOUTH ONCE DAILY Office Visit: Diabetes follow up HGBA1C 7.4 % Hemoglobin A1c/Hemoglobin.total in Blood SMOK ADVICE yes Smoking cessation education (procedure) Office Visit: Establish Care ORALTOBACUSE Never Tobacco smoking status NHIS SMOK STATUS Former smoker Tobacco use [facility] PHQ-9 SCORE 15 Adult depression screening assessment PHQ2 SCORE 0 Adult depression screening assessment Office Visit MEDS REVIEW Done Documentation of current medications (procedure) Plan of Care Type Date Detail Appointment 02:00 PM Kay Mckeon NP, [address], [address], [place], [address], Referral Rheumatology Referral [facility] Provider, [address] [place], [address] [address]erral [facility] Provider, [facility] [place], [address] Referral Ophthalmology Referral Referral Ophthalmology Referral Referral excluded from report: Referral Ophthalmology Referral [address] [place] [address], [address] Referral Ophthalmology Referral [address] [place] [address], [address] Referral Gastroenterology Referral Jasbir Fuchs MD, [address] [place] [address], [address] Referral Gastroenterology Referral Jasbir Fuchs MD, [address] [place] [address], [address] Referral Ophthalmology Referral Referral Rheumatology Referral Reyna Tucker MD, [address], [address], [place], [address] Referral Other Referral [facility], [address] [place], [address] Referral Other Referral [facility], [address] [place], [address] Referral Podiatry Referral Jared Powers, DPM, [address] [place], [address] Referral OT-Functional Capacity Evaluation Physical Therapy [facility], [address] [facility], [place], [address] Referral Dermatology Referral Nadine Marquez, [address] [place], [address] Referral Gastroenterology Referral Marlon Coon, [address] [place], [address] Referral Rheumatology Referral Reyna Tucker MD, [address], [address], [place], [address] Referral Pain Management Maricruz Hernandez, [address] [place] [address], [address], [place], [address] Pending order *Lipid Profile Pending order *CMP [...] Pending order Rapid Strep (Office) Pending order *[place] Test Pending order Administration Injection (Prophylactic, Therapeutic [...] Procedures Code Procedure Name Date Entry Date CPT-68897 HGB A1C (Office) 2143-6 *CAYDEN - Cortisol, A.M. 86506-0 *Lipid Profile 0667-1 *BMP PSGPCP PSG,CPAP (as indicated) ONLY PCP to follow up [id number] Ophthalmology Referral Order excluded from report: 0184-1 *CBC with Differential 69004-0 *CRP - C-Reative Protein 0786-1 *CMP Complete Metabolic Panel 4548-4 *HgA1C 51485-2 *Lipid Profile 0779-1 *Microalbumin, Creatine Ratio, rand urine 3016-3 *TSH 44718-4 *RA Rheumatoid Factor - Quaint 07502-7 *Sedimentation Rate (ESR) 82200-3 *UAC- Urinalysis, Complete w/ Micro 0523-1 *ANCA [id number] Ophthalmology Referral [id number] Rheumatology Referral CPT-56076 HGB A1C (Office) 4548-4 *HgA1C 3016-3 *TSH 36076-9 *Lipid Profile 0786-1 *CMP Complete Metabolic Panel Q968T,[id number] Lipid Profile CPT-84386 HGBA1C 3016-3 *TSH 0786-1 *CMP Complete Metabolic Panel 3016-3 *TSH 06957-4 *CBC without Diff 4086-5 *DEBRA Valpric Acid (Depakene, Dipropylacetic Acid) Drug Assay S8054S,[id number] Microalbumin urine CPT-54665 HGBA1C Q968T,[id number] Lipid Profile CPT-16746 X-Ray, Hip Unilateral Podiatry Referral Podiatry Referral 4548-4 *HgA1C 3016-3 *TSH 4086-5 *DEBRA Valpric Acid (Depakene, Dipropylacetic Acid) Drug Assay 23700-6 *CBC without Diff 0786-1 *CMP Complete Metabolic Panel 4548-4 *HgA1C 0786-1 *CMP Complete Metabolic Panel 34951-6 *Lipid Profile 4086-5 *DEBRA Valpric Acid (Depakene, Dipropylacetic Acid) Drug Assay 0667-1 *BMP 6462-6 *CUW - Culture, Wound (Aerobic) 2823-3 *Potassium; Serum, Plasma or Whole Blood 0433-1 *HEBSAG - Hep B Surface Antigen 6510 0363-1 *HECAB Hepatitis C Antibody 26562-6 *HEBSAB - Hep B Surface Antibody 6395 0197-1 *HIV antibody 87899-6 *RPR 4548-4 *HgA1C 0667-1 *BMP 82227-3 *CBC without Diff 0788-1 *Hepatic Function Panel 4086-5 *DEBRA Valpric Acid (Depakene, Dipropylacetic Acid) Drug Assay 0184-1 *CBC with Differential 3016-3 *TSH 3024-7 *T4 free 0786-1 *CMP Complete Metabolic Panel CPT-24318 UA Dipstick (Office) 44804 Fingerstick, glucose (office) Dermatology Referral Dermatology Referral CPT-20259 X-Ray, Chest, PA & Lateral CPT-19060 Rapid Strep (Office) 88154-7 *[place] Test CPT-43463 Administration Injection (Prophylactic, Therapeutic or Diagnostic) CPT-74039 Excision Benign Lesion Trunk/Arm/Ket <0.6 cm FUA 2 weeks Follow Up Appt 2 weeks 0788-1 *Hepatic Function Panel 4086-5 *DEBRA Valpric Acid (Depakene, Dipropylacetic Acid) Drug Assay FUA 2 weeks Follow Up Appt 2 weeks 30081-5 *CBC without Diff Order excluded from report: 28713-8 *CBC without Diff Order excluded from report: FUA as scheduled Follow Up as scheduled Gastroenterology Ref Gastroenterology Referral CPT-90364 US Transvaginal Order excluded from report: FUA 1 week Follow up Appt 1 week 4548-4 *HgA1C 03201-2 *Lipid Profile 0786-1 *CMP Complete Metabolic Panel FUA 3 months Follow Up Appt 3 months 4548-4 *HgA1C Order excluded from report: 0667-1 *BMP Order excluded from report: CPT-60916 *Liver/Hepatic Function Panel Order excluded from report: FUA 3 months Follow Up Appt 3 months CPT-36951 *Lipid Profile RheuRef Rheumatology Referral Pain Management Pain Management CPT-18403 *Lipid Profile CPT-24628 *CMP Complete Metabolic Panel CPT-48569 *HgA1C CPT-19069 *TSH CPT-42187 *CBC without Diff CPT-50525 *Creatine Kinase (CK) CRP *CRP CPT-39051 *Sedimentation Rate (ESR) FUA 2 weeks Follow Up Appt 2 weeks Vital Signs Date Name Value Unit Description BMI (Body Mass Index) 31.64 kg/m2 Body Mass Index [Ratio] Body Temperature 98.5 [degF] temperature E&M BP Diastolic 80 mm[Hg] blood pressure, diastolic - 8462-4 BP Systolic 120 mm[Hg] blood pressure, systolic - 8480-6 Heart Rate 106 /min pulse rate E&M - 8867-4 Height 62 [in_us] height E&M - 8302-2 Respiratory Rate 18 /min respiratory rate E&M - 9279-1 Weight Measured 173 [lb_av] weight E&M - 3141-9 BSA (Body Surface Area) 1.90 body surface area
--- OUTSIDE RECORDS SUMMARY | 2018-09-04 11:24 | XMS RPT_ITS | Clinical Summary ---
:1985 Author Organization [facility], [facility] Address [address] [place] [id number] Phone Care Team Providers Name Role Phone Mike GARNERKay Unavailable Conditions or Problems Problem Problem Onset Status Entry Provider Comment Standard Annotate Name Code Date Date Description Hypersomni [id number] Active Gabriel A Hypersomnia a (SNOMED 03/19 03/[address]) Peripheral 765615778 Active Gabriel A Peripheral edema (SNOMED 03/19 03/[address]) Abnormal 298650166 Inactive Gabriel A Abnormal weight (SNOMED 03/19 03/19 Mauricio DO weight gain gain CT) ARTHRITIS, 09544392 Active Gabriel A Rheumatoid RHEUMATOID (SNOMED 09/09 09/[address]) Urinary 949166541 Resolved Gabriel A Increased frequency (SNOMED 10/24 10/[address] of CT) urination Diarrhea, 818790333 Resolved Gabriel A Chronic chronic (SNOMED 10/24 10/[address]) Hypertrigl 354144908 Active Gabriel A Hypertriglycer >800 yceridemia (SNOMED 10/30 10/[address]) Greater 2940805 Inactive Gabriel A Trochanteric trochanter (SNOMED 10/24 10/24 Mauricio DO bursitis ic CT) bursitis, left Diarrhea, 871743331 Removed Gabriel A Chronic chronic (SNOMED 10/24 10/[address]) Urinary 731709661 Removed Gabriel A Increased frequency (SNOMED 10/24 10/24 Mauricio DO frequency of CT) urination UPPER 90372191 Resolved Gabriel A Upper RESPIRATOR (SNOMED 09/13 09/13 [facility] respiratory Y CT) infection INFECTION Migraine 68646434 Active Gabriel A Migraine headache (SNOMED 04/04 04/[address] [facility] [address]) Foot pain, 59288829 Inactive Gabriel A Foot pain left (SNOMED 02/07 02/[address] [facility] [address]) UPPER [id number] Removed Gabriel A Upper RESPIRATOR (SNOMED 09/13 09/13 [facility] respiratory Y CT) infection INFECTION Hypertrigl 443451816 Resolved Gabriel A Hypertriglycer yceridemia (SNOMED 10/25 10/[address] [facility] [address]) LEG PAIN, 27001574 Resolved Gabriel A Pain in lower BILATERAL (SNOMED 03/15 03/[address] [facility] [address]) POLYCYSTIC 60675640 Resolved Gabriel A Polycystic OVARIAN (SNOMED 03/15 03/[address] [facility] [address] CT) DEPRESSION 66064319 Resolved Gabriel A Recurrent since age , MAJOR, (SNOMED 03/15 [facility] major [address]) depression MUSCLE 58100847 Resolved Gabriel A Muscle WEAKNESS (SNOMED 03/15 03/15 [facility] weakness (GENERALIZ CT) ED) NIPPLE 261536932 Resolved Gabriel A Bloody nipple DISCHARGE, (SNOMED 03/23 03/[address] [facility] discharge BLOODY CT) HYPERSOMNI 38407396 Resolved Gabriel A Hypersomnia A (SNOMED 04/06 04/[address] [facility] [address]) SKIN RASH 397051903 Resolved Gabriel A Eruption (SNOMED 10/03 10/[address] [facility] [address]) SEXUALLY 541475577 Resolved Gabriel A Exposure to TRANSMITTE (SNOMED 10/04 10/04 [facility] sexually D DISEASE, CT) transmissible EXPOSURE disorder TO HYPOKALEMI 40019668 Resolved Gabriel A Hypokalemia A (SNOMED 11/03 11/[address] [facility] [address]) Ingrown 799002577 Resolved Gabriel A Ingrowing nail toenail (SNOMED [facility] CT) Hip pain, 02015338 Resolved Gabriel A Hip pain right (SNOMED 09/13 09/[address] [facility] [address]) Bronchitis 45280490 Resolved Gabriel A Acute , acute (SNOMED 10/25 11/[address] [facility] [address]) Chronic 568158815 Active Gabriel A Chronic pain pain (SNOMED 12/22 12/22 [facility] syndrome syndrome CT) Bronchitis 64513699 Removed Jianming Acute , acute (SNOMED 10/25 11/[address] [facility] [address]) Paronychia 094598141 Resolved Jianming Paronychia of left big , great (SNOMED [facility] toe toe toe CT) Hypertrigl 630125158 Removed Jianming Hypertriglycer yceridemia (SNOMED 10/25 10/[address] [facility] [address]) Superficia 118957090 Resolved Jianming Superficial right l vein (SNOMED 09/29 09/29 [facility] vein basilic thrombosis CT) thrombosis vein from just above elbow to wrist Superficia [id number] Removed Jianming Superficial right l vein (SNOMED 09/29 09/29 [facility] vein basilic thrombosis CT) thrombosis vein from just above elbow to wrist Hip pain, 79921728 Removed Jianming Hip pain right (SNOMED 09/13 09/[address] [facility] [address]) Ingrown 073255544 Removed Jianming Ingrowing nail toenail (SNOMED [facility]) Paronychia 802961190 Removed Jianming Paronychia of left big , great (SNOMED [facility] toe toe toe CT) Back pain, 032490875 Active Jianming Low back pain chronic s/p lumbar (SNOMED [facility] surgery CT) NAUSEA AND 92106071 Resolved Jianming Nausea and VOMITING (SNOMED 11/12 11/[address] [facility] [address]) OTITIS [id number] Resolved Rehana E Chronic otitis EXTERNA, (SNOMED 08/30 08/[address] [facility] [address]) OTITIS [id number] Resolved Rehana E Acute otitis MEDIA, (SNOMED 08/18 08/18 [facility] media ACUTE, CT) BILATERAL DKA 916085624 Resolved Jianming Diabetic (SNOMED [facility] ketoacidosis CT) CELLULITIS [id number] Resolved Jianming Cellulitis of the (SNOMED 11/03 11/[address] [facility] [address]) site NAUSEA AND 27857595 Removed Jianming Nausea and VOMITING (SNOMED 11/12 11/[address] [facility] [address]) HYPOKALEMI 23113951 Removed Jianming Hypokalemia A (SNOMED 11/03 11/[address] [address]) CELLULITIS 853074439 Removed Jianming Cellulitis of the (SNOMED 11/03 11/[address] [facility] [address]) site SEXUALLY 211526251 Removed Marianna A Exposure to TRANSMITTE (SNOMED 10/04 10/04 [facility] sexually D DISEASE, CT) transmissible EXPOSURE disorder TO OTITIS 2810980 Removed Jianming Acute otitis MEDIA, (SNOMED 08/18 08/18 [facility] media ACUTE, CT) BILATERAL OTITIS 4043519 Correctio Jianming Acute otitis MEDIA, (SNOMED 08/18 n 08/18 [facility] media ACUTE, CT) BILATERAL SKIN RASH [id number] Removed Ness J Eruption (SNOMED 10/03 10/[address]) OTITIS 47930392 Removed Ness J Chronic otitis EXTERNA, (SNOMED 08/30 08/30 Signs MD externa CHRONIC CT) DKA 870695043 Removed Jianming Diabetic (SNOMED [facility] ketoacidosis CT) OTITIS 2005569 Resolved Jianming Otitis externa EXTERNA (SNOMED 03/23 03/[address] [address]) HYPERSOMNI 60214727 Removed Jianming Hypersomnia A (SNOMED 04/06 04/[address] [address]) ALLERGIC 13885586 Active Jianming Allergic RHINITIS (SNOMED 04/06 04/[address] [facility] [address]) OTITIS [id number] Removed Jianming Otitis externa EXTERNA (SNOMED 03/23 03/[address] [address]) NIPPLE 334438844 Removed Jianming Bloody nipple DISCHARGE, (SNOMED 03/23 03/[address] [facility] [address] BLO[address]) NIPPLE 022543242 Correctio Jianming Bloody nipple DISCHARGE, (SNOMED 03/23 n 03/[address] [facility] [address]) OTITIS 3563144 Correctio Jianming Otitis externa EXTERNA (SNOMED 03/23 n 03/[address] [address]) 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, (SNOMED 02/10 02/[address]) POLYCYSTIC 63002821 Active Ness J Polycystic OVARIAN (SNOMED 02/10 02/[address]) FIBROMYALG 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, SEVERE (SNOMED 02/10 02/[address]) IMMUNOCOMP 858671905 Active Ness J Immunodeficien ROMISED (SNOMED 02/10 02/[address]) HUMAN 861449362 Active Ness J Human PAPILLOMAV (SNOMED 02/10 02/[address]) virus infection TACHYCARDI 6949557 Active Jianming Tachycardia since 2004 A (SNOMED 01/[address] [address]) HYPOGLYCEM 043216096 Resolved Jianming Hypoglycemia IA (SNOMED 09/24 09/[address] [address]) MOVEMENT 04642327 Resolved Jianming Movement DISORDER (SNOMED 09/24 09/[address] [facility] [address]) ROSACEA 075912045 Active Jianming Rosacea (SNOMED 01/14 01/[address] [address]) TACHYCARDI 9479560 Resolved Jianming Tachycardia A (SNOMED 03/[address] [address]) GLUCOCORTI 949641552 Resolved Jianming 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 PHARYNGITI 750139376 Resolved Jianming Acute S, ACUTE (SNOMED 09/07 09/[address] [facility] [address]) UPPER 11964503 Resolved Jianming Upper RESPIRATOR (SNOMED 09/13 09/[address] [facility] respiratory Y CT) infection INFECTION COUGH 96588855 Resolved Jianming Cough (SNOMED 09/13 09/[address] [facility] [address]) HYPOGLYCEM 317213182 Removed Jianming Hypoglycemia IA (SNOMED 09/24 09/[address] [facility] [address]) MOVEMENT 12920227 Removed Jianming Movement DISORDER (SNOMED 09/24 09/[address] [facility] [address]) COUGH [id number] Removed Salma M Cough (SNOMED 09/13 09/[address]) UPPER [id number] Removed Salma M Upper RESPIRATOR (SNOMED 09/13 09/[address]) infection INFECTION PHARYNGITI 953239421 Removed Jianming Acute S, ACUTE (SNOMED 09/07 09/[address] [facility] [address]) MELENA [id number] Resolved Jianming Melena (SNOMED 11/06 11/[address] [address]) LOCALIZED R22.9 Resolved Jianming Localized right SUPERFICIA (ICD-10-CM [facility] swelling, mass axillary L SWELLING ) and lump, MASS OR unspecified LUMP LIVER V12.2 Resolved Jianming Personal FUNCTION (ICD-9-CM) 03/15 03/15 [facility] history of TESTS, endocrine, ABNORMAL, metabolic, and HX OF immunity disorders CONSTIPATI 169892361 Resolved Jianming Chronic ON, (SNOMED 09/23 09/[address] [facility] [address]) ABDOMINAL R10.31 Resolved Jianming Right lower PAIN RIGHT (ICD-10-CM 09/23 09/23 [facility] quadrant pain LOWER ) QUADRANT OTITIS 5326327 Resolved Jianming Otitis externa EXTERNA (SNOMED 08/22 08/[address] [facility] [address]) GLUCOCORTI 531446184 Removed Jianming 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 OTITIS 3182171 Removed Jianming Otitis externa EXTERNA (SNOMED 08/22 08/[address] [facility] [address]) LOCALIZED R22.9 Removed Jianming Localized right SUPERFICIA (ICD-10-CM [facility] swelling, mass axillary L SWELLING ) and lump, MASS OR unspecified LUMP BIPOLAR 896022744 Active Jianming Bipolar diagnosed AFFECTIVE (SNOMED 02/19 [facility] affective by DISORDER, CT) disorder, psychiatris DEPRESSED current t at episode Kristian depression in [place] GASTROESOP 095056536 Active Jianming Gastroesophage HAGEAL (SNOMED 02/19 [facility] al reflux REFLUX CT) disease DISEASE INSOMNIA, 829264928 Active Jianming Insomnia CHRONIC (SNOMED 02/19 02/[address] [facility] [address]) ACUTE 51417700 Resolved Jianming Acute ETHMOIDAL (SNOMED 09/18 09/18 [facility] ethmoidal SINUSITIS CT) sinusitis MELENA 4929115 Removed Luis Eduardo M Melena (SNOMED 11/06 11/[address]) ACUTE 72911668 Removed Jianming Acute ETHMOIDAL (SNOMED 09/18 09/18 [facility] ethmoidal S[address]US[address]IS CT) sinusitis ABDOMINAL R10.31 Removed Jianming Right lower PAIN RIGHT (ICD-10-CM 09/23 09/23 [facility] quadrant pain LOWER ) QUADRANT CONSTIPATI 114415616 Removed Jianming Chronic ON, (SNOMED 09/23 09/[address] [facility] [address]) ARTHRITIS, 12893221 Inactive Jianming Rheumatoid f/u RHEUMATOID (SNOMED 09/09 09/[address] [facility] [address] [place] [address]) DYSLIPIDEM 905511893 Active Jianming Dyslipidemia IA (SNOMED 04/03 04/[address] [address]) MUSCLE 45663542 Removed Jianming Muscle WEAKNESS (SNOMED 03/15 03/15 [facility] weakness (GENERALIZ CT) ED) DEPRESSION 45882460 Removed Jianming Recurrent since age , MAJOR, (SNOMED 03/15 [facility] major [address]) depression POLYCYSTIC 37685799 Removed Jianming Polycystic OVARIAN (SNOMED 03/15 03/[address] [facility] [address]) IRRITABLE 65448175 Active Jianming Irritable BOWEL (SNOMED 03/15 03/15 [facility] bowel syndrome SYNDROME CT) TACHYCARDI 4871467 Removed Jianming Tachycardia A (SNOMED 03/[address] [facility] [address]) LEG PAIN, 25634052 Removed Jianming Pain in lower BILATERAL (SNOMED 03/15 03/[address] [facility] [address]) HYPOTHYROI 31717158 Active Jianming Hypothyroidism DISM (SNOMED 08/11 03/[address] [facility] [address]) DIABETES 02590619 08/11/19 Active Jianming Type 1 MELLITUS, (SNOMED 03/15 [facility] diabetes TYPE I CT) mellitus LIVER V12.2 Removed Jianming Personal FUNCTION (ICD-9-CM) 03/15 03/15 [facility] history of TESTS, endocrine, ABNORMAL, metabolic, and HX OF immunity disorders Medications Medication Instructions Start Stop Generic Name ND Provider Date Date FREESTYLE LITE Use for 2024/ BLOOD GLUCOSE [id number] Kay ROMAN diabetes to 07/02 MONITORING SUPPL Mike GARNER test blood glucose level 6 times daily ICD!) E10.9 FREESTYLE LITE Use for 2024/ BLOOD GLUCOSE [id number] Kay ROMAN diabetes /07/02 MONITORING SUPPL Mike GARNER ICD!) E10.9 FREESTYLE LITE Check BG 6 2024/ GLUCOSE BLOOD [id number] Kay Franco TEST STRP times daily /07/02 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 E10.9 NOVOLOG 100 Take 35 units 2024/ INSULIN ASPART 94605577155 Kay Franco UNIT/ML SOLN each meal /07/02 Mike GARNER FREESTYLE LITE Check BG 6 2024/ GLUCOSE BLOOD [id number] Kay Franco TEST STRP times daily /07/02 Mike GARNER FREESTYLE LITE Use for 2024/ BLOOD GLUCOSE 55076924770 Kay Franco JESSIE diabetes /07/02 MONIT[employer]ING SUPPL Mike GARNER ATORVASTATIN One tablet by ATORVASTATIN CALCIUM 28076990404 Gabriel A CALCIUM 20 MG mouth daily at / [facility] TABS night for high cholesterol FUROSEMIDE 20 MG One tablet by FUROSEMIDE 64945983793 Gabriel A TABS mouth daily / [facility] DEXAMETHASONE 1 One tab by DEXAMETHASONE 94169328123 Gabriel A MG TABS mouth at 11pm, / [facility] lab work at 8AM the next morning ZYRTEC ALLERGY One tablet by CETIRIZINE HCL 48296877655 Gabriel A 10 MG TABS mouth daily at / [facility] bedtime ATENOLOL 50 MG One tablet by ATENOLOL 97119775024 Gabriel A TABS mouth twice / [facility] daily OMEPRAZOLE 20 MG One tablet by OMEPRAZOLE 28178912567 Gabriel A TBEC mouth daily / [facility] SYNTHROID 137 One tablet by LEVOTHYROXINE SODIUM 55936720065 Gabriel A MCG TABS mouth daily / [facility] NOVOLIN N 100 40-50 units INSULIN ISOPHANE 57731563156 Gabriel A UNIT/ML SUSP twice daily / HUMAN [facility] ACYCLOVIR 400 MG One tablet by ACYCLOVIR 64871422083 Gabriel A TABS mouth daily / [facility] EFFEXOR XR 75 MG Three tablets VENLAFAXINE HCL 27503222009 Gabriel A [id number] by mouth daily / [facility] NOVOLOG 100 15-30 units INSULIN ASPART 65825405220 Gabriel A UNIT/ML SOLN three times a [facility] day with meals DIVALPROEX Two tablets by DIVALPROEX SODIUM 46935963877 Gbariel A SODIUM 250 MG mouth daily /04 Mauricio DO TBEC SEROQUEL 200 MG One tablet by QUETIAPINE FUMARATE 90716728145 Gabriel A TABS mouth daily / Mauricio DO BD INSULIN 5-6 times INSULIN 83054162307 Gabriel A SYRINGE daily DX: DM [facility]E-NEEDLE [facility]G X type I 1/2 0.5 ML MISC FENOFIBRATE 48 Two tablets FENOFIBRATE 84733034244 Gabriel A MG TABS daily /man DO DOXEPIN HCL 25 1 capsule by DOXEPIN HCL 91671286321 Gabriel A MG CAPS mouth at night /Mauricio DO for IBS ACYCLOVIR 400 MG One tablet by ACYCLOVIR 58188902987 Gabriel A TABS mouth twice Mauricio DO daily XIFAXAN 550 MG One tablet by 2015/ RIFAXIMIN 53095513665 Gabriel A TABS mouth three /11/07 Mauricio DO times daily DIAZEPAM 5 MG One tablet by DIAZEPAM 85980205301 Gabriel A TABS mouth daily /Mauricio DO every night, avoid driving or operating machine under the influence of medication. PROPRANOLOL HCL One capsule by PROPRANOLOL HCL 14874632226 Gabriel A ER 80 MG mouth daily at / Mauricio DO [id number] night for migraine prevention and tachycardia NOVOLOG 100 30 units three INSULIN ASPART 31415415211 Gabriel A UNIT/ML SOLN times a day /Mauricio DO with meals NOVOLIN N 100 45 units SC INSULIN ISOPHANE 50066716956 Gabriel A UNIT/ML SUSP twice daily / HUMAN Mauricio DO KLOR-CON M20 20 One tablet by POTASSIUM CHLORIDE 87756521049 Gabriel A MEQ CR-TABS mouth daily /12 MELANY CR Mauricio DO FOLIC ACID 1 MG Two tablets by FOLIC ACID 80143992399 Gabriel A TABS mouth daily / Mauricio DO ATENOLOL 50 MG One tablet by ATENOLOL 73083823011 Gabriel A TABS mouth twice / Mauricio DO daily NOVOLOG 100 25 units SC at INSULIN ASPART 73888974398 Gabriel A UNIT/ML SOLN BF, 30 units / Mauricio DO at Lunch and Supper FENOFIBRATE 48 One tablet by FENOFIBRATE 40399103466 Jianming MG TABS mouth daily, / [facility] then increase to two tablets if tolerate it DOXYCYCLINE One tablet by DOXYCYCLINE HYCLATE 01573187860 Jianming HYCLATE 100 MG mouth twice / [facility] CAPS daily x 10 days PRAVASTATIN One tablet by PRAVASTATIN SODIUM 19600390193 Jianming SODIUM 40 MG mouth daily / [facility] TABS every night AMOXICILLIN-POT One tablet by AMOXICILLIN-POT 25086006384 Jianming CLAVULANATE mouth twice / CLAVULANATE [facility] 875-125 MG TABS daily SYNTHROID 112 One tablet by LEVOTHYROXINE SODIUM 65996418438 Jianming MCG TABS mouth daily / [facility] QUETIAPINE Three tablets QUETIAPINE FUMARATE 83401386179 Jianming FUMARATE 50 MG by mouth daily / [facility] TABS at bed time DIVALPROEX One tablet by DIVALPROEX SODIUM 61677561615 Jianming SODIUM 250 MG mouth twice / [facility] TBEC daily DIAZEPAM 2 MG One tablet by DIAZEPAM 92407420012 Jianming TABS mouth daily / [facility] every night QUETIAPINE Two tablets by QUETIAPINE FUMARATE 60454896870 Jianming FUMARATE 50 MG mouth daily / [facility] TABS every night EFFEXOR XR 150 One tablet by VENLAFAXINE HCL 50007221967 Jianming MG [id number] mouth daily / [facility] COLACE 100 MG One tablet by DOCUSATE SODIUM 35481743568 Jianming CAPS mouth daily / [facility] PROMETHAZINE HCL One tablet by PROMETHAZINE HCL 43462965415 Jianming 12.5 MG TABS mouth three [facility] times daily as needed nausea/vomitin g DIAZEPAM 2 MG One tablet by DIAZEPAM 78536525061 Lakishanming TABS mouth twice / [facility] daily QUETIAPINE Two tablets by QUETIAPINE FUMARATE 77552519695 Jianming FUMARATE 50 MG mouth twice / [facility] TABS daily SULFAMETHOXAZOLE One tablet by SULFAMETHOXAZOLE-TRI 74291662419 Jianming -TRIMETHOPRIM mouth twice METHOPRIM [facility] 800-160 MG TABS daily AMPICILLIN 500 One tablet by AMPICILLIN 31535744337 Jianming MG CAPS mouth four [facility] times daily ZOLPIDEM One tablet by ZOLPIDEM TARTRATE 94575516733 Lakishanming TARTRATE 5 MG mouth daily / [facility] TABS every night DIVALPROEX One tablet by DIVALPROEX SODIUM 76706631538 Jianming SODIUM 125 MG mouth twice / [facility] TBEC daily QUETIAPINE one tablets by QUETIAPINE FUMARATE 56873745380 Jianming FUMARATE 50 MG mouth in AM , [facility] TABS two tablets by mouth in pM EFFEXOR XR 75 MG One tablet by VENLAFAXINE HCL 54931915402 Rabia [id number] mouth daily [facility] QUETIAPINE one tablets by QUETIAPINE FUMARATE 84384626314 Lakishanming FUMARATE 50 MG mouth in AM , [facility] TABS two tablets by mouth in pM SYNTHROID 100 One tablet by LEVOTHYROXINE SODIUM 72250883013 Lakishanming MCG TABS mouth daily / [facility] AMOXICILLIN-POT One tablet by AMOXICILLIN-POT 36960676886 Leticiaing CLAVULANATE mouth twice CLAVULANATE [facility] 875-125 MG TABS daily QUETIAPINE One tablet by QUETIAPINE FUMARATE 08747128731 Lakishanming FUMARATE 50 MG mouth twice / [facility] TABS daily x 1 day, then titrate up as directed VALIUM 2 MG TABS One tablet by DIAZEPAM 26701198693 Jianming mouth twice / [facility] daily ZOLPIDEM One tablet by ZOLPIDEM TARTRATE 29376736673 Lakishanming TARTRATE 5 MG mouth daily / [facility] TABS every night as needed, avoid driving or operating machine under the influence of medication. MUPIROCIN 2 % apply to MUPIROCIN 51272237716 Lakishadesantiago OINT affected area [facility] four times a day CIPRO HC 0.2-1 % 4 gtt to left CIPROFLOXACIN-HYDROC 59384421619 [facility] SUSP ear three ORTISONE [facility] times a day PODOCON 25 % PODOPHYLLUM RESIN 34632369653 Ness J SOLN /17 Signs ACYCLOVIR 800 MG one po q 8 hrs ACYCLOVIR 55463523083 Ness J TABS /17 Signs FAMVIR 500 MG one po tid FAMCICLOVIR 65278035328 Ness J TABS /03 Signs METROGEL 1 % GEL apply to METRONIDAZOLE 06253925746 Jianming affected area / [facility] thin layer, once daily DOXYCYCLINE One tablet by DOXYCYCLINE HYCLATE 16826410825 Jianming HYCLATE 100 MG mouth twice / [facility] CAPS daily x 10 days, then One tablet by mouth daily VENLAFAXINE HCL One tablet by VENLAFAXINE HCL 93966272106 Jianming ER 75 MG mouth daily / [facility] [id number] TRAZODONE HCL 50 Two tablets by TRAZODONE HCL 70235666318 Jianming MG TABS mouth daily / [facility] AZITHROMYCIN 250 two tablets by AZITHROMYCIN 81501037084 Jianming MG TABS mouth on day [facility] one, and one tablets daily one day 2-5 EFFEXOR XR 37.5 One tablet by VENLAFAXINE HCL 87717833751 Jianming MG [id number] mouth daily / [facility] CETRAXAL 0.2 % 4-5 drop CIPROFLOXACIN HCL 51924363425 Jiaefraíning SOLN affected ear / [facility] three times a day DIVALPROEX One tablet by DIVALPROEX SODIUM 87918240017 Jianming SODIUM 250 MG mouth twice / [facility] TBEC daily DISABILITY DX: Rheumatoid DISABILITY PLACARD Jiaefraíning PLACARD arthritis / [facility] duration: five years PROTONIX 40 MG One tablet by PANTOPRAZOLE SODIUM 75540067483 Jianming PACK mouth daily. / [facility] DIVALPROEX One tablet by DIVALPROEX SODIUM 78018154072 Jianming SODIUM 125 MG mouth twice / [facility] TBEC daily ATENOLOL 50 MG One tablet by ATENOLOL 37954872546 Jianming TABS mouth daily at / [facility] bedtime TRAZODONE HCL 50 One tablet by TRAZODONE HCL 16705200290 Jianming MG TABS mouth daily / [facility] every night CITALOPRAM One tablet by CITALOPRAM 36328954224 Jianming HYDROBROMIDE 40 mouth daily / HYDROBROMIDE [facility] MG TABS NOVOLIN N 100 40 units SC INSULIN ISOPHANE 37163275911 Jianming UNIT/ML SUSP twice daily / HUMAN [facility] HUMALOG 100 30 units SC INSULIN LISPRO 96895812772 Jianming UNIT/ML SOLN before meals (HUMAN) [facility] AUGMENTIN XR One tablet by AMOXICILLIN-POT 76134474022 Jianming 1000-62.5 MG mouth twice / CLAVULANATE [facility] [id number] daily METHOTREXATE 2.5 4 pills by METHOTREXATE SODIUM 15321534635 Jianming MG TABS mouth once / [facility] weekly CIPROFLOXACIN One tablet by 2010/ CIPROFLOXACIN HCL 39394572599 Lakishanming HCL 500 MG TABS mouth twice /08/02 [facility] daily METRONIDAZOLE One tablet by 2010/ METRONIDAZOLE 02693221506 Jianming 500 MG TABS mouth three /13 08/02 [facility] times daily INDOMETHACIN 25 1-2 tablets INDOMETHACIN 13499591448 Jianming MG CAPS three times a [facility] day as needed pain GLUCOMETER use as GLUCOMETER Jianming directed AC / [facility] and [facility] HUMALOG 100 40 units SC at INSULIN LISPRO 15779221320 Lakishanming UNIT/ML SOLN each meal / (HUMAN) [facility] PRAVASTATIN One tablet by PRAVASTATIN SODIUM 54543900093 Lakishanming SODIUM 80 MG mouth daily / [facility] TABS LEVEMIR 100 40 units SC INSULIN DETEMIR 82119447402 Lakishanming UNIT/ML SOLN twice daily / [facility] NOVOLIN N 100 40 units SQ INSULIN ISOPHANE 06703526163 Luis Eduardo M UNIT/ML SUSP twice daily. / HUMAN [facility] HUMULIN N 100 40 units twice INSULIN ISOPHANE 85252362653 Jianming UNIT/ML SUSP daily / HUMAN [facility] HUMALOG 100 20 units per INSULIN LISPRO 22072345897 Jianming UNIT/ML SOLN (HUMAN) [facility] ULTRAM 50 MG Two tablets by TRAMADOL HCL 21737767331 Jianming TABS mouth [facility] times daily, avoid driving or operating machine under the influence of medication. PRAVASTATIN One tablet by PRAVASTATIN SODIUM 34449742734 Lakishanming SODIUM 20 MG mouth daily / [facility] TABS every night TRAZODONE HCL 50 One tablet by TRAZODONE HCL 75490424824 Jianming MG TABS mouth daily / [facility] every night LEXAPRO 20 MG One tablet by ESCITALOPRAM OXALATE 36740874570 Jianming TABS mouth daily / [facility] ATENOLOL 50 MG One tablet by ATENOLOL 67402834327 Jianming TABS mouth daily at [facility] bedtime HYDROCODONE-ACET One tablet by HYDROCODONE-ACETAMIN 96713563147 Rabia AMINOPHEN 5-500 mouth HUBERT Carlson MD MG TABS times daily avoid driving or operating machine under the influence of medication. HYDROCODONE-ACET One tablet by 2011/ HYDROCODONE-ACETAMIN 51269968578 Rabia AMINOPHEN 5-500 mouth 02/19 HUBERT Carlson MD MG TABS times daily avoid driving or operating machine under the influence of medication. ULTRAM 50 MG Two tablets by 2011/ TRAMADOL HCL 56284001088 Jianming TABS mouth 09/18 [facility] times daily, avoid driving or operating machine under the influence of medication. AUGMENTIN XR One tablet by 2011/ AMOXICILLIN-POT 88269632204 Luis Eduardo 1000-62.5 MG mouth twice /11/06 CLAVULANATE [facility] [id number] daily FOLIC ACID 1 MG 2 tablets by FOLIC ACID 09853946934 Jianming TABS mouth daily / [facility] FOLIC ACID 1 MG 2 tablets by 2011/ FOLIC ACID 86199321224 Luis Eduardo M TABS mouth daily /11/06 [facility] LEUCOVORIN one tablet by LEUCOVORIN CALCIUM 67286606877 Jianming CALCIUM 5 MG mouth once / [facility] TABS weekly LEUCOVORIN one tablet by 2011/ LEUCOVORIN CALCIUM [id number] Luis Eduardo Milton CALCIUM 5 MG mouth once /11/06 Kunal IQBAL TABS weekly LEVEMIR 100 40 units SC 2010/ INSULIN DETEMIR 01659679869 Jianming UNIT/ML SOLN twice daily 07/11 Aldo IQBAL HUMALOG 100 INSULIN LISPRO 79748996422 Jianming UNIT/ML SOLN (HUMAN) Aldo IQBAL HUMULIN N 100 40 units twice 2010/ INSULIN ISOPHANE 57743384405 Luis Eduardo M UNIT/ML SUSP daily 07/01 HUMAN Kunal IQBAL NOVOLIN N 100 40 units SQ 2010/ INSULIN ISOPHANE 07170989065 Jianming UNIT/ML SUSP twice daily. 07/10 HUMAN Aldo IQBAL INDOMETHACIN 25 1-2 tablets 2011/ INDOMETHACIN 65733993104 Jianming MG CAPS three times 02/19 Aldo IQBAL day as needed pain METANX 3-35-2 MG One tablet by [id number] 25894947239 Luis Eduardo Yoan TABS mouth twice 2 Kunal IQBAL daily METANX 3-35-2 MG One tablet by 2011/ [id number] 68943824933 Jianming TABS mouth twice 06/03 2 Aldo IQBAL daily ENBREL 50 MG/ML 1 time weekly ETANERCEPT 00403055220 Lakishanming SOSY / Aldo IQBAL ENBREL 50 MG/ML 1 time weekly 2011/ ETANERCEPT 86204589172 Jianming SOSY /12 06/03 Aldo IQBAL PROTONIX 40 MG One tablet by 2011/ PANTOPRAZOLE SODIUM 81487132833 Jianming PACK mouth daily. 06/03 Aldo IQBAL DIVALPROEX One tablet by 2011/ DIVALPROEX SODIUM 96340572296 Jianming SODIUM 250 MG mouth twice 06/03 Aldo IQBAL TBEC daily PREDNISONE 10 MG One tablet by PREDNISONE 52679393949 Jianming TABS mouth twice / Aldo IQBAL daily PREDNISONE 10 MG One tablet by 2011/ PREDNISONE 58827921863 Jianming TABS mouth twice /06/03 Aldo IQBAL daily CITALOPRAM One tablet by 2011/ CITALOPRAM 62929103770 Jianming HYDROBROMIDE 40 mouth daily 06/03 HYDROBROMIDE Aldo IQBAL MG TABS NUCYNTA 50 MG One tablet by TAPENTADOL HCL 80325830935 Jianming TABS mouth twice / Aldo IQBAL daily NUCYNTA 50 MG One tablet by 2011/ TAPENTADOL HCL 52644588010 Jianming TABS mouth twice /06/03 Aldo IQBAL daily NEURONTIN 100 MG One tablet by GABAPENTIN 19309219338 Jianming CAPS mouth twice / Aldo IQBAL daily NEURONTIN 100 MG One tablet by 2011/ GABAPENTIN 11370847630 Jianming CAPS mouth twice /06/03 Aldo IQBAL daily LEVOTHYROXINE One tablet by LEVOTHYROXINE SODIUM 53111617829 Lakishanming SODIUM 125 MCG mouth daily / Aldo IQBAL TABS HUMALOG 100 40 units SC at 2011/ INSULIN LISPRO 27166022281 Jianming UNIT/ML SOLN each meal /06/03 (HUMAN) Aldo IQBAL NOVOLIN N 100 40 units SC 2011/ INSULIN ISOPHANE 05371767275 Jianming UNIT/ML SUSP twice daily /06/03 HUMAN Aldo IQBAL AZITHROMYCIN 250 two tablets by 2012/ AZITHROMYCIN 36570387386 Jianming MG TABS mouth on 09/24 Aldo IQBAL one, and one tablets daily one day 2-5 HUMIRA PEN 40 1 injection ADALIMUMAB 89455881745 Jianming MG/0.8ML KIT every Aldo IQBAL week HUMIRA PEN 40 1 injection 2012/ ADALIMUMAB 39394056139 Jianming MG/0.8ML KIT every other /14 01/14 Aldo IQBAL week EFFEXOR XR 37.5 One tablet by 2012/ VENLAFAXINE HCL 11402228990 Jianming MG [id number] mouth daily /01/14 Aldo IQBAL DOXYCYCLINE One tablet by 2012/ DOXYCYCLINE HYCLATE 09118497840 Ness Franco HYCLATE 100 MG mouth twice /02/10 Maria Elena IQBAL CAPS daily x 10 days, then One tablet by mouth daily VENLAFAXINE HCL One capsule by VENLAFAXINE HCL 83810560487 Salma Milton ER 75 MG mouth daily / Mallorie [id number] VENLAFAXINE HCL One capsule by 2012/ VENLAFAXINE HCL 60914100181 Ness Franco ER 75 MG mouth daily /02/10 Signs [id number] NUCYNTA ER 50 MG One tablet by TAPENTADOL HCL 15816609581 Jianming [id number] mouth Aldo IQBAL times daily NUCYNTA ER 50 MG One tablet by 2012/ TAPENTADOL HCL 04432606198 Ness J [id number] mouth three 02/10 Maria Elena IQBAL times daily CETRAXAL 0.2 % 4-5 drop 2012/ CIPROFLOXACIN HCL 43401412589 Jianming SOLN affected ear /09/24 Aldo IQBAL three times a day PRAVASTATIN One tablet by PRAVASTATIN SODIUM 54220751389 Jianming SODIUM 40 MG mouth daily / Aldo IQBAL TABS PRAVASTATIN One tablet by 2012/ PRAVASTATIN SODIUM 56636486167 Jianming SODIUM 40 MG mouth daily /09/24 Aldo IQBAL TABS SOLU-CORTEF 100 One tablet by HYDROCORTISONE SOD 11068571509 Jianming MG SOLR mouth daily as SUCCINATE Aldo IQBAL needed SOLU-CORTEF 100 One tablet by 2012/ HYDROCORTISONE SOD 14143722862 Jianming MG SOLR mouth daily as /24 10/19 SUCCINATE Aldo IQBAL needed HYDROCORTISONE 5 One tablet by HYDROCORTISONE 98949248363 Jianming MG TABS mouth daily / Aldo IQBAL HYDROCORTISONE 5 One tablet by 2012/ HYDROCORTISONE 06547117769 Jianming MG TABS mouth daily /10/19 Aldo CHIANG 10 one patch per BUPRENORPHINE 99426667289 Jianming MCG/HR PTWK week Aldo CHIANG 10 one patch per 2012/ BUPRENORPHINE 19493842216 Jianming MCG/HR PTWK week 10/19 Aldo IQBAL HUMULIN R U-500 12 units per INSULIN REGULAR 76301346661 Leticiaing (CONCENTRATED) meal / HUMAN Aldo IQBAL 500 UNIT/ML LIZZETTE HUMULIN R U-500 12 units per 2012/10 2013/ INSULIN REGULAR 92466768561 Jianming (CONCENTRATED) meal /10/19 HUMAN Aldo IQBAL 500 UNIT/ML SOLN METHOTREXATE 2.5 4 pills by 2012/ METHOTREXATE SODIUM 74901422689 Ness J MG TABS mouth once /08/02 Signs weekly LEUCOVORIN 2 tablets by LEUCOVORIN CALCIUM 07508555472 Jianming CALCIUM 5 MG mouth once / Aldo IQBAL TABS weekly LEUCOVORIN 2 tablets by 2012/ LEUCOVORIN CALCIUM 63628981930 Ness J CALCIUM 5 MG mouth once /08/02 Signs TABS weekly SYNTHROID 137 One tablet by LEVOTHYROXINE SODIUM 91481950482 Jianming MCG TABS mouth daily / Aldo IQBAL SYNTHROID 137 One tablet by 2012/ LEVOTHYROXINE SODIUM 92693320629 Rehana E MCG TABS mouth daily /08/03 [employer] AMOXICILLIN-POT One tablet by 2013/ AMOXICILLIN-POT 23080246147 Jianming CLAVULANATE mouth twice /09/13 CLAVULANATE Aldo IQBAL 875-125 MG TABS daily METROGEL 1 % GEL apply to 2012/ METRONIDAZOLE 95514103381 Jianming affected area /06/07 Aldo IQBAL thin layer, once daily OMEPRAZOLE 20 MG One tablet by OMEPRAZOLE 96514476649 Jianming TBEC mouth daily / Aldo IQBAL OMEPRAZOLE 20 MG One tablet by 2012/ OMEPRAZOLE 26768428026 Jianming TBEC mouth daily /06/07 Aldo IQBAL FAMVIR 500 MG one po tid 2012/ FAMCICLOVIR 38222355306 Jianming TABS /06/07 Aldo IQBAL FENTANYL 25 change q 3 FENTANYL 47826497358 Ness J MCG/HR PT72 days Signs FENTANYL 25 change q 3 2012/ FENTANYL 94925573198 Jianming MCG/HR PT72 days 06/07 Aldo IQBAL TRAZODONE HCL 50 Two tablets by 2012/ TRAZODONE HCL 51976409137 Jianming MG TABS mouth daily /04/06 Aldo IQBAL MUPIROCIN 2 % apply to 2012/ MUPIROCIN 49093316318 Jianming OINT affected area /28 Aldo IQBAL four times a day ZOLPIDEM One tablet by 2012/ ZOLPIDEM TARTRATE 89539619036 Jianming TARTRATE 5 MG mouth daily /06/07 Aldo IQBAL TABS every night as needed, avoid driving or operating machine under the influence of medication. PODOCON 25 % 2012/ PODOPHYLLUM RESIN 33179624074 Leticiaing SOLN /06/07 Aldo IQBAL ACYCLOVIR 800 MG one po q 8 hrs 2012/ ACYCLOVIR 84732173453 Jianming TABS /06/07 Aldo IQBAL CIPRO HC 0.2-1 % 4 gtt to left 2012/ CIPROFLOXACIN-HYDROC 65492350585 Leticiaing SUSP ear three 06/07 ORTISONE Aldo MD times a day VALIUM 2 MG TABS One tablet by 2013/ DIAZEPAM 35855648717 Jianming mouth twice /11/19 Aldo IQBAL daily PROMETHAZINE HCL One tablet by 2013/ PROMETHAZINE HCL 63156634111 Jianming 12.5 MG TABS mouth 12/20 Aldo IQBAL times daily as needed nausea/vomitin g DIVALPROEX One tablet by 2013/ DIVALPROEX SODIUM 04562794487 Jianming SODIUM 125 MG mouth twice /11/12 Aldo IQBAL TBEC daily ZOLPIDEM One tablet by 2013/ ZOLPIDEM TARTRATE 92845490781 Jianming TARTRATE 5 MG mouth daily /11/19 Aldo IQBAL TABS every night SYNTHROID 100 One tablet by 2013/ LEVOTHYROXINE SODIUM 33590570701 Leticiaing MCG TABS mouth daily /10/22 Aldo IQBAL DEPO-SUBQ once every MEDROXYPROGESTERONE 79182448128 Lakishanming PROVERA 104 104 three months SARITA Carlson MD MG/0.65ML PARVIN DEPO-SUBQ once every 2013/ MEDROXYPROGESTERONE 33569803962 Jianming PROVERA 104 104 three months /11/03 SARITA Carlson MD MG/0.65ML PARVIN NOVOLIN N 100 40 units SC INSULIN ISOPHANE 16988680885 Lakishadeing UNIT/ML SUSP twice daily HUMAN Aldo IQBAL NOVOLOG 100 25 units SC at INSULIN ASPART 90559449785 Jianming UNIT/ML SOLN BF, 30 units / Aldo IQBAL at Lunch and Supper DIAZEPAM 2 MG One tablet by 2013/ DIAZEPAM 38883971032 Rehana Vick TABS mouth daily /01/21 [employer] every night AMOXICILLIN-POT One tablet by 2013/ AMOXICILLIN-POT 35457447138 Salma Milton CLAVULANATE mouth twice /07/13 CLAVULANATE Mallorie 875-125 MG TABS daily NUCYNTA ER 50 MG One tablet by TAPENTADOL HCL 14845003430 Jianming AS04F-NIP mouth twice / Aldo IQBAL daily as needed NUCYNTA ER 50 MG One tablet by 2013/ TAPENTADOL HCL 44262712325 Salma Milton [id number] mouth twice /07/13 Mallorie daily as needed TOPIRAMATE 50 MG One tablet by TOPIRAMATE 08527007276 Salma M TABS mouth daily / Mallorie TOPIRAMATE 50 MG One tablet by 2013/ TOPIRAMATE 72638989281 Jianming TABS mouth daily /07/29 Aldo IQBAL AMPICILLIN 500 One tablet by 2013/ AMPICILLIN 43773640050 Jianming MG CAPS mouth four 12/20 Aldo IQBAL times daily VITAMIN D one tablet by ERGOCALCIFEROL 56873891948 Jianming (ERGOCALCIFEROL) mouth once / Aldo IQBAL 71713 UNIT CAPS weekly VITAMIN D one tablet by 2013/ ERGOCALCIFEROL 79944813516 Jianming (ERGOCALCIFEROL) mouth once /30 12/20 Aldo IQBAL 77740 UNIT CAPS weekly SULFAMETHOXAZOLE One tablet by 2013/ SULFAMETHOXAZOLE-TRI 62681423765 Jianming -TRIMETHOPRIM mouth twice 12/20 METHOPRIM Aldo IQBAL 800-160 MG TABS daily GLUCAGEN HYPOKIT as needed IM GLUCAGON HCL (RDNA) 10542646907 Jianming 1 MG SOLR Aldo IQBAL hypoglycemia DEXAMETHASONE 1 One tab by 2016/ DEXAMETHASONE 32077915314 Raven L MG TABS mouth at 11pm, 03/31 Devyn HAYWARD lab work at 8AM the next morning FUROSEMIDE 20 MG One tablet by 2016/ FUROSEMIDE 60917252524 Raven L TABS mouth daily /03/31 [facility] ATORVASTATIN One tablet by 2016/ ATORVASTATIN CALCIUM 61535444399 Raven Painting CALCIUM 20 MG mouth daily at /03/31 [facility] TABS night for high cholesterol ATENOLOL 50 MG One tablet by ATENOLOL 24197685857 Raven L TABS mouth twice / [facility] 50 MG One tablet by 2014/ ATENOLOL 08458557720 Gabriel A TABS mouth twice /04/04 Mauricio DO daily DOXYCYCLINE One tablet by 2014/ DOXYCYCLINE HYCLATE 23833078389 Gabriel A HYCLATE 100 MG mouth twice /12/22 Mauricio DO CAPS daily x 10 days HYDROMORPHONE 1 tablet by HYDROMORPHONE HCL 77902041796 Jianming HCL 2 MG TABS mouth every Aldo IQBAL 4-6 as needed HYDROMORPHONE 1 tablet by 2014/ HYDROMORPHONE HCL 85361009131 Gabriel A HCL 2 MG TABS mouth every 04/04 Mauricio DO 4-6 as needed FENTANYL 50 change q 72hrs FENTANYL 22378629234 Lakishanming MCG/HR PT72 Aldo IQBAL FENTANYL 50 change q 72hrs 2014/ FENTANYL 63115844682 Gabriel A MCG/HR PT72 12/22 Mauricio DO SYNTHROID 112 One tablet by 2014/ LEVOTHYROXINE SODIUM 44422549364 Lakishanming MCG TABS mouth daily /10/25 Aldo IQBAL PRAVASTATIN One tablet by 2014/ PRAVASTATIN SODIUM 71775308315 Jianming SODIUM 40 MG mouth daily /10/25 Aldo IQBAL TABS every night KLOR-CON M20 20 One tablet by 2015/ POTASSIUM CHLORIDE 75327433045 Gabriel A MEQ CR-TABS mouth daily /03/19 MELANY CR Mauricio DO FOLIC ACID 1 MG Two tablets by 2015/ FOLIC ACID 35961485883 Gabriel A TABS mouth daily /03/19 Mauricio DO PREMARIN 1.25 MG One tablet by ESTROGENS CONJUGATED 00439696569 Jianming TABS mouth daily / Aldo IQBAL PREMARIN 1.25 MG One tablet by 2015/ ESTROGENS CONJUGATED 99841861416 Gabriel A TABS mouth daily /03/19 [facility] DO DOXEPIN HCL 25 1 capsule by 2015/ DOXEPIN HCL 63683718368 Gabriel A MG CAPS mouth at night /03/19 [facility] DO for IBS FENOFIBRATE 48 Two tablets 2015/ FENOFIBRATE 84859296834 Gabriel A MG TABS daily /12/26 [facility] DO XIFAXAN 550 MG One tablet by 2015/ RIFAXIMIN 42605341666 Gabriel A TABS mouth three /11/07 [facility] DO times daily NOVOLOG 100 20-30 units INSULIN ASPART 44338053443 Gabriel A UNIT/ML SOLN three times a [facility] DO day with meals COLACE 100 MG One tablet by 2015/ DOCUSATE SODIUM 82663873221 Gabriel A CAPS mouth daily /10/24 [facility] DO PROPRANOLOL HCL One capsule by 2014/ PROPRANOLOL HCL 83426910142 Gabriel A ER 80 MG mouth daily at /05/11 [facility] [id number] night for migraine prevention and tachycardia DIAZEPAM 5 MG One tablet by 2015/ DIAZEPAM 52354590717 Gabriel A TABS mouth daily /10/24 [facility] every night, avoid driving or operating machine [...] Request for EFFEXOR XR 75MG CAP ESM_RR [id number]`EFFEXOR XR 75MG CAP`75MG``270 B e-scripts Capsule`90`TAKE THREE CAPSULES BY MOUTH ONCE messenger DAILY``1`0`02/07/2015`05/11/2015`[facility] [place]*`[id number]`VENLAFAXINE request ER 75MG CAP Quantity: 270 Capsule [...] Date Detail Appointment 03:30 PM Kay Mckeon L[employer]ST[employer] SHOULD[employer]ER, [address], [address], [place], [address], Referral Rheumatology Referral BMS Provider, [address] [place], [address] Referral Rheumatology Referral BMS Provider, [address] [place], [address] Referral Ophthalmology Referral Referral Ophthalmology Referral Referral excluded from report: Referral Ophthalmology Referral [address] [place], [address] Referral Ophthalmology Referral [address] [place], [address] Referral Gastroenterology Referral Jasbir Fuchs MD, [address] [facility], [place], [address] Referral Gastroenterology Referral Jasbir Fuchs MD, [address] [place], [address] Referral Ophthalmology Referral Referral Rheumatology Referral Reyna Tucker MD, [address] [facility] [address], [place], [address] Referral Other Referral [facility], [address] [place], [address] Referral Other Referral [facility], [address] [place], [address] Referral Podiatry Referral Jared Powers DPM, [address] [place] [address] [place], [address] Referral OT-Functional Capacity Evaluation Physical Therapy [facility], [address] [facility], [place], [address] Referral Dermatology Referral Nadine Marquez, [address] [place], [address] Referral Gastroenterology Referral Marlon Coon, [address] [place], [address] Referral Rheumatology Referral Reyna Tucker MD, [address], [address], [place], [address] Referral Pain Management Maricruz Hernandez, [address] [place] [address], [address], [place], [address] Pending order *HgA1C Pending order *CMP Complete [...] Pending order Rapid Strep (Office) Pending order *Calvert Test Pending order Administration Injection (Prophylactic, Therapeutic [...] Procedures Code Procedure Name Date Entry Date CPT-06071 HGB A1C (Office) 2143-6 *CAYDEN - Cortisol, A.M. 41630-1 *Lipid Profile 0667-1 *BMP PSGPCP PSG,CPAP (as indicated) ONLY PCP to follow up [id number] Ophthalmology Referral Order excluded from report: 0184-1 *CBC with Differential 18717-1 *CRP - C-Reative Protein 0786-1 *CMP Complete Metabolic Panel 4548-4 *HgA1C 47780-6 *Lipid Profile 0779-1 *Microalbumin, Creatine Ratio, rand urine 3016-3 *TSH 80497-8 *RA Rheumatoid Factor - Quaint 03716-0 *Sedimentation Rate (ESR) 04842-6 *UAC- Urinalysis, Complete w/ Micro 0523-1 *ANCA [id number] Ophthalmology Referral [id number] Rheumatology Referral CPT-11870 HGB A1C (Office) 4548-4 *HgA1C 3016-3 *TSH 69980-4 *Lipid Profile 0786-1 *CMP Complete Metabolic Panel Q968T,H151114 Lipid Profile CPT-58430 HGBA1C 3016-3 *TSH 0786-1 *CMP Complete Metabolic Panel 3016-3 *TSH 37090-6 *CBC without Diff 4086-5 *DEBRA Valpric Acid (Depakene, Dipropylacetic Acid) Drug Assay L3674C,[id number] Microalbumin urine CPT-34222 HGBA1C Q968T,Q643385 Lipid Profile CPT-52599 X-Ray, Hip Unilateral Podiatry Referral Podiatry Referral 4548-4 *HgA1C 3016-3 *TSH 4086-5 *DEBRA Valpric Acid (Depakene, Dipropylacetic Acid) Drug Assay 72744-0 *CBC without Diff 0786-1 *CMP Complete Metabolic Panel 4548-4 *HgA1C 0786-1 *CMP Complete Metabolic Panel 47200-8 *Lipid Profile 4086-5 *DEBRA Valpric Acid (Depakene, Dipropylacetic Acid) Drug Assay 0667-1 *BMP 6462-6 *CUW - Culture, Wound (Aerobic) 2823-3 *Potassium; Serum, Plasma or Whole Blood 0433-1 *HEBSAG - Hep B Surface Antigen 6510 0363-1 *HECAB Hepatitis C Antibody 71329-8 *HEBSAB - Hep B Surface Antibody 6395 0197-1 *HIV antibody 00163-3 *RPR 4548-4 *HgA1C 0667-1 *BMP 77109-9 *CBC without Diff 0788-1 *Hepatic Function Panel 4086-5 *DEBRA Valpric Acid (Depakene, Dipropylacetic Acid) Drug Assay 0184-1 *CBC with Differential 3016-3 *TSH 3024-7 *T4 free 0786-1 *CMP Complete Metabolic Panel CPT-93025 UA Dipstick (Office) 80623 Fingerstick, glucose (office) Dermatology Referral Dermatology Referral CPT-84932 X-Ray, Chest, PA & Lateral CPT-41282 Rapid Strep (Office) 83779-5 *Calvert Test CPT-06996 Administration Injection (Prophylactic, Therapeutic or Diagnostic) CPT-18425 Excision Benign Lesion Trunk/Arm/Ket <0.6 cm FUA 2 weeks Follow Up Appt 2 weeks 0788-1 *Hepatic Function Panel 4086-5 *DEBRA Valpric Acid (Depakene, Dipropylacetic Acid) Drug Assay FUA 2 weeks Follow Up Appt 2 weeks 96521-1 *CBC without Diff Order excluded from report: 45982-6 *CBC without Diff Order excluded from report: FUA as scheduled Follow Up as scheduled Gastroenterology Ref Gastroenterology Referral CPT-31528 US Transvaginal Order excluded from report: FUA 1 week Follow up Appt 1 week 4548-4 *HgA1C 22710-8 *Lipid Profile 0786-1 *CMP Complete Metabolic Panel FUA 3 months Follow Up Appt 3 months 4548-4 *HgA1C Order excluded from report: 0667-1 *BMP Order excluded from report: CPT-26528 *Liver/Hepatic Function Panel Order excluded from report: FUA 3 months Follow Up Appt 3 months CPT-68049 *Lipid Profile RheuRef Rheumatology Referral Pain Management Pain Management CPT-85506 *Lipid Profile CPT-88503 *CMP Complete Metabolic Panel CPT-51097 *HgA1C CPT-38409 *TSH CPT-06890 *CBC without Diff CPT-86714 *Creatine Kinase (CK) CRP *CRP CPT-99628 *Sedimentation Rate (ESR) FUA 2 weeks Follow [...]
--- OUTSIDE RECORDS SUMMARY | 2018-09-04 11:24 | XMS RPT_ITS | Clinical Summary ---
:1985 Author Organization [facility], [facility] Address [address] [place] [id number] Phone Care Team Providers Name Role Phone Raven Shepard LPN Unavailable Unavailable Conditions or Problems Problem Problem Onset Status Entry Provider Comment Standard Annotate Name Code Date Date Description Hypersomni [id number] Active Gabriel A Hypersomnia a (SNOMED 03/19 03/[address]) Peripheral 067216999 Active Gabriel A Peripheral edema (SNOMED 03/19 03/[address]) Abnormal 603205805 Inactive Gabriel A Abnormal weight (SNOMED 03/19 03/19 Mauricio DO weight gain gain CT) ARTHRITIS, 28991818 Active Gabriel A Rheumatoid RHEUMATOID (SNOMED 09/09 09/[address]) Urinary 293825300 Resolved Gabriel A Increased frequency (SNOMED 10/24 10/24 Maur[address] of CT) urination Diarrhea, 472646097 Resolved Gabriel A Chronic chronic (SNOMED 10/24 10/[address]) Hypertrigl 009722433 Active Gabriel A Hypertriglycer >800 yceridemia (SNOMED 10/30 10/[address]) Greater 0146871 Inactive Gabriel A Trochanteric trochanter (SNOMED 10/24 10/24 Mauricio DO bursitis ic CT) bursitis, left Diarrhea, 279723261 Removed Gabriel A Chronic chronic (SNOMED 10/24 10/[address]) Urinary 071147016 Removed Gbariel A Increased frequency (SNOMED 10/24 10/24 Mauricio DO frequency of CT) urination UPPER [id number] Resolved Gabriel A Upper RESPIRATOR (SNOMED 09/13 09/13 Mauricio DO respiratory Y CT) infection INFECTION Migraine 94966104 Active Gabriel A Migraine headache (SNOMED 04/04 04/[address] [facility] [address]) Foot pain, 95861685 Inactive Gabriel A Foot pain [facility] U[facility]ER [id number] Removed Gabriel A Upper RESPIRATOR (SNOMED 09/13 09/13 [facility] DO respiratory Y CT) infection INFECTION Hypertrigl 215961030 Resolved Gabriel A Hypertriglycer yceridemia (SNOMED 10/25 10/[address]) LEG PAIN, 56980981 Resolved Gabriel A Pain in lower BILATERAL (SNOMED 03/15 03/15 [facility] limb CT) POLYCYSTIC 72128047 Resolved Gabriel A Polycystic OVARIAN (SNOMED 03/15 03/15 [facility] ovaries DISEASE CT) DEPRESSION 79381954 Resolved Gabriel A Recurrent since age , MAJOR, (SNOMED 03/15 [facility] DO major [address]) depression MUSCLE 61746411 Resolved Gabriel A Muscle WEAKNESS (SNOMED 03/15 03/15 [facility] DO weakness (GENERALIZ CT) ED) NIPPLE 496485221 Resolved Gabriel A Bloody nipple DISCHARGE, ([facility] 03/23 03[facility] HYPERSOMNI 52735700 Resolved Gabriel A Hypersomnia A (SNOMED 04/06 04/[address] [facility] [address]) SKIN RASH 016825781 Resolved Gabriel A Eruption (SN[facility]ED 10/03 10/[address] [facility] SEXUALLY 825441157 Resolved Gabriel A Exposure to TRANSMITTE (SNOMED 10/04 10/04 [facility] DO sexually D DISEASE, CT) transmissible EXPOSURE disorder TO HYPOKALEMI 97061322 Resolved Gabriel A Hypokalemia A (SNOMED 11/03 11/[address] [facility] Ingrown 264967551 Resolved Gabriel A Ingrowing nail toenail (SNOMED [facility] CT) Hip pain, 15816615 Resolved Gabriel A Hip pain right (SNOMED 09/13 09/[address] [facility] [address]) Bronchitis 61595720 Resolved Gabriel A Acute , acute (SNOMED 10/25 11/09 [facility] bronchitis CT) Chronic 984723728 Active Gabriel A Chronic pain pain (SNOMED 12/22 12/22 [facility] syndrome syndrome CT) Bronchitis 33685238 Removed Jianming Acute , acute (SNOMED 10/25 11/[address] [facility] [address]) Paronychia [id number] Resolved Jianming Paronychia of left big , great (SNOMED [facility] toe toe toe CT) Hypertrigl 805620819 Removed Jianming Hypertriglycer yceridemia (SNOMED 10/25 10/[address] [facility] [address]) Superficia 376297564 Resolved Jianming Superficial right l vein (SNOMED 09/29 09/29 [facility] vein basilic thrombosis CT) thrombosis vein from just above elbow to wrist Superficia [id number] Removed Jianming Superficial right l vein (SNOMED 09/29 09/29 [facility] vein basilic thrombosis CT) thrombosis vein from just above elbow to wrist Hip pain, 86709885 Removed Jianming Hip pain right (SNOMED 09/13 09/[address] [facility] [address]) Ingrown 230889718 Removed Jianming Ingrowing nail toenail (SNOMED [facility] CT) Paronychia [id number] Removed Jianming Paronychia of left big , great (SNOMED [facility] toe toe toe CT) Back pain, 545063115 Active Jianming Low back pain chronic s/p lumbar (SNOMED [facility] surgery CT) NAUSEA AND 77411018 Resolved Jianming Nausea and VOMITING (SNOMED 11/12 11/[address] [facility] [address]) OTITIS 69447710 Resolved Rehana E Chronic otitis EXTERNA, (SNOMED 08/30 08/[address] [facility] [address]) OTITIS [id number] Resolved Rehana E Acute otitis MEDIA, (SNOMED 08/18 08/18 [facility] media ACUTE, CT) BILATERAL DKA 517963761 Resolved Jianming Diabetic (SNOMED [facility] ketoacidosis CT) CELLULITIS 054147949 Resolved Jianming Cellulitis of the (SNOMED 11/03 11/[address] [facility] [address]) site NAUSEA AND [id number] Removed Jianming Nausea and VOMITING (SNOMED 11/12 11/[address] [facility] [address]) HYPOKALEMI [id number] Removed Jianming Hypokalemia A (SNOMED 11/03 11/[address] [facility] [address]) CELLULITIS 119684107 Removed Jianming Cellulitis of the (SNOMED 11/03 11/[address] [facility] [address]) site SEXUALLY 990298888 Removed Marianna A Exposure to TRANSMITTE (SNOMED 10/04 10/04 Flannery sexually D DISEASE, CT) transmissible EXPOSURE disorder TO OTITIS 7731069 Removed Lakishanming Acute otitis MEDIA, (SNOMED 08/18 08/18 [facility] media ACUTE, CT) BILATERAL OTITIS 0616410 Correctio Lakishanming Acute otitis MEDIA, (SNOMED 08/18 n 08/18 [facility] media ACUTE, CT) BILATERAL SKIN RASH [id number] Removed Ness J Eruption (SNOMED 10/03 10/[address]) OTITIS [id number] Removed Ness J Chronic otitis EXTERNA, (SNOMED 08/30 08/[address]) DKA 608964538 Removed Jianming Diabetic (SNOMED [facility] ketoacidosis CT) OTITIS [id number] Resolved Jianming Otitis externa EXTERNA (SNOMED 03/23 03/[address]) HYPERSOMNI [id number] Removed Jianming Hypersomnia A (SNOMED 04/06 04/[address] [facility]) ALLERGIC 60966903 Active Jianming Allergic RHINITIS (SNOMED 04/06 04/[address] [facility] [address]) OTITIS 5596975 Removed Jianming Otitis externa EXTERNA (SNOMED 03/23 03/[address]) NIPPLE 128321633 Removed Jianming Bloody nipple DISCHARGE, (SNOMED 03/23 03/23 [facility] discharge BLOODY CT) NIPPLE 555690639 Correctio Jianming Bloody nipple DISCHARGE, (SNOMED 03/23 n 03/[address] [facility] [address] BLOODY [address]) OTITIS 4752305 Correctio Jianming Otitis externa EXTERNA (SNOMED 03/23 n 03/[address] [facility]) 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, (SNOMED 02/10 02/[address]) POLYCYSTIC 68264839 Active Ness J Polycystic OVARIAN (SNOMED 02/10 02/[address]) FIBROMYALG 21197622 Active Ness J Fibromyositis IA, SEVERE (SNOMED 02/10 02/[address]) IMMUNOCOMP 754598478 Active Ness J Immunodeficien ROMISED (SNOMED 02/10 02/[address]) HUMAN 138859725 Active Ness J Human PAPILLOMAV (SNOMED 02/10 02/[address]) virus infection TACHYCARDI 9376622 Active Jianming Tachycardia since 2004 A (SNOMED 01/[address] [facility]) HYPOGLYCEM 354336058 Resolved Jianming Hypoglycemia IA (SNOMED 09/24 09/[address] [facility]) MOVEMENT 92425616 Resolved Jianming Movement DISORDER (SNOMED 09/24 09/[address] [facility] [address]) ROSACEA 356503464 Active Jianming Rosacea (SNOMED 01/14 01/[address] [facility]) TACHYCARDI 9338880 Resolved Jianming Tachycardia A (SNOMED 03/[address] [facility]) GLUCOCORTI 868215294 Resolved Jianming 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 PHARYNGITI 557172602 Resolved Jianming Acute S, ACUTE (SNOMED 09/07 09/[address] [facility] [address]) UPPER 12713782 Resolved Jianming Upper RESPIRATOR (SNOMED 09/13 09/13 [facility] respiratory Y CT) infection INFECTION COUGH 85706761 Resolved Jianming Cough (SNOMED 09/13 09/[address]) HYPOGLYCEM 948697524 Removed Jianming Hypoglycemia IA (SNOMED 09/24 09/[address] [facility]) MOVEMENT 04753944 Removed Jianming Movement DISORDER (SNOMED 09/24 09/[address] [facility] [address]) COUGH [id number] Removed Salma M Cough (SNOMED 09/13 09/[address]) UPPER 70864711 Removed Salma M Upper RESPIRATOR (SNOMED 09/13 09/[address]) infection INFECTION PHARYNGITI 344379018 Removed Jianming Acute S, ACUTE (SNOMED 09/07 09/[address] [facility] [address]) MELENA [id number] Resolved Jianming Melena (SNOMED 11/06 11/[address] [facility]) LOCALIZED R22.9 Resolved Jianming Localized right SUPERFICIA (ICD-10-CM [facility] swelling, mass axillary L SWELLING ) and lump, MASS OR unspecified LUMP LIVER V12.2 Resolved Jianming Personal FUNCTION (ICD-9-CM) 03/15 03/15 [facility] history of TESTS, endocrine, ABNORMAL, metabolic, and HX OF immunity disorders CONSTIPATI 120773573 Resolved Jianming Chronic ON, (SNOMED 09/23 09/[address] [facility] [address] CHRONIC CT) ABDOMINAL R10.31 Resolved Jianming Right lower PAIN RIGHT (ICD-10-CM 09/23 09/23 [facility] quadrant pain LOWER ) QUADRANT OTITIS 7964315 Resolved Jianming Otitis externa EXTERNA (SNOMED 08/22 08/[address]) GLUCOCORTI 375122233 Removed Jianming 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 OTITIS 2334316 Removed Jianming Otitis externa EXTERNA (SNOMED 08/22 08/[address]) LOCALIZED R22.9 Removed Jianming Localized right SUPERFICIA (ICD-10-CM [facility] swelling, mass axillary L SWELLING ) and lump, MASS OR unspecified LUMP BIPOLAR 952390333 Active Jianming Bipolar diagnosed AFFECTIVE (SNOMED 02/19 [facility] affective by DISORDER, CT) disorder, psychiatris DEPRESSED current t at episode Kristian depression in [place] GASTROESOP 664940228 Active Jianming Gastroesophage HAGEAL (SNOMED 02/19 [facility] al reflux REFLUX CT) disease DISEASE INSOMNIA, 888468683 Active Jianming Insomnia CHRONIC (SNOMED 02/19 02/[address]) ACUTE 32591183 Resolved Jianming Acute ETHMOIDAL (SNOMED 09/18 09/18 [facility] ethmoidal SINUSITIS CT) sinusitis MELENA 8343861 Removed Luis Eduardo M Melena (SNOMED 11/06 11/[address]) ACUTE 65678868 Removed Jianming Acute ETHMOIDAL (SNOMED 09/18 09/18 [facility] ethmoidal SINUSITIS CT) sinusitis ABDOMINAL R10.31 Removed Jianming Right lower PAIN RIGHT (ICD-10-CM 09/23 09/23 [facility] quadrant pain LOWER ) QUADRANT CONSTIPATI 862104410 Removed Jianming Chronic ON, (SNOMED 09/23 09/[address] [facility] [address]) ARTHRITIS, 34514232 Inactive Jianming Rheumatoid f/u RHEUMATOID (SNOMED 09/09 09/09 [facility] [address] [place] CT) DYSLIPIDEM 740813689 Active Jianming Dyslipidemia IA (SNOMED 04/03 04/[address]) MUSCLE 11881007 Removed Jianming Muscle WEAKNESS (SNOMED 03/15 03/15 [facility] weakness (GENERALIZ CT) ED) DEPRESSION 86801871 Removed Jianming Recurrent since age , MAJOR, (SNOMED 03/15 [facility] major [address]) depression POLYCYSTIC 15492033 Removed Jianming Polycystic OVARIAN (SNOMED 03/15 03/15 [facility] [address] DISEASE CT) IRRITABLE 70884214 Active Jianming Irritable BOWEL (SNOMED 03/15 03/15 [facility] bowel syndrome SYNDROME CT) TACHYCARDI 1429547 Removed Jianming Tachycardia A (SNOMED 03/[address]) LEG PAIN, 16672678 Removed Jianming Pain in lower BILATERAL (SNOMED 03/15 03/[address] [address]) HYPOTHYROI 15163119 Active Jianming Hypothyroidism DISM (SNOMED 08/11 03/[address]) DIABETES 32960136 08/11/19 Active Jianming Type 1 MELLITUS, (SNOMED 03/15 [facility] diabetes TYPE I CT) mellitus LIVER V12.2 Removed Jianming Personal FUNCTION (ICD-9-CM) 03/15 03/15 [facility] history of TESTS, endocrine, ABNORMAL, metabolic, and HX OF immunity disorders Medications Medication Instructions Start Stop Generic Name NDC Provider Date Date FREESTYLE LITE Use for 2024/ BLOOD GLUCOSE [id number] Kay ROMAN diabetes /07/02 MONITORING SUPPL Mike GARNER ICD!) E10.9 FREESTYLE LITE Check BG 6 2024/ GLUCOSE BLOOD [id number] Kay Franco TEST STRP times daily /07/02 Mike GARNER ICD10 E10.9 NOVOLOG 100 Take 35 units 2024/ INSULIN ASPART [id number] Kay Franco UNIT/ML SOLN each meal /07/02 Mike GARNER FREESTYLE LITE Check BG 6 2024/ GLUCOSE BLOOD [id number] Kay Franco TEST STRP times daily /07/02 Mike GARNER FREESTYLE LITE Use for 2024/ BLOOD GLUCOSE [id number] Kay Franco JESSIE diabetes /07/02 MONITORING SUPPL Mike GARNER ATORVASTATIN One tablet by ATORVASTATIN CALCIUM 66708274853 Gabriel A CALCIUM 20 MG mouth daily at / [facility] TABS night for high cholesterol FUROSEMIDE 20 MG One tablet by FUROSEMIDE 27728653306 Gabriel A TABS mouth daily / [facility] DEXAMETHASONE 1 One tab by DEXAMETHASONE 44749156575 Gabriel A MG TABS mouth at 11pm, [facility] lab work at 8AM the next morning ZYRTEC ALLERGY One tablet by CETIRIZINE HCL 50557021277 Gabriel A 10 MG TABS mouth daily at [facility] bedtime ATENOLOL 50 MG One tablet by ATENOLOL 26940699737 Gabriel A TABS mouth twice / [facility] daily OMEPRAZOLE 20 MG One tablet by OMEPRAZOLE 34698805718 Gabriel A TBEC mouth daily / [facility] NOVOLIN N 100 40-50 units INSULIN ISOPHANE 48642451000 Gabriel A UNIT/ML SUSP twice daily / HUMAN [facility] ACYCLOVIR 400 MG One tablet by ACYCLOVIR 86522378957 Gabriel A TABS mouth daily / [facility] EFFEXOR XR 75 MG Three tablets VENLAFAXINE HCL 49715157239 Gabriel A [id number] by mouth daily / [facility] NOVOLOG 100 15-30 units INSULIN ASPART 30765447140 Gabriel A UNIT/ML SOLN three times a [facility] day with meals SYNTHROID 137 One tablet by LEVOTHYROXINE SODIUM 62164811678 Gabriel A MCG TABS mouth daily / [facility] DIVALPROEX Two tablets by DIVALPROEX SODIUM 62436598313 Gabriel A SODIUM 250 MG mouth daily / [facility] TBEC SEROQUEL 200 MG One tablet by QUETIAPINE FUMARATE 86862344185 Gabriel A TABS mouth daily / [facility] BD INSULIN 5-6 times INSULIN 75491495451 Gabriel A SYRINGE daily DX: DM SYRINGE-NEEDLE U-100 [facility] ULTRAFINE 30G X type I 1/2 0.5 ML MISC FENOFIBRATE 48 Two tablets FENOFIBRATE 29744419700 Gabriel A MG TABS daily / Mauricio DO DOXEPIN HCL 25 1 capsule by DOXEPIN HCL 38509597297 Gabriel A MG CAPS mouth at night / [facility] for IBS ACYCLOVIR 400 MG One tablet by ACYCLOVIR 39130382171 Gabriel A TABS mouth twice Mauricio DO daily XIFAXAN 550 MG One tablet by 2015/ RIFAXIMIN 95496315949 Gabriel A TABS mouth three /11/07 [facility] DO times daily DIAZEPAM 5 MG One tablet by DIAZEPAM 83437561311 Gabriel A TABS mouth daily / [facility] DO every night, avoid driving or operating machine under the influence of medication. PROPRANOLOL HCL One capsule by PROPRANOLOL HCL 44004732945 Gabriel A ER 80 MG mouth daily at / [facility] [id number] night for migraine prevention and tachycardia ATENOLOL 50 MG One tablet by ATENOLOL 25659737677 Gabriel A TABS mouth twice / Mauricio DO daily NOVOLOG 100 30 units three INSULIN ASPART 05878928159 Gabriel A UNIT/ML SOLN times a day /Mauricio DO with meals NOVOLIN N 100 45 units SC INSULIN ISOPHANE 84867824389 Gabriel A UNIT/ML SUSP twice daily / HUMAN Mauricio DO FOLIC ACID 1 MG Two tablets by FOLIC ACID 49509334230 Gabriel A TABS mouth daily / Mauricio DO KLOR-CON M20 20 One tablet by POTASSIUM CHLORIDE 94886953134 Gabriel A MEQ CR-TABS mouth daily /12 MELANY CR [facility] NOVOLOG 100 25 units SC at INSULIN ASPART 40650081147 Gabriel A UNIT/ML SOLN BF, 30 units / [facility] DO at Lunch and Supper FENOFIBRATE 48 One tablet by FENOFIBRATE 08141477272 Jianming MG TABS mouth daily, / [facility] then increase to two tablets if tolerate it DOXYCYCLINE One tablet by DOXYCYCLINE HYCLATE 00597901552 Lakishanming HYCLATE 100 MG mouth twice / [facility] CAPS daily x 10 days PRAVASTATIN One tablet by PRAVASTATIN SODIUM 36563424048 Jianming SODIUM 40 MG mouth daily / [facility] TABS every night AMOXICILLIN-POT One tablet by AMOXICILLIN-POT 49526874866 Lakishanming CLAVULANATE mouth twice / CLAVULANATE [facility] 875-125 MG TABS daily SYNTHROID 112 One tablet by LEVOTHYROXINE SODIUM 52076290841 Lakishahiing MCG TABS mouth daily / [facility] QUETIAPINE Three tablets QUETIAPINE FUMARATE 19592787120 Jianming FUMARATE 50 MG by mouth daily / [facility] TABS at bed time DIVALPROEX One tablet by DIVALPROEX SODIUM 28083582418 Lakishanming SODIUM 250 MG mouth twice / [facility] TBEC daily DIAZEPAM 2 MG One tablet by DIAZEPAM 69279272533 Jianming TABS mouth daily / [facility] every night QUETIAPINE Two tablets by QUETIAPINE FUMARATE 40446609832 Jianming FUMARATE 50 MG mouth daily / [facility] TABS every night EFFEXOR XR 150 One tablet by VENLAFAXINE HCL 20974981150 Jianming MG [id number] mouth daily / [facility] COLACE 100 MG One tablet by DOCUSATE SODIUM 93374442439 Jianming CAPS mouth daily / [facility] PROMETHAZINE HCL One tablet by PROMETHAZINE HCL 23658985511 Jianming 12.5 MG TABS mouth [facility] times daily as needed nausea/vomitin g DIAZEPAM 2 MG One tablet by DIAZEPAM 19264713265 Jianming TABS mouth twice [facility] daily QUETIAPINE Two tablets by QUETIAPINE FUMARATE 08995121410 Jianming FUMARATE 50 MG mouth twice / [facility] TABS daily SULFAMETHOXAZOLE One tablet by SULFAMETHOXAZOLE-TRI 58044540099 Jianming -TRIMETHOPRIM mouth twice METHOPRIM [facility] 800-160 MG TABS daily AMPICILLIN 500 One tablet by AMPICILLIN 86747082057 Jianming MG CAPS mouth four [facility] times daily ZOLPIDEM One tablet by ZOLPIDEM TARTRATE 18573394604 Lakishanming TARTRATE 5 MG mouth daily / [facility] TABS every night DIVALPROEX One tablet by DIVALPROEX SODIUM 92688182712 Lakishanming SODIUM 125 MG mouth twice / [facility] TBEC daily QUETIAPINE one tablets by QUETIAPINE FUMARATE 40563383862 Jianming FUMARATE 50 MG mouth in AM , [facility] TABS two tablets by mouth in pM QUETIAPINE one tablets by QUETIAPINE FUMARATE 75031680135 Jianming FUMARATE 50 MG mouth in AM , [facility] TABS two tablets by mouth in pM SYNTHROID 100 One tablet by LEVOTHYROXINE SODIUM 59886620688 Lakishahisantiago MCG TABS mouth daily / [facility] AMOXICILLIN-POT One tablet by AMOXICILLIN-POT 47605074099 Lakishahiing CLAVULANATE mouth twice CLAVULANATE [facility] 875-125 MG TABS daily EFFEXOR XR 75 MG One tablet by VENLAFAXINE HCL 54478596971 Rabia [id number] mouth daily [facility] QUETIAPINE One tablet by QUETIAPINE FUMARATE 94897684819 Lakishanming FUMARATE 50 MG mouth twice / [facility] TABS daily x 1 day, then titrate up as directed VALIUM 2 MG TABS One tablet by DIAZEPAM 25059595211 Jianming mouth twice / [facility] daily ZOLPIDEM One tablet by ZOLPIDEM TARTRATE 28442464302 Lakishahiing TARTRATE 5 MG mouth daily / [facility] TABS every night as needed, avoid driving or operating machine under the influence of medication. MUPIROCIN 2 % apply to MUPIROCIN 48684681304 Rabia OINT affected area [facility] four times a day CIPRO HC 0.2-1 % 4 gtt to left CIPROFLOXACIN-HYDROC 10529803644 Rabia SUSP ear three ORTISONE [facility] MD times a day PODOCON 25 % PODOPHYLLUM RESIN 56240058359 Ness J SOLN /17 Signs ACYCLOVIR 800 MG one po q 8 hrs ACYCLOVIR 95252153496 Ness Franco TABS /17 Signs FAMVIR 500 MG one po tid FAMCICLOVIR 04576035733 Ness J TABS / Signs METROGEL 1 % GEL apply to METRONIDAZOLE 79583531869 Jianming affected area / [facility] thin layer, once daily DOXYCYCLINE One tablet by DOXYCYCLINE HYCLATE 62801735978 Lakishahiing HYCLATE 100 MG mouth twice / [facility] CAPS daily x 10 days, then One tablet by mouth daily VENLAFAXINE HCL One tablet by VENLAFAXINE HCL 57440743908 Jianming ER 75 MG mouth daily / [facility] [id number] TRAZODONE HCL 50 Two tablets by TRAZODONE HCL 36587682250 Jianming MG TABS mouth daily / [facility] AZITHROMYCIN 250 two tablets by AZITHROMYCIN 93996314119 Jianming MG TABS mouth on day [facility] one, and one tablets daily one day 2-5 EFFEXOR XR 37.5 One tablet by VENLAFAXINE HCL 94016693636 Jianming MG [id number] mouth daily / [facility] CETRAXAL 0.2 % 4-5 drop CIPROFLOXACIN HCL 92347916969 [facility] / [facility] three times a day DIVALPROEX One tablet by DIVALPROEX SODIUM 66968485037 Lakishanming SODIUM 250 MG mouth twice / [facility] TBEC daily DISABILITY DX: Rheumatoid DISABILITY PLACARD Jiaefraíning PLACARD arthritis / [facility] duration: five years PROTONIX 40 MG One tablet by PANTOPRAZOLE SODIUM 42931019596 Lakishanming PACK mouth daily. / [facility] DIVALPROEX One tablet by DIVALPROEX SODIUM 90689024243 Jianming SODIUM 125 MG mouth twice / [facility] TBEC daily ATENOLOL 50 MG One tablet by ATENOLOL 66620916035 Jianming TABS mouth daily at / [facility] bedtime TRAZODONE HCL 50 One tablet by TRAZODONE HCL 77538557133 Jianming MG TABS mouth daily / [facility] every night CITALOPRAM One tablet by CITALOPRAM 44196481931 Jianming HYDROBROMIDE 40 mouth daily HYDROBROMIDE [facility] MG TABS NOVOLIN N 100 40 units SC INSULIN ISOPHANE 11322546978 Jianming UNIT/ML SUSP twice daily / HUMAN [facility] HUMALOG 100 30 units SC INSULIN LISPRO 10999964598 Jianming UNIT/ML SOLN before meals (HUMAN) [facility] AUGMENTIN XR One tablet by AMOXICILLIN-POT 62605762940 Lakishanming 1000-62.5 MG mouth twice CLAVULANATE [facility] [id number] daily METHOTREXATE 2.5 4 pills by METHOTREXATE SODIUM 32796930869 Jianming MG TABS mouth once / [facility] weekly CIPROFLOXACIN One tablet by 2010/ CIPROFLOXACIN HCL 32212889967 Jianming HCL 500 MG TABS mouth twice 08/02 [facility] daily METRONIDAZOLE One tablet by 2010/ METRONIDAZOLE 79088616174 Jianming 500 MG TABS mouth 08/02 [facility] times daily INDOMETHACIN 25 1-2 tablets INDOMETHACIN 39093452017 Jianming MG CAPS three times a [facility] day as needed pain GLUCOMETER use as GLUCOMETER Jianming directed AC [facility] and [facility] HUMALOG 100 40 units SC at INSULIN LISPRO 78272909389 Jianming UNIT/ML SOLN each meal / (HUMAN) [facility] PRAVASTATIN One tablet by PRAVASTATIN SODIUM 35171379118 Lakishanming SODIUM 80 MG mouth daily / [facility] TABS LEVEMIR 100 40 units SC INSULIN DETEMIR 00731514456 Jianming UNIT/ML SOLN twice daily / [facility] NOVOLIN N 100 40 units SQ INSULIN ISOPHANE 74405497657 Luis Eduardo M UNIT/ML SUSP twice daily. / HUMAN [facility] HUMULIN N 100 40 units twice INSULIN ISOPHANE 71408430203 Jianming UNIT/ML SUSP daily / HUMAN [facility] HUMALOG 100 20 units per INSULIN LISPRO 37105823354 Jianming UNIT/ML SOLN meal / (HUMAN) [facility] ULTRAM 50 MG Two tablets by TRAMADOL HCL 01622544428 Jianming TABS mouth [facility] times daily, avoid driving or operating machine under the influence of medication. PRAVASTATIN One tablet by PRAVASTATIN SODIUM 54170131756 Lakishanming SODIUM 20 MG mouth daily / [facility] TABS every night TRAZODONE HCL 50 One tablet by TRAZODONE HCL 09354296960 Jianming MG TABS mouth daily / [facility] every night LEXAPRO 20 MG One tablet by ESCITALOPRAM OXALATE 73716486957 Jianming TABS mouth daily / [facility] ATENOLOL 50 MG One tablet by ATENOLOL 39814058062 Jianming TABS mouth daily at [facility] bedtime HYDROCODONE-ACET One tablet by HYDROCODONE-ACETAMIN 92489906846 Rabia AMINOPHEN 5-500 mouth HUBERT Carlson MD MG TABS times daily avoid driving or operating machine under the influence of medication. HYDROCODONE-ACET One tablet by 2011/ HYDROCODONE-ACETAMIN 45520002867 Rabia AMINOPHEN 5-500 mouth 02/19 HUBERT Carlson MD MG TABS times daily avoid driving or operating machine under the influence of medication. ULTRAM 50 MG Two tablets by 2011/ TRAMADOL HCL 47938158078 Jianming TABS mouth 09/18 [facility] times daily, avoid driving or operating machine under the influence of medication. AUGMENTIN XR One tablet by 2011/ AMOXICILLIN-POT 82746082511 Luis Eduardo Milton 1000-62.5 MG mouth twice /11/06 CLAVULANATE Kunal IQBAL [id number] daily FOLIC ACID 1 MG 2 tablets by FOLIC ACID [id number] Jianming TABS mouth daily / Aldo IQBAL FOLIC ACID 1 MG 2 tablets by 2011/ FOLIC ACID 77558434606 Luis Eduardo M TABS mouth daily /11/06 Kunal IQBAL LEUCOVORIN one tablet by LEUCOVORIN CALCIUM 83290726303 Lakishahiing CALCIUM 5 MG mouth once / Aldo IQBAL TABS weekly LEUCOVORIN one tablet by 2011/ LEUCOVORIN CALCIUM 08550609262 Luis Eduardo Milton CALCIUM 5 MG mouth once /11/06 Kunal IQBAL TABS weekly LEVEMIR 100 40 units SC 2010/ INSULIN DETEMIR 58937582980 Jianming UNIT/ML SOLN twice daily /07/11 Aldo IQBAL HUMALOG 100 INSULIN LISPRO 26038953134 Jianming UNIT/ML SOLN / (HUMAN) Aldo IQBAL HUMULIN N 100 40 units twice 2010/ INSULIN ISOPHANE 37110108261 Luis Eduardo M UNIT/ML SUSP daily 07/01 HUMAN Kunal IQBAL NOVOLIN N 100 40 units SQ 2010/ INSULIN ISOPHANE 97471542990 Jianming UNIT/ML SUSP twice daily. 07/10 HUMAN Aldo IQBAL INDOMETHACIN 25 1-2 tablets 2011/ INDOMETHACIN 22752744922 Jianming MG CAPS three times 02/19 Aldo IQBAL day as needed pain METANX 3-35-2 MG One tablet by [id number] Luis Eduardo M TABS mouth twice 2 Kunal IQBAL daily METANX 3-35-2 MG One tablet by 2011/ [id number] Jianming TABS mouth twice 06/03 2 Aldo IQBAL daily ENBREL 50 MG/ML 1 time weekly ETANERCEPT 01635033653 Jianming SOSY Aldo IQBAL ENBREL 50 MG/ML 1 time weekly 2011/ ETANERCEPT 05211817918 Jianming SOSY /06/03 Aldo IQBAL PROTONIX 40 MG One tablet by 2011/ PANTOPRAZOLE SODIUM 29397275423 Jianming PACK mouth daily. 06/03 Aldo IQBAL DIVALPROEX One tablet by 2011/ DIVALPROEX SODIUM 18286221635 Jianming SODIUM 250 MG mouth twice /06/03 Aldo IQBAL TBEC daily PREDNISONE 10 MG One tablet by PREDNISONE 56213635009 Jianming TABS mouth twice / Aldo IQBAL daily PREDNISONE 10 MG One tablet by 2011/ PREDNISONE 96784930661 Jianming TABS mouth twice 06/03 Aldo IQBAL daily CITALOPRAM One tablet by 2011/ CITALOPRAM 40040472849 Jianming HYDROBROMIDE 40 mouth daily /06/03 HYDROBROMIDE Aldo IQBAL MG TABS NEURONTIN 100 MG One tablet by GABAPENTIN 38441965965 Jianming CAPS mouth twice Aldo IQBAL daily NEURONTIN 100 MG One tablet by 2011/ GABAPENTIN 58920118966 Jianming CAPS mouth twice /06/03 Aldo IQBAL daily LEVOTHYROXINE One tablet by LEVOTHYROXINE SODIUM 88181166671 Jianming SODIUM 125 MCG mouth daily / Aldo IQBAL TABS HUMALOG 100 40 units SC at 2011/ INSULIN LISPRO 08504321583 Jianming UNIT/ML SOLN each meal 06/03 (HUMAN) Aldo IQBAL NOVOLIN N 100 40 units SC 2011/ INSULIN ISOPHANE 42159120904 Jianming UNIT/ML SUSP twice daily /06/03 HUMAN Aldo IQBAL AZITHROMYCIN 250 two tablets by 2012/ AZITHROMYCIN 32839759124 Jianming MG TABS mouth on 09/24 Aldo IQBAL one, and one tablets daily one day 2-5 HUMIRA PEN 40 1 injection ADALIMUMAB 21798038073 Jianming MG/0.8ML KIT every Aldo IQBAL week HUMIRA PEN 40 1 injection 2012/ ADALIMUMAB 53536967862 Jianming MG/0.8ML KIT every other /14 01/14 Aldo IQBAL week EFFEXOR XR 37.5 One tablet by 2012/ VENLAFAXINE HCL 54682627844 Jianming MG [id number] mouth daily /01/14 Aldo IQBAL DOXYCYCLINE One tablet by 2012/ DOXYCYCLINE HYCLATE 81435611541 Ness Franco HYCLATE 100 MG mouth twice /02/10 Signs CAPS daily x 10 days, then One tablet by mouth daily VENLAFAXINE HCL One capsule by VENLAFAXINE HCL 72442815653 Salma Milton ER 75 MG mouth daily / Mallorie [id number] VENLAFAXINE HCL One capsule by 2012/ VENLAFAXINE HCL 78375633245 Ness Franco ER 75 MG mouth daily /02/10 Maria Elena IQBAL [id number] NUCYNTA ER 50 MG One tablet by 2012/ TAPENTADOL HCL 99570467994 Ness Franco [id number] mouth three /02/10 Signs times daily CETRAXAL 0.2 % 4-5 drop 2012/ CIPROFLOXACIN HCL 56046286621 Jianming SOLN affected ear /12 09/24 Aldo IQBAL three times a day PRAVASTATIN One tablet by PRAVASTATIN SODIUM 33219390100 Jianming SODIUM 40 MG mouth daily / Aldo IQBAL TABS PRAVASTATIN One tablet by 2012/ PRAVASTATIN SODIUM 03150366936 Jianming SODIUM 40 MG mouth daily /09/24 Aldo IQBAL TABS SOLU-CORTEF 100 One tablet by HYDROCORTISONE SOD 65977083905 Jianming MG SOLR mouth daily as SUCCINATE Aldo IQBAL needed SOLU-CORTEF 100 One tablet by 2012/ HYDROCORTISONE SOD 99944044866 Jianming MG SOLR mouth daily as 10/19 SUCCINATE Aldo IQBAL needed HYDROCORTISONE 5 One tablet by HYDROCORTISONE 81815413206 Jianming MG TABS mouth daily Aldo IQBAL HYDROCORTISONE 5 One tablet by 2012/ HYDROCORTISONE 58084027627 Jianming MG TABS mouth daily /10/19 Aldo CHIANG 10 one patch per BUPRENORPHINE 43605905034 Jianming MCG/HR PTWK week Aldo CHIANG 10 one patch per 2012/ BUPRENORPHINE 55948948418 Jianming MCG/HR PTWK week 10/19 Aldo IQBAL HUMULIN R U-500 12 units per INSULIN REGULAR 14682450722 Jianming (CONCENTRATED) meal HUMAN Aldo IQBAL 500 UNIT/ML SOLN HUMULIN R U-500 12 units per 2012/ INSULIN REGULAR 00687241915 Jianming (CONCENTRATED) meal /10/19 HUMAN Aldo IQBAL 500 UNIT/ML SOLN METHOTREXATE 2.5 4 pills by 2012/ METHOTREXATE SODIUM 20420715775 Ness J MG TABS mouth once 08/02 Maria Elena IQBAL weekly LEUCOVORIN 2 tablets by LEUCOVORIN CALCIUM 03318431374 Jianming CALCIUM 5 MG mouth once Aldo IQBAL TABS weekly LEUCOVORIN 2 tablets by 2012/ LEUCOVORIN CALCIUM 52586341130 Ness J CALCIUM 5 MG mouth once /08/02 Maria Elena IQBAL TABS weekly SYNTHROID 137 One tablet by LEVOTHYROXINE SODIUM 02318604478 Jianming MCG TABS mouth daily / Aldo IQBAL SYNTHROID 137 One tablet by 2012/ LEVOTHYROXINE SODIUM 05606872693 Rehana E MCG TABS mouth daily /08/03 Schloneger METROGEL 1 % GEL apply to 2012/ METRONIDAZOLE 24863526651 Jianming affected area /06/07 Aldo IQBAL thin layer, once daily OMEPRAZOLE 20 MG One tablet by OMEPRAZOLE 42389699991 Jianming TBEC mouth daily / Aldo IQBAL OMEPRAZOLE 20 MG One tablet by 2012/ OMEPRAZOLE 68383848831 Jianming TBEC mouth daily /06/07 Aldo IQBAL NOVOLIN N 100 40 units SC INSULIN ISOPHANE 37732454054 Jianming UNIT/ML SUSP twice daily / HUMAN Aldo IQBAL NOVOLOG 100 25 units SC at INSULIN ASPART 76484812049 Jianming UNIT/ML SOLN BF, 30 units / Aldo IQBAL at Lunch and Supper AMOXICILLIN-POT One tablet by 2013/ AMOXICILLIN-POT 92108909975 Jianming CLAVULANATE mouth twice /09/13 CLAVULANATE Aldo IQBAL 875-125 MG TABS daily TRAZODONE HCL 50 Two tablets by 2012/ TRAZODONE HCL 83250571586 Jianming MG TABS mouth daily /04/06 Aldo IQBAL MUPIROCIN 2 % apply to 2012/ MUPIROCIN 25221550528 Jianming OINT affected area /06/07 Aldo IQBAL four times a day NUCYNTA ER 50 MG One tablet by [facility] 201[facility]393400 [id number] Aldo IQBAL times daily NUCYNTA 50 MG One tablet by 2011/ TAPENTADOL HCL 86030076851 Jianming TABS mouth twice /06/03 Aldo IQBAL daily FAMVIR 500 MG one po tid 2012/ FAMCICLOVIR 28752118558 Jianming TABS /06/07 Aldo IQBAL FENTANYL 25 change q 3 FENTANYL 94736070821 Ness J MCG/HR PT72 days Maria Elena IQBAL FENTANYL 25 change q 3 2012/ FENTANYL 19062523718 Jiahiing MCG/HR PT72 days 06/07 Aldo IQBAL ACYCLOVIR 800 MG one po q 8 hrs 2012/ ACYCLOVIR 56365052967 Jianming TABS /17 06/07 Aldo IQBAL NUCYNTA 50 MG One tablet by TAPENTADOL HCL 96310816476 Jianming TABS mouth twice Aldo IQBAL daily ZOLPIDEM One tablet by 2012/ ZOLPIDEM TARTRATE 27854761923 Jianming TARTRATE 5 MG mouth daily /06/07 Aldo IQBAL TABS every night as needed, avoid driving or operating machine under the influence of medication. SYNTHROID 100 One tablet by 2013/ LEVOTHYROXINE SODIUM 77313858891 Rabia MCG TABS mouth daily /10/22 Aldo IQBAL CIPRO HC 0.2-1 % 4 gtt to left 2012/ CIPROFLOXACIN-HYDROC 65306883357 Jianming SUSP ear three 06/07 ORTISONE Aldo IQBAL times a day VALIUM 2 MG TABS One tablet by 2013/ DIAZEPAM 10290238935 Jianming mouth twice /11/19 Aldo IQBAL daily PROMETHAZINE HCL One tablet by 2013/ PROMETHAZINE HCL 22516148342 Jianming 12.5 MG TABS mouth 12/20 Aldo IQBAL times daily as needed nausea/vomitin g DIVALPROEX One tablet by 2013/ DIVALPROEX SODIUM 11818069202 Jianming SODIUM 125 MG mouth twice /11/12 Aldo IQBAL TBEC daily ZOLPIDEM One tablet by 2013/ ZOLPIDEM TARTRATE 45419878408 Lakishanming TARTRATE 5 MG mouth daily /11/19 Aldo IQBAL TABS every night DIAZEPAM 2 MG One tablet by 2013/ DIAZEPAM 96301159063 Rehana E TABS mouth daily /01/21 Schloneger every night AMOXICILLIN-POT One tablet by 2013/ AMOXICILLIN-POT 00728214195 Salma Milton CLAVULANATE mouth twice /07/13 CLAVULANATE Mallorie 875-125 MG TABS daily NUCYNTA ER 50 MG One tablet by TAPENTADOL HCL 00960352153 Rabia [id number] mouth twice / Aldo IQBAL daily as needed NUCYNTA ER 50 MG One tablet by 2013/ TAPENTADOL HCL 58609676449 Salma Milton [id number] mouth twice /07/13 Malloire daily as needed TOPIRAMATE 50 MG One tablet by TOPIRAMATE 85164735373 Salma Milton TABS mouth daily Mallorie TOPIRAMATE 50 MG One tablet by 2013/ TOPIRAMATE 34537066902 Jianming TABS mouth daily 07/29 Aldo IQBAL AMPICILLIN 500 One tablet by 2013/ AMPICILLIN 67814691250 Jianming MG CAPS mouth four 12/20 Aldo IQBAL times daily VITAMIN D one tablet by ERGOCALCIFEROL 73308647492 Jianming (ERGOCALCIFEROL) mouth once Aldo IQBAL 03857 UNIT CAPS weekly VITAMIN D one tablet by 2013/ ERGOCALCIFEROL 20703849888 Jianming (ERGOCALCIFEROL) mouth once 12/20 Aldo IQBAL 96955 UNIT CAPS weekly SULFAMETHOXAZOLE One tablet by 2013/ SULFAMETHOXAZOLE-TRI 65039018607 Jianming -TRIMETHOPRIM mouth twice 12/20 METHOPRIM Aldo IQBAL 800-160 MG TABS daily KLOR-CON M20 20 One tablet by 2015/ POTASSIUM CHLORIDE 70722323152 Gabriel A MEQ CR-TABS mouth daily 03/19 MELANY CR Mauricio DO ATORVASTATIN One tablet by 2016/ ATORVASTATIN CALCIUM 41066029685 Raven L CALCIUM 20 MG mouth daily at 03/31 [facility] TABS night for high cholesterol DEXAMETHASONE 1 One tab by 2016/ DEXAMETHASONE 39295783533 Raven L MG TABS mouth at 11pm, 03/31 [facility] lab work at 8AM the next morning FUROSEMIDE 20 MG One tablet by 2016/ FUROSEMIDE 80976776008 Raven L TABS mouth daily 03/31 [facility] GLUCAGEN HYPOKIT as needed IM GLUCAGON HCL (RDNA) 99431495115 Jianming 1 MG SOLR Aldo IQBAL hypoglycemia ATENOLOL 50 MG One tablet by ATENOLOL 88008739399 Raven L TABS mouth twice [facility] daily FENTANYL 50 change q 72hrs FENTANYL 53995247243 Lakishanming MCG/HR PT72 Aldo IQBAL FENTANYL 50 change q 72hrs 2015/ FENTANYL 46150813513 Gabriel A MCG/HR PT72 12/22 Mauricio DO DOXYCYCLINE One tablet by 2014/ DOXYCYCLINE HYCLATE 98045008836 Gabriel A HYCLATE 100 MG mouth twice /12/22 [facility] DO CAPS daily x 10 days HYDROMORPHONE 1 tablet by HYDROMORPHONE HCL 64819682070 Lakishanming HCL 2 MG TABS mouth every Aldo IQBAL 4-6 as needed HYDROMORPHONE 1 tablet by 2014/ HYDROMORPHONE HCL 93862238641 Gabriel A HCL 2 MG TABS mouth every 04/04 [facility] DO 4-6 as needed PODOCON 25 % 2012/ PODOPHYLLUM RESIN 87096073691 Leticiaing SOLN /06/07 Aldo IQBAL DEPO-SUBQ once every MEDROXYPROGESTERONE 62732222081 [facility] 104 104 three months / ACETATE Aldo IQBAL MG/0.65ML PARVIN DEPO-SUBQ once every 2013/ MEDROXYPROGESTERONE 49325054513 Jianming PROVERA 104 104 three months /05 11/03 ACETATE Aldo IQBAL MG/0.65ML PARVIN SYNTHROID 112 One tablet by 2014/ LEVOTHYROXINE SODIUM 81515252042 Rabia MCG TABS mouth daily /10/25 Aldo IQBAL PRAVASTATIN One tablet by 2014/ PRAVASTATIN SODIUM 74804110741 Jianming SODIUM 40 MG mouth daily /10/25 Aldo IQBAL TABS every night FOLIC ACID 1 MG Two tablets by 2015/ FOLIC ACID 85664861650 Gabriel A TABS mouth daily /03/19 [facility] DO PREMARIN 1.25 MG One tablet by ESTROGENS CONJUGATED 50009668549 Jianming TABS mouth daily / Aldo IQBAL PREMARIN 1.25 MG One tablet by 2015/ ESTROGENS CONJUGATED 54210724064 Gabriel A TABS mouth daily /03/19 [facility] DO DOXEPIN HCL 25 1 capsule by 2015/ DOXEPIN HCL 03333690125 Gabriel A MG CAPS mouth at night /03/19 [facility] FENOFIBRATE 48 Two tablets 2015/03 2016/ FENOFIBRATE 13277690745 Gabriel A MG TABS daily /12/26 Mauricio DO DIAZEPAM 5 MG One tablet by 2015/ DIAZEPAM 98830403503 Gabriel A TABS mouth daily /10/24 [facility] DO every night, avoid driving or operating machine under the influence of medication. XIFAXAN 550 MG One tablet by 2015/ RIFAXIMIN 95249124401 Gabriel A TABS mouth 11/07 Mauricio DO times daily NOVOLOG 100 20-30 units INSULIN ASPART 67877528534 Gabriel A UNIT/ML SOLN three times a [facility] DO day with meals COLACE 100 MG One tablet by 2015/ DOCUSATE SODIUM 71792488371 Gabriel A CAPS mouth daily /10/24 Mauricio DO ATENOLOL 50 MG One tablet by 2014/ ATENOLOL 04177091543 Gabriel A TABS mouth twice /04/04 [facility] DO daily PROPRANOLOL HCL One capsule by 2014/ PROPRANOLOL HCL 30108426958 Gabriel A ER 80 MG mouth daily at 05/11 [facility] DO [id number] night for migraine prevention and tachycardia Medications Administered No information available. Allergies, Adverse [...] Request for EFFEXOR XR 75MG CAP [id number]`EFFEXOR XR 75MG CAP`75MG``270 B e-scripts Capsule`90`TAKE THREE CAPSULES BY MOUTH ONCE messenger DAILY``1`0`02/07/2015`05/11/2015`[facility] [place]*`[id number]`VENLAFAXINE request ER 75MG CAP Quantity: 270 Capsule Instructions: TAKE THREE CAPSULES BY MOUTH ONCE DAILY Office Visit: Diabetes follow up HGBA1C 7.4 % Hemoglobin A1c/Hemoglobin.total in Blood SMOK ADVICE yes Smoking cessation education (procedure) MEDS REVIEW Done Documentation of current medications (procedure) Office Visit: Establish Care ORALTOBACUSE Never Tobacco smoking status NHIS SMOK STATUS Former smoker Tobacco use [facility] PHQ-9 SCORE 15 Adult depression screening assessment PHQ2 SCORE 0 Adult depression screening assessment Plan of Care Type Date Detail Appointment 03:30 PM Kay Mckeon ALL SOURCE ANALYST, [address] [facility], [address], [place], [address], Referral Rheumatology Referral BMS Provider, [address] [place], [address] Referral Rheumatology Referral BMS Provider, [address] [place], [address] Referral Ophthalmology Referral Referral Ophthalmology Referral Referral excluded from report: Referral Ophthalmology Referral [address] [facility], [place], [address] Referral Ophthalmology Referral [address] [facility], [place], [address] Referral Gastroenterology Referral Jasbir Fuchs MD, [address] [facility], [place], [address] Referral Gastroenterology Referral Jasbir Fuchs MD, [address] [facility], [place], [address] Referral Ophthalmology Referral Referral Rheumatology Referral Reyna Tucker MD, [address] [facility] [address], [place], [address] Referral Other Referral [facility], [address] [place], [address] Referral Other Referral [facility], [address] [place], [address] Referral Podiatry Referral Jared Powers DPM, [address] [place], [address] Referral OT-Functional Capacity Evaluation Physical Therapy [facility], [address], [place], [address] Referral Dermatology Referral Nadine Marquez, [address] [place], [address] Referral Gastroenterology Referral Marlon Shaggy, [address] [facility], [place], [address] Referral Rheumatology Referral Reyna Tucker MD, [address], [address], [place], [address] Referral Pain Management Maricruz Hernandez, [address] [facility], [address], [place], [address] Pending order *HgA1C Pending order *CMP Complete [...] Pending order Rapid Strep (Office) Pending order *Pleasants Test Pending order Administration Injection (Prophylactic, Therapeutic [...] Procedures Code Procedure Name Date Entry Date CPT-46482 HGB A1C (Office) 2143-6 *CAYDEN - Cortisol, A.M. 77428-6 *Lipid Profile 0667-1 *BMP PSGPCP PSG,CPAP (as indicated) ONLY PCP to follow up [id number] Ophthalmology Referral Order excluded from report: 0184-1 *CBC with Differential 01297-5 *CRP - C-Reative Protein 0786-1 *CMP Complete Metabolic Panel 4548-4 *HgA1C 07006-3 *Lipid Profile 0779-1 *Microalbumin, Creatine Ratio, rand urine 3016-3 *TSH 25436-6 *RA Rheumatoid Factor - Quaint 27704-0 *Sedimentation Rate (ESR) 32539-0 *UAC- Urinalysis, Complete w/ Micro 0523-1 *ANCA [id number] Ophthalmology Referral [id number] Rheumatology Referral CPT-99928 HGB A1C (Office) 4548-4 *HgA1C 3016-3 *TSH 42171-8 *Lipid Profile 0786-1 *CMP Complete Metabolic Panel Q968T,[id number] Lipid Profile CPT-77834 HGBA1C 3016-3 *TSH 0786-1 *CMP Complete Metabolic Panel 3016-3 *TSH 04530-6 *CBC without Diff 4086-5 *DEBRA Valpric Acid (Depakene, Dipropylacetic Acid) Drug Assay [id number],[id number] Microalbumin urine CPT-09151 HGBA1C Q968T,O161163 Lipid Profile CPT-20726 X-Ray, Hip Unilateral Podiatry Referral Podiatry Referral 4548-4 *HgA1C 3016-3 *TSH 4086-5 *DEBRA Valpric Acid (Depakene, Dipropylacetic Acid) Drug Assay 99510-4 *CBC without Diff 0786-1 *CMP Complete Metabolic Panel 4548-4 *HgA1C 0786-1 *CMP Complete Metabolic Panel 71482-9 *Lipid Profile 4086-5 *DEBRA Valpric Acid (Depakene, Dipropylacetic Acid) Drug Assay 0667-1 *BMP 6462-6 *CUW - Culture, Wound (Aerobic) 2823-3 *Potassium; Serum, Plasma or Whole Blood 0433-1 *HEBSAG - Hep B Surface Antigen 6510 0363-1 *HECAB Hepatitis C Antibody 62632-7 *HEBSAB - Hep B Surface Antibody 6395 0197-1 *HIV antibody 66143-1 *RPR 4548-4 *HgA1C 0667-1 *BMP 77426-2 *CBC without Diff 0788-1 *Hepatic Function Panel 4086-5 *DEBRA Valpric Acid (Depakene, Dipropylacetic Acid) Drug Assay 0184-1 *CBC with Differential 3016-3 *TSH 3024-7 *T4 free 0786-1 *CMP Complete Metabolic Panel CPT-93760 UA Dipstick (Office) 74934 Fingerstick, glucose (office) Dermatology Referral Dermatology Referral CPT-59423 X-Ray, Chest, PA & Lateral CPT-62552 Rapid Strep (Office) 18163-8 *Pleasants Test CPT-28819 Administration Injection (Prophylactic, Therapeutic or Diagnostic) CPT-45893 Excision Benign Lesion Trunk/Arm/Ket <0.6 cm FUA 2 weeks Follow Up Appt 2 weeks 0788-1 *Hepatic Function Panel 4086-5 *DEBRA Valpric Acid (Depakene, Dipropylacetic Acid) Drug Assay FUA 2 weeks Follow Up Appt 2 weeks 25189-4 *CBC without Diff Order excluded from report: 71969-6 *CBC without Diff Order excluded from report: FUA as scheduled Follow Up as scheduled Gastroenterology Ref Gastroenterology Referral CPT-30900 US Transvaginal Order excluded from report: FUA 1 week Follow up Appt 1 week 4548-4 *HgA1C 58227-1 *Lipid Profile 0786-1 *CMP Complete Metabolic Panel FUA 3 months Follow Up Appt 3 months 4548-4 *HgA1C Order excluded from report: 0667-1 *BMP Order excluded from report: CPT-80679 *Liver/Hepatic Function Panel Order excluded from report: FUA 3 months Follow Up Appt 3 months CPT-40985 *Lipid Profile RheuRef Rheumatology Referral Pain Management Pain Management CPT-80963 *Lipid Profile CPT-68702 *CMP Complete Metabolic Panel CPT-34231 *HgA1C CPT-41697 *TSH CPT-53410 *CBC without Diff CPT-61525 *Creatine Kinase (CK) CRP *CRP CPT-41747 *Sedimentation Rate (ESR) FUA 2 weeks Follow [...]
--- OUTSIDE RECORDS SUMMARY | 2018-09-04 11:25 | XMS RPT_ITS ---
:1985 Author Organization [facility] Care Team Providers Name Role Phone Maricruz Hernandez Attending Unavailable Gabriel Martínez Primary Care Unavailable Gabriel Martínez Attending Unavailable Gabriel Martínez Referring Unavailable MauricioGabriel shepard Primary Care Unavailable Gabriel Martínez Admitting Unavailable Gabriel Martínez Attending Unavailable Gabriel Martínez Primary Care Unavailable Gabriel Martínez Primary Care Unavailable London Martin Admitting Unavailable London Martin Attending Unavailable Darren Rodriguez Consulting Unavailable MauricioGabriel shepard Primary Care Unavailable Aaron Gomez Admitting Unavailable Aaron Gomez Attending Unavailable PROBLEMS PROBLEMS DATE TYPE CONDITION / CODE ATTENDING STATUS SOURCE 12/04/2017 Unknown M54.2 - Maricruz Hernandez Active [facility]ervical[facility] Community M54.2(ICD-10) Hospital Repository PROCEDURES PROCEDURES No Procedure Records FoundRESULTS RESULTS CREATININE FINGERSTICK Collected: 07/10/2018 Status: F Source: MEEKER 12:46 PM [facility] REPOSITORY TYPE CODE TESTS RESULT OUT OF RANGE REFERENCE UNITS LAB L9100.0210 0.55-1.02 mg/dL Normal CREATININE WB 1.0 Performed By: #### L9100.0200 #### [facility] Laboratory Point of Care [address] [place] [address] BRAIN/HEAD W/WO Observed: 07/10/2018 Status: F Source: TIMOTHY CONTRAST 12:39 PM [facility] REPOSITORY [facility] Imaging Services [address] [place] [address] Brain/Head W/WO Contrast MR#: [id number] Acct: [id number] Name: BERYL REID Rep #: [id number] : 1985 F 33 From: Paxton Paulino MD PCP: Gabriel Martínez DO Status: REG CLI Study: Brain/Head W/WO Contrast Date of Exam: 07/10/18 Exam# [id number] Ordering Dr: Gabriel Martínez DO STUDY: CT BRAIN WITH AND WITHOUT CONTRAST REASON FOR EXAM: Female, 33 years old. Chronic daily headaches. Memory impairment. RADIATION DOSAGE (If Supplied By Facility): CTDIvol = ( 44.99 ) mGy, DLP = ( 1479.73 ) mGycm TECHNIQUE: Transaxial CT imaging of the brain was performed pre and post contrast administration. The examination was performed with intravenous administration of 50 ml of Isovue 370 contrast material. Individualized dose optimization techniques were used for this CT. COMPARISON: None. FINDINGS: Normal soft tissue structures. Normal calvarium. Normal size ventricles and extra-axial spaces for the patient's age. Normal white matter tracts of the cerebral hemispheres. Normal basal ganglia and thalami. Normal brainstem. Normal cerebellum. There is no intracranial hemorrhage. There are no findings of an acute ischemic infarction. Normal visualized paranasal sinuses. CT/Brain/Head W/WO Contrast IMPRESSION: Normal unenhanced and enhanced CT scan of the brain. 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 Chest pain shortness of breath COMPARISON: None. ACCESSION NUMBER(S): [id number] ORDERING CLINICIAN: Epifanio Javed TECHNIQUE: Contiguous axial CT images were obtained through the chest at 2 mm slice thickness following administration of intravenous contrast utilizing pulmonary artery bolus tracking. 80 mL of Omnipaque 350 was administered. The images were then reconstructed in the coronal and sagittal planes. MIP images were created and reviewed. FINDINGS: POTENTIAL LIMITATIONS OF THE STUDY:Marked hypoventilation and motion artifact HEART and VESSELS: There is dense opacification of the pulmonary arterial system. No evidence of central, main, proximal lobar pulmonary embolism. Evaluation for more distal emboli is limited secondary to patient respiratory motion. The heart is within normal limits for size. No pericardial effusion is identified. The thoracic aorta is within normal limits for course and caliber, without evidence of aneurysm. MEDIASTINUM and BRADLEY, LOWER NECK AND AXILLA: Evaluation of the visualized neck base demonstrates no gross mass or lymphadenopathy. There is no gross axillary, hilar or mediastinal lymphadenopathy identified. LUNGS and AIRWAYS: The trachea and central airways are grossly patent without evidence of endobronchial lesion. Evaluation of the lung parenchyma is limited by motion artifact and hypoventilation. Hazy ground- glass opacities are likely related to atelectasis. No definite focal consolidations. No pleural effusions or pneumothorax. No definite discrete pulmonary nodules or masses are seen. UPPER ABDOMEN: Evaluation of the visualized upper abdomen demonstrates no discrete mass or lymphadenopathy. Exam Date/Time: 05/10/2018 12:36 EDT Report CHEST WALL and OSSEOUS STRUCTURES: There is no evidence of acute fracture identified. Spinal electrodes are present at the lower thoracic level. IMPRESSION: 1. No evidence of acute pulmonary embolus. Technically limited examination due to motion artifact and marked hypoventilation 2. No definite acute cardiopulmonary process identified. FINAL REPORT Dictated: 05/10/2018 12:50 pm Rosi Ray MD Signed (Electronic Signature): 05/10/2018 12:50 pm Signed by: Rosi Ray MD Technologist: [facility] XR CHEST 2 VIEWS Observed: 05/10/2018 Status: F Source: ROMAN CATHOLIC 10:38 AM [facility] REPOSITORY Exam Date/Time: 05/10/2018 10:42 EDT Reason for Exam: Chest pain Report STUDY: XR Chest 2 Views; 05/10/2018 10:42 am INDICATION: Chest pain. COMPARISON: May 06 ACCESSION NUMBER(S): [id number] ORDERING CLINICIAN: Epifanio Javed FINDINGS: Spinal stimulator again noted. No consolidation, effusion, edema, or pneumothorax. IMPRESSION: No evidence of acute intrathoracic abnormality. FINAL REPORT Dictated: 05/10/2018 11:31 am Praful Rodriguez MD Signed (Electronic Signature): 05/10/2018 11:31 am Signed by: Praful Rodriguez MD Technologist: , BHAVESH COMPLETE Collected: 05/10/2018 Status: F Source: ROMAN CATHOLIC 10:06 AM [facility] REPOSITORY Order Comment: Straight Cath as needed TYPE CODE TESTS RESULT OUT OF RANGE REFERENCE UNITS LAB [id number]( Yellow LOINC) Normal UA Color Yellow LAB 78914713( Clear LOINC) Normal UA Clarity Clear LAB 26118280( Negative LOINC) UA Glucose Abnormal 3+ LAB 40871915( Negative LOINC) Normal UA Bili Negative LAB 68434967( LOINC) Normal UA Ketones Trace LAB 38555329( 1.003-1.030 LOINC) Normal UA Spec Grav 1.022 LAB 13304204( 4.6-8.0 LOINC) Normal UA pH 6.0 LAB 45118906( Negative LOINC) Normal UA Protein Negative LAB 96660371( LOINC) Normal UA Urobilinogen Negative LAB 73103658( Negative LOINC) Normal UA Nitrite Negative LAB 46873517( Negative LOINC) Normal UA Blood Negative LAB 75112573( Negative LOINC) Normal UA Leuk Est Negative LAB 54663171( 0-3 /HPF LOINC) Normal UA RBC 0-3 LAB 35769048( 0-5 /HPF LOINC) UA WBC Abnormal 5-10 LAB 43625126( 0-5 /HPF LOINC) UA Squam Abnormal Epithelial 5-10 LAB 71436225( Trace /LPF LOINC) UA Mucous Abnormal Trace Performed By: #### [id number] #### [facility] Urinalysis Automated Subsection [address] [place] [address] Observed: 05/10/2018 Status: F Source: [facility] URINE 10:06 AM [facility] REPOSITORY Final Report: Light growth of Normal skin leatha isolated Performed By: #### [id number] #### [facility] Microbiology Subsection [facility] [place] [address] D-DIMER Collected: 05/10/2018 Status: F Source: ROMAN CATHOLIC 9:52 AM [facility] REPOSITORY TYPE CODE TESTS RESULT OUT OF RANGE REFERENCE UNITS LAB 11457760(LO <=0.50 mg/L FEU INC) Normal D-Dimer 0.45 Result Comment: Normal D Dimer level indicates no Deep Vein Thrombosis (DVT) or Pulmonary Embolism (PE). Elevated D Dimer level indicates additional studies and clinical assessments are indicated to conclude diagnosis of Deep Vein Thromobsis (DVT) or Pulmonary Embolism (PE). Performed By: #### [id number] #### [facility] Hematology Automated Subsection [address] [place] [address] CBC W/ AUTO DIFF Collected: 05/10/2018 Status: F Source: ROMAN CATHOLIC 9:52 AM [facility] TYPE CODE TESTS RESULT OUT OF RANGE REFERENCE UNITS LAB 72279740(L 3.6-11.0 E3/mcL OINC) Normal WBC 4.8 LAB 96254813(L 3.90-5.40 E6/mcL OINC) Low RBC 3.71 LAB 40881093(L 12.0-16.0 G/DL OINC) Normal Hgb 12.0 LAB 38824714(L 36.0-48.0 % OINC) Normal Hct 36.0 LAB 00948320(L 11.5-14.5 % OINC) Normal RDW 12.7 LAB 69926169(L 27.0-31.0 pg OINC) High MCH 32.3 LAB 63573429(L 33.0-37.0 G/DL OINC) Normal MCHC 33.3 LAB 26592591(L 78.0-100.0 fL OINC) Normal MCV 97.0 LAB 98433300(L 7.4-11.0 fL OINC) Normal MPV 8.7 LAB 21047454(L 130-400 E3/mcL OINC) Normal Platelet 183 Performed By: #### [id number] #### [facility] [employer] [address] [place] [address] AUTO DIFF Collected: 05/10/2018 Status: F Source: ROMAN CATHOLIC 9:52 AM [facility] REPOSITORY Order Comment: Order Added by Discern Expert. TYPE CODE TESTS RESULT OUT OF RANGE REFERENCE UNITS LAB 86455699(L 37.0-75.0 % OINC) Normal Neutro Auto 54.4 LAB 98986514(L 20.0-55.0 % OINC) Normal Lymph Auto 35.5 LAB 94741865(L 0.0-10.0 % OINC) Normal [place] Auto 5.6 LAB 42325910(L 0.0-11.0 % OINC) Normal Eos Auto 3.3 LAB 19240026(L 0.0-2.0 % OINC) Normal Basophil Auto 1.2 LAB 84717502(L 1.4-6.5 E3/mcL OINC) Normal Neutro 2.6 Absolute LAB 49645448(L 1.2-3.4 E3/mcL OINC) Normal Lymph Absolute 1.7 LAB 17391237(L 0.0-0.7 E3/mcL OINC) Normal [place] Absolute 0.3 LAB 35351689(L 0.0-0.7 E3/mcL OINC) Normal Eos Absolute 0.2 LAB 17851038(L 0.0-0.2 E3/mcL OINC) Normal Basophil 0.1 Absolute Performed By: #### [id number] #### [facility] [employer] [facility] [place] [address] TROPONIN-I Collected: 05/10/2018 Status: F Source: ROMAN CATHOLIC 9:52 AM [facility] REPOSITORY TYPE CODE TESTS RESULT OUT OF RANGE REFERENCE UNITS LAB 53880916(LO .00-.03 ng/mL INC) Normal .01 Troponin-I Performed By: #### [id number] #### [facility] [employer] [facility] [place] [address] BMP Collected: 05/10/2018 Status: F Source: ROMAN CATHOLIC 9:52 AM [facility] REPOSITORY TYPE CODE TESTS RESULT OUT OF RANGE REFERENCE UNITS LAB 97762826(L 70-99 mg/dL OINC) High Glucose Lvl 368 LAB 86105771(L 7-18 mg/dL OINC) BUN Normal 12 LAB 4776941(LO 0.6-1.3 mg/dL INC) Normal Creatinine 0.8 LAB 45857112(L 5.4-30.0 ratio OINC) Normal BUN/Creat Ratio 15.0 LAB 36538117(L 8.4-10.2 mg/dL OINC) Calcium Normal Lvl 9.2 LAB 73532995(L 136-145 mEq/L OINC) Sodium Normal Lvl 138 LAB 67158637(L 3.5-5.1 mEq/L OINC) Normal Potassium Lvl 4.2 LAB 64255918(L 98-107 mEq/L OINC) Chloride Normal 103 LAB 66361381(L 24.0-30.0 mEq/L OINC) Low CO2 22.9 Performed By: #### [id number] #### [facility] [employer] [employer] [facility] [place] [id number] EGFR Collected: 05/10/2018 Status: F Source: ROMAN CATHOLIC 9:52 AM [facility] REPOSITORY Order Comment: Order added by Discern Expert. TYPE CODE TESTS RESULT OUT OF RANGE REFERENCE UNITS LAB 82834468(LO mL/min/1.73 INC) m2 Normal eGFR >60 LAB 89258741(LO mL/min/1.73 INC) m2 Normal eGFR AA >60 Performed By: #### [id number] #### [place] [employer] [employer] [facility] [place] [id number] HEP FUNC PANEL Collected: 05/10/2018 Status: F Source: ROMAN CATHOLIC 9:52 AM [facility] REPOSITORY TYPE CODE TESTS RESULT OUT OF RANGE REFERENCE UNITS LAB 11536998(L 10-40 Int._Unit/L OINC) Normal ALT 33 LAB 66956879(L 10-42 Int._Unit/L OINC) Normal AST 29 LAB 40377037(L 3.2-5.0 G/DL OINC) Normal Albumin Lvl 3.3 LAB 41760901(L 2.0-4.0 G/DL OINC) Normal Globulin 3.5 LAB 18474830(L 1.1-1.9 ratio OINC) Low A/G Ratio 0.9 LAB 89614921(L 42-121 Int._Unit/L OINC) High Alk Phos 145 LAB 98985089(L .00-.20 mg/dL OINC) Normal Bili Direct .14 LAB 14563651(L OINC) Normal Bili Indirect 0.6 Result Comment: No established ranges available for the Indirect Biliruben. LAB 94369281(LOINC) 0.2-1.0 mg/dL Normal Bili Total 0.7 LAB 68449396(LOINC) 6.4-8.3 G/DL Normal Total Protein 6.8 Performed By: #### [id number] #### [facility] [employer] [address] [place] [id number] GLUCOSE POC Collected: 05/09/2018 Status: F Source: ROMAN CATHOLIC 12:07 PM [facility] REPOSITORY TYPE CODE TESTS RESULT OUT OF REFERENCE UNITS RANGE LAB 65160979(LO 70-99 mg/dL INC) High Glucose POC 255 Performed By: #### [id number] #### [facility] POC Subsection [address] [place] [address] GLUCOSE POC Collected: 05/09/2018 Status: F Source: ROMAN CATHOLIC 8:05 AM [facility] REPOSITORY TYPE CODE TESTS RESULT OUT OF REFERENCE UNITS RANGE LAB 56781083(LO 70-99 mg/dL INC) High Glucose POC 330 Performed By: #### [id number] #### [facility] POC Subsection [address] [place] [address] BMP Collected: 05/09/2018 Status: F Source: ROMAN CATHOLIC 5:18 AM [facility] REPOSITORY TYPE CODE TESTS RESULT OUT OF RANGE REFERENCE UNITS LAB 49338425(L 7-18 mg/dL OINC) BUN Normal 8 LAB 1366822(LO 0.6-1.3 mg/dL INC) Normal Creatinine 0.9 LAB 05840333(L 5.4-30.0 ratio OINC) Normal BUN/Creat Ratio 8.9 LAB 49360216(L 70-99 mg/dL OINC) High Glucose Lvl 314 LAB 06434723(L 8.4-10.2 mg/dL OINC) Calcium Normal Lvl 8.9 LAB 72538699(L 136-145 mEq/L OINC) High Sodium Lvl 147 LAB 20791715(L 3.5-5.1 mEq/L OINC) Low Potassium Lvl 3.3 LAB 40651752(L 98-107 mEq/L OINC) High Chloride 115 LAB 16131436(L 24.0-30.0 mEq/L OINC) CO2 Normal 24.8 Performed By: #### [id number] #### [facility] [address] [place] [address] EGFR Collected: 05/09/2018 Status: F Source: ROMAN CATHOLIC 5:18 AM [facility] REPOSITORY Order Comment: Order added by Discern Expert. TYPE CODE TESTS RESULT OUT OF RANGE REFERENCE UNITS LAB 76856646(LO mL/min/1.73 INC) m2 Normal eGFR >60 LAB 24675856(LO mL/min/1.73 INC) m2 Normal eGFR AA >60 Performed By: #### [id number] #### [facility] [employer] [address] [place] [address] PHOSPHORUS Collected: 05/09/2018 Status: F Source: ROMAN CATHOLIC 5:18 AM [facility] REPOSITORY TYPE CODE TESTS RESULT OUT OF REFERENCE UNITS RANGE LAB 22626545(L 2.5-4.9 mg/dL OINC) Low Phosphorus 1.5 Performed By: #### [id number] #### [place] [address] GLUCOSE POC Collected: 05/08/2018 Status: F Source: ROMAN CATHOLIC 9:00 PM [facility] REPOSITORY TYPE CODE TESTS RESULT OUT OF REFERENCE UNITS RANGE LAB 34220971(LO 70-99 mg/dL INC) High Glucose POC 201 Performed By: #### [id number] #### [facility] POC Subsection [address] [place] [address] BMP Collected: 05/08/2018 Status: F Source: ROMAN CATHOLIC 5:00 PM [facility] REPOSITORY TYPE CODE TESTS RESULT OUT OF RANGE REFERENCE UNITS LAB 76299512(L 70-99 mg/dL OINC) High Glucose Lvl 170 LAB 90302778(L 7-18 mg/dL OINC) BUN Normal 7 LAB 0707150(LO 0.6-1.3 mg/dL INC) Normal Creatinine 0.8 LAB 73799525(L 5.4-30.0 ratio OINC) Normal BUN/Creat Ratio 8.8 LAB 93802514(L 8.4-10.2 mg/dL OINC) Calcium Normal Lvl 8.8 LAB 47517850(L 136-145 mEq/L OINC) Sodium Normal Lvl 142 LAB 67103677(L 3.5-5.1 mEq/L OINC) Low Potassium Lvl 2.9 LAB 39861558(L 98-107 mEq/L OINC) High Chloride 112 LAB 54751023(L 24.0-30.0 mEq/L OINC) Low CO2 19.6 Performed By: #### [id number] #### [facility] [employer] [address] [place] [address] EGFR Collected: 05/08/2018 Status: F Source: ROMAN CATHOLIC 5:00 PM [facility] REPOSITORY Order Comment: Order added by Discern Expert. TYPE CODE TESTS RESULT OUT OF RANGE REFERENCE UNITS LAB 17073437(LO mL/min/1.73 INC) m2 Normal eGFR >60 LAB 43822268(LO mL/min/1.73 INC) m2 Normal eGFR AA >60 Performed By: #### [id number] #### [facility] [employer] [address] [place] [address] GLUCOSE POC Collected: 05/08/2018 Status: F Source: ROMAN CATHOLIC 4:22 PM [facility] REPOSITORY TYPE CODE TESTS RESULT OUT OF REFERENCE UNITS RANGE LAB 07652445(LO 70-99 mg/dL INC) High Glucose POC 158 Performed By: #### [id number] #### [facility] POC Subsection [address] [place] [address] BMP Collected: 05/08/2018 Status: F Source: ROMAN CATHOLIC 11:49 AM [facility] REPOSITORY TYPE CODE TESTS RESULT OUT OF RANGE REFERENCE UNITS LAB 72412145(L 70-99 mg/dL OINC) High Glucose Lvl 239 LAB 56335171(L 7-18 mg/dL OINC) BUN Normal 7 LAB 4009044(LO 0.6-1.3 mg/dL INC) Normal Creatinine 0.9 LAB 10512934(L 5.4-30.0 ratio OINC) Normal BUN/Creat Ratio 7.8 LAB 73325053(L 8.4-10.2 mg/dL OINC) Calcium Normal Lvl 8.7 LAB 29836085(L 136-145 mEq/L OINC) Sodium Normal Lvl 141 LAB 73844396(L 3.5-5.1 mEq/L OINC) Low Potassium Lvl 3.0 LAB 05843691(L 98-107 mEq/L OINC) High Chloride 110 LAB 31163240(L 24.0-30.0 mEq/L OINC) Low CO2 17.8 Performed By: #### [id number] #### [facility] [address] [place] [id number] EGFR Collected: 05/08/2018 Status: F Source: [place] 11:49 AM [facility] REPOSITORY Order Comment: Order added by Discern Expert. TYPE CODE TESTS RESULT OUT OF RANGE REFERENCE UNITS LAB 09834375(LO mL/min/1.73 INC) m2 Normal eGFR >60 LAB 05042484(LO mL/min/1.73 INC) m2 Normal eGFR AA >60 Performed By: #### [id number] #### [facility] [address] [place] [address] GLUCOSE POC Collected: 05/08/2018 Status: F Source: [place] 11:16 AM [facility] REPOSITORY TYPE CODE TESTS RESULT OUT OF REFERENCE UNITS RANGE LAB 67080560(LO 70-99 mg/dL INC) High Glucose POC 249 Performed By: #### [id number] #### [facility] POC Subsection [facility] [place] [address] BMP Collected: 05/08/2018 Status: F Source: [place] CATH[place] 9:57 AM [facility] REPOSITORY TYPE CODE TESTS RESULT OUT OF RANGE REFERENCE UNITS LAB 04219420(L 70-99 mg/dL OINC) High Glucose Lvl 251 LAB 93614436(L 7-18 mg/dL OINC) BUN Normal 7 LAB 2079521(LO 0.6-1.3 mg/dL INC) Normal Creatinine 0.9 LAB 90561459(L 5.4-30.0 ratio OINC) Normal BUN/Creat Ratio 7.8 LAB 15083411(L 8.4-10.2 mg/dL OINC) Calcium Normal Lvl 8.8 LAB 29110475(L 136-145 mEq/L OINC) Sodium Normal Lvl 141 LAB 41291427(L 3.5-5.1 mEq/L OINC) Low Potassium Lvl 3.3 LAB 62840785(L 98-107 mEq/L OINC) High Chloride 108 LAB 95732147(L 24.0-30.0 mEq/L OINC) Low CO2 17.8 Performed By: #### [id number] #### [facility] [employer] [facility] [place] [address] EGFR Collected: 05/08/2018 Status: F Source: ROM[place] CATH[place] 9:57 AM [facility] REPOSITORY Order Comment: Order added by Discern Expert. TYPE CODE TESTS RESULT OUT OF RANGE REFERENCE UNITS LAB 78312141(LO mL/min/1.73 INC) m2 Normal eGFR >60 LAB 15561201(LO mL/min/1.73 INC) m2 Normal eGFR AA >60 Performed By: #### [id number] #### [facility] [employer] [facility] [place] [address] MAGNESIUM Collected: 05/08/2018 Status: F Source: [place] CATH[place] 9:48 AM [facility] REPOSITORY TYPE CODE TESTS RESULT OUT OF RANGE REFERENCE UNITS LAB 08231729(L 1.7-2.8 mg/dL OINC) Normal Magnesium 2.0 Performed By: #### [id number] #### [facility] [employer] [address] [place] [address] PHOSPHORUS Collected: 05/08/2018 Status: F Source: [place] CATH[place]IC 9:48 AM [facility] REPOSITORY TYPE CODE TESTS RESULT OUT OF REFERENCE UNITS RANGE LAB 49342708(L 2.5-4.9 mg/dL OINC) Low Phosphorus 1.1 Performed By: #### [id number] #### [facility] [employer] [address] [place] [address] GLUCOSE POC Collected: 05/08/2018 Status: F Source: [place] CATH[facility] 7:42 AM [facility] REPOSITORY TYPE CODE TESTS RESULT OUT OF REFERENCE UNITS RANGE LAB 12090784(LO 70-99 mg/dL INC) High Glucose POC 237 Performed By: #### [id number] #### [facility] POC Subsection [address] [place] [address] GLUCOSE POC Collected: 05/08/2018 Status: F Source: [place] [facility]ATH[facility] 6:04 AM [facility] REPOSITORY TYPE CODE TESTS RESULT OUT OF REFERENCE UNITS RANGE LAB 47644107(LO 70-99 mg/dL INC) High Glucose POC 231 Performed By: #### [id number] #### [facility] POC Subsection [address] [place] [address] BMP Collected: 05/08/2018 Status: F Source: [place] [facility]ATH[place] 4:19 AM [facility] REPOSITORY TYPE CODE TESTS RESULT OUT OF RANGE REFERENCE UNITS LAB 50343716(L 70-99 mg/dL OINC) High Glucose Lvl 245 LAB 19170016(L 8.4-10.2 mg/dL OINC) Calcium Normal Lvl 8.7 LAB 12187145(L 136-145 mEq/L OINC) Sodium Normal Lvl 141 LAB 97548167(L 3.5-5.1 mEq/L OINC) Low Potassium Lvl 3.1 LAB 85041664(L 98-107 mEq/L OINC) High Chloride 109 LAB 22825609(L 24.0-30.0 mEq/L OINC) Low CO2 20.1 LAB 45403962(L 7-18 mg/dL OINC) BUN Normal 7 LAB 6184166(LO 0.6-1.3 mg/dL INC) Normal Creatinine 0.9 LAB 77285898(L 5.4-30.0 ratio OINC) Normal BUN/Creat Ratio 7.8 Performed By: #### [id number] #### [facility] [employer] [facility] [place] [address] CBC W/ AUTO DIFF Collected: 05/08/2018 Status: F Source: [place] [facility]ATH[facility] 4:19 AM [facility] REPOSITORY TYPE CODE TESTS RESULT OUT OF RANGE REFERENCE UNITS LAB 04359521(L 3.6-11.0 E3/mcL OINC) Normal WBC 8.6 LAB 29960675(L 3.90-5.40 E6/mcL OINC) Low RBC 3.52 LAB 36030247(L 12.0-16.0 G/DL OINC) Low Hgb 11.4 LAB 03347971(L 36.0-48.0 % OINC) Low Hct 33.8 LAB 88634749(L 11.5-14.5 % OINC) Normal RDW 12.9 LAB 08631479(L 27.0-31.0 pg OINC) High MCH 32.3 LAB 26685682(L 33.0-37.0 G/DL OINC) Normal MCHC 33.7 LAB 05699129(L 78.0-100.0 fL OINC) Normal MCV 96.0 LAB 37873022(L 7.4-11.0 fL OINC) Normal MPV 8.9 LAB 31453690(L 130-400 E3/mcL OINC) Normal Platelet 205 Performed By: #### [id number] #### [place] [employer] [facility] [place] [address] AUTO DIFF Collected: 05/08/2018 Status: F Source: [facility] 4:19 AM [facility] REPOSITORY Order Comment: Order Added by Discern Expert. TYPE CODE TESTS RESULT OUT OF RANGE REFERENCE UNITS LAB 29230863(L 37.0-75.0 % OINC) Normal Neutro Auto 67.4 LAB 30647170(L 20.0-55.0 % OINC) Normal Lymph Auto 22.9 LAB 38042948(L 0.0-10.0 % OINC) Normal [place] Auto 8.0 LAB 57980389(L 0.0-11.0 % OINC) Normal Eos Auto 0.8 LAB 36028463(L 0.0-2.0 % OINC) Normal Basophil Auto 0.9 LAB 36472567(L 1.4-6.5 E3/mcL OINC) Normal Neutro 5.8 Absolute LAB 32489050(L 1.2-3.4 E3/mcL OINC) Normal Lymph Absolute 2.0 LAB 86559993(L 0.0-0.7 E3/mcL OINC) Normal [place] Absolute 0.7 LAB 59649768(L 0.0-0.7 E3/mcL OINC) Normal Eos Absolute 0.1 LAB 51492849(L 0.0-0.2 E3/mcL OINC) Normal Basophil 0.1 Absolute Performed By: #### [id number] #### [facility] [employer] [facility] [place] [address] EGFR Collected: 05/08/2018 Status: F Source: [facility] 4:19 AM [facility] REPOSITORY Order Comment: Order added by Discern Expert. TYPE CODE TESTS RESULT OUT OF RANGE REFERENCE UNITS LAB 20223831(LO mL/min/1.73 INC) m2 Normal eGFR >60 LAB 43068897(LO mL/min/1.73 INC) m2 Normal eGFR AA >60 Performed By: #### [id number] #### [facility] [employer] [facility] [place] [address] GLUCOSE POC Collected: 05/08/2018 Status: F Source: [facility] 4:01 AM [facility] REPOSITORY TYPE CODE TESTS RESULT OUT OF REFERENCE UNITS RANGE LAB 41826565(LO 70-99 mg/dL INC) High Glucose POC 268 Performed By: #### [id number] #### [facility] POC Subsection [facility] [place] [address] GLUCOSE POC Collected: 05/08/2018 Status: F Source: [facility] 2:14 AM [facility] REPOSITORY TYPE CODE TESTS RESULT OUT OF REFERENCE UNITS RANGE LAB 94181624(LO 70-99 mg/dL INC) High Glucose POC 218 Performed By: #### [id number] #### [facility] POC Subsection [facility] [place] [id number] BMP Collected: 05/08/2018 Status: F Source: [facility] 12:18 AM [facility] REPOSITORY TYPE CODE TESTS RESULT OUT OF RANGE REFERENCE UNITS LAB [id number](L 70-99 mg/dL OINC) High Glucose Lvl 272 LAB [id number](L 8.4-10.2 mg/dL OINC) Calcium Normal Lvl 8.8 LAB [id number](L 136-145 mEq/L OINC) Sodium Normal Lvl 140 LAB [id number](L 3.5-5.1 mEq/L OINC) Low Potassium Lvl 3.1 LAB [id number](L 98-107 mEq/L OINC) High Chloride 108 LAB [id number](L 24.0-30.0 mEq/L OINC) Low CO2 18.8 LAB [id number](L 7-18 mg/dL OINC) BUN Normal 8 LAB [id number](LO 0.6-1.3 mg/dL INC) Normal Creatinine 1.0 LAB 97660180(L 5.4-30.0 ratio OINC) Normal BUN/Creat Ratio 8.0 Performed By: #### [id number] #### [facility] [employer] [address] [place], [place] [id number] EGFR Collected: 05/08/2018 Status: F Source: ROMAN CATHOLIC 12:18 AM [facility] REPOSITORY Order Comment: Order added by Discern Expert. TYPE CODE TESTS RESULT OUT OF RANGE REFERENCE UNITS LAB [id number](LO mL/min/1.73 INC) m2 Normal eGFR >60 LAB [id number](LO mL/min/1.73 INC) m2 Normal eGFR AA >60 Performed By: #### [id number] #### [facility] [employer] [address] [place], [place] [address] GLUCOSE POC Collected: 05/08/2018 Status: F Source: ROMAN CATHOLIC 12:05 AM [facility] REPOSITORY TYPE CODE TESTS RESULT OUT OF REFERENCE UNITS RANGE LAB [id number](LO 70-99 mg/dL INC) High Glucose POC 258 Performed By: #### [id number] #### [facility] POC Subsection [facility] [place] [address] GLUCOSE POC Collected: 05/07/2018 Status: F Source: ROMAN CATHOLIC 10:04 PM [facility] REPOSITORY TYPE CODE TESTS RESULT OUT OF REFERENCE UNITS RANGE LAB 32806634(LO 70-99 mg/dL INC) High Glucose POC 238 Performed By: #### [id number] #### [facility] POC Subsection [facility] [place] [address] BMP Collected: 05/07/2018 Status: F Source: ROMAN CATHOLIC 8:08 PM [facility] REPOSITORY TYPE CODE TESTS RESULT OUT OF RANGE REFERENCE UNITS LAB [id number](L 70-99 mg/dL OINC) High Glucose Lvl 280 LAB 08229059(L 7-18 mg/dL OINC) BUN Normal 11 LAB 3935946(LO 0.6-1.3 mg/dL INC) Normal Creatinine 0.9 LAB 91323434(L 5.4-30.0 ratio OINC) Normal BUN/Creat Ratio 12.2 LAB 78019343(L 8.4-10.2 mg/dL OINC) Calcium Normal Lvl 8.7 LAB 58986675(L 136-145 mEq/L OINC) Sodium Normal Lvl 140 LAB 38720850(L 3.5-5.1 mEq/L OINC) Low Potassium Lvl 3.4 LAB 38807113(L 98-107 mEq/L OINC) High Chloride 112 LAB 61414530(L 24.0-30.0 mEq/L OINC) Low CO2 17.6 Performed By: #### [id number] #### [facility] [employer] [facility] [place] [address] EGFR Collected: 05/07/2018 Status: F Source: ROMAN CATHOLIC 8:08 PM [facility] REPOSITORY Order Comment: Order added by Discern Expert. TYPE CODE TESTS RESULT OUT OF RANGE REFERENCE UNITS LAB 25272382(LO mL/min/1.73 INC) m2 Normal eGFR >60 LAB 34571795(LO mL/min/1.73 INC) m2 Normal eGFR AA >60 Performed By: #### [id number] #### [facility] [employer] [facility] [place] [address] GLUCOSE POC Collected: 05/07/2018 Status: F Source: ROMAN CATHOLIC 8:00 PM [facility] REPOSITORY TYPE CODE TESTS RESULT OUT OF REFERENCE UNITS RANGE LAB 82056889(LO 70-99 mg/dL INC) High Glucose POC 280 Performed By: #### [id number] #### [facility] POC Subsection [address] [place] [address] GLUCOSE POC Collected: 05/07/2018 Status: F Source: ROMAN CATHOLIC 6:11 PM [facility] REPOSITORY TYPE CODE TESTS RESULT OUT OF REFERENCE UNITS RANGE LAB 87142570(LO 70-99 mg/dL INC) High Glucose POC 229 Performed By: #### [id number] #### [facility] POC Subsection [address] [place] [address] GLUCOSE Collected: 05/07/2018 Status: F Source: ROMAN CATHOLIC 4:30 PM [facility] REPOSITORY TYPE CODE TESTS RESULT OUT OF REFERENCE UNITS RANGE LAB 22513810(LO 70-99 mg/dL INC) High Glucose Random 241 Performed By: #### [id number] #### [facility] [facility] [place] [address] BMP Collected: 05/07/2018 Status: F Source: ROMAN CATHOLIC 4:30 PM [facility] REPOSITORY TYPE CODE TESTS RESULT OUT OF RANGE REFERENCE UNITS LAB [id number](L 70-99 mg/dL OINC) High Glucose Lvl 241 LAB 02476261(L 7-18 mg/dL OINC) BUN Normal 12 LAB 3747003(LO 0.6-1.3 mg/dL INC) Normal Creatinine 0.9 LAB 02997643(L 5.4-30.0 ratio OINC) Normal BUN/Creat Ratio 13.3 LAB 83997662(L 8.4-10.2 mg/dL OINC) Calcium Normal Lvl 8.7 LAB 79217570(L 136-145 mEq/L OINC) Sodium Normal Lvl 138 LAB 63393345(L 3.5-5.1 mEq/L OINC) Low Potassium Lvl 3.4 LAB 34915518(L 98-107 mEq/L OINC) High Chloride 110 LAB [id number](L 24.0-30.0 mEq/L OINC) Low CO2 16.3 Performed By: #### [id number] #### [facility] [address] [place] [address] EGFR Collected: 05/07/2018 Status: F Source: ROMAN CATHOLIC 4:30 PM [facility] REPOSITORY Order Comment: Order added by Discern Expert. TYPE CODE TESTS RESULT OUT OF RANGE REFERENCE UNITS LAB 87022806(LO mL/min/1.73 INC) m2 Normal eGFR >60 LAB 58459773(LO mL/min/1.73 INC) m2 Normal eGFR AA >60 Performed By: #### [id number] #### [facility] [address] [place] [address] GLUCOSE POC Collected: 05/07/2018 Status: F Source: ROMAN CATHOLIC 4:03 PM [facility] REPOSITORY TYPE CODE TESTS RESULT OUT OF REFERENCE UNITS RANGE LAB [id number](LO 70-99 mg/dL INC) High Glucose POC 252 Performed By: #### [id number] #### [facility] POC Subsection [facility] [place] [address] GASES - BLOOD Collected: 05/07/2018 Status: F Source: ROMAN CATHOLIC 3:22 PM [facility] REPOSITORY TYPE CODE TESTS RESULT OUT OF RANGE REFERENCE UNITS LAB 51645490(L OINC) Venous Normal Sample Type. LAB 55201812(L 7.350-7.450 OINC) 7.381 Normal pH. LAB 14339024(L 35.0-45.0 mmHg OINC) Low 26.1 P CO2. LAB 79769157(L 80-100 mmHg OINC) High 193 P O2. LAB 44411221(L 22-28 mmol/L OINC) Low 16 CO2 Tot. LAB 04245016(L 22.0-26.0 mmol/L OINC) Low 15.5 HCO#. LAB 73688946(L 95-100 % OINC) 100 Normal O2 Sat. LAB 35277810(L -2-3 mmol/L OINC) Low -10 Base Excess. LAB 78863636(L % OINC) NOT Normal FiO2. CALCULATED LAB 52155384(L OINC) NOT Normal Sample Site. CALCULATED LAB 18617509(L OINC) NOT Normal Allens Test. CALCULATED LAB 70129646(L OINC) NOT Normal O2 Devices. CALCULATED LAB 74889531(L OINC) NOT Normal Vent Mode. CALCULATED LAB 24105990(L OINC) NOT Normal Set CALCULATED RR(b/min). LAB 34430418(L OINC) NOT Normal CPAP/PEEP(cmH CALCULATED 2O). LAB 00650199(L OINC) NOT Normal Tidal CALCULATED Volume(mL). LAB 83470140(L OINC) NOT Normal PSV/IP(cmH2O) CALCULATED . LAB 84855837(L DegC OINC) NOT Normal Patient Temp. CALCULATED LAB 73051716(L OINC) [id number] Normal OPID. Performed By: #### [id number] #### [place] [address] CT HEAD OR BRAIN W/O Observed: 05/07/2018 Status: F Source: ROMAN CATHOLIC CONTRAST 3:20 PM [facility] REPOSITORY Exam Date/Time: 05/07/2018 15:36 EDT Reason for Exam: Loss of consciousness Report STUDY: CT Head or Brain w/o Contrast; 05/07/2018 3:36 pm INDICATION: Loss of consciousness. COMPARISON: None. ACCESSION NUMBER(S): [id number] ORDERING CLINICIAN: Darren Rodriguez TECHNIQUE: Multiple axial CT images of the brain are obtained without use of intravenous contrast. FINDINGS: INTRACRANIAL: Brain Parenchyma: Normal barksdale-white matter differentiation. No mass effect or midline shift. Hemorrhage: None. Ventricles and Sulci: Normal size and configuration. EXTRACRANIAL: Soft Tissues: Within normal limits. Extracranial Vessels: No calcification. Paranasal Sinuses/Mastoids: Imaged portion is clear. Calvarium: No destructive lesion or acute fracture. IMPRESSION: No acute intracranial hemorrhage or mass effect. FINAL REPORT Dictated: 05/07/2018 3:42 pm Praful Givens MD Signed (Electronic Signature): 05/07/2018 3:42 pm Signed by: Praful Givens MD Technologist: AM GLUCOSE Collected: 05/07/2018 Status: F Source: ROMAN CATHOLIC 3:10 PM [facility] REPOSITORY TYPE CODE TESTS RESULT OUT OF REFERENCE UNITS RANGE LAB 24763661(LO 70-99 mg/dL INC) High Glucose Random 261 Performed By: #### [id number] #### [facility] [address] [place] [address] GLUCOSE POC Collected: 05/07/2018 Status: F Source: ROMAN CATHOLIC 3:03 PM [facility] REPOSITORY TYPE CODE TESTS RESULT OUT OF REFERENCE UNITS RANGE LAB 72881240(LO 70-99 mg/dL INC) High Glucose POC 263 Performed By: #### [id number] #### [facility] POC Subsection [address] [place] [address] GLUCOSE POC Collected: 05/07/2018 Status: F Source: ROMAN CATHOLIC 2:10 PM [facility] REPOSITORY TYPE CODE TESTS RESULT OUT OF REFERENCE UNITS RANGE LAB 69231823(LO 70-99 mg/dL INC) High Glucose POC 262 Performed By: #### [id number] #### [facility] POC Subsection [address] [place] [address] GLUCOSE POC Collected: 05/07/2018 Status: F Source: ROMAN CATHOLIC 1:10 PM [facility] REPOSITORY TYPE CODE TESTS RESULT OUT OF REFERENCE UNITS RANGE LAB [id number](LO 70-99 mg/dL INC) High Glucose POC 233 Performed By: #### [id number] #### [facility] POC Subsection [address] [place] [address] BMP Collected: 05/07/2018 Status: F Source: ROMAN CATHOLIC 12:21 PM [facility] REPOSITORY TYPE CODE TESTS RESULT OUT OF RANGE REFERENCE UNITS LAB 38316843(L 70-99 mg/dL OINC) High Glucose Lvl 234 LAB 77473570(L 7-18 mg/dL OINC) BUN Normal 13 LAB 1436612(LO 0.6-1.3 mg/dL INC) Normal Creatinine 0.9 LAB 12998323(L 5.4-30.0 ratio OINC) Normal BUN/Creat Ratio 14.4 LAB 09640394(L 8.4-10.2 mg/dL OINC) Calcium Normal Lvl 8.5 LAB 34905679(L 136-145 mEq/L OINC) Sodium Normal Lvl 137 LAB 54793289(L 3.5-5.1 mEq/L OINC) Normal Potassium Lvl 3.6 LAB 48106418(L 98-107 mEq/L OINC) High Chloride 108 LAB 66377543(L 24.0-30.0 mEq/L OINC) Low CO2 17.3 Performed By: #### [id number] #### [facility] [address] [place] [address] EGFR Collected: 05/07/2018 Status: F Source: ROMAN CATHOLIC 12:21 PM [facility] REPOSITORY Order Comment: Order added by Discern Expert. TYPE CODE TESTS RESULT OUT OF RANGE REFERENCE UNITS LAB [id number](LO mL/min/1.73 INC) m2 Normal eGFR >60 LAB [id number](LO mL/min/1.73 INC) m2 Normal eGFR AA >60 Performed By: #### [id number] #### [facility] [address] [place], [place] [address] GLUCOSE POC Collected: 05/07/2018 Status: F Source: ROMAN CATHOLIC 12:13 PM [facility] REPOSITORY TYPE CODE TESTS RESULT OUT OF REFERENCE UNITS RANGE LAB 64832148(LO 70-99 mg/dL INC) High Glucose POC 219 Performed By: #### [id number] #### [facility] POC Subsection [address] [place] [address] GLUCOSE POC Collected: 05/07/2018 Status: F Source: ROMAN CATHOLIC 10:56 AM [facility] REPOSITORY TYPE CODE TESTS RESULT OUT OF REFERENCE UNITS RANGE LAB 66765488(LO 70-99 mg/dL INC) High Glucose POC 220 Performed By: #### [id number] #### [facility] POC Subsection [address] [place] [address] GLUCOSE POC Collected: 05/07/2018 Status: F Source: ROMAN CATHOLIC 10:05 AM [facility] REPOSITORY TYPE CODE TESTS RESULT OUT OF REFERENCE UNITS RANGE LAB [id number](LO 70-99 mg/dL INC) High Glucose POC 206 Performed By: #### [id number] #### [facility] POC Subsection [address] [place], [place] [address] GLUCOSE POC Collected: 05/07/2018 Status: F Source: ROMAN CATHOLIC 8:55 AM [facility] REPOSITORY TYPE CODE TESTS RESULT OUT OF REFERENCE UNITS RANGE LAB 16601670(LO 70-99 mg/dL INC) High Glucose POC 194 Performed By: #### [id number] #### [facility] POC Subsection [address] [place], [place] [address] BMP Collected: 05/07/2018 Status: F Source: ROMAN CATHOLIC 8:05 AM [facility] REPOSITORY TYPE CODE TESTS RESULT OUT OF RANGE REFERENCE UNITS LAB [id number](L 70-99 mg/dL OINC) High Glucose Lvl 251 LAB 27334344(L 7-18 mg/dL OINC) BUN Normal 16 LAB 7601327(LO 0.6-1.3 mg/dL INC) Normal Creatinine 1.0 LAB 32356860(L 5.4-30.0 ratio OINC) Normal BUN/Creat Ratio 16.0 LAB 51787204(L 8.4-10.2 mg/dL OINC) Calcium Normal Lvl 9.0 LAB 54287695(L 136-145 mEq/L OINC) Sodium Normal Lvl 142 LAB 13724011(L 3.5-5.1 mEq/L OINC) Normal Potassium Lvl 4.5 LAB 90984420(L 98-107 mEq/L OINC) High Chloride 115 LAB 42468993(L 24.0-30.0 mEq/L OINC) Low CO2 14.5 Performed By: #### [id number] #### [facility] [address] [place] [address] EGFR Collected: 05/07/2018 Status: F Source: ROMAN CATHOLIC 8:05 AM [facility] REPOSITORY Order Comment: Order added by Discern Expert. TYPE CODE TESTS RESULT OUT OF RANGE REFERENCE UNITS LAB 95909913(LO mL/min/1.73 INC) m2 Normal eGFR >60 LAB [id number](LO mL/min/1.73 INC) m2 Normal eGFR AA >60 Performed By: #### [id number] #### [facility] [address] [place] [address] GLUCOSE POC Collected: 05/07/2018 Status: F Source: ROMAN CATHOLIC 7:51 AM [facility] REPOSITORY TYPE CODE TESTS RESULT OUT OF REFERENCE UNITS RANGE LAB 68785701(LO 70-99 mg/dL INC) High Glucose POC 251 Performed By: #### [id number] #### [facility] POC Subsection [address] [place] [address] GLUCOSE POC Collected: 05/07/2018 Status: F Source: ROMAN CATHOLIC 7:22 AM [facility] REPOSITORY TYPE CODE TESTS RESULT OUT OF REFERENCE UNITS RANGE LAB [id number](LO 70-99 mg/dL INC) High Glucose POC 222 Performed By: #### [id number] #### [facility] POC Subsection [facility] [place] [address] GLUCOSE POC Collected: 05/07/2018 Status: F Source: ROMAN CATHOLIC 6:18 AM [facility] REPOSITORY TYPE CODE TESTS RESULT OUT OF REFERENCE UNITS RANGE LAB 31204959(LO 70-99 mg/dL INC) High Glucose POC 223 Performed By: #### [id number] #### [facility] POC Subsection [facility] [place] [id number] CBC W/ AUTO DIFF Collected: 05/07/2018 Status: F Source: ROMAN CATHOLIC 4:15 AM [facility] REPOSITORY TYPE CODE TESTS RESULT OUT OF RANGE REFERENCE UNITS LAB [id number](L 3.6-11.0 E3/mcL OINC) High WBC 11.8 LAB 57927383(L 3.90-5.40 E6/mcL OINC) Low RBC 3.46 LAB 26756192(L 12.0-16.0 G/DL OINC) Low Hgb 11.2 LAB 62011175(L 36.0-48.0 % OINC) Low Hct 33.8 LAB 18276863(L 11.5-14.5 % OINC) Normal RDW 12.6 LAB 90191839(L 27.0-31.0 pg OINC) High MCH 32.4 LAB 71047566(L 33.0-37.0 G/DL OINC) Normal MCHC 33.2 LAB 90009107(L 78.0-100.0 fL OINC) Normal MCV 97.7 LAB 55478130(L 7.4-11.0 fL OINC) Normal MPV 8.5 LAB [id number](L 130-400 E3/mcL OINC) Normal Platelet 228 Performed By: #### [id number] #### [facility] [employer] [facility] [place] [id number] MANUAL DIFF Collected: 05/07/2018 Status: F Source: ROMAN CATHOLIC 4:15 AM [facility] REPOSITORY Order Comment: Order Added by Discern Expert. TYPE CODE TESTS RESULT OUT OF REFERENCE UNITS RANGE LAB [id number]( 37-75 % LOINC) Segs Man 80 High LAB 40633348( 0-1 LOINC) Band Man 2 High LAB 96845197( 14-48 % LOINC) Low Lymph Man 11 LAB 56415976( 1-11 % LOINC) Monocyte 7 Normal Man LAB 53576383( 0-5 % LOINC) Eos Man 0 Normal LAB 12860464( 0-1 % LOINC) Basophil 0 Normal Man LAB 32388971( LOINC) RBC Morph SEE Normal MORPHOLOGY LAB 22694975( LOINC) 1+ Normal Anisocytosis Performed By: #### [id number] #### [place] [address] ZZPLT MORPH Collected: 05/07/2018 Status: F Source: ROMAN CATHOLIC 4:15 AM [facility] REPOSITORY TYPE CODE TESTS RESULT OUT OF RANGE REFERENCE UNITS LAB 21968642(L OINC) Normal Platelet NORMAL Estimate LAB 85514232(L OINC) Normal Platelet Morph NORMAL Performed By: #### [id number] #### [place] [address] .MANUAL ABS Collected: 05/07/2018 Status: F Source: ROMAN CATHOLIC 4:15 AM [facility] REPOSITORY Order Comment: Order Added by Discern Expert. TYPE CODE TESTS RESULT OUT OF RANGE REFERENCE UNITS LAB [id number](L 1.4-6.5 10x3/ OINC) High Segs Abs Man 9.4 LAB 32936392(L 1.2-3.4 10x3/ OINC) Normal Lymph Abs Man 1.3 LAB 14747156(L 0.0-0.7 10x3/ OINC) High [place] Abs Man 0.8 LAB 36786917(L 0.0-0.5 10x3/ OINC) Normal Eos Abs Man 0.0 LAB 39530509(L 0.0-0.2 10x3/ OINC) Normal Basophil Abs 0.0 Man Performed By: #### [id number] #### [facility] [employer] [address] [place] [address] CMP Collected: 05/07/2018 Status: F Source: ROMAN CATHOLIC 4:15 AM [facility] REPOSITORY TYPE CODE TESTS RESULT OUT OF RANGE REFERENCE UNITS LAB 24725538(L 70-99 mg/dL OINC) High Glucose Lvl 233 LAB 03260469(L 8.4-10.2 mg/dL OINC) Low Calcium Lvl 7.3 LAB 77985103(L 136-145 mEq/L OINC) Normal Sodium Lvl 141 LAB 86311875(L 3.5-5.1 mEq/L OINC) Normal Potassium Lvl 3.6 LAB 70853513(L 98-107 mEq/L OINC) High Chloride 117 LAB 84444371(L 24.0-30.0 mEq/L OINC) Abnormal CO2 Alert 9.6 Result Comment: Critical Result CO2: Called to: ENMANUEL POE at: 04:28:58 by:JOSHUA Read back by:ENMANUEL POE LAB 47192189(LOINC) 7-18 mg/dL BUN Normal 14 LAB 9187301(LOINC) 0.6-1.3 mg/dL Normal Creatinine 0.8 LAB 78880111(LOINC) 42-121 Int._Unit/ L Alk Phos Normal 107 LAB 82388666(LOINC) 0.2-1.0 mg/dL Bili Normal Total 1.0 LAB 60452664(LOINC) 3.2-5.0 G/DL Low Albumin Lvl 2.6 LAB 16610979(LOINC) 6.4-8.3 G/DL Low Total Protein 5.1 LAB 81530114(LOINC) 10-40 Int._Unit/ L ALT High 65 LAB 32198031(LOINC) 10-42 Int._Unit/ L AST High 81 LAB 32348650(LOINC) 5.4-30.0 ratio Normal BUN/Creat Ratio 17.5 LAB 46174179(LOINC) 2.0-4.0 G/DL Globulin Normal 2.5 LAB 59845491(LOINC) 1.1-1.9 ratio Low A/G Ratio 1.0 Performed By: #### [id number] #### [facility] [employer] [address] [place] [address] MAGNESIUM Collected: 05/07/2018 Status: F Source: ROMAN CATHOLIC 4:15 AM [facility] REPOSITORY TYPE CODE TESTS RESULT OUT OF REFERENCE UNITS RANGE LAB 86529750(L 1.7-2.8 mg/dL OINC) Low Magnesium 1.5 Performed By: #### [id number] #### [place] [employer] [employer] [address] [place] [address] PHOSPHORUS Collected: 05/07/2018 Status: F Source: ROMAN CATHOLIC 4:15 AM [facility] REPOSITORY TYPE CODE TESTS RESULT OUT OF REFERENCE UNITS RANGE LAB 97783344(L 2.5-4.6 mg/dL OINC) Low Phosphorus 1.7 Performed By: #### [id number] #### [facility] [address] [place] [id number] EGFR Collected: 05/07/2018 Status: F Source: ROMAN CATHOLIC 4:15 AM [facility] REPOSITORY Order Comment: Order added by Discern Expert. TYPE CODE TESTS RESULT OUT OF RANGE REFERENCE UNITS LAB 88884369(LO mL/min/1.73 INC) m2 Normal eGFR >60 LAB 81913956(LO mL/min/1.73 INC) m2 Normal eGFR AA >60 Performed By: #### [id number] #### [facility] [employer] [facility] [place] [address] LIPID PROFILE Collected: 05/07/2018 Status: F Source: ROMAN CATHOLIC 4:15 AM [facility] REPOSITORY TYPE CODE TESTS RESULT OUT OF RANGE REFERENCE UNITS LAB [id number](LO 50-200 mg/dL INC) High Chol 223 Result Comment: TOTAL CHOLEESTEROL: <200 NORMAL 200 - 239 BORDERLINE HIGH >240 HIGH LAB 98734699(LOINC) >=41 mg/dL Low HDL 15 LAB 38166551(LOINC) 0-130 mg/dL Normal LDL 35 Result Comment: <100 OPTIMAL 100-129 NEAR / ABOVE OPTIMAL 130-159 BORDERLINE HIGH 160-189 HIGH >190 VERY HIGH CALC LDL NOT VALID WHEN TRIGLYCERIDE IS >400 MG/DL LAB 43731680(LOINC) 35-150 mg/dL High Trig 863 Result Comment: <150 NORMAL 150-199 BORDERLINE HIGH 200-499 HIGH >500 VERY HIGH LAB 20070880(LOINC) Normal VLDL 173 Performed By: #### [id number] #### [facility] [employer] [facility] [place] [id number] GLUCOSE POC Collected: 05/07/2018 Status: F Source: ROMAN CATHOLIC 4:06 AM [facility] REPOSITORY TYPE CODE TESTS RESULT OUT OF REFERENCE UNITS RANGE LAB 62745090(LO 70-99 mg/dL INC) High Glucose POC 236 Performed By: #### [id number] #### LE[facility]DO POC Subsection [facility] [place] [address] GLUCOSE POC Collected: 05/07/2018 Status: F Source: ROMAN CATHOLIC 3:03 AM [facility] REPOSITORY TYPE CODE TESTS RESULT OUT OF REFERENCE UNITS RANGE LAB 35293910(LO 70-99 mg/dL INC) High Glucose POC 167 Performed By: #### [id number] #### [facility] POC Subsection [address] [place] [address] GLUCOSE POC Collected: 05/07/2018 Status: F Source: ROMAN CATHOLIC 2:16 AM [facility] REPOSITORY TYPE CODE TESTS RESULT OUT OF REFERENCE UNITS RANGE LAB 40764102(LO 70-99 mg/dL INC) High Glucose POC 149 Performed By: #### [id number] #### [facility] POC Subsection [address] [place] [address] GLUCOSE POC Collected: 05/07/2018 Status: F Source: ROMAN CATHOLIC 1:07 AM [facility] REPOSITORY TYPE CODE TESTS RESULT OUT OF REFERENCE UNITS RANGE LAB 83088910(LO 70-99 mg/dL INC) High Glucose POC 171 Performed By: #### [id number] #### [facility] POC Subsection [address] [place] [address] BMP Collected: 05/06/2018 Status: F Source: ROMAN CATHOLIC 11:55 PM [facility] REPOSITORY TYPE CODE TESTS RESULT OUT OF RANGE REFERENCE UNITS LAB 81526441(L 70-99 mg/dL OINC) High Glucose Lvl 181 LAB 07743893(L 7-18 mg/dL OINC) Normal BUN 15 LAB 8342740(LO 0.6-1.3 mg/dL INC) Normal Creatinine 0.9 LAB 60105921(L 5.4-30.0 ratio OINC) Normal BUN/Creat Ratio 16.7 LAB 00235595(L 8.4-10.2 mg/dL OINC) Low Calcium Lvl 6.9 LAB 55966701(L 136-145 mEq/L OINC) Normal Sodium Lvl 144 LAB 40633569(L 3.5-5.1 mEq/L OINC) Low Potassium Lvl 3.0 LAB 33481157(L 98-107 mEq/L OINC) High Chloride 120 LAB 55047726(L 24.0-30.0 mEq/L OINC) CO2 Abnormal 5.9 Alert Result Comment: Critical Result CO2: Called to: COURTNEY ASHLEY at: 00:02:20 by:SHDFURR Read back by:COURTNEY ASHLEY Performed By: #### [id number] #### [facility] [employer] [facility] [place] [address] EGFR Collected: 05/06/2018 Status: F Source: ROMAN CATHOLIC 11:55 PM [facility] REPOSITORY Order Comment: Order added by Discern Expert. TYPE CODE TESTS RESULT OUT OF RANGE REFERENCE UNITS LAB 85639454(LO mL/min/1.73 INC) m2 Normal eGFR >60 LAB 56452384(LO mL/min/1.73 INC) m2 Normal eGFR AA >60 Performed By: #### [id number] #### [facility] [employer] [address] [place] [address] GLUCOSE POC Collected: 05/06/2018 Status: F Source: ROMAN CATHOLIC 11:23 PM [facility] REPOSITORY TYPE CODE TESTS RESULT OUT OF REFERENCE UNITS RANGE LAB 69740070(LO 70-99 mg/dL INC) High Glucose POC 197 Performed By: #### [id number] #### [facility] POC Subsection [address] [place] [address] GLUCOSE POC Collected: 05/06/2018 Status: F Source: ROMAN CATHOLIC 10:12 PM [facility] REPOSITORY TYPE CODE TESTS RESULT OUT OF REFERENCE UNITS RANGE LAB 95259467(LO 70-99 mg/dL INC) High Glucose POC 172 Performed By: #### [id number] #### [facility] POC Subsection [address] [place] [address] GLUCOSE POC Collected: 05/06/2018 Status: F Source: ROMAN CATHOLIC 9:08 PM [facility] REPOSITORY TYPE CODE TESTS RESULT OUT OF REFERENCE UNITS RANGE LAB 79834523(LO 70-99 mg/dL INC) High Glucose POC 165 Performed By: #### [id number] #### [facility] POC Subsection [address] [place] [address] GASES - BLOOD Collected: 05/06/2018 Status: F Source: ROMAN CATHOLIC 8:12 PM [facility] REPOSITORY TYPE CODE TESTS RESULT OUT OF RANGE REFERENCE UNITS LAB 74081317(LO INC) Normal Sample Type. Venous LAB 92502831(LO 7.350-7.450 INC) Low pH. 7.134 LAB 77554260(LO 35.0-45.0 mmHg INC) Low P CO2. 11.3 LAB 08544110(LO 80-100 mmHg INC) High P O2. 183 LAB 08277932(LO 22-28 mmol/L INC) Low CO2 Tot. <5 Result Comment: Result out of meter range, test reanalyzed by Lab LAB 39224306(LOINC) 22.0-26.0 mmol/L Low HCO#. 3.8 LAB 94320110(LOINC) 95-100 % 99 Normal O2 Sat. LAB 73637963(LOINC) -2-3 mmol/L Low Base -25 Excess. LAB 38833116(LOINC) % Normal FiO2. NOT CALCULATED LAB 17435862(LOINC) Normal NOT CALCULATED Sample Site. LAB 85238892(LOINC) Normal NOT CALCULATED [facility]ens Test. LAB 58289160(LOINC) Normal O2 NOT CALCULATED Devices. LAB 09414166(LOINC) Normal Vent NOT CALCULATED Mode. LAB 10884229(LOINC) Normal Set NOT CALCULATED RR(b/min). LAB 80778798(LOINC) Normal NOT CALCULATED CPAP/PEEP(c mH2O). LAB 95832857(LOINC) Normal Tidal NOT CALCULATED Volume(mL). LAB 48534590(LOINC) Normal NOT CALCULATED PSV/IP(cmH2 O). LAB 96560834(LOINC) DegC Normal NOT CALCULATED Patient Temp. LAB 59677047(LOINC) Normal OPID. [id number] Performed By: #### [id number] #### [facility] P[facility] Subsection [address] [place] [address] GAS VENOUS ORDER Collected: 05/06/2018 Status: F Source: ROMAN [facility]ATHOLIC 8:00 [facility] REPOSITORY TYPE CODE TESTS RESULT OUT OF REFERENCE UNITS RANGE LAB [id number](L OINC) Blood Normal Gas Collection Collected Performed By: #### [id number] #### [facility] P[facility] Subsection [facility] [place] [address] BMP Collected: 05/06/2018 Status: F Source: ROMAN CATHOLIC 8:00 PM [facility] REPOSITORY TYPE CODE TESTS RESULT OUT OF RANGE REFERENCE UNITS LAB [id number](L 70-99 mg/dL OINC) High Glucose Lvl 247 LAB 85491254(L 7-18 mg/dL OINC) High BUN 21 LAB 1387693(LO 0.6-1.3 mg/dL INC) Normal Creatinine 1.2 LAB 20072726(L 5.4-30.0 ratio OINC) Normal BUN/Creat Ratio 17.5 LAB [id number](L 8.4-10.2 mg/dL OINC) Low Calcium Lvl 7.1 LAB 18062976(L 136-145 mEq/L OINC) Normal Sodium Lvl 143 LAB 84475902(L 3.5-5.1 mEq/L OINC) Low Potassium Lvl 3.0 LAB 01991915(L 98-107 mEq/L OINC) High Chloride 116 LAB 33443956(L 24.0-30.0 mEq/L OINC) CO2 Abnormal 5.9 Alert Result Comment: Critical Result CO2: Called to: ENMANUEL MCKEON at: 20:27:39 by:RENE Read back by:ENMANUEL MCKEON Performed By: #### [id number] #### LEOPOLDO [facility] [address] [place] [address] EGFR Collected: 05/06/2018 Status: F Source: ROMAN CATHOLIC 8:00 PM [facility] REPOSITORY Order Comment: Order added by Discern Expert. TYPE CODE TESTS RESULT OUT OF RANGE REFERENCE UNITS LAB 25313924(LO mL/min/1.73 INC) m2 Normal eGFR 52 LAB 84928548(LO mL/min/1.73 INC) m2 Normal eGFR AA >60 Performed By: #### [id number] #### LEOPOLDO [facility] [address] [place] [address] GLUCOSE Collected: 05/06/2018 Status: F Source: ROMAN CATHOLIC 6:48 PM [facility] REPOSITORY TYPE CODE TESTS RESULT OUT OF REFERENCE UNITS RANGE LAB 59603926(LO 70-99 mg/dL INC) High Glucose Random 364 Performed By: #### [id number] #### LEOPOLDO [facility] [address] [place] [address] FREE T4 Collected: 05/06/2018 Status: F Source: ROMAN CATHOLIC 6:13 PM [facility] REPOSITORY Order Comment: Please use the previously drawn blood sample if possible TYPE CODE TESTS RESULT OUT OF RANGE REFERENCE UNITS LAB 03785849(LO 0.58-1.64 ng/dL INC) Normal T4 Free 0.66 Result Comment: Patients receiving more than 5mg/day of biotin may have interference in test results. A sample should be taken no sooner than eight hours after previous dose. Performed By: #### [id number] #### LEOPOLDO [facility] [address] [place] [address] GLUCOSE Collected: 05/06/2018 Status: F Source: ROMAN CATHOLIC 5:30 PM [facility] REPOSITORY TYPE CODE TESTS RESULT OUT OF RANGE REFERENCE UNITS LAB 32589127(L 70-99 mg/dL OINC) Abnormal Alert Glucose 505 Random Result Comment: Critical Result GLU: Called to: JAYCE GIPSON at: 17:26:44 by:RENE Read back by:JAYCE GIPSON Performed By: #### [id number] #### [facility] [address] [place] [address] XR CHEST AP PORTABLE Observed: 05/06/2018 Status: F Source: ROMAN CATHOLIC 4:12 PM [facility] REPOSITORY Exam Date/Time: 05/06/2018 16:16 EDT Reason for Exam: Central line placement Report STUDY: XR Chest AP Portable; 05/06/2018 4:16 pm INDICATION: Central line placement. COMPARISON: Portable chest, 05/06/2018. ACCESSION NUMBER(S): [id number] ORDERING CLINICIAN: Darren Rodriguez TECHNIQUE: Portable frontal radiograph was obtained of the chest. FINDINGS: The heart size is normal. The lungs are clear bilaterally. There is no pleural effusion or pneumothorax. There has been interval placement of a right internal jugular central venous catheter with tip extending deep into the right atrium. Stable spinal stimulator device extends to the midthoracic spine. IMPRESSION: 1. New right internal jugular central venous catheter tip extends deep into the right atrium. 2. No evidence of pneumothorax. FINAL REPORT Dictated: 05/06/2018 5:11 pm Abdullahi Saab MD Signed (Electronic Signature): 05/06/2018 5:11 pm Signed by: Abdullahi Saab MD Technologist: PATRICA MARIN Collected: 05/06/2018 Status: F Source: ROMAN CATHOLIC 3:50 PM [facility] REPOSITORY TYPE CODE TESTS RESULT OUT OF RANGE REFERENCE UNITS LAB 32354304(L 70-99 mg/dL OINC) Abnormal Alert Glucose Lvl 623 Result Comment: Critical Result GLU: Called to: JAYCE GIPSON at: 16:05:21 by:RENE Read back by:JAYCE GIPSON\Critical Result GLU: Called to: JAYCE GIPSON at: 16:06:43 by:FROYLAN Read back by:JAYCE GIPSON LAB 20251504(LOINC) 7-18 mg/dL High BUN 25 LAB 6282483(LOINC) 0.6-1.3 mg/dL High Creatinine 1.5 LAB 66306052(LOINC) 5.4-30.0 ratio Normal BUN/Creat Ratio 16.7 LAB 59431800(LOINC) 8.4-10.2 mg/dL Low Calcium Lvl 7.4 LAB 74318724(LOINC) 136-145 mEq/L Normal Sodium Lvl 138 LAB 92424534(LOINC) 3.5-5.1 mEq/L Normal Potassium Lvl 4.1 LAB 71569538(LOINC) 98-107 mEq/L High Chloride 108 LAB 68357008(LOINC) 24.0-30.0 mEq/L CO2 Abnormal Alert <5.0 Result Comment: Critical Result CO2: Called to: JAYCE GIPSON at: 16:05:21 by:RENE Read back by:JAYCE GIPSON\Critical Result CO2: Called to: JAYCE GIPSON at: 16:06:43 by:FROYLAN Read back by:JAYCE GIPSON Performed By: #### [id number] #### LE[facility]DO [facility] [address] [place] [address] EGFR Collected: 05/06/2018 Status: F Source: ROMAN CATHOLIC 3:50 PM [facility] REPOSITORY Order Comment: Order added by Discern Expert. TYPE CODE TESTS RESULT OUT OF RANGE REFERENCE UNITS LAB 53237356(LO mL/min/1.73 INC) m2 Normal eGFR 40 LAB 44572825(LO mL/min/1.73 INC) m2 Normal eGFR AA 49 Performed By: #### [id number] #### LE[facility]DO [facility] [address] [place] [address] TSH Collected: 05/06/2018 Status: F Source: ROMAN CATHOLIC 3:50 PM [facility] REPOSITORY TYPE CODE TESTS RESULT OUT OF RANGE REFERENCE UNITS LAB 23283877(LO 0.30-5.60 mIU/m INC) Normal TSH 3.15 Performed By: #### [id number] #### LEOPOLDO [employer] [address] [place] [id number] HGBA1C Collected: 05/06/2018 Status: F Source: ROMAN CATHOLIC 3:50 PM [facility] REPOSITORY TYPE CODE TESTS RESULT OUT OF REFERENCE UNITS RANGE LAB 204776375( 4.0-6.3 % LOINC) High Hemoglobin A1c 12.0 Performed By: #### [id number] #### LEOPOLDO Chemistry Manual Subsection [facility] [place] [address] GASES - BLOOD Collected: 05/06/2018 Status: F Source: ROMAN CATHOLIC 3:36 PM [facility] REPOSITORY TYPE CODE TESTS RESULT OUT OF RANGE REFERENCE UNITS LAB 07174939(L OINC) Normal Sample Arterial Type. LAB 91552278(L 7.350-7.450 OINC) Low pH. 6.863 Result Comment: Critical values reported to caregiver. LAB 14017966(LOINC) 35.0-45.0 mmHg Low P CO2. 10.8 LAB 71099717(LOINC) 80-100 mmHg High P O2. 160 LAB 59115204(LOINC) 22-28 mmol/L Low CO2 Tot. <5 Result Comment: Result out of meter range, test reanalyzed by Lab LAB 99800621(LOINC) 22.0-26.0 mmol/L Low HCO#. 2.0 LAB 62811929(LOINC) 95-100 % Normal O2 Sat. 97 LAB 95541577(LOINC) -2-3 mmol/L Low Base Excess. <-30 Result Comment: Result out of meter range, test reanalyzed by Lab LAB 24800985(LOINC) % 32 Normal FiO2. LAB 87321916(LOINC) R rad Normal Sample Site. LAB 65933177(LOINC) Neg Normal Allens Test. LAB 85775275(LOINC) Cannula Normal O2 Devices. LAB 49567576(LOINC) NOT Normal Vent Mode. CALCULATED LAB 72275178(LOINC) NOT Normal Set CALCULATED RR(b/min). LAB 16672270(LOINC) NOT Normal CPAP/PEEP(cmH CALCULATED 2O). LAB 14790736(LOINC) NOT Normal Tidal CALCULATED Volume(mL). LAB 67586446(LOINC) NOT Normal PSV/IP(cmH2O) CALCULATED . LAB 86169878(LOINC) DegC NOT Normal Patient Temp. CALCULATED LAB 72860475([facility]) 2396357 Normal OPID. Performed By: #### [id number] #### LEOPOLDO POC Subsection [address] [place] [address] Observed: 05/06/2018 Status: F Source: YOSHI Hays BLOOD 2:36 PM [facility] REPOSITORY Final Report: No growth at 5 Days Performed By: #### [id number] #### LEOPOLDO Microbiology Automated Subsection [facility] [place] [address] Observed: 05/06/2018 Status: F Source: YOSHI Hays BLOOD 2:36 PM [facility] REPOSITORY Final Report: No growth at 5 Days Performed By: #### [id number] #### LEOPOLDO Microbiology Automated Subsection [address] [place] [address] XR CHEST AP PORTABLE Observed: 05/06/2018 Status: F Source: ROMAN CATHOLIC 2:31 PM [facility] REPOSITORY Exam Date/Time: 05/06/2018 14:43 EDT Reason for Exam: Other (please specify) Report STUDY: XR Chest AP Portable; 05/06/2018 2:43 pm INDICATION: Altered mental status. COMPARISON: 11/27/2017 ACCESSION NUMBER(S): [id number] ORDERING CLINICIAN: Huma Lockwood FINDINGS: A single AP portable radiograph of the chest was obtained. Multiple cardiac monitoring leads are seen over the chest. No focal infiltrate, pleural effusion or pneumothorax is identified. The cardiac silhouette is within normal limits for size. IMPRESSION: No focal infiltrate or pneumothorax is identified. FINAL REPORT Dictated: 05/06/2018 3:14 pm Gopi Haque MD Signed (Electronic Signature): 05/06/2018 3:14 pm Signed by: Gopi Haque MD Technologist: GLP GLUCOSE POC Collected: 05/06/2018 Status: F Source: ROMAN CATHOLIC 2:02 PM [facility] REPOSITORY TYPE CODE TESTS RESULT OUT OF RANGE REFERENCE UNITS LAB 41855935(L 70-99 mg/dL OINC) Abnormal Alert Glucose POC >500 Result Comment: >500 send to Lab Result out of meter range, glucose reanalyzed by lab Performed By: #### [id number] #### LEOPOLDO POC Subsection [facility] [place] [address] U DRUG SCREEN Collected: 05/06/2018 Status: F Source: ROMAN CATHOLIC 1:24 PM [facility] REPOSITORY TYPE CODE TESTS RESULT OUT OF RANGE REFERENCE UNITS LAB 32515465(LO ng/mL INC) Normal U Negative Amph Scr Result Comment: Results for medical use only. Confirmation of positive results will be done when requested. Specimens are kept for one week. LAB 39683409(LOINC) ng/mL U Normal Selene Scr Negative LAB 49408927(LOINC) ng/mL U Normal Benzodia Scr Negative LAB 46698712(LOINC) ng/mL U Normal Cannab Scr Negative LAB 80989584(LOINC) ng/mL U Normal Cocaine Scr Negative LAB 38997422(LOINC) ng/mL U Normal Opiate Scr Negative LAB 77974593(LOINC) ng/mL U Normal PCP Scr Negative Performed By: #### [id number] #### LE[facility]DO [facility] [address] [place] [address] UA COMPLETE Collected: 05/06/2018 Status: F Source: ROMAN CATHOLIC 1:24 PM [facility] REPOSITORY Order Comment: Clean Catch TYPE CODE TESTS RESULT OUT OF RANGE REFERENCE UNITS LAB 89470128( Yellow LOINC) Normal UA Color Yellow LAB 94914740( Clear LOINC) UA Clarity Abnormal SltCloudy LAB 77385589( Negative LOINC) UA Glucose 3+ Abnormal LAB 59950030( Negative LOINC) Normal UA Bili Negative LAB 15723910( Negative LOINC) UA Ketones 2+ Abnormal LAB 60623984( 1.003-1.030 LOINC) Normal UA Spec Grav 1.021 LAB 62608801( 4.6-8.0 LOINC) Normal UA pH 5.0 LAB 07317398( Negative LOINC) UA Protein 2+ Abnormal LAB 05717872( mg/dL LOINC) Normal UA Urobilinogen Negative LAB 51738601( Negative LOINC) Normal UA Nitrite Negative LAB 33233000( Negative LOINC) Normal UA Blood Negative LAB 82291633( Negative LOINC) Normal UA Leuk Est Negative LAB 68739754( 0-3 /HPF LOINC) Normal UA RBC 0-3 LAB 88841729( 0-5 /HPF LOINC) Normal UA WBC 0-5 LAB 59541504( None /HPF LOINC) UA Bacteria 1+ Abnormal LAB 42745507( None /LPF LOINC) UA Gran Abnormal Cast 0-2 LAB 80100062( None /HPF LOINC) UA Amorph 2+ Abnormal Kelsey Performed By: #### [id number] #### LEOPOLDO Urinalysis Automated Subsection [address] [place] [address] U BHCG QLT Collected: 05/06/2018 Status: F Source: ROMAN CATHOLIC 1:24 PM [facility] REPOSITORY TYPE CODE TESTS RESULT OUT OF RANGE REFERENCE UNITS LAB 4406508(JONG Neg NC) Normal U beta Neg hCG Ql Performed By: #### [id number] #### LEOPOLDO Urinalysis Manual Subsection [address] [place] [address] HEP FUNC PANEL Collected: 05/06/2018 Status: F Source: ROMAN CATHOLIC 1:18 PM [facility] REPOSITORY TYPE CODE TESTS RESULT OUT OF RANGE REFERENCE UNITS LAB 63646081(L 10-40 Int._Unit/L OINC) High ALT 115 LAB 71155122(L 10-42 Int._Unit/L OINC) High AST 290 LAB 10434794(L 3.2-5.0 G/DL OINC) Normal Albumin Lvl 4.5 LAB 78070986(L 2.0-4.0 G/DL OINC) Normal Globulin 4.0 LAB 13705276(L 1.1-1.9 ratio OINC) Normal A/G Ratio 1.1 LAB 31826795(L 42-121 Int._Unit/L OINC) High Alk Phos 221 LAB 51451056(L .00-.20 mg/dL OINC) Normal Bili Direct <.10 LAB 68096088(L OINC) Normal Bili Indirect >1.8 Result Comment: No established ranges available for the Indirect Biliruben. LAB 72842914(LOINC) 0.2-1.0 mg/dL High Bili Total 1.9 LAB 11874396(LOINC) 6.4-8.3 G/DL High Total Protein 8.5 Performed By: #### [id number] #### [facility]DO [facility] [address] [place] [address] CBC W/ AUTO DIFF Collected: 05/06/2018 Status: F Source: ROMAN CATHOLIC 1:18 PM [facility] REPOSITORY TYPE CODE TESTS RESULT OUT OF RANGE REFERENCE UNITS LAB 43695002(L 3.6-11.0 E3/mcL OINC) High WBC 37.1 LAB 71514314(L 3.90-5.40 E6/mcL OINC) Normal RBC 4.77 LAB 90005845(L 12.0-16.0 G/DL OINC) Normal Hgb 15.7 LAB 96421760(L 36.0-48.0 % OINC) High Hct 58.5 LAB 57823396(L 11.5-14.5 % OINC) Normal RDW 14.4 LAB 98863078(L 27.0-31.0 pg OINC) High MCH 32.9 LAB 70257734(L 33.0-37.0 G/DL OINC) Low MCHC 26.8 LAB 31100046(L 78.0-100.0 fL OINC) High MCV 122.5 LAB 18735143(L 7.4-11.0 fL OINC) Normal MPV 9.5 LAB 52155187(L 130-400 E3/mcL OINC) High Platelet 530 Performed By: #### [id number] #### LE[place]DO [employer] [address] [place] [address] MANUAL DIFF Collected: 05/06/2018 Status: F Source: ROMAN CATHOLIC 1:18 PM [facility] REPOSITORY Order Comment: Order Added by Discern Expert. TYPE CODE TESTS RESULT OUT OF REFERENCE UNITS RANGE LAB 04096941(L 37-75 % OINC) Segs 53 Normal Man LAB 46126139(L 0-1 OINC) Band 8 Grocery Clerk Checking LAB 34510308(L 14-48 % OINC) Lymph 32 Normal Man LAB 98943245(L 1-11 % OINC) 7 Normal Monocyte Man LAB 23843149(L 0-5 % OINC) Eos 0 Normal Man LAB 13084573(L 0-1 % OINC) 0 Normal Basophil Man LAB 68765389(L OINC) RBC SEE Normal Morph MORPHOLOGY LAB 89246175(L OINC) 1+ Normal Macrocyte Performed By: #### [id number] #### LEOPOLDO [employer] [place] [address] ZZPLT MORPH Collected: 05/06/2018 Status: F Source: ROMAN CATHOLIC 1:18 PM [facility] REPOSITORY TYPE CODE TESTS RESULT OUT OF RANGE REFERENCE UNITS LAB 70869322(L OINC) Normal Platelet INCREASED Estimate LAB 72117355(L OINC) Normal Platelet Morph NORMAL Performed By: #### [id number] #### [place] [address] .MANUAL ABS Collected: 05/06/2018 Status: F Source: ROMAN CATHOLIC 1:18 PM [facility] REPOSITORY TYPE CODE TESTS RESULT OUT OF RANGE REFERENCE UNITS LAB 64420507(L 1.4-6.5 10x3/ OINC) High Segs Abs Man 19.7 LAB 86112132(L 1.2-3.4 10x3/ OINC) High Lymph Abs Man 11.9 LAB 96978809(L 0.0-0.7 10x3/ OINC) High [place] Abs Man 2.6 LAB 78032995(L 0.0-0.5 10x3/ OINC) Normal Eos Abs Man 0.0 LAB 94461385(L 0.0-0.2 10x3/ OINC) Normal Basophil Abs 0.0 Man Performed By: #### [id number] #### LEOPOLDO [employer] [facility] [place] [address] BMP Collected: 05/06/2018 Status: F Source: ROMAN CATHOLIC 1:18 PM [facility] REPOSITORY Order Comment: Lab collect TYPE CODE TESTS RESULT OUT OF RANGE REFERENCE UNITS LAB 57941699(L 7-18 mg/dL OINC) High BUN 30 LAB 7171989(LO 0.6-1.3 mg/dL INC) High Creatinine 2.0 LAB 06274553(L 5.4-30.0 ratio OINC) Normal BUN/Creat Ratio 15.0 LAB 69016963(L 8.4-10.2 mg/dL OINC) Normal Calcium Lvl 9.1 LAB 73037974(L 136-145 mEq/L OINC) Low Sodium Lvl 122 LAB 22871991(L 3.5-5.1 mEq/L OINC) Abnormal Potassium Lvl 7.2 Alert Result Comment: Critical Result K: Called to: DR. LOCKWOOD at: 13:52:55 by:[facility] Read back by:DR. LOCKWOOD LAB 48029703(LOINC) 98-107 mEq/L Low Chloride 82 LAB 64918126(LOINC) 24.0-30.0 mEq/L Abnormal CO2 Alert <5.0 LAB 20189897(LOINC) 70-99 mg/dL Abnormal Glucose Lvl Alert 1308 Result Comment: Critical Result GLU: Called to: DR. LOCKWOOD at: 13:52:56 by:[facility] Read back by:DR. LOCKWOOD Critical Result GLU: Called to: DR. LOCKWOOD at: 13:52:56 by:[facility] Read back by:DR. LOCKWOOD Performed By: #### [id number] #### LEOPOLDO [facility] [address] [place] [address] EGFR Collected: 05/06/2018 Status: F Source: ROMAN CATHOLIC 1:18 PM [facility] REPOSITORY Order Comment: Order added by Discern Expert. TYPE CODE TESTS RESULT OUT OF RANGE REFERENCE UNITS LAB 73657401(LO mL/min/1.73 INC) m2 Normal eGFR 29 LAB 04254969(LO mL/min/1.73 INC) m2 Normal eGFR AA 35 Performed By: #### [id number] #### LEOPOLDO [facility] [address] [place] [address] BOHB Collected: 05/06/2018 Status: F Source: ROMAN CATHOLIC 1:18 PM [facility] REPOSITORY TYPE CODE TESTS RESULT OUT OF RANGE REFERENCE UNITS LAB 82547933(LO 0.02-0.27 mmol/L INC) High Beta HB >9.00 Qnt Result Comment: Critical result successfully called to and read back by robert haynes at 05/06/2018 14:53:37 EDT and reported by crm. Performed By: #### [id number] #### LEOPOLDO [facility] [address] [place] [id number] GASES - BLOOD Collected: 05/06/2018 Status: F Source: ROMAN CATHOLIC 1:10 PM [facility] REPOSITORY TYPE CODE TESTS RESULT OUT OF RANGE REFERENCE UNITS LAB 15739167(L OINC) Normal Sample Arterial Type. LAB 34473475(L 7.350-7.450 OINC) Low pH. 6.843 Result Comment: Critical values reported to caregiver. LAB 82512964(LOINC) 35.0-45.0 mmHg Low P CO2. 7.6 LAB 85751247(LOINC) 80-100 mmHg High P O2. 159 LAB 65195904(LOINC) 22-28 mmol/L Low CO2 Tot. <5 Result Comment: Result out of meter range, test reanalyzed by Lab LAB 37260451(LOINC) 22.0-26.0 mmol/L Low HCO#. 1.3 LAB 07307749(LOINC) 95-100 % Normal O2 Sat. 97 LAB 70463860(LOINC) -2-3 mmol/L Low Base Excess. <-30 Result Comment: Result out of meter range, test reanalyzed by Lab LAB 38264962(LOINC) % 21 Normal FiO2. LAB 23128736(LOINC) R rad Normal Sample Site. LAB 35349850(LOINC) Neg Normal Allens Test. LAB 20014086(LOINC) Room Air Normal O2 Devices. LAB 72187371(LOINC) NOT Normal Vent Mode. CALCULATED LAB 70906818(LOINC) NOT Normal Set CALCULATED RR(b/min). LAB 93329559(LOINC) NOT Normal CPAP/PEEP(cmH CALCULATED 2O). LAB 82264077(LOINC) NOT Normal Tidal CALCULATED Volume(mL). LAB 12520082(LOINC) NOT Normal PSV/IP(cmH2O) CALCULATED . LAB 85365824(LOINC) DegC NOT Normal Patient Temp. CALCULATED LAB 26498854(LOINC) 8183465 Normal OPID. Performed By: #### [id number] #### LEOPOLDO POC Subsection [facility] [place] [address] GLUCOSE POC Collected: 05/06/2018 Status: F Source: ROMAN CATHOLIC 12:55 PM [facility] REPOSITORY TYPE CODE TESTS RESULT OUT OF RANGE REFERENCE UNITS LAB 48682266(L 70-99 mg/dL OINC) Abnormal Alert Glucose POC >500 Result Comment: >500 send to Lab Result out of meter range, glucose reanalyzed by lab Performed By: #### [id number] #### LEOPOLDO POC Subsection [facility] [place] [address] XR CHEST 2 VIEWS Observed: 11/27/2017 Status: F Source: ROMAN CATHOLIC 3:11 PM [facility] REPOSITORY Exam Date/Time: 11/27/2017 15:18 EDT Reason for Exam: cough Report CHEST PA, LATERAL HISTORY: Cough COMPARISON: 11/09/2014 FINDINGS: The cardiac size is normal. No hilar or mediastinal enlargement is seen. The lungs are clear. The pulmonary vascularity is normal. No pleural effusion is seen. The thoracic vertebrae are normal in height. Note is made of epidural leads, in the mid thoracic spine IMPRESSION: No acute disease. No change from the last examination of 11/09/2014. FINAL REPORT Dictated: 11/27/2017 5:02 pm Simone Hendricks MD Signed (Electronic Signature): 11/27/2017 5:02 pm Signed by: Simone Hendricks MD Technologist: TRAE CERV SPINE 2 OR 3 Observed: 08/07/2017 Status: F Source: [facility] 10:38 AM [facility] REPOSITORY [facility] Imaging Services [address] [place] [address] Cerv Spine 2 or 3 Views MR#: [id number] Acct: [id number] Name: JEANETTEBERYL K Rep #: [id number] : 1985 F 32 From: Dwaine Osorio MD PCP: Gabriel Martínez DO Status: REG CLI Study: Cerv Spine 2 or 3 Views Date of Exam: 08/07/17 Exam# [id number] Ordering Dr: Maricruz Hernandez MD STUDY: X-RAY - CERVICAL SPINE REASON FOR EXAM: Female, 32 years old. Neck pain. TECHNIQUE: 4 view(s) of the cervical spine were obtained. COMPARISON: None FINDINGS: Normal anterior atlantoaxial articulation. Normal odontoid process. Normal cervical lordosis. Normal vertebral bodies and endplates. Normal disc space heights. Normal visualized intervertebral neuroforamina. The soft tissue structures are unremarkable. RAD/Cerv Spine 2 or 3 Views IMPRESSION: Normal x-ray examination of the visualized cervical spine. Electronically Signed: Dwaine Osorio MD at 17:09 EST , Service support , CC: Maricruz Hernandez MD; Gabriel Martínez DO Low Pressure Boiler Operator: Signed ALLERGIES ALLERGIES DATE TYPE / CODE NAME / CODE REACTION SEVERITY SOURCE 06/07/2013 Drug NSAIDS Other Unknown [place] Allergy/416 (Non-Steroidal Community 288151([facility] Anti-Inflamma/F0010 Hospital ED CT) 00632(RXNORM) Repository 06/07/2013 Drug amitriptyline/F0060 Unknown Unknown [place] Allergy/416 49832(RXNORM) Community 073792([facility] ED CT) Repository Drug/423200 amitriptyline Unknown [place] 003([facility] CT) System Repository Drug/127592 Strawberries Jewish 003([facility] CT) System Repository Drug/067967 Lodine liver Jewish 003([facility] CT) System Repository Drug/677081 NSAIDs Unknown Jewish 003([facility] CT) System Repository ENCOUNTERS ENCOUNTERS ADMIT/DISCHARGE ACCOUNT NUMBER ADMITTING ENCOUNTER LOCATION SOURCE CLASS 07/10/2018 [id number] Ambulatory [facility] ding:CT Repository 05/10/2018/05/10/20 [id number] [place], Emergency [facility] ding: Health System EDRoom: WR Repository 05/10/2018 [id number] Ambulatory [address] [place] [address] Repository 05/07/2018 [id number] Ambulatory [address] [place] [address] Repository 05/06/2018/05/09/20 [id number] Kevin Pierce, Inpatient [place] [address] [place] Encounter [facility] ding:.[facility] oom: Repository 0333Bed: 05/06/2018 [id number] Ambulatory [address] [place] [address] Repository 11/27/2017/11/28/[id number] Mauricio, [place] [address] Gabriel A [facility] ding:.RAD [facility] Repository 08/07/2017 [id number] Ambulatory [facility] ding:RAD Repository PAYERS PAYERS ENCOUNTER GUARANTOR PAYER SUBSCRIBER SOURCE 07/10/2018 BERYL Vera Primary BERYL Vera [place] [id number] E Insurance:MEDICARE RAMEYDOB: [facility], [facility] A BPolic [id number] [address]Dmp: Number: Repository [id number] (HP) Date:2018-06-26 07/10/2018 Secondary BERYL K Timothy Insurance:MEDICAIDPol RAMEYDOB: Community icy Number: [id number] [id number] Repository Date:2018-06-26 07/10/2018 Tertiary NOT GIVENUNK Timothy Insurance:SELF PAY [facility] Number: Effective Repository Date:2018-06-26 05/10/2018 BERYL Vera Primary BERYL Truj[place]aritan RAMEYDOB: Insurance:MedicarePol RAMEYDOB: [facility] E icy Number: Effective [id number] System [facility], Date:2018-05-10 [place] Repository [place] [id number] [address]Bya: Name:CD:[id number] [facility] [address]Ras: [id number], [place] () [phone]: [phone] () [phone] (WP) 05/10/2018 Secondary BERYL Jody Flores Insurance:MedicaidPol RAMEYB: [facility] icy Number: Effective [id number] System Date:2018-05-10 [place] Repository [id number] [place], [place] Name:CD:[id number]: [address] [place], [place] ()Tel: [phone]: () [phone] 05/10/2018 BERYL Vera Primary BERYL Vera [employer] RAMEYDOB: Insurance:MedicarePol RAMEYDOB: [facility] E icy Number: [id number] Repository [facility], [id number] E [place] [id number]: Date:Plan Name:DONNA Vora A [id number]: (HP) (HP) 05/10/2018 [facility] Insurance:MedicarePol RAMEYDOB: Hospitals icy Number: [id number] Repository [id number] E [place] Date:Plan Name:DONNA Vora B [id number]: (HP) 05/10/2018 [facility] Insurance:MedicaidPol RAMEYDOB: Hospitals icy Number: [id number] Repository [id number] E [place] Date:Plan [place]LI [place] Name:[id number]: [address] [place] [address]GI: [phone] (HP) [phone] 05/07/2018 [facility]Medicare[facility] RAMEYDOB: Hospitals E icy Number: [id number] Repository [facility], [id number] E [place] [id number]: Date:Plan Name:DONNA Vora A [id number]: (HP) (HP) 05/07/2018 [facility] Insurance:MedicarePol RAMEYDOB: Hospitals icy Number: [id number] Repository [id number] E CONGRESS Date:Plan Name:DONNA Vora B [id number]: (HP) 05/07/2018 [facility] Insurance:MedicaidPol RAMEYDOB: Hospitals icy Number: [id number] Repository [id number] E CONGRESS Date:Plan [place] Name:[id number] [place] [address]YA: [phone] 05/06/2018 [facility] RAMEYDOB: Insurance:MedicarePol RAMEYDOB: [facility] E icy Number: Effective [id number] System [facility], Date:2018-05-06 [place] Repository [place] [id number] [address]Llp: Name:CD:[id number] [facility] [id number]: [id number], [place] (HP) [id number]: [phone] ([phone]) 05/06/2018 Secondary [facility] Insurance:MedicaidPol RAMEYDOB: [facility] icy Number: Effective [id number] System Date:2018-05-06 [place] Repository [id number] [place], [place] Name:CD:[id number]: [address] [place], [place] ()Tel: [phone]: [phone] 05/06/2018 [facility] access hospital RAMEYDOB: Insurance:MedicarePol RAMEYDOB: Hospitals E icy Number: [id number] Repository [facility] [id number] [facility] [id number]: Date:Plan [facility] [place] [place] A [id number]: (HP) (HP) 05/06/2018 [facility] Insurance:MedicarePol RAMEYDOB: Hospitals icy Number: [id number] Repository [id number] E CONGRESS Date:Plan Name:[facility] [place] B [id number]: (HP) 05/06/2018 Tertiary [facility] Insurance:MedicaidPol RAMEYDOB: Hospitals icy Number: [id number] Repository [id number] E CONGRESS Date:[place], [place] Name:[facility] [id number]: [address] [place] [address]WP: [phone] 11/27/2017 BERYL K Primary BERYL Jody TrujilloJewish RAMEYDOB: Insurance:MedicarePol RAMEYDOB: [facility] E icy Number: Effective [id number] System [facility], Date:2017-11-27 [place] [id number]: [id number] [place], [place] Name:CD:[id number] [id number]: (HP) [id number], [place] [id number]: [phone] (WP) 11/27/2017 Secondary BERYL Jody Flores Insurance[facility]MedicaidPol [facility] icy Number: Effective [id number] System Date:2017-11-27 [place] Repository [id number] [place] Name:CD:[id number]: [address] [place], [place] (HP)Tel: [phone]: [phone] 08/07/2017 Beryl K Primary Beryl K Timothy [id number] E Insurance:MEDICARE RameyDOB: [facility] BPolicy [id number] [address]Ahh: Number: Repository [id number] (HP) Date:2017-08-07 08/07/2017 Secondary Beryl K [place] Insurance:MEDICAIDPol RameyDOB: Community icy Number: [id number] Hospital [id number] Repository Date:2017-08-07 08/07/2017 Tertiary NOT GIVENUNK [place] Insurance:SELF PAY [facility] Number: Effective Repository Date:2017-08-07
== END ==
PROVIDERS: Family Provider Family Medicine; PCP Family Medicine; Referring Provider Family Medicine; Visit Provider Family Medicine
DX: Z01.812 Encounter for preprocedural laboratory examination (principal); G43.909 Migraine, unspecified, not intractable, without status migrainosus; R41.3 Other amnesia
CPT/HCPCS: 70470; Q9967

== ENCOUNTER → 2018-09-18 10:55 | Outpatient (CLI) | payer MEDICARE, SELFPAY | PROVIDERS: Family Provider Family Medicine; PCP Family Medicine; Visit Provider Family Medicine | DX: B82.9 Intestinal parasitism, unspecified (principal) | CPT/HCPCS: 36415; 87172; 87177; 87209 ==

== ENCOUNTER 2019-01-26 13:00 | Outpatient (RCR) | payer MEDICARE, MEDICAID, SELFPAY | END 2019-02-07 23:59 | LOC: DC 13:00 | PROVIDERS: Family Provider Family Medicine; PCP Family Medicine; Visit Provider Family Medicine | DX: E10.9 Type 1 diabetes mellitus without complications (principal); F31.30 Bipolar disorder, current episode depressed, mild or moderate severity, unspecified; Z71.3 Dietary counseling and surveillance | CPT/HCPCS: 97802; G0108 ==

== ENCOUNTER → 2019-02-03 13:40 | Outpatient (CLI) | payer MEDICARE, SELFPAY ==
[2019-02-03 11:48] VITALS: BMI 29.2
[2019-02-03 17:56] LABS: Chlamydia Trachomatis by PCR Negative (Negative); Neisserai gonorrhoeae by PCR Negative (Negative); Probe Check PASS; Sample Adequacy Control PASS; Specimen Processing Control PASS
== END ==
PROVIDERS: Family Provider Family Medicine; PCP Family Medicine; Referring Provider Nurse Practitioner Women's Health; Visit Provider Nurse Practitioner Women's Health
DX: Z11.3 Encounter for screening for infections with a predominantly sexual mode of transmission (principal); N89.8 Other specified noninflammatory disorders of vagina
CPT/HCPCS: 87070; 87205; 87491; 87591

== ENCOUNTER 2019-02-18 16:18 | Outpatient (RCR) | payer MEDICARE, MEDICAID, SELFPAY ==
[2019-02-03 11:48] VITALS: BMI 29.2
== END 2019-03-10 23:59 ==
LOC: DC 16:18
PROVIDERS: Family Provider Family Medicine; PCP Family Medicine; Visit Provider Family Medicine
DX: E10.9 Type 1 diabetes mellitus without complications (principal); F31.30 Bipolar disorder, current episode depressed, mild or moderate severity, unspecified; Z71.3 Dietary counseling and surveillance
CPT/HCPCS: G0109

== ENCOUNTER 2019-03-11 13:19 | Outpatient (RCR) | payer MEDICARE, MEDICAID, SELFPAY ==
[2019-03-05 11:45] VITALS: BMI 29.2
== END 2019-03-11 23:59 | disposition home or self-care (01) ==
LOC: DC 13:19
PROVIDERS: Family Provider Family Medicine; PCP Family Medicine; Visit Provider Family Medicine
DX: Z71.3 Dietary counseling and surveillance (principal); E10.9 Type 1 diabetes mellitus without complications; F31.30 Bipolar disorder, current episode depressed, mild or moderate severity, unspecified
CPT/HCPCS: G0109

== ENCOUNTER → 2019-05-20 08:58 | Outpatient (CLI) | payer MEDICARE, MEDICAID, SELFPAY ==
[2019-03-31 11:02] VITALS: BMI 29.2
[2019-05-20 12:46] LABS: Hemoglobin A1c 8.5 % (4.2-6.3)
[2019-05-20 12:58] LABS: Cholesterol 268 mg/dL (200); High Density Lipoprotein 44 mg/dL; T4 Free Direct 1.27 ng/dL (0.76-1.46); Thyroid Stim Hormone (TSH) 0.51 uIU/mL (0.358-3.74); Triglycerides 608 mg/dL
[2019-05-21 08:56] LABS: LDL, Direct 120295 132 mg/dL (0-99)
== END ==
PROVIDERS: Family Provider Family Medicine; PCP Family Medicine; Visit Provider Family Medicine
DX: E10.9 Type 1 diabetes mellitus without complications (principal); E03.9 Hypothyroidism, unspecified; E78.1 Pure hyperglyceridemia; M19.90 Unspecified osteoarthritis, unspecified site
CPT/HCPCS: 36415; 80061; 83036; 83721; 84439; 84443

== ENCOUNTER → 2019-06-08 | Outpatient (CLI) | payer MEDICARE, MEDICAID, SELFPAY ==
[2019-03-31 11:02] VITALS: BMI 29.2
[2019-06-08 17:36] LABS: Absolute Neutrophil Count 2.7 X10^3/uL (2.0-7.7); Basophil# 0.03 X10^3/uL; Basophil% 0.5 % (0-1); Eosinophil# 0.16 X10^3/uL; Eosinophils% 2.7 % (0-5); Hematocrit 42.3 % (37-47); Hemoglobin 13.6 g/dL (12.0-15.0); Lymphocyte % 46.6 % (19-41); Mean Corp Hgb Conc 32.2 g/dL (32-36); Mean Corpuscular Hgb 30.1 pg (27.0-32.0); Mean Corpuscular Volume 93.6 fL (81-99); Mean Platelet Vol. 10.7 fl (6.2-12.0); Monocyte# 0.27 X10^3/uL; Monocyte% 4.5 % (0-10); NRBC Flagged by Analyzer 0 % (0-5); Neutrophil # 2.73 X10^3/uL (2.7-7.7); Neutrophil % 45.4 % (47-70); Platelet Count 318 K/mm3 (150-450); RBC Distribution Width CV 11.9 % (11.6-14.6); Red Blood Count 4.52 M/mm3 (4.2-5.4)
[2019-06-08 17:50] LABS: D-Dimer Quantitative (DVT/PE) 0.37 FEU/ug/m (0.27-0.49)
== END | disposition home or self-care (01) ==
LOC: BFHLAB 15:44
PROVIDERS: Family Provider Family Medicine; PCP Family Medicine; Visit Provider Family Medicine
DX: R06.00 Dyspnea, unspecified (principal)
CPT/HCPCS: 36415; 84484; 85025; 85379

== ENCOUNTER → 2020-04-12 12:11 | Outpatient (CLI) | payer MEDICARE, MEDICAID, SELFPAY ==
[2020-04-12 12:07] VITALS: BMI 29.2
[2020-04-12 15:51] LABS: Vitamin D,25 Hydroxy 21.1 ng/mL
[2020-04-12 16:44] LABS: ALB/GLOB Ratio 1.1 RATIO (0.9-2.4); AST(SGOT) 36 U/L (15-37); Alanine Aminotransfer ALT/SGPT 65 U/L (13-56); Albumin, Serum 4.2 g/dL (3.2-5.0); Alkaline Phosphatase 81 U/L (45-117); Anion Gap 5 (5-15); BUN 23 mg/dL (7-18); BUN/Creat Ratio 25.9 RATIO (10-20); Calcium,Total 9.9 mg/dL (8.5-10.1); Chloride 104 mmol/L (98-107); Cholesterol 275 mg/dL (200); Creatinine, Serum 0.89 mg/dL (0.55-1.02); EST Glomerular Filtration Rate 78 mL/min (>60); Est Glom Filt Rate - Afr Amer 94 mL/min (>60); Globulin 3.7 g/dL (2.2-4.2); Glucose 233 mg/dL (74-106); High Density Lipoprotein 50 mg/dL; Potassium 4.2 mmol/L (3.5-5.1); Protein, Total 7.9 g/dL (6.4-8.2); Sodium Level 135 mmol/L (136-145); T4 Free Direct 1.22 ng/dL (0.76-1.46); Thyroid Stim Hormone (TSH) 0.17 uIU/mL (0.358-3.74); Triglycerides 454 mg/dL
[2020-04-13 09:14] LABS: PTHIN 29.5 pg/mL (18.4-80.1)
== END ==
PROVIDERS: PCP Family Medicine; Referring Provider Internal Medicine Endocrinology, Diabetes & Metabolism; Visit Provider Internal Medicine Endocrinology, Diabetes & Metabolism
DX: E10.9 Type 1 diabetes mellitus without complications (principal); E03.9 Hypothyroidism, unspecified; E83.52 Hypercalcemia; E78.1 Pure hyperglyceridemia; F31.9 Bipolar disorder, unspecified; E55.9 Vitamin D deficiency, unspecified
CPT/HCPCS: 36415; 80053; 80061; 82306; 83970; 84439; 84443

== ENCOUNTER 2020-04-18 21:41 | Emergency (ER) | payer MEDICARE, MEDICAID, SELFPAY ==
[2020-04-12 12:07] VITALS: BMI 29.2
[2020-04-18 21:42] VITALS: BP 120/84; PULSE 89; RESP 14; TEMP 36.4; O2SAT 93; BMI 31.6
--- NOTE | 2020-04-18 22:17 | CT_ITS ---
STUDY: CT BRAIN WITHOUT CONTRAST REASON FOR EXAM: Female, 35 years old. HEADACHE WITH NAUSEA AND :VOMITING -- HX:CERVICAL CANCER,DIABETES,MORGELLONS SYNDROME RADIATION DOSAGE (If Supplied By Facility): CTDIvol = ( 44.99 ) mGy, DLP = ( 745.49 ) mGycm TECHNIQUE: Transaxial CT imaging of the brain was performed without administration of intravenous contrast material. Individualized dose optimization techniques were used for this CT. COMPARISON: No relevant priors. FINDINGS: Normal soft tissue structures. Normal calvarium. Normal size ventricles and extra-axial spaces for the patient''s age. Normal white matter tracts of the cerebral hemispheres. Normal basal ganglia and thalami. Normal brainstem. Normal cerebellum. There is no intracranial hemorrhage. There are no findings of an acute ischemic infarction. Normal visualized paranasal sinuses. CT/Brain/Head without Contrast IMPRESSION: Normal unenhanced CT scan of the brain. Electronically Signed: Brianna Cummings MD at 0:02 EDT Tel , Service support ,
--- NOTE | 2020-04-18 22:31 | ED.VIS.GEN ---
History of Present Illness Chief Complaint: Headache Informant: Patient Onset: Yesterday Narrative: Patient reports a history of migraines. She states last evening she developed a migraine but then really had no headache today during the day. Tonight headache recurred. She describes the pain as being in the frontal area of her forehead and her face. She states she feels like she had flu symptoms all day today. She did not measure a fever. She does have sinus pressure and congestion. She does have light sensitivity, nausea, and vomiting. She has been taking Tylenol for her headache today. - Past Medical History (1) Bipolar 1 disorder Status: Chronic (2) Cervical cancer Status: Resolved Comment: States Leep age 20 and SANDY BSO age 25-26. 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 (6) Migraines Status: Chronic Past Medical History - Allergies and Home Meds Allergies/Adverse Reactions: Allergies adhesive tape Allergy (Severe, Verified 04/18/20 21:42) Unknown latex Allergy (Severe, Verified 04/18/20 21:42) Unknown prednisone Allergy (Mild, Verified 04/18/20 21:42) contraindicated due to diabetes strawberry Allergy (Mild, Verified 04/18/20 21:42) Unknown amitriptyline Allergy (Verified 04/18/20 21:42) Unknown NSAIDS (Non-Steroidal Anti-Inflamma Adverse Reaction (Verified 04/18/20 21:42) Other Primary Care Physician: Gabriel Martínez DO [Primary Care Provider] - Surgical History: no surgical history, - Lives: Spouse/ Significant Other Smoking Status: Former smoker Review of Systems General: Denies: Chills, Fever Eyes: Denies: Visual changes - bilaterally ENT: Reports: - - Sinus pressure. Denies: Bilateral ear pain Cardiovascular: Denies: Chest pain Gastrointestinal: Reports: Nausea, Vomiting Musculoskeletal: Denies: Extremity Pain Skin: Denies: Rash Neurological: Reports: Headache Hematologic: Denies: Easy bruising, Easy bleeding Allergy: Denies: Uticaria Physical Exam Vital Signs/Narrative: Vital Signs Temp Pulse Resp BP Pulse Ox 04/18/20 21:42 97.5 F L 89 14 120/84 H 93 Inital Vital Signs reviewed: Yes General: Well nourished, Well developed Head: Normocephalic ENT: Moist mucous membranes, Nasal congestion Neck: Supple, - - No meningismus Cardiovascular: Regular rate, Regular rhythm Respiratory: No distress, CTA bilaterally Abdomen: Soft, Nontender, Normal bowel sounds Back: Nontender Extremities: Nontender Skin: Normal color, No rash Neurological: Alert, Oriented x3, Normal Strength, Normal Sensation Psychological: Normal affect Diagnostic/Tx/Re-eval Impressions Brain CT 04/18/20 22:17 IMPRESSION: Normal unenhanced CT scan of the brain. Electronically Signed: Brianna Cummings MD at 0:02 EDT Tel , Service support , 04/18/20 22:17 Brain/Head without Contrast [CT] Stat - Medical Decision Making Patient was given Toradol, Reglan, Benadryl, and IV fluids. On repeat evaluation her headache is improving. Her CT is unremarkable. Patient did have a Covid swab obtained that will be sent out. She will be given prescriptions for Toradol, Reglan, and Benadryl to help with her headaches at home if needed. ED Disposition - Plan for ED Patient: Disposition: Home or Assisted Living Diagnosis: Migraine Instructions: ED, Migraine (Classical) Prescriptions: DiphenhydrAMINE [Benadryl] 50 mg PO TID PRN PRN #28 cap PRN Reason: Headache Transmission Status: Pending to [facility] Metoclopramide [Reglan] 10 mg PO Q8H PRN PRN #14 tab PRN Reason: Headache Transmission Status: Pending to [facility] Ketorolac [Toradol] 10 mg PO Q8H PRN #14 tab PRN Reason: Headache Transmission Status: Pending to [facility] Referrals: Gabriel Martínez DO [Primary Care Provider] - 3-5 Days if not improving
[2020-04-18] MEDS: Metoclopramide 10 MG/2 ML Vial IV (23:05)
[2020-04-18] MEDS: 0.9% Normal Saline 1,000 ML 999 ML IV (23:05)
[2020-04-18] MEDS: DiphenhydrAMINE 50 MG/ML Syringe 25 MG IV (23:07)
[2020-04-18] MEDS: Ketorolac 30 MG/ML Syringe IV (23:08)
[2020-04-19 00:51] VITALS: BP 101/54; PULSE 88; RESP 16; O2SAT 99
== END 2020-04-19 00:52 | disposition home or self-care (01) ==
PROVIDERS: Emergency Provider Emergency Medicine; PCP Family Medicine
DX: G43.909 Migraine, unspecified, not intractable, without status migrainosus (principal); E10.9 Type 1 diabetes mellitus without complications; E06.3 Autoimmune thyroiditis; E78.1 Pure hyperglyceridemia; F31.9 Bipolar disorder, unspecified; Z79.4 Long term (current) use of insulin; Z79.899 Other long term (current) drug therapy; Z85.41 Personal history of malignant neoplasm of cervix uteri; Z87.891 Personal history of nicotine dependence
CPT/HCPCS: 70450; 87635; 96361; 96374; 96375; 99285; C9803; J7030; A4216; U0003

== ENCOUNTER → 2020-04-28 | Outpatient (CLI) | payer MEDICARE, MEDICAID, SELFPAY ==
[2020-04-18 21:42] VITALS: BMI 31.6
== END | disposition home or self-care (01) ==
LOC: MTDU 17:07
PROVIDERS: PCP Family Medicine; Referring Provider Family Medicine; Visit Provider Family Medicine
DX: Z20.828 Contact with and (suspected) exposure to other viral communicable diseases (principal)
CPT/HCPCS: 87635; C9803; U0003

== ENCOUNTER → 2020-06-07 09:34 | Outpatient (CLI) | payer MEDICARE, MEDICAID, SELFPAY ==
--- NOTE | 2020-06-07 09:40 | RAD_ITS ---
HISTORY: acute low back pain with initial signs of cord compression now resolved, Hx of fusion L3-L5 - ensure hardware stability ADDITIONAL HISTORY: None provided. EXAMINATION/TECHNIQUE: XR Spine Lumbar Comp W/ Bending Min 6 Views Number of images including paperwork: 7 COMPARISON: 09/21/2012. CT 03/01/2013 FINDINGS: VERTEBRAE: No acute fracture. Spinal fusion L3-L5 with posterior rods, pedicle screws, and disc spacers. Subtle similar device partially visible. VERTEBRAL ALIGNMENT: No traumatic subluxation. No evidence of instability on flexion extension radiographs. DISKS AND JOINTS: Mild degenerative changes in the lower thoracic spine. SOFT TISSUES: Unremarkable paraspinous soft tissues. Moderate amount of colonic stool. RAD/L/S Spine Comp/w Bending Views IMPRESSION: 1. No acute findings. 2. Postoperative changes. at 2350 Reported and signed by: Xochilt Quintanilla MD Electronically Signed: Xochilt Quintanilla MD at 23:50 EDT Tel , Service support ,
== END ==
PROVIDERS: PCP Family Medicine; Referring Provider Family Medicine; Visit Provider Family Medicine
DX: M54.5 Low back pain (principal)
CPT/HCPCS: 72114

== ENCOUNTER → 2020-08-01 11:51 | Outpatient (CLI) | payer MEDICARE, MEDICAID, SELFPAY ==
[2020-07-20 14:51] VITALS: BMI 31.6
[2020-08-01 11:55] LABS: Bacteria 0 SEEN /hpf (None Seen); Mucous, Urine 0 SEEN /hpf (<or=2+); Red Blood Cells-Urine 0 SEEN /hpf (0-5); White Blood Cells 0 SEEN /hpf (0-5)
[2020-08-01 15:40] LABS: Color, Urine Yellow (Yellow); Glucose, Dipstick 250 mg/dl (Normal); Ketone-Dipstick Negative (Negative); Leukocyte Esterase-Dipstick Negative /ul (Negative); Nitrite-Dipstick Negative (Negative); Occult Blood-Urine Negative /ul (Negative); Protein-Dipstick 15 mg/dl (Negative); Urine Bilirubin Dipstick Negative (Negative); Urine Clarity Clear (Clear); Urine Urobilinogen Normal (Normal)
[2020-08-01 15:58] LABS: Squamous Epithelial Cells - UA 0-5 SEEN /hpf (5-10)
== END ==
PROVIDERS: PCP Family Medicine; Visit Provider Family Medicine
DX: R60.9 Edema, unspecified (principal); E03.9 Hypothyroidism, unspecified; R63.5 Abnormal weight gain
CPT/HCPCS: 36415; 81001; 82533; 84439; 84443

== ENCOUNTER → 2020-10-23 09:59 | Outpatient (CLI) | payer MEDICARE, MEDICAID, SELFPAY ==
[2020-10-23 09:07] VITALS: BMI 34.4
[2020-10-23 13:00] LABS: T4 Free Direct 1.39 ng/dL (0.76-1.46); Thyroid Stim Hormone (TSH) 0.01 uIU/mL (0.358-3.74)
== END ==
PROVIDERS: PCP Family Medicine; Visit Provider Internal Medicine Endocrinology, Diabetes & Metabolism
DX: E03.8 Other specified hypothyroidism (principal); E06.3 Autoimmune thyroiditis
CPT/HCPCS: 36415; 84439; 84443

== ENCOUNTER → 2021-03-21 10:55 | Outpatient (CLI) | payer MEDICARE, MEDICAID, SELFPAY ==
[2020-10-23 09:07] VITALS: BMI 34.4
--- NOTE | 2021-03-21 11:00 | RAD_ITS ---
STUDY: X-RAY CHEST REASON FOR EXAM: Female, 36 years old. COUGH / DYSPNEA TECHNIQUE: PA and lateral views of the chest. COMPARISON: 11/19/2011 FINDINGS: The lungs are clear and expanded. There is no demonstrated pleural abnormality. Normal size heart. Normal mediastinum and axel. Normal visualized pulmonary arteries. Normal visualized aortic arch and descending thoracic aorta. Normal visualized thoracic spine. Normal visualized ribs, clavicles, and shoulders. There is no demonstrated abnormality of the visualized soft tissue structures of the upper abdomen. RAD/Chest PA and Lateral IMPRESSION: Normal x-ray examination of the chest. Electronically Signed: Jared Guillaume MD at 16:53 EDT Tel , Service support ,
[2021-03-21 16:57] LABS: Probe Check PASS; Specimen Processing Control PASS
== END ==
PROVIDERS: PCP Family Medicine; Referring Provider Family Medicine; Visit Provider Family Medicine
DX: R06.00 Dyspnea, unspecified (principal); R05 Cough
CPT/HCPCS: 71046; 87633; 87635; U0005; U0003

== ENCOUNTER 2021-09-26 11:37 | Outpatient (CLI) | payer MEDICARE, MEDICAID, SELFPAY ==
--- NOTE | 2021-09-26 11:45 | BI_ITS ---
MAMMOGRAPHY - BILATERAL DIAGNOSTIC REASON FOR EXAM: Female, 36 years old. 4 month history of right axillary lump. PERTINENT HISTORY: Grandmother with breast cancer. TECHNIQUE: Digital bilateral breast quincy (3D mammographic acquisition) in the CC and MLO projections. 2-D mediolateral oblique (MLO) and craniocaudad (CC) views of both breasts were obtained. CAD: Full Field Digital Mammography with Computer Added Detection was performed. COMPARISON: None. Baseline examination. FINDINGS: Breast Composition: There are scattered areas of fibroglandular density. There are no dominant masses or suspicious calcifications. Small right axillary lymph nodes. No other significant abnormalities are identified. BI/DIAG MAMM W/CAD, BILAT IMPRESSION: Negative diagnostic mammogram. With the patient''s history of a palpable right axillary lump, correlation with ultrasound is recommended. ASSESSMENT CATEGORY: BIRADS Category 0: Incomplete. Need additional imaging evaluation. A letter regarding these results will be sent to the patient by the facility within 30 days. Approximately 10% of breast cancers are not detected by mammography. A normal mammogram should not delay biopsy of a clinically suspicious abnormality. Electronically Signed: Paxton aPulino MD at 13:19 EST ,
--- NOTE | 2021-09-26 12:07 | US_ITS ---
STUDY: ULTRASOUND BREAST - RIGHT REASON FOR EXAM: Female, 36 years old. Right axillary lump. TECHNIQUE: Axial and longitudinal images of the RIGHT breast were performed with a high resolution ultrasound transducer. # OF IMAGES: 12 COMPARISON: Comparison is made with prior mammogram done earlier today. FINDINGS: RIGHT Breast: The right axillary region was examined with ultrasound. There is evidence of fibroglandular tissue. No sonographic abnormality is seen. US/Breast Limited Unilateral IMPRESSION: No sonographic abnormality is seen. ASSESSMENT CATEGORY: BIRADS Category 1: Negative. A letter regarding these results will be sent to the patient by the facility within 30 days. Electronically Signed: Paxton Paulino MD at 13:21 EST ,
== END 2021-09-26 23:59 | disposition home or self-care (01) ==
PROVIDERS: PCP Family Medicine; Referring Provider Family Medicine; Visit Provider Family Medicine
DX: R92.2 Inconclusive mammogram (principal); R59.0 Localized enlarged lymph nodes
CPT/HCPCS: 76642; 77062; 77066; G0279

== ENCOUNTER → 2021-12-19 | Outpatient (CLI) | payer MEDICARE, MEDICAID, SELFPAY ==
[2021-12-19 16:00] LABS: ALB/GLOB Ratio 0.9 RATIO (0.9-2.4); AST(SGOT) 42 U/L (15-37); Alanine Aminotransfer ALT/SGPT 43 U/L (13-56); Albumin, Serum 3.4 g/dL (3.2-5.0); Alkaline Phosphatase 136 U/L (45-117); Anion Gap 11 (5-15); BUN 24 mg/dL (7-18); BUN/Creat Ratio 28.2 RATIO (10-20); Calcium,Total 9.4 mg/dL (8.5-10.1); Chloride 105 mmol/L (98-107); Creatinine, Serum 0.85 mg/dL (0.55-1.02); EST Glomerular Filtration Rate 81 mL/min (>60); Est Glom Filt Rate - Afr Amer 98 mL/min (>60); Globulin 3.9 g/dL (2.2-4.2); Glucose 200 mg/dL (74-106); Potassium 3.9 mmol/L (3.5-5.1); Protein, Total 7.3 g/dL (6.4-8.2); Sodium Level 138 mmol/L (136-145); Thyroid Stim Hormone (TSH) 0.03 uIU/mL (0.358-3.74); Troponin-I HS < 3 pg/mL (3.0-54.0)
[2021-12-19 17:46] LABS: Absolute Lymphocyte Count 2.92 X10^3/uL (0.83-4.51); Absolute Neutrophil Count 4.5 X10^3/uL (2.0-7.7); Basophil# 0.04 X10^3/uL; Basophil% 0.5 % (0-1); Eosinophil# 0.13 X10^3/uL; Eosinophils% 1.6 % (0-5); Hematocrit 39.4 % (37-47); Hemoglobin 12.3 g/dL (12.0-15.0); Lymphocyte # 2.92 X10^3/ul (0.83-4.51); Lymphocyte % 36.4 % (19-41); Mean Corp Hgb Conc 31.2 g/dL (32-36); Mean Corpuscular Hgb 29.9 pg (27.0-32.0); Mean Corpuscular Volume 95.6 fL (81-99); Mean Platelet Vol. 10.6 fl (6.2-12.0); Monocyte# 0.44 X10^3/uL; Monocyte% 5.5 % (0-10); NRBC Flagged by Analyzer 0 % (0-5); Neutrophil # 4.46 X10^3/uL (2.7-7.7); Neutrophil % 55.6 % (47-70); Platelet Count 314 K/mm3 (150-450); RBC Distribution Width CV 12.6 % (11.6-14.6); RBC Distribution Width SD 43.8 fl (35.1-43.9); Red Blood Count 4.12 M/mm3 (4.2-5.4)
== END | disposition home or self-care (01) ==
LOC: MTLAB 11:47
PROVIDERS: PCP Family Medicine; Referring Provider Family Medicine; Visit Provider Family Medicine
DX: R07.9 Chest pain, unspecified (principal); R53.83 Other fatigue; E03.9 Hypothyroidism, unspecified
CPT/HCPCS: 36415; 80053; 84443; 84484; 85025

== ENCOUNTER → 2021-12-27 | Outpatient (CLI) | payer MEDICARE, MEDICAID, SELFPAY ==
--- NOTE | 2021-12-27 14:06 | STRESSREP_ITS ---
Stress Test Report Date: 12/27/2021 Procedure: Pharmacologic stress nuclear imaging study Indications: Chest pain Consent: Per the patient Procedure: The patient underwent pharmacologic (Regadenoson) evaluation with a peak heart rate of 125 beats per minute (67%predicted maximal heart rate) and a peak blood pressure of 140/82 mmHg. The baseline ECG demonstrated normal sinus rhythm. EKG during lexiscan infusion revealed no significant ischemic changes. EKG post infusion revealed no significant ischemic changes [There were no cardiac dysrhythmias pretest, during pharmacologic infusion, or recovery]. [There was no complaint of chest discomfort during pharmacologic infusion or recovery]. The examination was discontinued secondary to completion of protocol. Impression: 1. Lexiscan stress test test is negative for Lexiscan infusion induced EKG changes of ischemia. 2. Lexiscan stress test test is negative for Lexiscan infusion induced chest pain. 3. Results of the nuclear portion of the test is as below Myocardial perfusion imaging study: Technique: The patient was injected with 11.9 millicuries of technetium 99m Cardiolite and subsequently rest SPECT Cardiolite nuclear imaging was obtained in the horizontal long, vertical long, and short axis views. The patient underwent pharmacologic [Regadenoson 0.4mg] evaluation. Please see above for details. The patient was injected with 36 millicuries of technetium 99m Cardiolite and subsequently stress SPECT Cardiolite nuclear imaging was obtained in the horizontal long, vertical long, and short axis views. A gated Cardiolite study at peak stress was obtained. Interpretation: Rest and stress SPECT Cardiolite nuclear imaging status post realignment, normalization, and attenuation correction demonstrate overall normal myocardial radioisotope uptake. Gated images reveal no significant regional wall motion abnormalities. The reported LVEF is greater than 70%. Impression: 1. There is no evidence of significant ischemia or infarction. 2. Estimated ejection fraction is greater than 70%. This note was generated with Step[employer] software. It may contain incorrect words, spelling, and punctuation that were not noted in checking the note before signing.
== END | disposition home or self-care (01) ==
LOC: CVS 06:50
PROVIDERS: PCP Family Medicine; Referring Provider Family Medicine; Visit Provider Family Medicine
DX: R07.9 Chest pain, unspecified (principal); R53.83 Other fatigue
CPT/HCPCS: 78452; 93017; A9500; A4216; J2785

== ENCOUNTER → 2022-02-05 | Outpatient (CLI) | payer MEDICARE, MEDICAID, SELFPAY | END | disposition home or self-care (01) | PROVIDERS: PCP Family Medicine; Visit Provider Family Medicine | DX: Z20.822 Contact with and (suspected) exposure to COVID-19 (principal) | CPT/HCPCS: 87635; U0003; U0005 ==

== ENCOUNTER → 2022-08-21 | Outpatient (CLI) | payer MEDICARE, MEDICAID, SELFPAY ==
[2022-08-21 12:28] LABS: Erythrocyte Sedimentation Rate 55 mm/hr (0-30)
[2022-08-21 12:29] LABS: Color, Urine Straw (Yellow); Glucose, Dipstick 1000 mg/dl (Normal); Ketone-Dipstick 50 mg/dl (Negative); Leukocyte Esterase-Dipstick Negative /ul (Negative); Nitrite-Dipstick Negative (Negative); Occult Blood-Urine Negative /ul (Negative); Protein-Dipstick Negative (Negative); Specific Gravity, Urine 1.015 (1.002-1.030); Urine Bilirubin Dipstick Negative (Negative); Urine Clarity Clear (Clear); Urine Urobilinogen Normal (Normal)
[2022-08-21 12:31] LABS: Basophil# 0.02 X10^3/uL; Basophil% 0.2 % (0-1); Eosinophil# 0.31 X10^3/uL; Eosinophils% 3.3 % (0-5); Hematocrit 39.9 % (37-47); Hemoglobin 12.5 g/dL (12.0-15.0); Lymphocyte % 28.8 % (19-41); Mean Corp Hgb Conc 31.3 g/dL (32-36); Mean Corpuscular Hgb 30.9 pg (27.0-32.0); Mean Corpuscular Volume 98.8 fL (81-99); Mean Platelet Vol. 10.2 fl (6.2-12.0); Monocyte# 0.33 X10^3/uL; Monocyte% 3.5 % (0-10); NRBC Flagged by Analyzer 0 % (0-5); Neutrophil # 5.99 X10^3/uL (2.7-7.7); Neutrophil % 63.8 % (47-70); Platelet Count 377 K/mm3 (150-450); RBC Distribution Width CV 13.2 % (11.6-14.6); Red Blood Count 4.04 M/mm3 (4.2-5.4); White Blood Count 9.4 K/mm3 (4.4-11.0)
[2022-08-21 13:42] LABS: ALB/GLOB Ratio 0.9 RATIO (0.9-2.4); AST(SGOT) 29 U/L (15-37); Alanine Aminotransfer ALT/SGPT 39 U/L (13-56); Albumin, Serum 3.6 g/dL (3.2-5.0); Alkaline Phosphatase 130 U/L (45-117); Anion Gap 17 (5-15); BUN 22 mg/dL (7-18); BUN/Creat Ratio 18.6 RATIO (10-20); Calcium,Total 9.6 mg/dL (8.5-10.1); Chloride 103 mmol/L (98-107); Creatinine, Serum 1.18 mg/dL (0.55-1.02); EST Glomerular Filtration Rate 55 mL/min (>60); Est Glom Filt Rate - Afr Amer 67 mL/min (>60); Glucose 286 mg/dL (74-106); Lipase 97 U/L (73-393); Protein, Total 7.6 g/dL (6.4-8.2); Rheumatoid Factor < 10.0 IU/mL (<15); Sodium Level 137 mmol/L (136-145); Thyroid Stim Hormone (TSH) 0.22 uIU/mL (0.358-3.74)
[2022-08-22 22:00] LABS: CCP IgG Antibodies 0 units (0-19)
== END | disposition home or self-care (01) ==
LOC: BFHLAB 09:54
PROVIDERS: PCP Family Medicine; Visit Provider Family Medicine
DX: R10.9 Unspecified abdominal pain (principal); M06.9 Rheumatoid arthritis, unspecified; E03.9 Hypothyroidism, unspecified
CPT/HCPCS: 80053; 81002; 83690; 84443; 85025; 85652; 86140; 86200; 86431; 87086; 87088

== ENCOUNTER → 2023-07-10 | Outpatient (CLI) | payer MEDICARE, MEDICAID, SELFPAY | END | disposition home or self-care (01) | LOC: BFHLAB 16:24 | PROVIDERS: PCP Family Medicine; Visit Provider Family Medicine | DX: R10.9 Unspecified abdominal pain (principal) | CPT/HCPCS: 87086 ==

== ENCOUNTER → 2025-01-24 | Outpatient (CLI) | payer BC, SELFPAY ==
[2025-01-24 18:59] LABS: Color, Urine Yellow (Yellow); Glucose, Dipstick Normal (Normal); Ketone-Dipstick 5 mg/dl (Negative); Leukocyte Esterase-Dipstick Negative /ul (Negative); Nitrite-Dipstick Negative (Negative); Occult Blood-Urine Negative /ul (Negative); Protein-Dipstick 30 mg/dl (Negative); Urine Bilirubin Dipstick Negative (Negative); Urine Clarity Sl. Cloudy (Clear); Urine Urobilinogen 4 mg/dl (Normal)
[2025-01-24 19:49] LABS: Erythrocyte Sedimentation Rate 18 mm/hr (0-30)
[2025-01-25 15:09] LABS: ALB/GLOB Ratio 1.6 RATIO (0.9-2.4); AST(SGOT) 53 U/L (<=31); Alanine Aminotransfer ALT/SGPT 48 U/L (<=34); Albumin, Serum 4.1 g/dL (3.5-5.0); Alkaline Phosphatase 112 U/L (35-104); Anion Gap 14 (5-15); BUN 16 mg/dL (4-19); BUN/Creat Ratio 19.7 RATIO (10-20); Calcium,Total 9.6 mg/dL (7.6-11.0); Chloride 103 mmol/L (98-108); Creatinine, Serum 0.79 mg/dL (0.70-1.20); EST Glomerular Filtration Rate 98 (>60); Globulin 2.5 g/dL (2.2-4.2); Glucose 180 mg/dL (70-99); Protein, Total 6.7 g/dL (5.9-8.4); Sodium Level 139 mmol/L (133-145); Total Bilirubin 0.28 mg/dL (0.00-1.30)
[2025-01-25 15:51] LABS: Pro- Brain NATRIURETIC PEPTIDE 161 pg/mL (<=450); Rheumatoid Factor < 10.0 IU/mL (<15)
[2025-01-26 12:08] LABS: CCP IgG Antibodies 0 units (0-19)
== END | disposition home or self-care (01) ==
PROVIDERS: PCP Family Medicine; Visit Provider Family Medicine
DX: R60.0 Localized edema (principal); M06.9 Rheumatoid arthritis, unspecified; R06.00 Dyspnea, unspecified
CPT/HCPCS: 36415; 80053; 81002; 83880; 85652; 86140; 86200; 86431

== ENCOUNTER → 2025-02-03 | Outpatient (CLI) | payer BC, SELFPAY ==
[2025-02-07 22:06] LABS: Pancreatic Elastase, Fecal 715 (>200)
[2025-02-08 08:08] LABS: Calprotectin, Stool 68 ug/g (0-120)
[2025-02-08 08:08] LABS: ACCA 12 units (0-90); ALCA 14 units (0-60); AMCA 20 units (0-100); Endomysial Antibody IgA Negative (Negative); Immunoglobulin A 188 mg/dL (87-352); gASCA 8 units (0-50); t-Transglutaminase IgA <2 U/mL (0-3)
== END | disposition home or self-care (01) ==
LOC: LAB 14:32
PROVIDERS: PCP Family Medicine
DX: R11.0 Nausea (principal); K76.0 Fatty (change of) liver, not elsewhere classified; K58.0 Irritable bowel syndrome with diarrhea
CPT/HCPCS: 36415; 82653; 82784; 83516; 83993; 86036; 86255; 86671; 87506

== ENCOUNTER → 2025-02-15 | Outpatient (CLI) | payer OTHER, SELFPAY ==
--- NOTE | 2025-02-15 14:33 | RAD_ITS ---
EXAM: XR Chest, 2 Views CLINICAL INDICATION: RA TECHNIQUE: Frontal and lateral views of the chest. COMPARISON: No relevant prior studies available. FINDINGS: LUNGS AND PLEURAL SPACES: Unremarkable. No consolidation. No pneumothorax. HEART: Unremarkable. No cardiomegaly. MEDIASTINUM: Unremarkable. Normal mediastinal contour. BONES/JOINTS: Unremarkable. No acute fracture. RAD/Chest PA and Lateral IMPRESSION: No acute cardiopulmonary process. Reading [facility]
[2025-02-15 18:05] LABS: Hematocrit 45.5 % (37-47); Hemoglobin 15.3 g/dL (12.0-15.0); Immature Granulocytes Count 0.020 X10^3/uL (0.0-0.0); Mean Corp Hgb Conc 33.6 g/dL (32-36); Mean Corpuscular Volume 90.5 fL (81-99); Mean Platelet Vol. 11.1 fl (6.2-12.0); NRBC Flagged by Analyzer 0 % (0-5); Platelet Count 292 K/mm3 (150-450); RBC Distribution Width CV 12.0 % (11.6-14.6); RBC Distribution Width SD 39.6 fl (35.1-43.9); Red Blood Count 5.03 M/mm3 (4.2-5.4); White Blood Count 9.4 K/mm3 (4.4-11.0)
[2025-02-15 19:10] LABS: AST(SGOT) 33 U/L (<=31); Alanine Aminotransfer ALT/SGPT 60 U/L (<=34); Albumin, Serum 4.5 g/dL (3.5-5.0); Alkaline Phosphatase 132 U/L (35-104); Anion Gap 17 (5-15); BUN 14 mg/dL (4-19); BUN/Creat Ratio 16.3 RATIO (10-20); Calcium,Total 10.2 mg/dL (7.6-11.0); Carbon Dioxide 22.4 mmol/L (21.0-32.0); Chloride 99 mmol/L (98-108); Globulin 3.4 g/dL (2.2-4.2); Glucose 238 mg/dL (70-99); Hepatitis B Surface Antigen Nonreactive (Nonreactive); Hepatitis C Antibody Nonreactive (Nonreactive); Potassium 4.5 mmol/L (3.3-5.1)
[2025-02-17 11:09] LABS: ANTINUCLEAR ANTIBODIES DIRECT Negative (Negative)
== END | disposition home or self-care (01) ==
LOC: MTLAB 14:32
PROVIDERS: PCP Family Medicine; Referring Provider Internal Medicine Rheumatology; Visit Provider Internal Medicine Rheumatology
DX: M06.09 Rheumatoid arthritis without rheumatoid factor, multiple sites (principal); M79.7 Fibromyalgia; Z79.899 Other long term (current) drug therapy
CPT/HCPCS: 36415; 71046; 80053; 85025; 86038; 86200; 86431; 86480; 86706; 86803; 87340

== ENCOUNTER → 2025-06-30 | Outpatient (CLI) | payer OTHER, SELFPAY ==
[2025-06-30 17:29] LABS: Barbiturate Urine NEGATIVE (< 200 ng/mL); Benzodiazepine Urine PRESUMPTIVE POSITIVE (< 200 ng/mL); PCP Urine NEGATIVE (< 25 ng/mL); THC Urine NEGATIVE (< 50 ng/mL)
== END | disposition home or self-care (01) ==
LOC: LAB 15:22
PROVIDERS: PCP Family Medicine; Referring Provider Anesthesiology Pain Medicine; Visit Provider Anesthesiology Pain Medicine
DX: F11.20 Opioid dependence, uncomplicated (principal)
CPT/HCPCS: 80307

== ENCOUNTER → 2025-07-19 | Outpatient (CLI) | payer OTHER, SELFPAY ==
--- NOTE | 2025-07-19 09:46 | US_ITS ---
PROCEDURE: ABDOMEN LIMITED 07/19/2025 REASON FOR EXAM: FATTY LIVER TECHNIQUE: Procedure Code: USABDL Modality: US Procedure: ABDOMEN LIMITED COMPARISON: None FINDINGS: Liver: Diffusely echogenic suggesting fatty infiltration. Hepatomegaly. The liver measures 22 cm. Gallbladder: No stones, sludge, wall thickening or tenderness. Common bile duct: Normal measuring 4 mm. Pancreas: Obscured by bowel gas. Kidneys: The right kidney measures 11.4 cm 5.3 cm 4.7 cm. US/Abdomen Limited IMPRESSION: Hepatomegaly. Diffuse fatty infiltration of the liver. Reading Location: [place] [id number]
== END | disposition home or self-care (01) ==
LOC: US 09:42
PROVIDERS: PCP Family Medicine; Referring Provider Internal Medicine Endocrinology, Diabetes & Metabolism; Visit Provider Internal Medicine Endocrinology, Diabetes & Metabolism
DX: K76.0 Fatty (change of) liver, not elsewhere classified (principal)
CPT/HCPCS: 76705

== ENCOUNTER → 2025-07-27 | Outpatient (CLI) | payer OTHER, SELFPAY ==
--- NOTE | 2025-07-27 13:15 | RAD_ITS ---
PROCEDURE: CERV SPINE 2 OR 3 VIEWS 07/27/2025 REASON FOR EXAM: CERVICAL RADICULOPATHY TECHNIQUE: Procedure Code: RADSPCL Modality: DX Procedure: CERV SPINE 2 OR 3 VIEWS FINDINGS: No evidence of acute fracture or dislocation. Vertebral body heights and intervertebral disc spaces are maintained. Straightening of the normal cervical lordosis. RAD/Cerv Spine 2 or 3 Views IMPRESSION: No significant abnormality. Reading Location: AVE
== END | disposition home or self-care (01) ==
LOC: RAD 12:54
PROVIDERS: PCP Family Medicine; Referring Provider Anesthesiology; Visit Provider Anesthesiology
DX: M54.12 Radiculopathy, cervical region (principal)
CPT/HCPCS: 72040

== ENCOUNTER → 2025-08-01 | Outpatient (CLI) | payer OTHER, SELFPAY ==
--- NOTE | 2025-08-01 07:51 | US_ITS ---
PROCEDURE: ELASTOGRAPHY PARENCHYMA/ORGAN 08/01/2025 REASON FOR EXAM: FATTY LIVER TECHNIQUE: Procedure Code: USELPAROG Modality: US Procedure: ELASTOGRAPHY PARENCHYMA/ORGAN COMPARISON: Ultrasound abdomen limited dated 07/19/2025. FINDINGS: ELASTOGRAPHY: EQI Med: 5.6 kPa EQI Med [place]asper: 1.36 m/s US/Elastography Parenchyma/Organ IMPRESSION: 1. Hepatic elastography measurements indicate F0 to F1, likelihood of hepatic fibrosis. Reading Location: [place] [address]
== END | disposition home or self-care (01) ==
PROVIDERS: PCP Family Medicine; Referring Provider Internal Medicine Endocrinology, Diabetes & Metabolism; Visit Provider Internal Medicine Endocrinology, Diabetes & Metabolism
DX: K76.0 Fatty (change of) liver, not elsewhere classified (principal)
CPT/HCPCS: 76981